=== PATIENT | male | born 1940 | race Caucasian/White ===

== ENCOUNTER 2020-10-17 16:50 | Inpatient (IN) | payer MEDICARE, SELFPAY ==
[2020-10-17] VITALS (9 sets, daily range): BP systolic 131–159; BP diastolic 57–78; PULSE 82–97; RESP 19–30; TEMP 37.2–38.3; O2SAT 91–100; BMI 19.8
--- NOTE | ~2020-10-17 | XR_ITS ---
EXAMINATION: XR CHEST CLINICAL INFORMATION: Shortness of breath. COMPARISON: 04/14/2020 chest radiograph. TECHNIQUE: Frontal view of the chest was obtained. FINDINGS: Support devices: Left-sided single-lead pacemaker device with lead terminating in the right ventricle without significant change. There is been interval increase in pulmonary vascular markings with bilateral patchy infiltrates. The heart and mediastinal structures are unremarkable. XR/XR chest 1V IMPRESSION: Pulmonary findings suggest CHF. An infectious/inflammatory process would be less likely.
--- NOTE | ~2020-10-17 | CT_ITS ---
EXAMINATION: CT ANGIOGRAM CHEST WITH AND WITHOUT CONTRAST (CT PULMONARY ANGIOGRAM FOR PE) CLINICAL INFORMATION: Severe hypoxia. Question saddle emboli. COMPARISON: CT chest done earlier the same day. TECHNIQUE: Prior to contrast administration, noncontrast localization images were obtained. Subsequently, multidetector volumetric imaging was performed from the thoracic inlet to below the diaphragms following the administration of 55 mL Omnipaque 350 intravenous contrast. No contrast reaction reported. Sagittal, coronal, and MIP oblique sagittal reformatted images were obtained on the CT workstation, uploaded to PACS, and reviewed. This CT examination was performed using dose optimization techniques as appropriate, variously including the following: *Automated exposure control. *Adjustment of mA and/or kV according to patient size (this includes techniques or standardized protocols for targeted exams where dose is matched to indication/reason for exam; i.e. extremities or head). *Use of iterative reconstruction technique. Total exam dose-length product 342 mGy-cm. FINDINGS: QUALITY OF STUDY/CONTRAST BOLUS: Satisfactory. PULMONARY ARTERIES: No central or segmental pulmonary emboli. Dilatation of the central pulmonary arteries, which could indicate a degree of pulmonary hypertension. THORACIC AORTA: No thoracic aortic dilatation or dissection. Scattered atherosclerotic calcifications. LUNG: Bilateral airspace opacities, most significant within the upper lobes, similar when compared to the chest radiograph done earlier the same day. No significant interval change. The central airways are patent. PLEURA: Moderate bilateral pleural effusions, unchanged. No pneumothorax. MEDIASTINUM: No cardiomegaly. No pericardial effusion. Stable, enlarged superior mediastinal lymph nodes, the largest of which is anterior to the right mainstem bronchus measuring 1.5 x 2.8 cm. No evidence of septal bowing or right heart strain. CHEST WALL/AXILLA: Left chest wall pacer with its leads in the right heart. No significant axillary lymphadenopathy. OSSEOUS STRUCTURES: Redemonstration of a chronic sternal fracture. No new lytic or blastic osseous lesion. No acute fracture. UPPER ABDOMEN: Unremarkable. No reflux of contrast into the hepatic veins to suggest elevated right heart pressures. CT/CT angio chest PE protocol IMPRESSION: 1. No CT angiographic evidence of acute pulmonary embolism. 2. Moderate bilateral pleural effusions with bilateral ground-glass airspace opacities, not significantly changed when compared to the prior examination. Findings can be seen in the setting of an infectious or inflammatory process. Alternatively, findings can be seen in the setting of fluid overload. 3. Dilatation of the central pulmonary arteries which could indicate a degree of pulmonary hypertension. 4. Redemonstration of prominent superior mediastinal lymph nodes. VTE: Negative.
--- NOTE | ~2020-10-17 | CT_ITS ---
EXAMINATION: CT HEAD WITHOUT CONTRAST CT CERVICAL SPINE WITHOUT CONTRAST CT CHEST WITHOUT CONTRAST CLINICAL INFORMATION: Fall. Multifocal pneumonia. COMPARISON: CT head and cervical spine dated 04/14/2020 TECHNIQUE: Multidetector CT imaging of the head, cervical spine and chest was performed without the use of intravenous contrast. Multiplanar reformats are reviewed. This CT examination was performed using dose optimization techniques as appropriate, variously including the following: *Automated exposure control *Adjustment of mA and/or kV according to patient size (this includes techniques or standardized protocols for targeted exams where dose is matched to indication/reason for exam; i.e. extremities or head) *Use of iterative reconstruction technique DLP: 1334 mGy-cm. FINDINGS: HEAD: There is no evidence of acute intracranial hemorrhage or territorial infarction. No abnormal mass effect or midline shift is seen. [place] to white matter differentiation is well preserved. No extra-axial fluid collections are identified. The ventricles are normal in size. Mild patchy subcortical and periventricular white matter low-attenuation changes statistically related to small vessel ischemic disease. The osseous structures and soft tissues are normal. The mastoid air cells and visualized portions of the paranasal sinuses are well-aerated. CERVICAL SPINE: Atlantooccipital alignment is maintained. The vertebral bodies and posterior elements align normally. No acute fracture or subluxation. Vertebral body heights maintained. Small endplate osteophytes present throughout the cervical spine. Facet arthropathy throughout the cervical spine, most probably on the left from C3 to C6. No central canal or foraminal narrowing. The paraspinal soft tissues are unremarkable. CHEST: There are patchy airspace opacities predominating within the upper lobes bilaterally, right greater than left. Diffuse intralobular septal thickening is present. Moderate bilateral pleural effusions with accompanying atelectasis. Pneumatoceles present within the lower lobes bilaterally. Cardiomegaly. Triple vessel coronary calcifications. Main pulmonary artery is dilated to 4 cm suggestive of pulmonary hypertension. Anemia is evident. There is a 1.1 cm precarinal lymph node, and shotty subcarinal and bilateral hilar lymph nodes. Chest wall and axilla are unremarkable. Imaged upper abdomen unremarkable. No acute fractures. There is a chronic transversely oriented fracture through the superior mediastinum with mild posterior displacement of the upper sternal fracture fragment, and associated callus formation and sclerosis. No retrosternal hematoma. Endplate ossified present throughout the cervical spine. Vertebral body heights maintained. CT/CT cervical spine wo con IMPRESSION: HEAD: * No acute intracranial pathology. * Mild chronic white matter small vessel ischemic changes. CERVICAL SPINE: * No cervical spine fracture or malalignment. * Cervical spondylosis as described. CHEST: * Upper lobe predominant patchy airspace opacities, coalescent and groundglass appearance along with interlobular septal thickening could be compatible with cardiogenic pulmonary edema or multifocal (atypical) pneumonia. * Moderate bilateral pleural effusions and accompanying atelectasis. * Cardiomegaly and evidence of pulmonary hypertension. * Triple vessel coronary calcifications. * Mild mediastinal and bilateral hilar adenopathy, reactive to either fluid overload and/or infection. * Chronic mildly displaced upper sternal fracture as described.
--- NOTE | 2020-10-17 17:06 | ECG_ITS ---
Test Reason : SHORTNESS OF BREATH Blood Pressure : / mmHG Vent. Rate : 089 BPM Atrial Rate : 089 BPM P-R Int : 184 ms QRS Dur : 100 ms QT Int : 334 ms P-R-T Axes : 053 007 098 degrees QTc Int : 406 ms Normal sinus rhythm Anterior infarct (cited on or before 22-AUG-2011) ST & T wave abnormality, consider lateral ischemia Abnormal ECG When compared with ECG of 18-MAR-2013 08:32, No significant change was found Referred By: Sam Farnsworth Electronically Signed By:MAGDALENE KHAN
--- NOTE | 2020-10-17 17:12 | ED.SOB ---
HPI - SOB/Dyspnea General Chief Complaint: Dyspnea Stated Complaint: shortness of breath Time Seen by Provider: 10/17/20 17:06 Source: patient and EMS Mode of arrival: EMS Limitations: no limitations History of Present Illness HPI Narrative: Patient is with history of coronary artery disease congestive heart failure became increasingly short of breath since earlier today denies any chest pain no fever having dry cough. 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 Patient been complaining of cough for last few days with mucoid phlegm no fever no shivering MD elicited complaint: shortness of breath Pertinent past history: congestive heart failure and diabetes Onset (ago): hour(s) Timing: constant Severity: severe Related Data Home Medications Medication Instructions Recorded Confirmed aspirin 81 mg PO DAILY 10/17/20 10/17/20 atorvastatin 1 tab PO DAILY 10/17/20 10/17/20 cyanocobalamin (vitamin B-12) 1 tab PO DAILY 10/17/20 10/17/20 [Vitamin B-12] lisinopril 1 tab PO DAILY 10/17/20 10/17/20 metformin 1 tab PO BID 10/17/20 10/17/20 metoprolol succinate 1 tab PO DAILY 10/17/20 10/17/20 Allergies Allergy/AdvReac Type Severity Reaction Status Date / Time No Known Allergies Allergy Unverified 04/15/20 15:18 Review of Systems Review of Systems: Constitutional : No Weight loss, No Fever, No Chills ENT/Mouth : No sore throat, No Rhinorrhea Eyes: No Eye Pain, No Swelling Cardiovascular : No Chest Pain, no palpitations Respiratory : ++Cough, ++ mucoid Sputum, ++ shortness of breath Gastrointestinal : no Nausea, No Vomiting, No Diarrhea, No abdominal Pain, no black stools Genitourinary : No Dysuria, No Urinary Frequency Musculoskeletal : No joint pain, No Myalgias, No Joint Swelling Skin : No Skin Lesions, No rash Neuro : No Weakness, No Numbness, No Dizziness, No Headache Psych : No Anxiety/Panic, No Depression Heme/Lymph: No Bruising, No Lymphadenopathy Endocrine : No Polyuria, No Polydipsia All other systems reviewed and are negative [facility] Past Medical History Medical History (Updated 10/18/20 @ 01:07 by Sam Farnsworth MD) Basal cell carcinoma of skin Congestive heart failure Diabetes 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 Hyperlipidemia 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, old Paroxysmal A-fib Surgical History (Updated 10/17/20 @ 17:43 by Sam Farnsworth MD) H/O heart artery stent Social History Social History Advance Directives: No Advance Directives Information Provided: No Physical Exam Vital Signs: Vital Signs: Last Vital Signs Temp 98.7 F 10/18/20 01:02 Pulse 90 10/18/20 01:02 Resp 35 H 10/18/20 01:02 BP 151/79 H 10/18/20 01:02 Pulse Ox 93 10/17/20 23:32 Body Mass Index 19.8 Const: General: alert, in distress and ill appearing Nutritional Appearance: thin Orientation/consciousness: patient oriented x3 HENMT: Head: Yes normocephalic and Yes atraumatic Mouth: Normal oral and palatal mucosa present Eyes: General: appearance normal, both eyes and all related structures Neck: Neck: Yes normal visual inspection, Yes full ROM, Yes no lymphadenopathy and No midline deformity Chest: Chest palpation & inspection: normal palpation of entire chest wall Resp: Effort & Inspection: Actively coughing and labored Auscultation: crackles bilateral and diffuse and rales bilateral and diffuse Cardio: Jugular venous distension: no JVD Rate: regular rate Rhythm: regular rhythm Heart sounds: S1 normal heart sound present and S2 normal heart sound present Peripheral pulses: Peripheral pulses 2+ throughout GI: Inspection: Yes normal to inspection Palpation (GI): Soft to palpation and nontender Auscultation: normal bowel sounds Rectal Exam - Male: Yes visual inspection normal, Yes normal sphincter tone and Yes heme negative stool : General: Yes no CVA tenderness Back/Spine/Pelvis: Back: no CVA tenderness Thoracic/Lumbar Spine: thoracic and lumbar spine normal to inspection Skin: General skin exam: no rashes or lesions noted Neuro: General: patient oriented x3, moves all extremities and no focal motor deficits Extrem: General: Yes normal to inspection, Yes no calf tenderness and No pedal edema Course Reevaluation(s) Reevaluation #1: Patient placed on CPAP feeling much better now saturating 95% on 80% CPAP planning for him to go to ICU Time: 00:46 MDM - SOB/Dyspnea MDM Narrative Medical decision making narrative: Patient has significant shortness of breath with significant anemia leukocytosis and lactic acidosis but normal procalcitonin occult blood was negative no significant abdominal pain etiology of acute anemia is not very clear chest CT scan showed bilateral infiltrate versus pulmonary edema without PE patient received IV antibiotic IV fluid were restricted as likely elevated lactic acidosis from the hypoxia. Patient also received IV Lasix. . Patient is still requiring high amount of oxygen. ABG showed significant hypoxia without any hypercapnia. Patient also received 1 unit of blood. Case discussed Dr. banuelos for envelope fold operator will place the patient in ICU placed him on CPAP add antibiotic Levaquin given DuoNeb treatment give another unit of blood , code status was discussed with patient in detail he wants to be intubated if it helps and agreed for CPR Differential Diagnosis Differential diagnosis: Likely congestive heart failure and pneumonia Medical Records Attestation: I reviewed the patient's medical records. Lab Data Attestation: I reviewed the patient's lab results. Result diagrams: 10/17/20 17:46 10/17/20 17:46 Labs: Lab Results 10/17/20 10/17/20 10/17/20 Range/Units 17:46 17:46 17:46 WBC 18.9 H (4.8-10.8) X10*3/uL RBC 3.11 L (4.60-5.80) X10*6/uL Hgb 6.7 L* (14.0-18.0) g/dl Hct 24.0 L (42-52) % MCV 77.2 L (80-98) fL MCH 21.5 L (27.0-33.0) pg MCHC 27.9 L (31.0-36.0) g/dl RDW 18.7 H (11.0-16.0) % Plt Count 231 (160-400) X10*3/uL MPV 10.4 (9.4-12.4) fL Immature Gran % (Auto) 0.9 H (0.0-0.4) % Neut % (Auto) 82.4 H (45-73) % Lymph % (Auto) 7.6 L (20-40) % Jackson % (Auto) 8.5 (2-11) % Eos % (Auto) 0.4 (0-4) % Baso % (Auto) 0.2 (0-2) % Lymph # (Auto) 1.4 (1.2-4.9) X10*3/uL Jackson # (Auto) 1.6 H (0.1-1.2) X10*3/uL Eos # (Auto) 0.1 (0.0-0.4) X10*3/uL Baso # (Auto) 0.0 (0.0-0.2) X10*3/uL Abs Immat Gran (auto) 0.17 H (0.00-0.03) X10*3/uL Absolute Neuts (auto) 15.6 H (2.0-8.3) X10*3/uL Absolute Nucleated RBC 0.030 H (0.0-0.012) X10*3/uL Nucleated RBC % (auto) 0.2 (0.0-0.2) /100WBC Smear Tech's Comments VERIFIED PT 13.3 H (10.8-13.0) SEC INR 1.1 (0.9-1.1) APTT 25.4 (24.1-38.0) SEC D-Dimer NG/ML O2 Saturation % ABG pH at Pt Temp (7.35-7.45) ABG pH (Temp Correct) (7.35-7.45) ABG pCO2 at Pt Temp (32-45) mmHg ABG pCO2 (Temp Corrct (32-45) mmHg ABG pO2 at Pt Temp (83-108) mmHg ABG pO2 (Temp Correct (83-108) ABG HCO3 (22-26) mmol/L ABG Base Excess (Actual) mmol/L Sodium 136 (135-145) mmol/L Potassium 5.8 H (3.3-5.1) mmol/L Chloride 103 (96-108) mmol/L Carbon Dioxide 19 L (22-29) mmol/L Anion Gap 20 (12-20) BUN 28 H (9-16) mg/dL Creatinine 1.15 (0.5-1.4) mg/dL Estim Creat Clear Calc 41.3 Estimated GFR > 60 Random Glucose 240 H (60-115) mg/dL Lactic Acid (0.5-2.0) mmol/L Lactic Acid Fup @ 2Hr (0.5-2.0) mmol/L Calcium 8.8 (8.4-10.2) mg/dL Ferritin 11 L (20-250) ng/mL Total Bilirubin 0.5 (0.0-1.0) mg/dL Direct Bilirubin 0.3 (0.0-0.5) mg/dL AST 26 (5-37) U/L ALT 19 (0-40) U/L Alkaline Phosphatase 49 (39-117) U/L Lactate Dehydrogenase 234 (118-273) U/L Troponin I High Sens (<3.5-35.0) ng/L C-Reactive Protein 0.28 (< or = 0.50) mg/dL B-Natriuretic Peptide (<100) pg/mL Total Protein 7.1 (6.5-8.0) g/dL Albumin 4.0 (3.5-5.0) g/dL Procalcitonin ng/mL Urine Color Urine Appearance Urine pH (5.0-8.0) Ur Specific [place] (1.005-1.025) Urine Protein (NEG-TRACE) MG/DL Urine Glucose (UA) (NEG) MG/DL Urine Ketones (NEG) MG/DL Urine Blood (NEG) Urine Nitrite (NEG) Ur Leukocyte Esterase (NEG) Stool Occult Blood (NEGATIVE) Coronavirus (PCR) (Negative) COVID-19 (MARISOL) (Negative) COVID-19 Clin Com Influenza Type A (PCR) (Negative) Influenza Type B (PCR) (Negative) RSV RNA Qual (PCR) (Negative) Blood Type Antibody Screen Crossmatch 10/17/20 10/17/20 10/17/20 Range/Units 17:46 17:46 17:46 WBC (4.8-10.8) X10*3/uL RBC (4.60-5.80) X10*6/uL Hgb (14.0-18.0) g/dl Hct (42-52) % MCV (80-98) fL MCH (27.0-33.0) pg MCHC (31.0-36.0) g/dl RDW (11.0-16.0) % Plt Count (160-400) X10*3/uL MPV (9.4-12.4) fL Immature Gran % (Auto) (0.0-0.4) % Neut % (Auto) (45-73) % Lymph % (Auto) (20-40) % [place] % (Auto) (2-11) % Eos % (Auto) (0-4) % Baso % (Auto) (0-2) % Lymph # (Auto) (1.2-4.9) X10*3/uL [place] # (Auto) (0.1-1.2) X10*3/uL Eos # (Auto) (0.0-0.4) X10*3/uL Baso # (Auto) (0.0-0.2) X10*3/uL Abs Immat Gran (auto) (0.00-0.03) X10*3/uL Absolute Neuts (auto) (2.0-8.3) X10*3/uL Absolute Nucleated RBC (0.0-0.012) X10*3/uL Nucleated RBC % (auto) (0.0-0.2) /100WBC Smear Tech's Comments PT (10.8-13.0) SEC INR (0.9-1.1) APTT (24.1-38.0) SEC D-Dimer 3264 NG/ML O2 Saturation % ABG pH at Pt Temp (7.35-7.45) ABG pH (Temp Correct) (7.35-7.45) ABG pCO2 at Pt Temp (32-45) mmHg ABG pCO2 (Temp Corrct (32-45) mmHg ABG pO2 at Pt Temp (83-108) mmHg ABG pO2 (Temp Correct (83-108) ABG HCO3 (22-26) mmol/L ABG Base Excess (Actual) mmol/L Sodium (135-145) mmol/L Potassium (3.3-5.1) mmol/L Chloride (96-108) mmol/L Carbon Dioxide (22-29) mmol/L Anion Gap (12-20) BUN (9-16) mg/dL Creatinine (0.5-1.4) mg/dL Estim Creat Clear Calc Estimated GFR Random Glucose (60-115) mg/dL Lactic Acid 3.5 H* (0.5-2.0) mmol/L Lactic Acid Fup @ 2Hr (0.5-2.0) mmol/L Calcium (8.4-10.2) mg/dL Ferritin (20-250) ng/mL Total Bilirubin (0.0-1.0) mg/dL Direct Bilirubin (0.0-0.5) mg/dL AST (5-37) U/L ALT (0-40) U/L Alkaline Phosphatase (39-117) U/L Lactate Dehydrogenase (118-273) U/L Troponin I High Sens 17.6 (<3.5-35.0) ng/L C-Reactive Protein (< or = 0.50) mg/dL B-Natriuretic Peptide 1377 H (<100) pg/mL Total Protein (6.5-8.0) g/dL Albumin (3.5-5.0) g/dL Procalcitonin ng/mL Urine Color Urine Appearance Urine pH (5.0-8.0) Ur Specific [place] (1.005-1.025) Urine Protein (NEG-TRACE) MG/DL Urine Glucose (UA) (NEG) MG/DL Urine Ketones (NEG) MG/DL Urine Blood (NEG) Urine Nitrite (NEG) Ur Leukocyte Esterase (NEG) Stool Occult Blood (NEGATIVE) Coronavirus (PCR) (Negative) COVID-19 (MARISOL) (Negative) COVID-19 Clin Com Influenza Type A (PCR) (Negative) Influenza Type B (PCR) (Negative) RSV RNA Qual (PCR) (Negative) Blood Type Antibody Screen Crossmatch 10/17/20 10/17/20 10/17/20 Range/Units 17:46 17:50 18:40 WBC (4.8-10.8) X10*3/uL RBC (4.60-5.80) X10*6/uL Hgb (14.0-18.0) g/dl Hct (42-52) % MCV (80-98) fL MCH (27.0-33.0) pg MCHC (31.0-36.0) g/dl RDW (11.0-16.0) % Plt Count (160-400) X10*3/uL MPV (9.4-12.4) fL Immature Gran % (Auto) (0.0-0.4) % Neut % (Auto) (45-73) % Lymph % (Auto) (20-40) % [place] % (Auto) (2-11) % Eos % (Auto) (0-4) % Baso % (Auto) (0-2) % Lymph # (Auto) (1.2-4.9) X10*3/uL [place] # (Auto) (0.1-1.2) X10*3/uL Eos # (Auto) (0.0-0.4) X10*3/uL Baso # (Auto) (0.0-0.2) X10*3/uL Abs Immat Gran (auto) (0.00-0.03) X10*3/uL Absolute Neuts (auto) (2.0-8.3) X10*3/uL Absolute Nucleated RBC (0.0-0.012) X10*3/uL Nucleated RBC % (auto) (0.0-0.2) /100WBC Smear Tech's Comments PT (10.8-13.0) SEC INR (0.9-1.1) APTT (24.1-38.0) SEC D-Dimer NG/ML O2 Saturation % ABG pH at Pt Temp (7.35-7.45) ABG pH (Temp Correct) (7.35-7.45) ABG pCO2 at Pt Temp (32-45) mmHg ABG pCO2 (Temp Corrct (32-45) mmHg ABG pO2 at Pt Temp (83-108) mmHg ABG pO2 (Temp Correct (83-108) ABG HCO3 (22-26) mmol/L ABG Base Excess (Actual) mmol/L Sodium (135-145) mmol/L Potassium (3.3-5.1) mmol/L Chloride (96-108) mmol/L Carbon Dioxide (22-29) mmol/L Anion Gap (12-20) BUN (9-16) mg/dL Creatinine (0.5-1.4) mg/dL Estim Creat Clear Calc Estimated GFR Random Glucose (60-115) mg/dL Lactic Acid (0.5-2.0) mmol/L Lactic Acid Fup @ 2Hr (0.5-2.0) mmol/L Calcium (8.4-10.2) mg/dL Ferritin (20-250) ng/mL Total Bilirubin (0.0-1.0) mg/dL Direct Bilirubin (0.0-0.5) mg/dL AST (5-37) U/L ALT (0-40) U/L Alkaline Phosphatase (39-117) U/L Lactate Dehydrogenase (118-273) U/L Troponin I High Sens (<3.5-35.0) ng/L C-Reactive Protein (< or = 0.50) mg/dL B-Natriuretic Peptide (<100) pg/mL Total Protein (6.5-8.0) g/dL Albumin (3.5-5.0) g/dL Procalcitonin 0.04 ng/mL Urine Color Urine Appearance Urine pH (5.0-8.0) Ur Specific [place] (1.005-1.025) Urine Protein (NEG-TRACE) MG/DL Urine Glucose (UA) (NEG) MG/DL Urine Ketones (NEG) MG/DL Urine Blood (NEG) Urine Nitrite (NEG) Ur Leukocyte Esterase (NEG) Stool Occult Blood (NEGATIVE) Coronavirus (PCR) (Negative) COVID-19 (MARISOL) Negative (Negative) COVID-19 Clin Com See Note Influenza Type A (PCR) (Negative) Influenza Type B (PCR) (Negative) RSV RNA Qual (PCR) (Negative) Blood Type A Positive Antibody Screen NEGATIVE Crossmatch See Detail 10/17/20 10/17/20 10/17/20 Range/Units 18:44 18:44 19:23 WBC (4.8-10.8) X10*3/uL RBC (4.60-5.80) X10*6/uL Hgb (14.0-18.0) g/dl Hct (42-52) % MCV (80-98) fL MCH (27.0-33.0) pg MCHC (31.0-36.0) g/dl RDW (11.0-16.0) % Plt Count (160-400) X10*3/uL MPV (9.4-12.4) fL Immature Gran % (Auto) (0.0-0.4) % Neut % (Auto) (45-73) % Lymph % (Auto) (20-40) % [place] % (Auto) (2-11) % Eos % (Auto) (0-4) % Baso % (Auto) (0-2) % Lymph # (Auto) (1.2-4.9) X10*3/uL [place] # (Auto) (0.1-1.2) X10*3/uL Eos # (Auto) (0.0-0.4) X10*3/uL Baso # (Auto) (0.0-0.2) X10*3/uL Abs Immat Gran (auto) (0.00-0.03) X10*3/uL Absolute Neuts (auto) (2.0-8.3) X10*3/uL Absolute Nucleated RBC (0.0-0.012) X10*3/uL Nucleated RBC % (auto) (0.0-0.2) /100WBC Smear Tech's Comments PT (10.8-13.0) SEC INR (0.9-1.1) APTT (24.1-38.0) SEC D-Dimer NG/ML O2 Saturation % ABG pH at Pt Temp (7.35-7.45) ABG pH (Temp Correct) (7.35-7.45) ABG pCO2 at Pt Temp (32-45) mmHg ABG pCO2 (Temp Corrct (32-45) mmHg ABG pO2 at Pt Temp (83-108) mmHg ABG pO2 (Temp Correct (83-108) ABG HCO3 (22-26) mmol/L ABG Base Excess (Actual) mmol/L Sodium (135-145) mmol/L Potassium (3.3-5.1) mmol/L Chloride (96-108) mmol/L Carbon Dioxide (22-29) mmol/L Anion Gap (12-20) BUN (9-16) mg/dL Creatinine (0.5-1.4) mg/dL Estim Creat Clear Calc Estimated GFR Random Glucose (60-115) mg/dL Lactic Acid (0.5-2.0) mmol/L Lactic Acid Fup @ 2Hr (0.5-2.0) mmol/L Calcium (8.4-10.2) mg/dL Ferritin (20-250) ng/mL Total Bilirubin (0.0-1.0) mg/dL Direct Bilirubin (0.0-0.5) mg/dL AST (5-37) U/L ALT (0-40) U/L Alkaline Phosphatase (39-117) U/L Lactate Dehydrogenase (118-273) U/L Troponin I High Sens (<3.5-35.0) ng/L C-Reactive Protein (< or = 0.50) mg/dL B-Natriuretic Peptide (<100) pg/mL Total Protein (6.5-8.0) g/dL Albumin (3.5-5.0) g/dL Procalcitonin ng/mL Urine Color STRAW Urine Appearance CLEAR Urine pH 5.5 (5.0-8.0) Ur Specific [place] 1.020 (1.005-1.025) Urine Protein NEG (NEG-TRACE) MG/DL Urine Glucose (UA) NEG (NEG) MG/DL Urine Ketones NEG (NEG) MG/DL Urine Blood NEG (NEG) Urine Nitrite NEG (NEG) Ur Leukocyte Esterase NEG (NEG) Stool Occult Blood NEGATIVE (NEGATIVE) Coronavirus (PCR) NEGATIVE (Negative) COVID-19 ([facility]) (Negative) COVID-19 Clin Com Influenza Type A (PCR) NEGATIVE (Negative) Influenza Type B (PCR) NEGATIVE (Negative) RSV RNA Qual (PCR) NEGATIVE (Negative) Blood Type Antibody Screen Crossmatch 10/17/20 10/17/20 10/17/20 Range/Units 20:36 23:11 23:46 WBC (4.8-10.8) X10*3/uL RBC (4.60-5.80) X10*6/uL Hgb (14.0-18.0) g/dl Hct (42-52) % MCV (80-98) fL MCH (27.0-33.0) pg MCHC (31.0-36.0) g/dl RDW (11.0-16.0) % Plt Count (160-400) X10*3/uL MPV (9.4-12.4) fL Immature Gran % (Auto) (0.0-0.4) % Neut % (Auto) (45-73) % Lymph % (Auto) (20-40) % [place] % (Auto) (2-11) % Eos % (Auto) (0-4) % Baso % (Auto) (0-2) % Lymph # (Auto) (1.2-4.9) X10*3/uL [place] # (Auto) (0.1-1.2) X10*3/uL Eos # (Auto) (0.0-0.4) X10*3/uL Baso # (Auto) (0.0-0.2) X10*3/uL Abs Immat Gran (auto) (0.00-0.03) X10*3/uL Absolute Neuts (auto) (2.0-8.3) X10*3/uL Absolute Nucleated RBC (0.0-0.012) X10*3/uL Nucleated RBC % (auto) (0.0-0.2) /100WBC Smear Tech's Comments PT (10.8-13.0) SEC INR (0.9-1.1) APTT (24.1-38.0) SEC D-Dimer NG/ML O2 Saturation 88.0 % ABG pH at Pt Temp 7.27 L (7.35-7.45) ABG pH (Temp Correct) 7.26 L (7.35-7.45) ABG pCO2 at Pt Temp 44 (32-45) mmHg ABG pCO2 (Temp Corrct 44 (32-45) mmHg ABG pO2 at Pt Temp 66 L (83-108) mmHg ABG pO2 (Temp Correct 67 L (83-108) ABG HCO3 20 L (22-26) mmol/L ABG Base Excess (Actual) -6.0 mmol/L Sodium (135-145) mmol/L Potassium (3.3-5.1) mmol/L Chloride (96-108) mmol/L Carbon Dioxide (22-29) mmol/L Anion Gap (12-20) BUN (9-16) mg/dL Creatinine (0.5-1.4) mg/dL Estim Creat Clear Calc Estimated GFR Random Glucose (60-115) mg/dL Lactic Acid (0.5-2.0) mmol/L Lactic Acid Fup @ 2Hr 2.0 (0.5-2.0) mmol/L Calcium (8.4-10.2) mg/dL Ferritin (20-250) ng/mL Total Bilirubin (0.0-1.0) mg/dL Direct Bilirubin (0.0-0.5) mg/dL AST (5-37) U/L ALT (0-40) U/L Alkaline Phosphatase (39-117) U/L Lactate Dehydrogenase (118-273) U/L Troponin I High Sens 108.4 H D (<3.5-35.0) ng/L C-Reactive Protein (< or = 0.50) mg/dL B-Natriuretic Peptide (<100) pg/mL Total Protein (6.5-8.0) g/dL Albumin (3.5-5.0) g/dL Procalcitonin ng/mL Urine Color Urine Appearance Urine pH (5.0-8.0) Ur Specific [place] (1.005-1.025) Urine Protein (NEG-TRACE) MG/DL Urine Glucose (UA) (NEG) MG/DL Urine Ketones (NEG) MG/DL Urine Blood (NEG) Urine Nitrite (NEG) Ur Leukocyte Esterase (NEG) Stool Occult Blood (NEGATIVE) Coronavirus (PCR) (Negative) COVID-19 ([facility]IS[facility]) (Negative) COVID-19 Clin Com Influenza Type A (PCR) (Negative) Influenza Type B (PCR) (Negative) RSV RNA Qual (PCR) (Negative) Blood Type Antibody Screen Crossmatch ECG Data Attestation: I personally reviewed and interpreted this ECG as follows: Interpretation: Normal sinus rhythm heart rate 89 beats per minute poor progression of R-waves T inversion in lateral leads no acute ST elevation Critical Care Time Critical Care Time Critical Care Time: Yes Total Critical Care Time: 65 Attestation: I spent 65 minutes of critical care, with interventions, assessments, speaking to patient, consultants, and family. Discharge Plan Discharge Clinical Impression: Hypoxia, Acute hyperkalemia, Severe anemia Congestive heart failure Qualifiers: Heart failure type: combined systolic and diastolic Heart failure chronicity: acute Qualified Code(s): I50.41 - Acute combined systolic (congestive) and diastolic (congestive) heart failure Community acquired pneumonia Qualifiers: Laterality: unspecified laterality Qualified Code(s): J18.9 - Pneumonia, unspecified organism Patient Disposition: Admitted As Inpatient
[2020-10-17] MEDS: Furosemide 20 MG/2 ML VIAL IVPUSH (17:36)
[2020-10-17 17:53] LABS: Mean Corpuscular HGB Conc 27.9 g/dl (31.0-36.0); White Blood Count 18.9 X10*3/uL (4.8-10.8)
[2020-10-17 18:00] LABS: Basophils Percent Auto 0.2 % (0-2); Eosinophils Absolute Auto 0.1 X10*3/uL (0.0-0.4); Eosinophils Percent Auto 0.4 % (0-4); Imm Gran Abs Auto 0.17 X10*3/uL (0.00-0.03); Imm Gran Pct Auto 0.9 % (0.0-0.4); Lymphocytes Absolute Auto 1.4 X10*3/uL (1.2-4.9); Lymphocytes Percent Auto 7.6 % (20-40); MANUAL DIFF FLAG SCAN; Mean Corpuscular Hemoglobin 21.5 pg (27.0-33.0); Mean Corpuscular Volume 77.2 fL (80-98); Mean Platelet Volume 10.4 fL (9.4-12.4); Monocytes Absolute Auto 1.6 X10*3/uL (0.1-1.2); Monocytes Percent Auto 8.5 % (2-11); NRBC Pct Auto 0.2 /100WBC (0.0-0.2); Neutrophils Absolute Auto 15.6 X10*3/uL (2.0-8.3); Neutrophils Percent Auto 82.4 % (45-73); Platelet Count 231 X10*3/uL (160-400); Red Blood Count 3.11 X10*6/uL (4.60-5.80); Red Cell Distribution Width 18.7 % (11.0-16.0); SCAN SMEAR FLAG 1
[2020-10-17 18:08] LABS: COVID-19 Test Negative (Negative); IDNOW Serial# 9DD0AD1C
[2020-10-17 18:11] LABS: INTERNATIONAL NORM RATIO 1.1 (0.9-1.1); Prothrombin Time 13.3 SEC (10.8-13.0)
[2020-10-17 18:13] LABS: Hemoglobin 6.7 g/dl (14.0-18.0)
[2020-10-17 18:14] LABS: Partial Thromboplastin Time 25.4 SEC (24.1-38.0)
[2020-10-17 18:15] LABS: Alanine Aminotransferase 19 U/L (0-40); Alkaline Phosphatase 49 U/L (39-117); Anion Gap 20 (12-20); Aspartate Amino Transferase 26 U/L (5-37); Bilirubin Direct 0.3 mg/dL (0.0-0.5); Bilirubin Total 0.5 mg/dL (0.0-1.0); Blood Urea Nitrogen 28 mg/dL (9-16); Calcium 8.8 mg/dL (8.4-10.2); Carbon Dioxide 19 mmol/L (22-29); Chloride 103 mmol/L (96-108); Creatinine Clr Calc Pharmacy 41.3; Estimated Glomerular Filt Rate > 60; Glucose Random 240 mg/dL (60-115); Potassium 5.8 mmol/L (3.3-5.1); Sodium 136 mmol/L (135-145); Total Protein 7.1 g/dL (6.5-8.0)
[2020-10-17 18:18] LABS: B Type Natriuretic Peptide 1377 pg/mL (<100); Troponin-I High Sensitivity 17.6 ng/L (<3.5-35.0)
[2020-10-17 18:19] LABS: Lactic Acid 3.5 mmol/L (0.5-2.0); SLIDE REVIEW VERIFIED
[2020-10-17 18:55] LABS: OBS Int Ctl Valid YES; OBS1 NEGATIVE (NEGATIVE)
[2020-10-17 18:57] LABS: Appearance Urine CLEAR; Color Urine STRAW; Glucose Urine UA NEG (NEG); Leukocyte Esterase Urine NEG (NEG); Nitrite Urine NEG (NEG); PH 5.5 (5.0-8.0); Urine Blood NEG (NEG); Urine Ketones NEG (NEG); Urine Protein NEG (NEG-TRACE)
[2020-10-17] MEDS: Piperacillin Sodium/Tazobactam 3.375 GM in 0.9 % Sodium Chloride 50 ML IV (19:02)
[2020-10-17 19:51] LABS: Reflex Lactate? Lactic Acid Added
[2020-10-17] MEDS: Sodium Polystyrene Sulfon/Sorb 15 GM/60 ML ORAL.SUSP 30 GM PO (20:04)
[2020-10-17 20:05] LABS: Influenza A PCR NEGATIVE (Negative); Influenza B PCR NEGATIVE (Negative); Resp Syncy Virus RNA Qual PCR NEGATIVE (Negative); SARS COV2 PCR INHOUSE NEGATIVE (Negative)
[2020-10-17] MEDS: 0.9 % Sodium Chloride 1,000 ML 999 ML IVCONT (20:08)
[2020-10-17 20:48] LABS: C Reactive Protein 0.28 mg/dL (< or = 0.50); Lactate Dehydrogenase 234 U/L (118-273)
[2020-10-17 20:56] LABS: D Dimer 3264 NG/ML
[2020-10-17 21:10] LABS: Ferritin 11 ng/mL (20-250)
[2020-10-17 21:16] LABS: Procalcitonin 0.04 ng/mL
[2020-10-17 23:18] LABS: ABG Refer to POC result; ABG HCO3 20 mmol/L (22-26); ABG pCO2 44 mmHg (32-45); ABG pCO2 TC 44 mmHg (32-45); ABG pH 7.27 (7.35-7.45); ABG pH TC 7.26 (7.35-7.45); ABG pO2 66 mmHg (83-108); ABG pO2 TC 67 (83-108)
[2020-10-17] MEDS: Furosemide 40 MG/4 ML VIAL IVPUSH (23:31)
[2020-10-18] VITALS (35 sets, daily range): BP systolic 98–151; BP diastolic 44–79; PULSE 66–96; RESP 15–40; TEMP 36.6–38.6; O2SAT 90–100; BMI 19.7
[2020-10-18 00:22] LABS: Troponin-I High Sensitivity 108.4 ng/L (<3.5-35.0)
--- NOTE | 2020-10-18 00:23 | ECG_ITS ---
Test Reason : SOB Blood Pressure : / mmHG Vent. Rate : 087 BPM Atrial Rate : 087 BPM P-R Int : 178 ms QRS Dur : 096 ms QT Int : 362 ms P-R-T Axes : 054 011 094 degrees QTc Int : 435 ms Normal sinus rhythm Septal infarct (cited on or before 22-AUG-2011) ST & T wave abnormality, consider lateral ischemia Abnormal ECG When compared with ECG of 17-OCT-2020 17:17, No significant changes seen Referred By: Sam Farnsworth Electronically Signed By:MAGDALENE KHAN
[2020-10-18] MEDS: Albuterol/Iprat 2.5/0.5MG 3 ML AMPUL.NEB INHALE (00:34)
--- NOTE | 2020-10-18 00:45 | PC.NURSE ---
Patient was placed on CPAP per Dr Farnsworth. Per the patient he wants to be a full code, verified with Dr Farnsworth at bedside
[2020-10-18] MEDS: levoFLOXacin/D5W 500 MG/100 ML PIGGYBACK 100 MG IV (00:53)
--- NOTE | 2020-10-18 01:07 | PC.NURSE ---
second unit of PRBC's are infusing at this time. Patien is tolerating the CPAP well, Sp02 96%, patient reports his breathing feels better
--- NOTE | 2020-10-18 01:26 | PM.CCHP ---
History of Present Illness Date of Service: 10/18/20 Chief Complaint: Sepsis/ CAP/ hypoxic respiratory failure/ CHF HPI: Patient with underlying history of hyperlipidemia, paroxysmal AFib not on blood thinners, hypertension, diabetes, history of coronary artery disease post 3 stents, CHF status post AICD, basal cell carcinoma of the skin presented to the emergency room via EMS after complaining of shortness of breath according to the patient has been sick for the past 2 days and not feeling himself. Patient had been noted to be satting around 60% on room air on arrival by EMS personnel and placed on non-rebreather mask with a temperature of 100.9?. In addition the patient reported having passed out this morning upon coming upstairs from getting some water. Patient was able to get up after about 2 hours and ambulated without any noted injuries, call his sisters and came to emergency room for further care. He admitted to have a cough with white/yellow sputum production, feeling chills but no actual fever. In the ER, the workup revealed a patient who was febrile with a fever 100.9, tachypneic at 28 although maintaining a good blood pressure however was hypoxic as reported by EMS a 60% on room air. His workup revealed a white count 78467, H&H of 6.724 respectively with platelets of 231. Lactic acid 3.5. His potassium was borderline elevated at 5.8 treated with kayexalate; his BUN to creatinine ratio is elevated. His initial exam revealed diffuse crackles, images for trauma survey was negative however his chest CT did show bilateral upper lobe patchy airspace disease question of possibility of cardiogenic pulmonary edema versus multifocal atypical pneumonia, cardiomegaly and evidence of pulmonary hypertension. The patient was given antibiotics but was not given 30 mL/kilogram of fluids due to the concern of fluid overload. Given that the patient continue to have low sats while on non-rebreather 80%, tachypnea he was placed on CPAP. COVID 19 NEGATIVE. They remain to be, the patient corroborates all the above and states that he feels much better after the mass was placed. Denies any current chest pain or palpitations, denies abdominal pain, no history of blood clots, denies any leg edema in the past. Other review systems not possible due to patient's inability to breathe properly or talk well with the mass. ROS: Unable to perform due to respiratory distress Past Medical History: As above Past Surgical History: AICD placement cardiac stent x 3 Family history: Noncontributory Social History: Lives at home CODE STATUS: Full code; this to be reviewed as the patient initially told me he would like no intubation or resuscitation Allergies: No known drug allergies Home Medications: Please see [facility] Sepsis exam done at 0100 am VS: Blood pressure 151/79 heart rate 90 respirations 35 O2 sat 93% on CPAP 15 with FiO2 of 70% temperature 98.7? F ?General: Alert oriented x3 no acute distress. Speaking full sentences. Speech is well articulated, thought process is coherent. Following all commands. ?Skin: AICD device under skin SHAI chest; Intact, no lesions, edema, erythema, clubbing or cyanosis. No ulcers. ?HEENT: Head is normocephalic, atraumatic, pupils equal round reactive to light accommodation bilaterally. Extraocular movements appear intact. Buccal mucosa is moist, Neck is supple without lymphadenopathy. ?Cardiac: Clear S1-S2, no murmurs, rubs, gallops. 1+ JVD ?Pulmonary: Diffuse coarseness and rhonchi of the bilateral lungs mostly anteriorly but also appreciated in the posterior wick with crackles at the bases. No wheezing. ?Abdomen: Protuberant, positive bowel sounds in all 4 quadrants. Soft, nontender, no rebound or guarding. ?Musculoskeletal: Moving all 4 extremities upon request a major joints, there is no crepitus or tenderness. No leg edema and no asymmetry. ?Neurologic: As above, cranial nerves 2-12 are grossly intact. No focal deficits noted. Motor strength as above. ?Vascular: 2+ pulses upper and lower extremities distally. Less than 2nd capillary refill of the fingers and toes SIGNIFICANT LABORATORY DATA: White blood cells 18.9, hemoglobin 6.7, hematocrit 24, platelet 231, MCV 77.2. PT 13.3, INR 1.1. D-dimer 3264. Sodium 136, potassium 5.8, chloride 103, carbon dioxide 19, BUN 28, creatinine 1.15, random glucose 240, lactic acid initially 3.5, repeated 2.0. Urinalysis negative. ABG pH 7.27, pCO2 44, PO2 66, HC03 20, base excess -6. REVIEW OF IMAGES: Chest x-ray IMPRESSION: Pulmonary findings suggest CHF. An infectious/inflammatory process would be less likely. Trauma surgery for head, C-spine and chest CT HEAD: * No acute intracranial pathology. * Mild chronic white matter small vessel ischemic changes. CERVICAL SPINE: * No cervical spine fracture or malalignment. * Cervical spondylosis as described. CHEST: * Upper lobe predominant patchy airspace opacities, coalescent and groundglass appearance along with interlobular septal thickening could be compatible with cardiogenic pulmonary edema or multifocal (atypical) pneumonia. * Moderate bilateral pleural effusions and accompanying atelectasis. * Cardiomegaly and evidence of pulmonary hypertension. * Triple vessel coronary calcifications. * Mild mediastinal and bilateral hilar adenopathy, reactive to either fluid overload and/or infection. * Chronic mildly displaced upper sternal fracture as described. CT angiogram chest IMPRESSION: 1. No CT angiographic evidence of acute pulmonary embolism. 2. Moderate bilateral pleural effusions with bilateral ground-glass airspace opacities, not significantly changed when compared to the prior examination. Findings can be seen in the setting of an infectious or inflammatory process. Alternatively, findings can be seen in the setting of fluid overload. 3. Dilatation of the central pulmonary arteries which could indicate a degree of pulmonary hypertension. 4. Redemonstration of prominent superior mediastinal lymph nodes. VTE: Negative. EKG REVIEW: Sinus rhythm ventricular rate 87 beats per minute. No ST elevations noted, irregular T-wave inversions and possible ST depression loaded on lateral leads. No comparison available. ASSESSMENT AND PLAN: 1. Acute sepsis due to community-acquired pneumonia of the bilateral lungs (COVID 19 Negative) 2. Acute pulmonary edema (L heart Failure) 3. Hypoxic respiratory failure due to the above 4. Acute kidney injury with BUN to creatinine ratio of 27 in the setting of fluid overload and hypoperfussion. 5. Abnormal troponin likely stress reactive (takotsubo), unlikely ACS 6. Microcytic MCV rule out micro bleeding, anemia of chronic disease, iron deficiency, less likely sideroblastic or thalasemic 7. Borderline hyperkalemia due to number 4 8. Multifactorial lactic acidosis including intake of metformin and sepsis 9. Stable essential hypertension Admit to ICU,I and O, vital signs, start Rocephin and Zithromax, blood cultures and sputum culture, gentle force diuresis, CPAP although I think the patient may benefit more from high-flow O2 given his tachypnea and hypoxia. Monitor renal function and discontinue lisinopril for now, recheck laboratories not including a troponin, obtain stool occult blood test, treat elevated potassium if necessary, hold metformin. Nitroglycerin to help with CHF in control of his blood pressure, continue aspirin, statin. Will order 2 units of packed red blood cells and will given Lasix in between. Star opiates for work of breathing. Repeat labs in the morning. 0210 clinical update, the patient is feeling much better, he is no longer on CPAP, he is on a non-rebreather mask satting 95% and comfortable. Receiving his 2nd unit of blood. Lasix was given in between. Once again I clarified the code status, the patient states ?of course I want to stay alive, I was not thinking right when I was with the mask on ===== FULL CODE GI PROPHYLAXIS: Protonix DVT PROPHYLAXIS: Heparin subQ Critical care time used for critical evaluation of this patient, diagnosis, treatment and coordination of care, review her records and documentation TOTAL CRITICAL CARE TIME 90 MIN . Patient's care was discussed in detail with Dr. Willis. He is aware of all the above as well as the plan of care for this patient. [facility] Past Medical History Medical History (Updated 10/18/20 @ 01:07 by Sam Farnsworth MD) Basal cell carcinoma of skin Congestive heart failure Diabetes 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 Hyperlipidemia 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, old Paroxysmal A-fib Surgical History Surgical History (Updated 10/17/20 @ 17:43 by Sam Farnsworth MD) H/O heart artery stent Social History Social History Household Members: Family Housing: House Do you presently have visiting nurse or other home services: No Smoking Status: Former smoker Smoked in Last 30 Days: No Patient Interested in Nicotine Replacement: No Patient Given Instructions on How to Stop Smoking: No (has not smoked since adolsescnece) Second Hand Smoke Exposure: No Use of substances other than those prescribed or required for medical reasons: No Have you been hit, kicked, punched, or otherwise hurt by someone within the past year? If so, by whom?: No Do you feel safe in your current relationship?: Yes Is there a partner from a previous relationship who is making you feel unsafe now?: No Are you made to feel afraid or neglected: No Advance Directives: No Advance Directives Information Provided: No Do you have thoughts of harming others: None Do you have a plan to hurt others: No Plan Meds Allergies Allergy/AdvReac Type Severity Reaction Status Date / Time No Known Allergies Allergy Unverified 04/15/20 15:18 Active Medications: Current Medications Generic Name Dose Route Start Last Admin Trade Name Freq PRN Reason Stop Dose Admin Aspirin 81 mg 10/18/20 09:00 Aspirin 81 Mg Tab.Chew PO DAILY [facility] Atorvastatin Calcium 40 mg 10/18/20 09:00 Atorvastatin Calcium 40 Mg Tablet PO DAILY [facility] Cyanocobalamin 1,000 mcg 10/18/20 09:00 Cyanocobalamin (Vitamin B-12) 1,000 Mcg Tablet PO DAILY [facility] Ceftriaxone Sodium 1 gm/ 50 mls @ 100 mls/hr 10/18/20 09:00 Sodium Chloride IV Q24H [facility] Azithromycin 500 mg/ Sodium 250 mls @ 125 mls/hr 10/18/20 09:00 Chloride IV Q24H [facility] Metoprolol Succinate 50 mg 10/18/20 09:00 Metoprolol Succinate Er 50 Mg Tab.Er.24h PO DAILY [facility] Protocol Nitroglycerin 0.5 inch 10/18/20 01:30 Nitroglycerin 2 % Oint 1 Gm Packet TRANSDERMA Q6H [facility] Home Medications Medication Instructions Recorded Confirmed Last Taken Type aspirin 81 mg PO DAILY 10/17/20 10/17/20 10/17/20 07:00 History atorvastatin 1 tab PO DAILY 10/17/20 10/17/20 10/16/20 20:00 History cyanocobalamin (vitamin B-12) 1 tab PO DAILY 10/17/20 10/17/20 10/17/20 07:00 History [Vitamin B-12] lisinopril 1 tab PO DAILY 10/17/20 10/17/20 10/16/20 20:00 History metformin 1 tab PO BID 10/17/20 10/17/20 10/17/20 07:00 History 1000 metoprolol succinate 1 tab PO DAILY 10/17/20 10/17/20 10/17/20 07:00 History Physical Exam Vital Signs: Vital Signs: Last Vital Signs Temp 97.8 F 10/18/20 01:21 Pulse 81 10/18/20 01:21 Resp 29 H 10/18/20 01:21 BP 106/58 L 10/18/20 01:21 Pulse Ox 91 L 10/18/20 00:00 Body Mass Index 19.8 Results Labs CBC and Chem 7: 10/18/20 02:27 10/18/20 02:27 Labs: Laboratory Results - last 24 hr 10/17/20 10/17/20 10/17/20 17:46 17:46 17:46 MCV 77.2 L MCH 21.5 L MCHC 27.9 L RDW 18.7 H Plt Count 231 MPV 10.4 Immature Gran % (Auto) 0.9 H Neut % (Auto) 82.4 H Lymph % (Auto) 7.6 L Camp % (Auto) 8.5 Eos % (Auto) 0.4 Baso % (Auto) 0.2 Lymph # (Auto) 1.4 Camp # (Auto) 1.6 H Eos # (Auto) 0.1 Baso # (Auto) 0.0 Abs Immat Gran (auto) 0.17 H Absolute Neuts (auto) 15.6 H Absolute Nucleated RBC 0.030 H Nucleated RBC % (auto) 0.2 Smear Tech's Comments VERIFIED PT 13.3 H INR 1.1 APTT 25.4 D-Dimer O2 Saturation ABG pH at Pt Temp ABG pH (Temp Correct) ABG pCO2 at Pt Temp ABG pCO2 (Temp Corrct ABG pO2 at Pt Temp ABG pO2 (Temp Correct ABG HCO3 ABG Base Excess (Actual) Anion Gap 20 Estim Creat Clear Calc 41.3 Estimated GFR > 60 Random Glucose 240 H Lactic Acid Lactic Acid Fup @ 2Hr Calcium 8.8 Ferritin 11 L Total Bilirubin 0.5 Direct Bilirubin 0.3 AST 26 ALT 19 Alkaline Phosphatase 49 Lactate Dehydrogenase 234 Troponin I High Sens C-Reactive Protein 0.28 B-Natriuretic Peptide Total Protein 7.1 Albumin 4.0 Procalcitonin Urine Color Urine Appearance Urine pH Ur Specific [place] Urine Protein Urine Glucose (UA) Urine Ketones Urine Blood Urine Nitrite Ur Leukocyte Esterase Stool Occult Blood Coronavirus (PCR) COVID-19 ([facility]) COVID-19 Clin Com Influenza Type A (PCR) Influenza Type B (PCR) RSV RNA Qual (PCR) Blood Type Antibody Screen Crossmatch 03/21/21 03/21/21 03/21/21 17:46 17:46 17:46 MCV MCH MCHC RDW Plt Count MPV Immature Gran % (Auto) Neut % (Auto) Lymph % (Auto) Camp % (Auto) Eos % (Auto) Baso % (Auto) Lymph # (Auto) Camp # (Auto) Eos # (Auto) Baso # (Auto) Abs Immat Gran (auto) Absolute Neuts (auto) Absolute Nucleated RBC Nucleated RBC % (auto) Smear Tech's Comments PT INR APTT D-Dimer 3264 O2 Saturation ABG pH at Pt Temp ABG pH (Temp Correct) ABG pCO2 at Pt Temp ABG pCO2 (Temp Corrct ABG pO2 at Pt Temp ABG pO2 (Temp Correct ABG HCO3 ABG Base Excess (Actual) Anion Gap Estim Creat Clear Calc Estimated GFR Random Glucose Lactic Acid 3.5 H* Lactic Acid Fup @ 2Hr Calcium Ferritin Total Bilirubin Direct Bilirubin AST ALT Alkaline Phosphatase Lactate Dehydrogenase Troponin I High Sens 17.6 C-Reactive Protein B-Natriuretic Peptide 1377 H Total Protein Albumin Procalcitonin Urine Color Urine Appearance Urine pH Ur Specific [place] Urine Protein Urine Glucose (UA) Urine Ketones Urine Blood Urine Nitrite Ur Leukocyte Esterase Stool Occult Blood Coronavirus (PCR) COVID-19 ([place]) COVID-19 Clin Com Influenza Type A (PCR) Influenza Type B (PCR) RSV RNA Qual (PCR) Blood Type Antibody Screen Crossmatch 10/17/20 10/17/20 10/17/20 17:46 17:50 18:40 MCV MCH MCHC RDW Plt Count MPV Immature Gran % (Auto) Neut % (Auto) Lymph % (Auto) Camp % (Auto) Eos % (Auto) Baso % (Auto) Lymph # (Auto) Camp # (Auto) Eos # (Auto) Baso # (Auto) Abs Immat Gran (auto) Absolute Neuts (auto) Absolute Nucleated RBC Nucleated RBC % (auto) Smear Tech's Comments PT INR APTT D-Dimer O2 Saturation ABG pH at Pt Temp ABG pH (Temp Correct) ABG pCO2 at Pt Temp ABG pCO2 (Temp Corrct ABG pO2 at Pt Temp ABG pO2 (Temp Correct ABG HCO3 ABG Base Excess (Actual) Anion Gap Estim Creat Clear Calc Estimated GFR Random Glucose Lactic Acid Lactic Acid Fup @ 2Hr Calcium Ferritin Total Bilirubin Direct Bilirubin AST ALT Alkaline Phosphatase Lactate Dehydrogenase Troponin I High Sens C-Reactive Protein B-Natriuretic Peptide Total Protein Albumin Procalcitonin 0.04 Urine Color Urine Appearance Urine pH Ur Specific [place] Urine Protein Urine Glucose (UA) Urine Ketones Urine Blood Urine Nitrite Ur Leukocyte Esterase Stool Occult Blood Coronavirus (PCR) COVID-19 ([place]) Negative COVID-19 Clin Com See Note Influenza Type A (PCR) Influenza Type B (PCR) RSV RNA Qual (PCR) Blood Type A Positive Antibody Screen NEGATIVE Crossmatch See Detail 10/17/20 10/17/20 10/17/20 18:44 18:44 19:23 MCV MCH MCHC RDW Plt Count MPV Immature Gran % (Auto) Neut % (Auto) Lymph % (Auto) Camp % (Auto) Eos % (Auto) Baso % (Auto) Lymph # (Auto) Camp # (Auto) Eos # (Auto) Baso # (Auto) Abs Immat Gran (auto) Absolute Neuts (auto) Absolute Nucleated RBC Nucleated RBC % (auto) Smear Tech's Comments PT INR APTT D-Dimer O2 Saturation ABG pH at Pt Temp ABG pH (Temp Correct) ABG pCO2 at Pt Temp ABG pCO2 (Temp Corrct ABG pO2 at Pt Temp ABG pO2 (Temp Correct ABG HCO3 ABG Base Excess (Actual) Anion Gap Estim Creat Clear Calc Estimated GFR Random Glucose Lactic Acid Lactic Acid Fup @ 2Hr Calcium Ferritin Total Bilirubin Direct Bilirubin AST ALT Alkaline Phosphatase Lactate Dehydrogenase Troponin I High Sens C-Reactive Protein B-Natriuretic Peptide Total Protein Albumin Procalcitonin Urine Color STRAW Urine Appearance CLEAR Urine pH 5.5 Ur Specific [place] 1.020 Urine Protein NEG Urine Glucose (UA) NEG Urine Ketones NEG Urine Blood NEG Urine Nitrite NEG Ur Leukocyte Esterase NEG Stool Occult Blood NEGATIVE Coronavirus (PCR) NEGATIVE COVID-19 ([place]) COVID-19 Clin Com Influenza Type A (PCR) NEGATIVE Influenza Type B (PCR) NEGATIVE RSV RNA Qual (PCR) NEGATIVE Blood Type Antibody Screen Crossmatch 10/17/20 10/17/20 10/17/20 20:36 23:11 23:46 MCV MCH MCHC RDW Plt Count MPV Immature Gran % (Auto) Neut % (Auto) Lymph % (Auto) Camp % (Auto) Eos % (Auto) Baso % (Auto) Lymph # (Auto) Camp # (Auto) Eos # (Auto) Baso # (Auto) Abs Immat Gran (auto) Absolute Neuts (auto) Absolute Nucleated RBC Nucleated RBC % (auto) Smear Tech's Comments PT INR APTT D-Dimer O2 Saturation 88.0 ABG pH at Pt Temp 7.27 L ABG pH (Temp Correct) 7.26 L ABG pCO2 at Pt Temp 44 ABG pCO2 (Temp Corrct 44 ABG pO2 at Pt Temp 66 L ABG pO2 (Temp Correct 67 L ABG HCO3 20 L ABG Base Excess (Actual) -6.0 Anion Gap Estim Creat Clear Calc Estimated GFR Random Glucose Lactic Acid Lactic Acid Fup @ 2Hr 2.0 Calcium Ferritin Total Bilirubin Direct Bilirubin AST ALT Alkaline Phosphatase Lactate Dehydrogenase Troponin I High Sens 108.4 H D C-Reactive Protein B-Natriuretic Peptide Total Protein Albumin Procalcitonin Urine Color Urine Appearance Urine pH Ur Specific [place] Urine Protein Urine Glucose (UA) Urine Ketones Urine Blood Urine Nitrite Ur Leukocyte Esterase Stool Occult Blood Coronavirus (PCR) COVID-19 ([place]) COVID-19 Clin Com Influenza Type A (PCR) Influenza Type B (PCR) RSV RNA Qual (PCR) Blood Type Antibody Screen Crossmatch Imaging Radiologist's Impressions: Impressions Chest X-Ray 10/17/20 17:07 IMPRESSION: Pulmonary findings suggest CHF. An infectious/inflammatory process would be less likely. Cervical Spine CT 10/17/20 18:48 IMPRESSION: HEAD: * No acute intracranial pathology. * Mild chronic white matter small vessel ischemic changes. CERVICAL SPINE: * No cervical spine fracture or malalignment. * Cervical spondylosis as described. CHEST: * Upper lobe predominant patchy airspace opacities, coalescent and groundglass appearance along with interlobular septal thickening could be compatible with cardiogenic pulmonary edema or multifocal (atypical) pneumonia. * Moderate bilateral pleural effusions and accompanying atelectasis. * Cardiomegaly and evidence of pulmonary hypertension. * Triple vessel coronary calcifications. * Mild mediastinal and bilateral hilar adenopathy, reactive to either fluid overload and/or infection. * Chronic mildly displaced upper sternal fracture as described. Chest CT 10/17/20 18:48 IMPRESSION: HEAD: * No acute intracranial pathology. * Mild chronic white matter small vessel ischemic changes. CERVICAL SPINE: * No cervical spine fracture or malalignment. * Cervical spondylosis as described. CHEST: * Upper lobe predominant patchy airspace opacities, coalescent and groundglass appearance along with interlobular septal thickening could be compatible with cardiogenic pulmonary edema or multifocal (atypical) pneumonia. * Moderate bilateral pleural effusions and accompanying atelectasis. * Cardiomegaly and evidence of pulmonary hypertension. * Triple vessel coronary calcifications. * Mild mediastinal and bilateral hilar adenopathy, reactive to either fluid overload and/or infection. * Chronic mildly displaced upper sternal fracture as described. Head CT 10/17/20 18:48 IMPRESSION: HEAD: * No acute intracranial pathology. * Mild chronic white matter small vessel ischemic changes. CERVICAL SPINE: * No cervical spine fracture or malalignment. * Cervical spondylosis as described. CHEST: * Upper lobe predominant patchy airspace opacities, coalescent and groundglass appearance along with interlobular septal thickening could be compatible with cardiogenic pulmonary edema or multifocal (atypical) pneumonia. * Moderate bilateral pleural effusions and accompanying atelectasis. * Cardiomegaly and evidence of pulmonary hypertension. * Triple vessel coronary calcifications. * Mild mediastinal and bilateral hilar adenopathy, reactive to either fluid overload and/or infection. * Chronic mildly displaced upper sternal fracture as described. Chest CTA 10/17/20 21:21
--- NOTE | 2020-10-18 01:37 | PC.NURSE ---
This RN just spoke with the ICU MD, who wants the patient to go over to the ICU now that a bed is available and not to redraw the labs ordered at this time.
--- NOTE | 2020-10-18 01:45 | PC.NURSE ---
Report was given to JOAQUIM Basilio on ICU
[2020-10-18 02:33] LABS: Basophils Percent Auto 0.2 % (0-2); Hematocrit 29.8 % (42-52); Hemoglobin 8.7 g/dl (14.0-18.0); Imm Gran Abs Auto 0.08 X10*3/uL (0.00-0.03); Imm Gran Pct Auto 0.5 % (0.0-0.4); Lymphocytes Absolute Auto 0.6 X10*3/uL (1.2-4.9); Lymphocytes Percent Auto 3.7 % (20-40); MANUAL DIFF FLAG SCAN; Mean Corpuscular HGB Conc 29.2 g/dl (31.0-36.0); Mean Corpuscular Hemoglobin 23.2 pg (27.0-33.0); Mean Corpuscular Volume 79.5 fL (80-98); Mean Platelet Volume 10.4 fL (9.4-12.4); Neutrophils Absolute Auto 14.4 X10*3/uL (2.0-8.3); Neutrophils Percent Auto 89.6 % (45-73); Platelet Count 145 X10*3/uL (160-400); Red Blood Count 3.75 X10*6/uL (4.60-5.80); SCAN SMEAR FLAG 1; White Blood Count 16.1 X10*3/uL (4.8-10.8)
[2020-10-18 02:35] LABS: SLIDE REVIEW VERIFIED
[2020-10-18] MEDS: Heparin Sodium,Porcine 5,000 UNIT/ML VIAL 5000 UNIT SUBCUT (02:40)
[2020-10-18] MEDS: Furosemide 20 MG/2 ML VIAL IVPUSH (02:40)
[2020-10-18] MEDS: Nitroglycerin 2 % Oint 1 GM Packet 0.5 INCH TRANSDERMA ×4 (02:40→20:08)
[2020-10-18 02:54] LABS: Anion Gap 21 (12-20); Blood Urea Nitrogen 27 mg/dL (9-16); Calcium 8.2 mg/dL (8.4-10.2); Carbon Dioxide 18 mmol/L (22-29); Chloride 102 mmol/L (96-108); Estimated Glomerular Filt Rate > 60; Glucose Fasting 338 mg/dL (60-99); Potassium 4.6 mmol/L (3.3-5.1); Sodium 136 mmol/L (135-145)
[2020-10-18] MEDS: Pantoprazole Sodium 40 MG/10 ML VIAL IVPUSH (02:56)
[2020-10-18 03:01] LABS: Troponin-I High Sensitivity 147.1 ng/L (<3.5-35.0)
[2020-10-18 06:10] LABS: MANUAL DIFF FLAG NO
[2020-10-18 06:13] LABS: Basophils Percent Auto 0.1 % (0-2); Hematocrit 28.8 % (42-52); Hemoglobin 8.9 g/dl (14.0-18.0); Imm Gran Abs Auto 0.11 X10*3/uL (0.00-0.03); Imm Gran Pct Auto 0.7 % (0.0-0.4); Lymphocytes Absolute Auto 0.9 X10*3/uL (1.2-4.9); Lymphocytes Percent Auto 5.8 % (20-40); Mean Corpuscular HGB Conc 30.9 g/dl (31.0-36.0); Mean Corpuscular Hemoglobin 23.5 pg (27.0-33.0); Monocytes Absolute Auto 1.1 X10*3/uL (0.1-1.2); Monocytes Percent Auto 6.9 % (2-11); Neutrophils Absolute Auto 13.2 X10*3/uL (2.0-8.3); Neutrophils Percent Auto 86.5 % (45-73); Platelet Count 141 X10*3/uL (160-400); Red Blood Count 3.79 X10*6/uL (4.60-5.80); Red Cell Distribution Width 18.4 % (11.0-16.0); White Blood Count 15.3 X10*3/uL (4.8-10.8)
--- NOTE | 2020-10-18 06:28 | PC.NURSE ---
ADMIT TO 261-1 FROM ED DEPT APPROX 02:15...AWAKE..ALERT..ORIENTED XE...VAGUE AT TIMES..RESPIRATIONS EASY ON CPAP 10CM/FIO2 70% O2...RR 26-30..Ve 10-11 L/M..2ND UNIT PRBC COMPLETED POST-ARRIVAL W/O INCIDENT...MCKEON PLACED PER ICU PA...MCKEON DRAINING LARGE AMOUNTS PALE YELLOW URINE...NSR..NO ECTOPY...DENIES DISCOMFORT..NAPPING INTERMITTANTLY OVERNIGHT
[2020-10-18 06:45] LABS: Alanine Aminotransferase 15 U/L (0-40); Albumin Level 3.7 g/dL (3.5-5.0); Alkaline Phosphatase 40 U/L (39-117); Anion Gap 20 (12-20); Aspartate Amino Transferase 23 U/L (5-37); Bilirubin Total 1.3 mg/dL (0.0-1.0); Blood Urea Nitrogen 26 mg/dL (9-16); Calcium 8.3 mg/dL (8.4-10.2); Carbon Dioxide 22 mmol/L (22-29); Chloride 100 mmol/L (96-108); Creatinine Clr Calc Pharmacy 40.1; Estimated Glomerular Filt Rate 59; Glucose Random 342 mg/dL (60-115); Potassium 3.6 mmol/L (3.3-5.1); Sodium 138 mmol/L (135-145); Total Protein 6.5 g/dL (6.5-8.0)
[2020-10-18 07:42] LABS: Glucose, Whole Blood 288 mg/dL (60-115)
[2020-10-18] MEDS: cefTRIAXone sodium 1 GM in 0.9 % Sodium Chloride 50 ML IV (08:19)
[2020-10-18] MEDS: Aspirin 81 MG TAB.CHEW PO (08:22)
[2020-10-18] MEDS: Metoprolol Succinate ER 50 MG TAB.ER.24H PO (08:22)
[2020-10-18] MEDS: Atorvastatin Calcium 40 MG TABLET PO (08:22)
[2020-10-18] MEDS: Cyanocobalamin (Vitamin B-12) 1,000 MCG TABLET 1000 MCG PO (08:22)
[2020-10-18] MEDS: Insulin Lispro 100 UNIT/ML 3 ML VIAL SUBCUT ×4 (08:23→22:17)
--- NOTE | 2020-10-18 08:30 | CA_ITS ---
Transthoracic Echocardiogram Patient (Last, First, Middle): Kehinde Fowler P Gender: Male Date of : 1940 Age: 80 Procedure Date: 10/18/2020 Procedure Type: Transthoracic Echocardiogram Location: ICU Height: 172.72 cm Weight: 58.51 kg BSA: 1.70 m2 Heart Rate: bpm BP: 107 / 52 mmHg Rf Microwave Engineer: MISBAH Referring MD: Quincy Brooks MD Symptoms: chf Study Quality: Fair/contrast ECG Rhythm: Sinus Conclusions: - The left ventricular systolic function is severely decreased. The visually estimated ejection fraction is between 20-25%. - There is severe global hypokinesis with regional variation. - The basal inferior, mid inferior, and basal inferolateral segments are akinetic. - No obvious valvular pathology seen on this study. Findings Procedure Information Contrast agent, definity, is being given per protocol without apparent complications. Left Ventricle Normal left ventricular cavity size. There is mildly increased left ventricular wall thickness. The left ventricular systolic function is severely decreased. The visually estimated ejection fraction is between 20 25%. There is severe global hypokinesis. E/E prime ratio is between 8 and 15 consistent with indeterminate filling pressures. Evidence suggests grade I (mild) diastolic dysfunction. Wall Motion Rest Echo Findings The basal inferior, mid inferior, and basal inferolateral segments are akinetic. Right Ventricle Normal right ventricular cavity size and systolic function. There is a pacemaker wire seen in the right ventricle. Atria The left atrium is mildly dilated. The right atrium is normal in size. Aortic Valve There is a normal trileaflet aortic valve. There is no aortic valve stenosis. There is no aortic valve regurgitation. Mitral Valve The mitral valve appears normal. There is trace mitral valve regurgitation. There is no mitral valve stenosis. Pulmonic Valve The pulmonic valve was not well visualized. Tricuspid Valve Normal tricuspid valve structure. There is trace tricuspid valve regurgitation. The pulmonary artery systolic pressure is normal. Great Vessels The aortic annulus, sinuses of valsalva, and asc aorta are normal in size. Venous The inferior vena cava is normal in size and collapses greater than 50% with inspiration. Pericardium/Pleural There is no evidence of pericardial effusion. Prior Study Comparison No prior study available for comparison. Recommendations, Care & Conclusions No obvious valvular pathology seen on this study. Measurements 2D Linear Measurements IVSd: 1.06 0.6-0.9/0.6-1.0 cm LVIDd: 4.71 3.9-5.3/4.2-5.9 cm LVIDd Index: 2.77 2.4-3.2/2.2-3.1 cm/m2 LVIDs: 4.15 2.0-3.6 cm LVPWd: 1.01 0.7-1.1 cm Ao Root: 3.80 2.1-3.5 cm LA Diam: 2.90 2.7-3.8/3.0-4.0 cm LAIDs Index: 1.71 1.5-2.3 cm/m2 LV Mass: 215.47 67-162/88-224 g LV Mass Index: 126.74 43-95/49-115 g/m2 LVOT Diam: 2.00 3.0+(-)1.3 cm 2D Systolic Function EF 4C: 29.40 >55% EF 2C: 24.10 >55% EF BiP: 28.40 >55% Mitral Valve MV Pk E: 0.81 MV PK A: 0.61 MV Decel Time: 254.00 E/A: 1.30 E'Lateral: 7.07 E'Medial: 5.00 E/E' Med: 16.30 E/E' Lat: 11.50 PHT: 74.00 MVA PHT: 2.97 Decel [place]: 3.21 Aortic Valve AoV Pk Eduar: 1.05 AoV Mn Eduar: 0.78 AoV VTI: 0.22 AoV Pk Grad: 4.00 Aov Mn Grad: 3.00 AINSLEY Cont.VTI: 2.62 LVOT LVOT Pk Eduar: 0.88 LVOT Mn Eduar: 0.59 LVOT VTI: 0.18 LVOT Pk Grad: 3.00 LVOT Mn Grad: 2.00 LVOT Diam: 2.00 LVOT Area: 3.14 Diastolic Function MV Pk E: 0.81 MV Pk A: 0.61 E/A: 1.30 E'Medial: 5.00 E/E' Med: 16.30 E' Laterial: 7.07 E/E' Lat: 11.50 Tricuspid Valve TR Pk Eduar: 1.87 TR Pk Grad: 14.00 RA Press: 3.00 RVSP: 17.00 Great Vessels Aorta Ao Root-2D: 3.80 2.0-3.7 cm Ao Asc: 3.60 2.1-3.4 cm Updated in Other Vendor System with Status of Final Sanjay Payan MD electronically signed on 10/18/2020 12:15:15 PM with status of Final
[2020-10-18 09:13] LABS: VBG Base Excess 1.4 mmol/L; VBG HCO3 25 mmol/L (22-26); VBG pCO2 39 mmHg; VBG pH 7.42 (7.32-7.43); VBG pO2 28 mmHg
[2020-10-18 09:14] LABS: Venous Blood Gas Refer to POC result
[2020-10-18 09:30] LABS: Lactate Dehydrogenase 237 U/L (118-273)
[2020-10-18] MEDS: Doxycycline Hyclate 100 MG in 0.9 % Sodium Chloride 250 ML 166.67 MG IV ×2 (09:34→20:09)
[2020-10-18 09:45] LABS: Adenovirus PCR Not Detected (Not Detect.); Bordetella parapertussis PCR Not Detected (Not Detect.); Bordetella pertussis PCR Not Detected (Not Detect.); Chlamydia pneumoniae PCR Not Detected (Not Detect.); Coronavirus 229E PCR Not Detected (Not Detect.); Coronavirus HKU1 PCR Not Detected (Not Detect.); Coronavirus NL63 PCR Not Detected (Not Detect.); Coronavirus OC43 PCR Not Detected (Not Detect.); Human metapneumovirus PCR Not Detected (Not Detect.); Influenza A PCR Not Detected (Not Detect.); Influenza B PCR Not Detected (Not Detect.); Mycoplasma pneumoniae PCR Not Detected (Not Detect.); Parainfluenza 1 PCR Not Detected (Not Detect.); Parainfluenza 2 PCR Not Detected (Not Detect.); Parainfluenza 3 PCR Not Detected (Not Detect.); Parainfluenza 4 PCR Not Detected (Not Detect.); RSV PCR Not Detected (Not Detect.); Rhino/Enterovirus PCR Not Detected (Not Detect.); SARS-CoV-2 PCR Not Detected (Not Detect.)
--- NOTE | 2020-10-18 09:58 | MHC.CLN ---
PT IS MODERATELY MALNOURISHED RECOMMEND ADDING GLUCERNA BID TO INCREASE KCALS SEE CLINICAL NUTRITION ASSESSMENT
[2020-10-18 11:06] LABS: Urine Hemoglobin TRACE
[2020-10-18 11:37] LABS: Glucose, Whole Blood 209 mg/dL (60-115)
--- NOTE | 2020-10-18 12:57 | MHC.CM.PN ---
Pt currently in ICU on NIPPV: able to communicated by bertin easily. Pt agrees with CM contacting his sister to assist with completion of CM assessment. Pt resides in a [place]plex with his sister in the upstairs unit. He is independent with all care needs: drives, active has an AICD machine at home but no other equipment. His goal is for a return to home: has used [facility] in the past and is receptive to a new referral. Pt unsure if he has a copy of his HCP - will complete new one listing his sister Mary Jane per his request. Will follow for changes in d/c plan: at this time, pt will return to home with [facility] - transportation unknown - likely BLS.
--- NOTE | 2020-10-18 15:03 | P.PNCC_ITS ---
Subjective Subjective Date of Service: 10/18/20 Interval History: 80-year-old male 8 years status post acute inferior wall CT treated with emergent PCI of his right coronary artery with reduced ejection fraction of 30-35% and a prophylactic single-chamber AICD was inserted 8 years ago and he remains in normal sinus rhythm but this morning he came up the from the basement to correct something with his boiler because the house was cold got to the living room got weak short of breath and passed out for unknown amount of time no injury no evidence objectively of seizure disorder and brought to the hospital was awake and oriented nonfocal neurologically and a negative head CT scan as well Bedside echo shows dilated diffusely hypokinetic left ventricle with AICD in place no effusion no primary valve disease 20-25% ejection fraction no particular segmental wall motion abnormality this appears to be diffuse No fever chills or productive cough and his chest CT scan showed diffuse bila teral infiltrates with not just ground-glass bilaterally but some and consolidative looking areas easily could be all pulmonary edema but cannot rule out infectious process as the [place] was [id number] with 89% polys no prematures but the interesting thing is without a history he has 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 and anemia with a hemoglobin of 6.9 which could easily have been the tipping event and there were no schistocytes but there were definitely spherocytes and echinocytes and therefore I can not rule out the possibility of a hemolytic anemia especially with a stool guaiac that is negative and no evidence of melena that he has noted and therefore I question possibility of cold agglutinin disease possibly related to a mycoplasma process but thus far the mycoplasma screen is negative the direct Melissa test is negative the LDH is within normal limits haptoglobin is pending so it is just the morphology on the CBC smear that indicates possible hemolysis Physical Exam Vital Signs: Vital Signs: Last Vital Signs Temp 100.8 F H 10/18/20 14:00 Pulse 82 10/18/20 14:04 Resp 24 H 10/18/20 14:00 BP 114/53 L 10/18/20 14:04 Pulse Ox 92 10/18/20 14:00 Body Mass Index 19.7 Const: Other: Awake alert oriented and nonfocal neurologically Status post diuresis with preserved renal function and of course marked subjective improvement to the point where we are able to wean his CPAP and he remains in sinus rhythm with oxygen saturation now of 90% blood pressure 118/56 No neck vein distension but he has diminished bilateral carotid upstrokes and no resting gallop Scattered fine bilateral rales Abdomen benign no organomegaly No peripheral edema and no acrocyanosis Objective Data Labs CBC & Chem 7: 10/18/20 06:02 10/18/20 06:02 Labs: Laboratory Results - last 24 hr 10/17/20 10/17/20 10/17/20 17:46 17:46 17:46 WBC 18.9 H RBC 3.11 L Hgb 6.7 L* Hct 24.0 L MCV 77.2 L MCH 21.5 L MCHC 27.9 L RDW 18.7 H Plt Count 231 MPV 10.4 Immature Gran % (Auto) 0.9 H Neut % (Auto) 82.4 H Lymph % (Auto) 7.6 L [place] % (Auto) 8.5 Eos % (Auto) 0.4 Baso % (Auto) 0.2 Lymph # (Auto) 1.4 [place] # (Auto) 1.6 H Eos # (Auto) 0.1 Baso # (Auto) 0.0 Abs Immat Gran (auto) 0.17 H Absolute Neuts (auto) 15.6 H Absolute Nucleated RBC 0.030 H Nucleated RBC % (auto) 0.2 Smear Tech's Comments VERIFIED Smear Path Review SEE NOTE PT 13.3 H INR 1.1 APTT 25.4 D-Dimer O2 Saturation ABG pH at Pt Temp ABG pH (Temp Correct) ABG pCO2 at Pt Temp ABG pCO2 (Temp Corrct ABG pO2 at Pt Temp ABG pO2 (Temp Correct ABG HCO3 ABG Base Excess (Actual) VBG pH VBG pCO2 VBG pO2 VBG HCO3 VBG O2 Saturation VBG Base Excess Sodium 136 Potassium 5.8 H Chloride 103 Carbon Dioxide 19 L Anion Gap 20 BUN 28 H Creatinine 1.15 Estim Creat Clear Calc 41.3 Estimated GFR > 60 POC Glucose Random Glucose 240 H Fasting Glucose Lactic Acid Lactic Acid Fup @ 2Hr Calcium 8.8 Ferritin 11 L Total Bilirubin 0.5 Direct Bilirubin 0.3 AST 26 ALT 19 Alkaline Phosphatase 49 Lactate Dehydrogenase 234 Troponin I High Sens C-Reactive Protein 0.28 B-Natriuretic Peptide Total Protein 7.1 Albumin 4.0 Procalcitonin Urine Color Urine Appearance Urine pH Ur Specific [place] Urine Protein Urine Glucose (UA) Urine Ketones Urine Blood Urine Nitrite Ur Leukocyte Esterase Urine Hemoglobin Stool Occult Blood Respiratory Panel [place] Adenovirus (Rapid PCR) B.pert (TEM-PCR) B.parapertussis DNA PCR C. pneumoniae DNA (PCR) Coronavirus (PCR) Coronavirus OC43 (PCR) Coronavirus HKU1 (PCR) Coronavirus 229E (PCR) COVID-19 ([facility]IS[facility]) COVID-19 Clin Com Coronavirus NL63 (PCR) Human Metapneumovir PCR Influenza A (RT-PCR) Influenza Type A (PCR) Influenza B (RT-PCR) Influenza Type B (PCR) M. pneumoniae (PCR) Parainfluenza 1 (PCR) Parainfluenza 2 (PCR) Parainfluenza 3 (PCR) Parainfluenza 4 (PCR) RSV (PCR) RSV RNA Qual (PCR) Entero/Rhino (PCR) SARS-CoV-2 RNA (RT-PCR) Blood Type Antibody Screen Direct Antiglob Test ADAN, Polyspecific Crossmatch 10/17/20 10/17/20 10/17/20 17:46 17:46 17:46 WBC RBC Hgb Hct MCV MCH MCHC RDW Plt Count MPV Immature Gran % (Auto) Neut % (Auto) Lymph % (Auto) [place] % (Auto) Eos % (Auto) Baso % (Auto) Lymph # (Auto) [place] # (Auto) Eos # (Auto) Baso # (Auto) Abs Immat Gran (auto) Absolute Neuts (auto) Absolute Nucleated RBC Nucleated RBC % (auto) Smear Tech's Comments Smear Path Review PT INR APTT D-Dimer 3264 O2 Saturation ABG pH at Pt Temp ABG pH (Temp Correct) ABG pCO2 at Pt Temp ABG pCO2 (Temp Corrct ABG pO2 at Pt Temp ABG pO2 (Temp Correct ABG HCO3 ABG Base Excess (Actual) VBG pH VBG pCO2 VBG pO2 VBG HCO3 VBG O2 Saturation VBG Base Excess Sodium Potassium Chloride Carbon Dioxide Anion Gap BUN Creatinine Estim Creat Clear Calc Estimated GFR POC Glucose Random Glucose Fasting Glucose Lactic Acid 3.5 H* Lactic Acid Fup @ 2Hr Calcium Ferritin Total Bilirubin Direct Bilirubin AST ALT Alkaline Phosphatase Lactate Dehydrogenase Troponin I High Sens 17.6 C-Reactive Protein B-Natriuretic Peptide 1377 H Total Protein Albumin Procalcitonin Urine Color Urine Appearance Urine pH Ur Specific [place] Urine Protein Urine Glucose (UA) Urine Ketones Urine Blood Urine Nitrite Ur Leukocyte Esterase Urine Hemoglobin Stool Occult Blood Respiratory Panel [place] Adenovirus (Rapid PCR) B.pert (TEM-PCR) B.parapertussis DNA PCR C. pneumoniae DNA (PCR) Coronavirus (PCR) Coronavirus OC43 (PCR) Coronavirus HKU1 (PCR) Coronavirus 229E (PCR) COVID-19 ([facility]) COVID-19 Clin Com Coronavirus NL63 (PCR) Human Metapneumovir PCR Influenza A (RT-PCR) Influenza Type A (PCR) Influenza B (RT-PCR) Influenza Type B (PCR) M. pneumoniae (PCR) Parainfluenza 1 (PCR) Parainfluenza 2 (PCR) Parainfluenza 3 (PCR) Parainfluenza 4 (PCR) RSV (PCR) RSV RNA Qual (PCR) Entero/Rhino (PCR) SARS-CoV-2 RNA (RT-PCR) Blood Type Antibody Screen Direct Antiglob Test ADAN, Polyspecific Crossmatch 10/17/20 10/17/20 10/17/20 17:46 17:50 18:40 WBC RBC Hgb Hct MCV MCH MCHC RDW Plt Count MPV Immature Gran % (Auto) Neut % (Auto) Lymph % (Auto) [place] % (Auto) Eos % (Auto) Baso % (Auto) Lymph # (Auto) [place] # (Auto) Eos # (Auto) Baso # (Auto) Abs Immat Gran (auto) Absolute Neuts (auto) Absolute Nucleated RBC Nucleated RBC % (auto) Smear Tech's Comments Smear Path Review PT INR APTT D-Dimer O2 Saturation ABG pH at Pt Temp ABG pH (Temp Correct) ABG pCO2 at Pt Temp ABG pCO2 (Temp Corrct ABG pO2 at Pt Temp ABG pO2 (Temp Correct ABG HCO3 ABG Base Excess (Actual) VBG pH VBG pCO2 VBG pO2 VBG HCO3 VBG O2 Saturation VBG Base Excess Sodium Potassium Chloride Carbon Dioxide Anion Gap BUN Creatinine Estim Creat Clear Calc Estimated GFR POC Glucose Random Glucose Fasting Glucose Lactic Acid Lactic Acid Fup @ 2Hr Calcium Ferritin Total Bilirubin Direct Bilirubin AST ALT Alkaline Phosphatase Lactate Dehydrogenase Troponin I High Sens C-Reactive Protein B-Natriuretic Peptide Total Protein Albumin Procalcitonin 0.04 Urine Color Urine Appearance Urine pH Ur Specific [place] Urine Protein Urine Glucose (UA) Urine Ketones Urine Blood Urine Nitrite Ur Leukocyte Esterase Urine Hemoglobin Stool Occult Blood Respiratory Panel [place] Adenovirus (Rapid PCR) B.pert (TEM-PCR) B.parapertussis DNA PCR C. pneumoniae DNA (PCR) Coronavirus (PCR) Coronavirus OC43 (PCR) Coronavirus HKU1 (PCR) Coronavirus 229E (PCR) COVID-19 ([facility]) Negative COVID-19 Clin Com See Note Coronavirus NL63 (PCR) Human Metapneumovir PCR Influenza A (RT-PCR) Influenza Type A (PCR) Influenza B (RT-PCR) Influenza Type B (PCR) M. pneumoniae (PCR) Parainfluenza 1 (PCR) Parainfluenza 2 (PCR) Parainfluenza 3 (PCR) Parainfluenza 4 (PCR) RSV (PCR) RSV RNA Qual (PCR) Entero/Rhino (PCR) SARS-CoV-2 RNA (RT-PCR) Blood Type A Positive Antibody Screen NEGATIVE Direct Antiglob Test ADAN, Polyspecific Crossmatch See Detail 10/17/20 10/17/20 10/17/20 18:44 18:44 19:23 WBC RBC Hgb Hct MCV MCH MCHC RDW Plt Count MPV Immature Gran % (Auto) Neut % (Auto) Lymph % (Auto) [place] % (Auto) Eos % (Auto) Baso % (Auto) Lymph # (Auto) [place] # (Auto) Eos # (Auto) Baso # (Auto) Abs Immat Gran (auto) Absolute Neuts (auto) Absolute Nucleated RBC Nucleated RBC % (auto) Smear Tech's Comments Smear Path Review PT INR APTT D-Dimer O2 Saturation ABG pH at Pt Temp ABG pH (Temp Correct) ABG pCO2 at Pt Temp ABG pCO2 (Temp Corrct ABG pO2 at Pt Temp ABG pO2 (Temp Correct ABG HCO3 ABG Base Excess (Actual) VBG pH VBG pCO2 VBG pO2 VBG HCO3 VBG O2 Saturation VBG Base Excess Sodium Potassium Chloride Carbon Dioxide Anion Gap BUN Creatinine Estim Creat Clear Calc Estimated GFR POC Glucose Random Glucose Fasting Glucose Lactic Acid Lactic Acid Fup @ 2Hr Calcium Ferritin Total Bilirubin Direct Bilirubin AST ALT Alkaline Phosphatase Lactate Dehydrogenase Troponin I High Sens C-Reactive Protein B-Natriuretic Peptide Total Protein Albumin Procalcitonin Urine Color STRAW Urine Appearance CLEAR Urine pH 5.5 Ur Specific [place] 1.020 Urine Protein NEG Urine Glucose (UA) NEG Urine Ketones NEG Urine Blood NEG Urine Nitrite NEG Ur Leukocyte Esterase NEG Urine Hemoglobin Stool Occult Blood NEGATIVE Respiratory Panel [place] Adenovirus (Rapid PCR) B.pert (TEM-PCR) B.parapertussis DNA PCR C. pneumoniae DNA (PCR) Coronavirus (PCR) NEGATIVE Coronavirus OC43 (PCR) Coronavirus HKU1 (PCR) Coronavirus 229E (PCR) COVID-19 ([facility]) COVID-19 Clin Com Coronavirus NL63 (PCR) Human Metapneumovir PCR Influenza A (RT-PCR) Influenza Type A (PCR) NEGATIVE Influenza B (RT-PCR) Influenza Type B (PCR) NEGATIVE M. pneumoniae (PCR) Parainfluenza 1 (PCR) Parainfluenza 2 (PCR) Parainfluenza 3 (PCR) Parainfluenza 4 (PCR) RSV (PCR) RSV RNA Qual (PCR) NEGATIVE Entero/Rhino (PCR) SARS-CoV-2 RNA (RT-PCR) Blood Type Antibody Screen Direct Antiglob Test ADAN, Polyspecific Crossmatch 10/17/20 10/17/20 10/17/20 20:36 23:11 23:46 WBC RBC Hgb Hct MCV MCH MCHC RDW Plt Count MPV Immature Gran % (Auto) Neut % (Auto) Lymph % (Auto) [place] % (Auto) Eos % (Auto) Baso % (Auto) Lymph # (Auto) [place] # (Auto) Eos # (Auto) Baso # (Auto) Abs Immat Gran (auto) Absolute Neuts (auto) Absolute Nucleated RBC Nucleated RBC % (auto) Smear Tech's Comments Smear Path Review PT INR APTT D-Dimer O2 Saturation 88.0 ABG pH at Pt Temp 7.27 L ABG pH (Temp Correct) 7.26 L ABG pCO2 at Pt Temp 44 ABG pCO2 (Temp Corrct 44 ABG pO2 at Pt Temp 66 L ABG pO2 (Temp Correct 67 L ABG HCO3 20 L ABG Base Excess (Actual) -6.0 VBG pH VBG pCO2 VBG pO2 VBG HCO3 VBG O2 Saturation VBG Base Excess Sodium Potassium Chloride Carbon Dioxide Anion Gap BUN Creatinine Estim Creat Clear Calc Estimated GFR POC Glucose Random Glucose Fasting Glucose Lactic Acid Lactic Acid Fup @ 2Hr 2.0 Calcium Ferritin Total Bilirubin Direct Bilirubin AST ALT Alkaline Phosphatase Lactate Dehydrogenase Troponin I High Sens 108.4 H D C-Reactive Protein B-Natriuretic Peptide Total Protein Albumin Procalcitonin Urine Color Urine Appearance Urine pH Ur Specific [place] Urine Protein Urine Glucose (UA) Urine Ketones Urine Blood Urine Nitrite Ur Leukocyte Esterase Urine Hemoglobin Stool Occult Blood Respiratory Panel [place] Adenovirus (Rapid PCR) B.pert (TEM-PCR) B.parapertussis DNA PCR C. pneumoniae DNA (PCR) Coronavirus (PCR) Coronavirus OC43 (PCR) Coronavirus HKU1 (PCR) Coronavirus 229E (PCR) COVID-19 ([facility]) COVID-19 Clin Com Coronavirus NL63 (PCR) Human Metapneumovir PCR Influenza A (RT-PCR) Influenza Type A (PCR) Influenza B (RT-PCR) Influenza Type B (PCR) M. pneumoniae (PCR) Parainfluenza 1 (PCR) Parainfluenza 2 (PCR) Parainfluenza 3 (PCR) Parainfluenza 4 (PCR) RSV (PCR) RSV RNA Qual (PCR) Entero/Rhino (PCR) SARS-CoV-2 RNA (RT-PCR) Blood Type Antibody Screen Direct Antiglob Test ADAN, Polyspecific Crossmatch 10/18/20 10/18/20 10/18/20 02:27 02:27 02:27 WBC 16.1 H RBC 3.75 L D Hgb 8.7 L D Hct 29.8 L D MCV 79.5 L MCH 23.2 L MCHC 29.2 L RDW 19.0 H Plt Count 145 L D MPV 10.4 Immature Gran % (Auto) 0.5 H Neut % (Auto) 89.6 H Lymph % (Auto) 3.7 L [place] % (Auto) 6.0 Eos % (Auto) 0.0 Baso % (Auto) 0.2 Lymph # (Auto) 0.6 L [place] # (Auto) 1.0 Eos # (Auto) 0.0 Baso # (Auto) 0.0 Abs Immat Gran (auto) 0.08 H Absolute Neuts (auto) 14.4 H Absolute Nucleated RBC 0.000 Nucleated RBC % (auto) 0.0 Smear Tech's Comments VERIFIED Smear Path Review PT INR APTT D-Dimer O2 Saturation ABG pH at Pt Temp ABG pH (Temp Correct) ABG pCO2 at Pt Temp ABG pCO2 (Temp Corrct ABG pO2 at Pt Temp ABG pO2 (Temp Correct ABG HCO3 ABG Base Excess (Actual) VBG pH VBG pCO2 VBG pO2 VBG HCO3 VBG O2 Saturation VBG Base Excess Sodium 136 Potassium 4.6 D Chloride 102 Carbon Dioxide 18 L Anion Gap 21 H BUN 27 H Creatinine 1.13 Estim Creat Clear Calc 42.0 Estimated GFR > 60 POC Glucose Random Glucose Fasting Glucose 338 H Lactic Acid Lactic Acid Fup @ 2Hr Calcium 8.2 L D Ferritin Total Bilirubin Direct Bilirubin AST ALT Alkaline Phosphatase Lactate Dehydrogenase Troponin I High Sens 147.1 H C-Reactive Protein B-Natriuretic Peptide Total Protein Albumin Procalcitonin Urine Color Urine Appearance Urine pH Ur Specific [place] Urine Protein Urine Glucose (UA) Urine Ketones Urine Blood Urine Nitrite Ur Leukocyte Esterase Urine Hemoglobin Stool Occult Blood Respiratory Panel [place] Adenovirus (Rapid PCR) B.pert (TEM-PCR) B.parapertussis DNA PCR C. pneumoniae DNA (PCR) Coronavirus (PCR) Coronavirus OC43 (PCR) Coronavirus HKU1 (PCR) Coronavirus 229E (PCR) COVID-19 ([facility]) COVID-19 Clin Com Coronavirus NL63 (PCR) Human Metapneumovir PCR Influenza A (RT-PCR) Influenza Type A (PCR) Influenza B (RT-PCR) Influenza Type B (PCR) M. pneumoniae (PCR) Parainfluenza 1 (PCR) Parainfluenza 2 (PCR) Parainfluenza 3 (PCR) Parainfluenza 4 (PCR) RSV (PCR) RSV RNA Qual (PCR) Entero/Rhino (PCR) SARS-CoV-2 RNA (RT-PCR) Blood Type Antibody Screen Direct Antiglob Test ADAN, Polyspecific Crossmatch 10/18/20 10/18/20 10/18/20 06:02 06:02 07:38 WBC 15.3 H RBC 3.79 L Hgb 8.9 L Hct 28.8 L MCV 76.0 L MCH 23.5 L MCHC 30.9 L RDW 18.4 H Plt Count 141 L MPV 11.0 Immature Gran % (Auto) 0.7 H Neut % (Auto) 86.5 H Lymph % (Auto) 5.8 L [place] % (Auto) 6.9 Eos % (Auto) 0.0 Baso % (Auto) 0.1 Lymph # (Auto) 0.9 L [place] # (Auto) 1.1 Eos # (Auto) 0.0 Baso # (Auto) 0.0 Abs Immat Gran (auto) 0.11 H Absolute Neuts (auto) 13.2 H Absolute Nucleated RBC 0.000 Nucleated RBC % (auto) 0.0 Smear Tech's Comments Smear Path Review PT INR APTT D-Dimer O2 Saturation ABG pH at Pt Temp ABG pH (Temp Correct) ABG pCO2 at Pt Temp ABG pCO2 (Temp Corrct ABG pO2 at Pt Temp ABG pO2 (Temp Correct ABG HCO3 ABG Base Excess (Actual) VBG pH VBG pCO2 VBG pO2 VBG HCO3 VBG O2 Saturation VBG Base Excess Sodium 138 Potassium 3.6 D Chloride 100 Carbon Dioxide 22 Anion Gap 20 BUN 26 H Creatinine 1.18 Estim Creat Clear Calc 40.1 Estimated GFR 59 POC Glucose 288 H Random Glucose 342 H D Fasting Glucose Lactic Acid Lactic Acid Fup @ 2Hr Calcium 8.3 L Ferritin Total Bilirubin 1.3 H Direct Bilirubin AST 23 ALT 15 Alkaline Phosphatase 40 Lactate Dehydrogenase Troponin I High Sens C-Reactive Protein B-Natriuretic Peptide Total Protein 6.5 Albumin 3.7 Procalcitonin Urine Color Urine Appearance Urine pH Ur Specific [place] Urine Protein Urine Glucose (UA) Urine Ketones Urine Blood Urine Nitrite Ur Leukocyte Esterase Urine Hemoglobin Stool Occult Blood Respiratory Panel [place] Adenovirus (Rapid PCR) B.pert (TEM-PCR) B.parapertussis DNA PCR C. pneumoniae DNA (PCR) Coronavirus (PCR) Coronavirus OC43 (PCR) Coronavirus HKU1 (PCR) Coronavirus 229E (PCR) COVID-19 ([facility]) COVID-19 Clin Com Coronavirus NL63 (PCR) Human Metapneumovir PCR Influenza A (RT-PCR) Influenza Type A (PCR) Influenza B (RT-PCR) Influenza Type B (PCR) M. pneumoniae (PCR) Parainfluenza 1 (PCR) Parainfluenza 2 (PCR) Parainfluenza 3 (PCR) Parainfluenza 4 (PCR) RSV (PCR) RSV RNA Qual (PCR) Entero/Rhino (PCR) SARS-CoV-2 RNA (RT-PCR) Blood Type Antibody Screen Direct Antiglob Test ADAN, Polyspecific Crossmatch 10/18/20 10/18/20 10/18/20 08:56 08:57 09:06 WBC RBC Hgb Hct MCV MCH MCHC RDW Plt Count MPV Immature Gran % (Auto) Neut % (Auto) Lymph % (Auto) [place] % (Auto) Eos % (Auto) Baso % (Auto) Lymph # (Auto) [place] # (Auto) Eos # (Auto) Baso # (Auto) Abs Immat Gran (auto) Absolute Neuts (auto) Absolute Nucleated RBC Nucleated RBC % (auto) Smear Tech's Comments Smear Path Review PT INR APTT D-Dimer O2 Saturation ABG pH at Pt Temp ABG pH (Temp Correct) ABG pCO2 at Pt Temp ABG pCO2 (Temp Corrct ABG pO2 at Pt Temp ABG pO2 (Temp Correct ABG HCO3 ABG Base Excess (Actual) VBG pH 7.42 VBG pCO2 39 VBG pO2 28 VBG HCO3 25 VBG O2 Saturation 38.0 VBG Base Excess 1.4 Sodium Potassium Chloride Carbon Dioxide Anion Gap BUN Creatinine Estim Creat Clear Calc Estimated GFR POC Glucose Random Glucose Fasting Glucose Lactic Acid Lactic Acid Fup @ 2Hr Calcium Ferritin Total Bilirubin Direct Bilirubin AST ALT Alkaline Phosphatase Lactate Dehydrogenase 237 Troponin I High Sens C-Reactive Protein B-Natriuretic Peptide Total Protein Albumin Procalcitonin Urine Color Urine Appearance Urine pH Ur Specific [place] Urine Protein Urine Glucose (UA) Urine Ketones Urine Blood Urine Nitrite Ur Leukocyte Esterase Urine Hemoglobin Stool Occult Blood Respiratory Panel [place] Adenovirus (Rapid PCR) B.pert (TEM-PCR) B.parapertussis DNA PCR C. pneumoniae DNA (PCR) Coronavirus (PCR) Coronavirus OC43 (PCR) Coronavirus HKU1 (PCR) Coronavirus 229E (PCR) COVID-19 ([facility]) COVID-19 Clin Com Coronavirus NL63 (PCR) Human Metapneumovir PCR Influenza A (RT-PCR) Influenza Type A (PCR) Influenza B (RT-PCR) Influenza Type B (PCR) M. pneumoniae (PCR) Parainfluenza 1 (PCR) Parainfluenza 2 (PCR) Parainfluenza 3 (PCR) Parainfluenza 4 (PCR) RSV (PCR) RSV RNA Qual (PCR) Entero/Rhino (PCR) SARS-CoV-2 RNA (RT-PCR) Blood Type Antibody Screen Direct Antiglob Test NEGATIVE ADAN, Polyspecific NEGATIVE Crossmatch 10/18/20 10/18/20 10/18/20 09:23 09:28 11:35 WBC RBC Hgb Hct MCV MCH MCHC RDW Plt Count MPV Immature Gran % (Auto) Neut % (Auto) Lymph % (Auto) [place] % (Auto) Eos % (Auto) Baso % (Auto) Lymph # (Auto) [place] # (Auto) Eos # (Auto) Baso # (Auto) Abs Immat Gran (auto) Absolute Neuts (auto) Absolute Nucleated RBC Nucleated RBC % (auto) Smear Tech's Comments Smear Path Review PT INR APTT D-Dimer O2 Saturation ABG pH at Pt Temp ABG pH (Temp Correct) ABG pCO2 at Pt Temp ABG pCO2 (Temp Corrct ABG pO2 at Pt Temp ABG pO2 (Temp Correct ABG HCO3 ABG Base Excess (Actual) VBG pH VBG pCO2 VBG pO2 VBG HCO3 VBG O2 Saturation VBG Base Excess Sodium Potassium Chloride Carbon Dioxide Anion Gap BUN Creatinine Estim Creat Clear Calc Estimated GFR POC Glucose 209 H Random Glucose Fasting Glucose Lactic Acid Lactic Acid Fup @ 2Hr Calcium Ferritin Total Bilirubin Direct Bilirubin AST ALT Alkaline Phosphatase Lactate Dehydrogenase Troponin I High Sens C-Reactive Protein B-Natriuretic Peptide Total Protein Albumin Procalcitonin Urine Color Urine Appearance Urine pH Ur Specific [place] Urine Protein Urine Glucose (UA) Urine Ketones Urine Blood Urine Nitrite Ur Leukocyte Esterase Urine Hemoglobin TRACE Stool Occult Blood Respiratory Panel [place] See Note Adenovirus (Rapid PCR) Not Detected B.pert (TEM-PCR) Not Detected B.parapertussis DNA PCR Not Detected C. pneumoniae DNA (PCR) Not Detected Coronavirus (PCR) Coronavirus OC43 (PCR) Not Detected Coronavirus HKU1 (PCR) Not Detected Coronavirus 229E (PCR) Not Detected COVID-19 ([facility]) COVID-19 Clin Com Coronavirus NL63 (PCR) Not Detected Human Metapneumovir PCR Not Detected Influenza A (RT-PCR) Not Detected Influenza Type A (PCR) Influenza B (RT-PCR) Not Detected Influenza Type B (PCR) M. pneumoniae (PCR) Not Detected Parainfluenza 1 (PCR) Not Detected Parainfluenza 2 (PCR) Not Detected Parainfluenza 3 (PCR) Not Detected Parainfluenza 4 (PCR) Not Detected RSV (PCR) Not Detected RSV RNA Qual (PCR) Entero/Rhino (PCR) Not Detected SARS-CoV-2 RNA (RT-PCR) Not Detected Blood Type Antibody Screen Direct Antiglob Test ADAN, Polyspecific Crossmatch Progress Note: A&P Assessment and plan (1) Congestive heart failure: Status: Acute (2) Community acquired pneumonia: Status: Acute (3) Hypoxia: Status: Acute (4) Acute hyperkalemia: Status: Acute (5) Severe anemia: Status: Acute (6) Hemolytic anemia: Status: Acute (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: Status: Acute (9) Chronic renal failure, stage 2 (mild): Status: Acute Assessment and Plan: Started diabetic diet no fluid no further diuretics and he was transfused 2 units of packed cells and will follow his hemoglobin level once deemed to be stable I will introduce his vaso dilator which is lisinopril But hopefully the transfusion along with the Lasix diuresis will suffice for his treatment and will await the final laboratory on infectious etiology Time Spent With Patient Time: Total time spent is greater than 50% in coordination of care (as documented) at patient's floor/unit and/or counseling patient: Total time spent with greater than 50% in coordination of care (as documented) at patient's floor/unit and/or counseling patient:: 45
[2020-10-18 16:45] LABS: Glucose, Whole Blood 265 mg/dL (60-115)
--- NOTE | 2020-10-18 17:49 | PC.NURSE ---
Addendum entered by Melonie Burroughs RN 10/18/20 18:35: t max 101.1 Original Note: Pt a&o x 3. VSS. Pt off cpap since 0800, on 2L lilliana CALHOUN. Pt sister updated by RN and pt. Pt assisted with repo q2hr. Ate most of meals, swallows pills well. Urine output wnl.
[2020-10-18 21:31] LABS: D Dimer 994 NG/ML
[2020-10-18 21:37] LABS: Glucose, Whole Blood 173 mg/dL (60-115)
[2020-10-19] VITALS (18 sets, daily range): BP systolic 97–164; BP diastolic 40–74; PULSE 74–98; RESP 15–30; TEMP 36.1–38.4; O2SAT 88–99; BMI 19.1
[2020-10-19 05:49] LABS: VBG Base Excess 6.9 mmol/L; VBG HCO3 28 mmol/L (22-26); VBG pCO2 30 mmHg; VBG pH 7.57 (7.32-7.43); VBG pO2 107 mmHg
[2020-10-19 05:52] LABS: MANUAL DIFF FLAG NO
[2020-10-19 05:56] LABS: Basophils Percent Auto 0.3 % (0-2); Eosinophils Absolute Auto 0.1 X10*3/uL (0.0-0.4); Eosinophils Percent Auto 0.8 % (0-4); Hematocrit 26.1 % (42-52); Hemoglobin 8.2 g/dl (14.0-18.0); Imm Gran Abs Auto 0.07 X10*3/uL (0.00-0.03); Imm Gran Pct Auto 0.6 % (0.0-0.4); Lymphocytes Percent Auto 8.8 % (20-40); Mean Corpuscular HGB Conc 31.4 g/dl (31.0-36.0); Mean Corpuscular Hemoglobin 23.5 pg (27.0-33.0); Mean Corpuscular Volume 74.8 fL (80-98); Mean Platelet Volume 10.9 fL (9.4-12.4); Neutrophils Percent Auto 80.5 % (45-73); Platelet Count 134 X10*3/uL (160-400); Red Blood Count 3.49 X10*6/uL (4.60-5.80); Red Cell Distribution Width 19.4 % (11.0-16.0); White Blood Count 11.2 X10*3/uL (4.8-10.8)
[2020-10-19 06:10] LABS: Venous Blood Gas Refer to POC result
[2020-10-19 06:22] LABS: INTERNATIONAL NORM RATIO 1.1 (0.9-1.1); Prothrombin Time 13.4 SEC (10.8-13.0)
[2020-10-19 06:25] LABS: Partial Thromboplastin Time 26.1 SEC (24.1-38.0)
[2020-10-19 06:34] LABS: Troponin-I High Sensitivity 196.6 ng/L (<3.5-35.0)
[2020-10-19 06:36] LABS: Anion Gap 16 (12-20); Blood Urea Nitrogen 26 mg/dL (9-16); Calcium 7.8 mg/dL (8.4-10.2); Carbon Dioxide 24 mmol/L (22-29); Chloride 100 mmol/L (96-108); Creatinine Clr Calc Pharmacy 48.8; Estimated Glomerular Filt Rate > 60; Glucose Random 142 mg/dL (60-115); Magnesium 1.4 mg/dL (1.6-2.6); Phosphorus 3.2 mg/dL (2.7-4.5); Sodium 137 mmol/L (135-145)
[2020-10-19 07:08] LABS: Glucose, Whole Blood 163 mg/dL (60-115)
[2020-10-19] MEDS: Magnesium Sulfate/H2O 2 GM/50 ML PIGGYBACK IV (07:14)
[2020-10-19] MEDS: Potassium Chloride Packet 20 MEQ PACKET 40 MEQ PO (07:17)
[2020-10-19] MEDS: Aspirin 81 MG TAB.CHEW PO (07:18)
[2020-10-19] MEDS: Nitroglycerin 2 % Oint 1 GM Packet 0.5 INCH TRANSDERMA (07:18)
[2020-10-19] MEDS: Metoprolol Succinate ER 50 MG TAB.ER.24H PO (07:18)
[2020-10-19] MEDS: Atorvastatin Calcium 40 MG TABLET PO (07:18)
[2020-10-19] MEDS: Insulin Lispro 100 UNIT/ML 3 ML VIAL SUBCUT ×4 (07:30→21:03)
--- NOTE | 2020-10-19 07:33 | PC.NURSE ---
Gregg REMOVED, DTV AT 1400
[2020-10-19 08:33] LABS: B Type Natriuretic Peptide 743 pg/mL (<100)
[2020-10-19] MEDS: Doxycycline Hyclate 100 MG in 0.9 % Sodium Chloride 250 ML 166.67 MG IV (09:01)
--- NOTE | 2020-10-19 10:48 | P.PNCC_ITS ---
Subjective Subjective Date of Service: 10/19/20 Interval History: A 80-year-old male with the ischemic cardiomyopathy and 8 years status post inferior wall [place] treated with RCA stent and AICD for what was then of 35% ejection fraction currently it is a 20% ejection fraction and a diffuse process he lost consciousness simultaneously short of breath and weak after coming up from basement where he checked a boiler because of a cold house and woke up after an unknown amount of time there has been no interrogation of his AICD to see if E was dysrhythmic possible V-tach or paroxysmal atrial fib but he had a negative CT scan of his head no apparent embolic issue but 20% EF bilateral ground-glass infiltrates and consolidation with low-grade temperature and an acute hemoglobin of 6.9 with no previous history so he was transfused 2 units to 8.7 on his hemoglobin and he was diuresed with 60 mg of IV Lasix and he was able to come off of BiPAP very easily once he diuresed and had his anemia repaired and there was evidence on peripheral smear of possible extravascular hemolysis raising the possibility of either infection induced issue such as cold agglutinins that workup pending and he is on doxycycline for possible mycoplasma related process but lymphoproliferative disorder might need to be ruled out by bone marrow and for that he is going to require consultation from Hematology-On cology but he is doing beautifully he is up on his feet walking sinus rhythm with narrow QRS on metoprolol only for his myopathy and he is being held on his lisinopril because of borderline systolic pressure of 100 right now hemolytic workup remains but there is a question with 20% ejection fraction about the future need for anticoagulation aspirin at least for his ischemic heart disease possible Eliquis or Xarelto once his hemoglobin is appears secure and possibly follow be 1 more negative stool guaiac Physical Exam Vital Signs: Vital Signs: Last Vital Signs Temp 98.7 F 10/19/20 07:57 Pulse 78 10/19/20 10:00 Resp 27 H 10/19/20 10:00 BP 110/55 L 10/19/20 10:00 Pulse Ox 99 10/19/20 10:00 Body Mass Index 19.1 Const: Other: Awake alert oriented and nonfocal neurologically Diminished bilateral carotid upstrokes because of reduced stroke volume but no neck vein distension no gallops Abdomen benign with no organomegaly and good bowel sounds No peripheral edema and peripheral skin is intact and no acrocyanosis Lungs without adventitious sounds Objective Data Labs CBC & Chem 7: 10/19/20 05:33 10/19/20 05:31 Labs: Laboratory Results - last 24 hr 10/17/20 10/18/20 10/18/20 17:46 09:23 09:28 WBC RBC Hgb Hct MCV MCH MCHC RDW Plt Count MPV Immature Gran % (Auto) Neut % (Auto) Lymph % (Auto) Blaine % (Auto) Eos % (Auto) Baso % (Auto) Lymph # (Auto) Blaine # (Auto) Eos # (Auto) Baso # (Auto) Abs Immat Gran (auto) Absolute Neuts (auto) Absolute Nucleated RBC Nucleated RBC % (auto) Smear Path Review SEE NOTE PT INR APTT D-Dimer VBG pH VBG pCO2 VBG pO2 VBG HCO3 VBG O2 Saturation VBG Base Excess Sodium Potassium Chloride Carbon Dioxide Anion Gap BUN Creatinine Estim Creat Clear Calc Estimated GFR POC Glucose Random Glucose Calcium Phosphorus Magnesium Troponin I High Sens B-Natriuretic Peptide Urine Hemoglobin TRACE Respiratory Panel Crowe See Note Adenovirus (Rapid PCR) Not Detected B.pert (TEM-PCR) Not Detected B.parapertussis DNA PCR Not Detected C. pneumoniae DNA (PCR) Not Detected Coronavirus OC43 (PCR) Not Detected Coronavirus HKU1 (PCR) Not Detected Coronavirus 229E (PCR) Not Detected Coronavirus NL63 (PCR) Not Detected Human Metapneumovir PCR Not Detected Influenza A (RT-PCR) Not Detected Influenza B (RT-PCR) Not Detected M. pneumoniae (PCR) Not Detected Parainfluenza 1 (PCR) Not Detected Parainfluenza 2 (PCR) Not Detected Parainfluenza 3 (PCR) Not Detected Parainfluenza 4 (PCR) Not Detected RSV (PCR) Not Detected Entero/Rhino (PCR) Not Detected SARS-CoV-2 RNA (RT-PCR) Not Detected 10/18/20 10/18/20 10/18/20 11:35 16:41 21:10 WBC RBC Hgb Hct MCV MCH MCHC RDW Plt Count MPV Immature Gran % (Auto) Neut % (Auto) Lymph % (Auto) Blaine % (Auto) Eos % (Auto) Baso % (Auto) Lymph # (Auto) Blaine # (Auto) Eos # (Auto) Baso # (Auto) Abs Immat Gran (auto) Absolute Neuts (auto) Absolute Nucleated RBC Nucleated RBC % (auto) Smear Path Review PT INR APTT D-Dimer 994 VBG pH VBG pCO2 VBG pO2 VBG HCO3 VBG O2 Saturation VBG Base Excess Sodium Potassium Chloride Carbon Dioxide Anion Gap BUN Creatinine Estim Creat Clear Calc Estimated GFR POC Glucose 209 H 265 H Random Glucose Calcium Phosphorus Magnesium Troponin I High Sens B-Natriuretic Peptide Urine Hemoglobin Respiratory Panel Crowe Adenovirus (Rapid PCR) B.pert (TEM-PCR) B.parapertussis DNA PCR C. pneumoniae DNA (PCR) Coronavirus OC43 (PCR) Coronavirus HKU1 (PCR) Coronavirus 229E (PCR) Coronavirus NL63 (PCR) Human Metapneumovir PCR Influenza A (RT-PCR) Influenza B (RT-PCR) M. pneumoniae (PCR) Parainfluenza 1 (PCR) Parainfluenza 2 (PCR) Parainfluenza 3 (PCR) Parainfluenza 4 (PCR) RSV (PCR) Entero/Rhino (PCR) SARS-CoV-2 RNA (RT-PCR) 10/18/20 10/19/20 10/19/20 21:33 05:31 05:31 WBC RBC Hgb Hct MCV MCH MCHC RDW Plt Count MPV Immature Gran % (Auto) Neut % (Auto) Lymph % (Auto) Blaine % (Auto) Eos % (Auto) Baso % (Auto) Lymph # (Auto) Blaine # (Auto) Eos # (Auto) Baso # (Auto) Abs Immat Gran (auto) Absolute Neuts (auto) Absolute Nucleated RBC Nucleated RBC % (auto) Smear Path Review PT 13.4 H INR 1.1 APTT 26.1 D-Dimer VBG pH VBG pCO2 VBG pO2 VBG HCO3 VBG O2 Saturation VBG Base Excess Sodium 137 Potassium 3.0 L Chloride 100 Carbon Dioxide 24 Anion Gap 16 BUN 26 H Creatinine 0.97 Estim Creat Clear Calc 48.8 Estimated GFR > 60 POC Glucose 173 H Random Glucose 142 H D Calcium 7.8 L D Phosphorus 3.2 Magnesium 1.4 L* Troponin I High Sens B-Natriuretic Peptide Urine Hemoglobin Respiratory Panel Crowe Adenovirus (Rapid PCR) B.pert (TEM-PCR) B.parapertussis DNA PCR C. pneumoniae DNA (PCR) Coronavirus OC43 (PCR) Coronavirus HKU1 (PCR) Coronavirus 229E (PCR) Coronavirus NL63 (PCR) Human Metapneumovir PCR Influenza A (RT-PCR) Influenza B (RT-PCR) M. pneumoniae (PCR) Parainfluenza 1 (PCR) Parainfluenza 2 (PCR) Parainfluenza 3 (PCR) Parainfluenza 4 (PCR) RSV (PCR) Entero/Rhino (PCR) SARS-CoV-2 RNA (RT-PCR) 10/19/20 10/19/20 10/19/20 05:31 05:31 05:33 WBC 11.2 H RBC 3.49 L Hgb 8.2 L Hct 26.1 L MCV 74.8 L MCH 23.5 L MCHC 31.4 RDW 19.4 H Plt Count 134 L MPV 10.9 Immature Gran % (Auto) 0.6 H Neut % (Auto) 80.5 H Lymph % (Auto) 8.8 L Blaine % (Auto) 9.0 Eos % (Auto) 0.8 Baso % (Auto) 0.3 Lymph # (Auto) 1.0 L Blaine # (Auto) 1.0 Eos # (Auto) 0.1 Baso # (Auto) 0.0 Abs Immat Gran (auto) 0.07 H Absolute Neuts (auto) 9.0 H Absolute Nucleated RBC 0.000 Nucleated RBC % (auto) 0.0 Smear Path Review PT INR APTT D-Dimer VBG pH VBG pCO2 VBG pO2 VBG HCO3 VBG O2 Saturation VBG Base Excess Sodium Potassium Chloride Carbon Dioxide Anion Gap BUN Creatinine Estim Creat Clear Calc Estimated GFR POC Glucose Random Glucose Calcium Phosphorus Magnesium Troponin I High Sens 196.6 H B-Natriuretic Peptide 743 H Urine Hemoglobin Respiratory Panel Crowe Adenovirus (Rapid PCR) B.pert (TEM-PCR) B.parapertussis DNA PCR C. pneumoniae DNA (PCR) Coronavirus OC43 (PCR) Coronavirus HKU1 (PCR) Coronavirus 229E (PCR) Coronavirus NL63 (PCR) Human Metapneumovir PCR Influenza A (RT-PCR) Influenza B (RT-PCR) M. pneumoniae (PCR) Parainfluenza 1 (PCR) Parainfluenza 2 (PCR) Parainfluenza 3 (PCR) Parainfluenza 4 (PCR) RSV (PCR) Entero/Rhino (PCR) SARS-CoV-2 RNA (RT-PCR) 10/19/20 10/19/20 05:43 07:03 WBC RBC Hgb Hct MCV MCH MCHC RDW Plt Count MPV Immature Gran % (Auto) Neut % (Auto) Lymph % (Auto) Blaine % (Auto) Eos % (Auto) Baso % (Auto) Lymph # (Auto) Blaine # (Auto) Eos # (Auto) Baso # (Auto) Abs Immat Gran (auto) Absolute Neuts (auto) Absolute Nucleated RBC Nucleated RBC % (auto) Smear Path Review PT INR APTT D-Dimer VBG pH 7.57 H VBG pCO2 30 VBG pO2 107 VBG HCO3 28 H VBG O2 Saturation 98.0 VBG Base Excess 6.9 Sodium Potassium Chloride Carbon Dioxide Anion Gap BUN Creatinine Estim Creat Clear Calc Estimated GFR POC Glucose 163 H Random Glucose Calcium Phosphorus Magnesium Troponin I High Sens B-Natriuretic Peptide Urine Hemoglobin Respiratory Panel Crowe Adenovirus (Rapid PCR) B.pert (TEM-PCR) B.parapertussis DNA PCR C. pneumoniae DNA (PCR) Coronavirus OC43 (PCR) Coronavirus HKU1 (PCR) Coronavirus 229E (PCR) Coronavirus NL63 (PCR) Human Metapneumovir PCR Influenza A (RT-PCR) Influenza B (RT-PCR) M. pneumoniae (PCR) Parainfluenza 1 (PCR) Parainfluenza 2 (PCR) Parainfluenza 3 (PCR) Parainfluenza 4 (PCR) RSV (PCR) Entero/Rhino (PCR) SARS-CoV-2 RNA (RT-PCR) Microbiology Microbiology Results: Microbiology 10/18/20 17:59 Sputum - Expectorated Gram Stain - Final 10/18/20 17:59 Sputum - Expectorated Sputum Culture - Preliminary No growth to date. 10/17/20 18:30 Blood - Venous Blood Culture - Preliminary No growth after 24 hours. 10/17/20 17:45 Blood - Venous Blood Culture - Preliminary No growth after 24 hours. Progress Note: A&P Assessment and plan (1) Ischemic heart disease due to coronary artery obstruction: Status: Acute (2) Congestive cardiomyopathy: Status: Acute (3) Hemolytic anemia: Status: Acute (4) Congestive heart failure: Status: Acute (5) Community acquired pneumonia: Status: Acute (6) Hypoxia: Status: Acute (7) Acute hyperkalemia: Status: Acute (8) Severe anemia: Status: Acute (9) Acute renal failure superimposed on stage 1 chronic kidney disease: Status: Acute Assessment and Plan: He will be transfer to the floor to follow his hemoglobin and to see when he can be reconsidered for either lisinopril or an ARB and possibly to have a Hematology consult because of the hemolysis and ultimately once he remains guaiac-negative should he be anticoagulated given his cardiomyopathy level and his ongoing risk for stroke Time Spent With Patient Time: Total time spent is greater than 50% in coordination of care (as documented) at patient's floor/unit and/or counseling patient: Total time spent with greater than 50% in coordination of care (as documented) at patient's floor/unit and/or counseling patient:: 35
--- NOTE | 2020-10-19 11:21 | PM.HEMONCCN ---
Subjective - Subjective Patient: new to practice Consult date: 10/19/20 Requesting Physician: Cecilia. Primary Care Provider: Unknown Physician Medical Summary: DIAGNOSIS: ANEMIA. Chief Complaint: Sepsis/ CAP/ hypoxic respiratory failure/ CHF. HPI - Consult Narrative Reason for consult: Consult for: Anemia. Narrative: Kehinde Fowler is a pleasant 80 year old gentleman, who presented to the emergency room, after complaining of shortness of breath. Patient has been sick for the past 2 days and not feeling himself. He admitted to have a cough with white/yellow sputum production, feeling chills but no actual fever. His initial exam revealed diffuse crackles. He was noted to be satting around 60% on room air and placed on non-rebreather mask. Temperature of 100.9?. The patient also reported having passed out in the morning upon coming upstairs. He was able to get up after about 2 hours and ambulated without any noted injuries. He called his sisters and came to emergency room for further care. The workup revealed:A fever 100.9, tachypneic, at 28 although maintaining a good blood pressure however was hypoxic as reported by EMS with a sat of 60% on room air. CBC revealed a white count 36369, H&H of 6.7/24 respectively with platelets of 231. Lactic acid 3.5. K was borderline elevated at 5.8 treated with kayexalate; his BUN to creatinine ratio is elevated. COVID 19 NEGATIVE. Images for trauma survey was negative. Chest CT did show bilateral upper lobe patchy airspace disease question of possibility of cardiogenic pulmonary edema versus multifocal atypical pneumonia, cardiomegaly and evidence of pulmonary hypertension. He was started on antibiotics but was not given 30 mL/kilogram of fluids due to the concern of fluid overload. Given that the patient continue to have low sats while on non-rebreather 80%, tachypnea he was placed on CPAP. Denies any current chest pain or palpitations, denies abdominal pain, no history of blood clots, denies any leg edema in the past. Other review systems not possible due to patient's inability to breathe properly or talk well with the mask. Past History: Patient with underlying history of hyperlipidemia, paroxysmal AFib not on blood thinners, hypertension, diabetes, history of coronary artery disease post 3 stents, CHF status post AICD, basal cell carcinoma of the skin Review of Systems - Constitutional Reports system reviewed and no additional complaints, except as documented - Eyes Reports system reviewed and no additional complaints, except as documented - ENT Reports system reviewed and no additional complaints, except as documented - Cardiovascular Reports system reviewed and no additional complaints, except as documented - Respiratory Reports no additional respiratory complaints - Gastrointestinal Reports system reviewed and no additional complaints, except as documented - Genitourinary Genitourinary: Reports no additional male genitourinary complaints - Musculoskeletal Reports system reviewed and no additional complaints, except as documented - Integumentary/Breasts Skin/Breast: Reports no additional skin complaints - Neurologic Reports system reviewed and no additional complaints, except as documented - Psychiatric Reports system reviewed and no additional complaints, except as documented - Endocrine Reports no additional endocrine complaints - Hematologic/Lymphatic Reports system reviewed and no additional complaints, except as documented - Allergic/Immunologic Reports system reviewed and no additional complaints, except as documented Oncology Screenings - ECOG Performance Status ECOG Performance Status: 2 [facility] Medical History: Medical History (Last Updated 10/20/20 @ 11:01 by Sanjay Payan MD) Anemia Atherosclerotic cardiovascular disease Basal cell carcinoma of skin Chronic renal failure, stage 2 (mild) Congestive cardiomyopathy Congestive heart failure Congestive heart failure Diabetes 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 Hyperlipidemia ICD (implantable cardioverter-defibrillator) in place Ischemic cardiomyopathy 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, old Paroxysmal A-fib Surgical History: Surgical History (Last Reviewed 10/20/20 @ 10:44 by Zayra Gonzalez PT) H/O heart artery stent Social History: Social History (Last Reviewed 10/17/20 @ 17:43 by Sam Farnsworth MD) Living Situation History: Household Members: Family Housing: House Tobacco History: Second Hand Smoke Exposure: No Occupation Assessmet: service: No Current occupational status: retired Smoking status: Former smoker Home Medications and Allergies Current Medications: Current Medications Generic Name Dose Route Start Last Admin Trade Name Lázaroq PRN Reason Stop Dose Admin Aspirin 81 mg 10/18/20 09:00 10/19/20 07:18 Aspirin 81 Mg Tab.Chew PO 81 mg DAILY ELBA Administration Atorvastatin Calcium 40 mg 10/18/20 09:00 10/19/20 07:18 Atorvastatin Calcium 40 Mg Tablet PO 40 mg DAILY ELBA Administration Doxycycline Hyclate 100 mg 10/19/20 21:00 Doxycycline Hyclate 100 Mg Tablet PO Q12H [facility] Insulin Human Lispro 0 unit 10/18/20 07:30 10/19/20 07:30 Insulin Lispro 100 Unit/Ml 3 Ml Vial SUBCUT 2 unit QIDACHS [facility] Administration Protocol Metoprolol Succinate 37.5 mg 10/20/20 09:00 Metoprolol Succinate Er 25 Mg Tab.Er.24h PO DAILY [facility] Protocol Home Medications Medication Instructions Recorded Confirmed Type aspirin 81 mg PO DAILY 10/17/20 10/17/20 History atorvastatin 1 tab PO DAILY 10/17/20 10/17/20 History cyanocobalamin (vitamin B-12) 1 tab PO DAILY 10/17/20 10/17/20 History [Vitamin B-12] metformin 1 tab PO BID 10/17/20 10/17/20 History metoprolol succinate 1 tab PO DAILY 10/17/20 10/17/20 History Allergies Allergy/AdvReac Type Severity Reaction Status Date / Time No Known Allergies Allergy Verified 10/18/20 08:48 Physical Exam Vital signs: Vital Signs Temp 98.7 F 10/19/20 07:57 Pulse 78 10/19/20 10:00 Resp 27 H 10/19/20 10:00 BP 110/55 L 10/19/20 10:00 Pulse Ox 97 10/19/20 11:00 Intake & Output 10/18/20 10/19/20 10/19/20 18:59 06:59 18:59 Intake Total 1300 / 1650 350 / 1650 540 / 540 Output Total 580 / 1070 390 / 1070 100 / 100 Balance 720 / 580 -40 / 580 440 / 440 Urine Output (Average ml/kg/hr) 0.82 0.57 0.15 Intake: Intake, Oral Amount 760 / 860 100 / 860 240 / 240 Intake, Tube Feeding Amount 240 / 240 Intake, IV Amount 300 / 550 250 / 550 300 / 300 Doxycycline Hyclate 100 mg In 0 250 / 500 250 / 500 250 / 250 .9 % Sodium Chloride 250 ml @ 166.67 mls/hr IV Q12H [facility] Rx#: [id number] Magnesium Sulfate/H2O 2 gm In 50 / 50 50 ml @ 25 mls/hr IV ONCE ONE Rx#:[id number] cefTRIAXone sodium 1 gm In 0.9 50 / 50 % Sodium Chloride 50 ml @ 100 mls/hr IV Q24H [facility] Rx#: [id number] Output: Output, Urine Amount (Catheter) 580 / 1070 390 / 1070 100 / 100 Urethral 390 / 490 100 / 100 indwelling 580 / 580 Other: Breakfast % Eaten 75% Lunch % Eaten 100% Number of Bowel Movements 1 Urine Color Dilute Yellow Last Bowel Movement 10/19/20 10/18/20 Stool Bedside Commode Stool Amount Moderate Stool Color Brown Stool Consistency Loose Weight 58.8 kg 57 kg Weight in Grams [id number] Weight 57 kg - Constitutional Present: moderate distress - Routine HEENT Exam Head: Present: normal inspection ENT: Present: mucous membranes moist - Routine Neck Exam Present: supple - Routine Respiratory Exam Present: decreased breath sounds - Routine Cardiovascular Exam Cardiovascular: Present: RRR, S1, S2 - Routine Abdominal Exam Present: normal bowel sounds, nontender - Routine Extremities Exam Present: nontender - Routine Skin Exam Present: intact - Routine Neurological Exam Present: alert, oriented X3 - Detailed Neurological Exam: Coma Scale Verbal Response: Oriented (5) Motor Response: Obeys commands (6) - Routine Psychiatric Exam Present: normal affect Hem/Onc Consult Result - Labs CBC & Chem 7: 10/20/20 05:44 10/21/20 05:50 Labs: Short CBC 10/19/20 Range/Units 05:33 WBC 11.2 H (4.8-10.8) X10*3/uL Hgb 8.2 L (14.0-18.0) g/dl Hct 26.1 L (42-52) % Plt Count 134 L (160-400) X10*3/uL BMP 10/19/20 05:31 Sodium 137 Potassium 3.0 L Chloride 100 Carbon Dioxide 24 BUN 26 H Creatinine 0.97 Calcium 7.8 L D Assessment and Plan (1) Anemia Status: Inactive Qualifiers: Anemia type: unspecified type Qualified Code(s): D64.9 - Anemia, unspecified This is a pleasant 80-year-old gentleman who presented with a syncopal episode at home. Noted to be in CHF. History of AFib and heart disease. He was noted to be anemic with hemoglobin down to 6.7 g. DIFFERENTIAL DIAGNOSIS: 1. ANEMIA OF CHRONIC DISEASE: This is most likely with his underlying comorbidities. 2. IRON DEFICIENCY ANEMIA: 3. HEMOLYTIC ANEMIA: 4. UNDERLYING MYELO INFILTRATIVE DISORDER: MDS versus lymphoma versus multiple myeloma. PLAN: Will proceed with anemia workup. Check hemolytic screen: Retic 1.7, hapto 316, LDH 275. Check B12 and folate levels: B12 532, folate 7.9. Check LDH: 275 and an SIEP; no monoclonal spike. If the above workup is non revealing, will proceed with a bone marrow exam for further evaluation. For now transfused to bring hemoglobin up to 9, to help improve his oxygen carrying capacity. I will follow along with you, Thanks, CC:
[2020-10-19 11:26] LABS: Glucose, Whole Blood 232 mg/dL (60-115)
[2020-10-19 11:51] LABS: Glucose, Whole Blood 232 mg/dL (60-115)
[2020-10-19 12:02] LABS: Fibrinogen 602 MG/DL (259-690)
[2020-10-19 12:14] LABS: Alanine Aminotransferase 13 U/L (0-40); Albumin Level 3.3 g/dL (3.5-5.0); Alkaline Phosphatase 40 U/L (39-117); Aspartate Amino Transferase 20 U/L (5-37); Bilirubin Direct 0.4 mg/dL (0.0-0.5); Bilirubin Total 0.8 mg/dL (0.0-1.0); Lactate Dehydrogenase 291 U/L (118-273); Total Protein 5.8 g/dL (6.5-8.0)
[2020-10-19 12:16] LABS: Immature Retic Fraction 36.4 % (2.3-13.4); Retic HGB Equivalent 24.7 pg (30.0-35.0); Reticulocyte Percent 1.7 % (0.5-1.8)
[2020-10-19 16:41] LABS: Glucose, Whole Blood 276 mg/dL (60-115)
[2020-10-19] MEDS: cefTRIAXone sodium 1 GM in 0.9 % Sodium Chloride 50 ML IV (17:01)
--- NOTE | 2020-10-19 18:24 | PC.NURSE ---
Patient arrived to unit from med/surg around 1645. O2 SAT in the high 90s on RA, placed on 2L O2 via NC, patient now saturating in the low 90s. F/C removed at 0730, patient reports urinating since F/C was removed. Patient A+O x 4. Urinal on bedside table, call irwin within reach. Patient oriented to room, instructed to utilize call irwin for assistance with ambulation; patient verbalizes understanding. No complaints or complications.
--- NOTE | 2020-10-19 18:39 | PC.NURSE ---
Patient arrived to unit from med/surg around 1645. O2 SAT in the high 80s on RA, placed on 2L O2 via NC, patient now saturating in the low 90s. F/C removed at 0730, patient reports urinating since F/C was removed. Patient A+O x 4. Urinal on bedside table, call irwin within reach. Patient oriented to room, instructed to utilize call irwin for assistance with ambulation; patient verbalizes understanding. Cardiology consult pending. No complaints or complications.
[2020-10-19 20:31] LABS: Glucose, Whole Blood 245 mg/dL (60-115)
[2020-10-19 22:21] LABS: Haptoglobin 222 mg/dL (43-212)
[2020-10-20] VITALS (9 sets, daily range): BP systolic 100–154; BP diastolic 52–73; PULSE 75–90; RESP 17–20; TEMP 37.1–37.6; O2SAT 90–96; BMI 19.6
--- NOTE | 2020-10-20 01:23 | PC.NURSE ---
This RN talked to Dr. Allen and the ICU to confirm the blood orders in the [facility]. ICU confirmed this patient recieved 1 unit of blood in the ED and 1 unit in the ICU, totalling 2 units. ICU also confirmed that the intensivists does NOT want the 2 units left to be given. Dr. Allen stated she agrees with this due to the patient's underlying CHF, and she believes his H&H is stable enough. Therefore, the order is still flagging but NO MORE UNITS OF BLOOD IS TO BE GIVEN per Dr. Allen.
[2020-10-20 06:52] LABS: Hematocrit 28.4 % (42-52); Hemoglobin 8.8 g/dl (14.0-18.0); Mean Corpuscular Hemoglobin 23.7 pg (27.0-33.0); Mean Corpuscular Volume 76.3 fL (80-98); Mean Platelet Volume 10.7 fL (9.4-12.4); Platelet Count 151 X10*3/uL (160-400); Red Blood Count 3.72 X10*6/uL (4.60-5.80); Red Cell Distribution Width 20.4 % (11.0-16.0); White Blood Count 11.9 X10*3/uL (4.8-10.8)
[2020-10-20 07:05] LABS: Anion Gap 16 (12-20); Blood Urea Nitrogen 17 mg/dL (9-16); Calcium 7.8 mg/dL (8.4-10.2); Carbon Dioxide 23 mmol/L (22-29); Chloride 99 mmol/L (96-108); Creatinine Clr Calc Pharmacy 57.6; Estimated Glomerular Filt Rate > 60; Glucose Random 191 mg/dL (60-115); Potassium 3.5 mmol/L (3.3-5.1); Sodium 134 mmol/L (135-145)
[2020-10-20 07:27] LABS: Glucose, Whole Blood 211 mg/dL (60-115)
[2020-10-20] MEDS: Insulin Lispro 100 UNIT/ML 3 ML VIAL SUBCUT ×4 (07:33→20:44)
[2020-10-20] MEDS: Atorvastatin Calcium 40 MG TABLET PO (09:39)
[2020-10-20] MEDS: Aspirin 81 MG TAB.CHEW PO (09:39)
[2020-10-20] MEDS: Metoprolol Succinate ER 25 MG TAB.ER.24H 37.5 MG PO (09:39)
--- NOTE | 2020-10-20 10:55 | PM.CNCAR ---
History of Present Illness History of Present Illness Date of Service: 10/20/20 Consult reason: congestive heart failure Chief complaint: Sepsis/CAP/L CHF; Hypoxic Resp Failure Narrative: This is a patient of at [facility]. He has a history of diabetes, hyperlipidemia, coronary disease status post inferior wall ID in 2012 requiring PCI of RCA, residual 50% disease and marginal, heart failure with reduced ejection fraction, status post prophylactic ICD. He states that he was fixing something in the bother and at that time, as he was coming up he felt short of breath and passed out for unknown amount of time. He was then admitted. He had some fever on arrival to. Was also having leukocytosis, anemia, acute on chronic CKD. After being treated in the ICU, he is now on the floor. He states that he is feeling back to his normal self. Well as antibiotics for empiric treatment of heart failure as well as pneumonia. Review of Systems Review of Systems: Yes all other systems are reviewed and are negative Cardiovascular: Cardiovascular: Reports as per HPI, Reports no additional cardiovascular complaints, Denies acrocyanosis, Denies cool extremities, Denies painful fingertips, Denies chest pain, Denies chest pain at rest, Denies diaphoresis, Denies syncope, Denies irregular heart rhythm, Denies claudication, Denies leg edema, Reports lightheadedness, Denies palpitations and Reports dyspnea Respiratory: Respiratory: Reports dyspnea Neurologic: Denies syncope Endocrine: Endocrine: Denies palpitations [facility] Past Medical History Medical History (Updated 10/20/20 @ 11:02 by Sanjay Payan MD) Atherosclerotic cardiovascular disease Basal cell carcinoma of skin Congestive heart failure Diabetes 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 Hyperlipidemia 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, old Paroxysmal A-fib Family History Family history: reviewed and not pertinent Surgical History Surgical History H/O heart artery stent Social History Social History Household Members: Family Housing: House Do you presently have visiting nurse or other home services: No Smoking Status: Former smoker Smoked in Last 30 Days: No Patient Interested in Nicotine Replacement: No Patient Given Instructions on How to Stop Smoking: No (has not smoked since adolsescnece) Second Hand Smoke Exposure: No Use of substances other than those prescribed or required for medical reasons: No Currently Displaying Signs/Symptoms of Drug Intoxication Withdrawal: No Have you been hit, kicked, punched, or otherwise hurt by someone within the past year? If so, by whom?: No Do you feel safe in your current relationship?: Yes Is there a partner from a previous relationship who is making you feel unsafe now?: No Are you made to feel afraid or neglected: No Advance Directives: No Advance Directives Information Provided: No Do you have thoughts of harming others: None Do you have a plan to hurt others: No Plan service: No Current occupational status: retired [employer] Allergies Allergy/AdvReac Type Severity Reaction Status Date / Time No Known Allergies Allergy Verified 10/18/20 08:48 Active Medications: Current Medications Generic Name Dose Route Start Last Admin Trade Name Freq PRN Reason Stop Dose Admin Aspirin 81 mg 10/18/20 09:00 10/20/20 09:39 Aspirin 81 Mg Tab.Chew PO 81 mg DAILY ELBA Administration Atorvastatin Calcium 40 mg 10/18/20 09:00 10/20/20 09:39 Atorvastatin Calcium 40 Mg Tablet PO 40 mg DAILY ELBA Administration Doxycycline Hyclate 100 mg 10/19/20 21:00 10/20/20 09:39 Doxycycline Hyclate 100 Mg Tablet PO 100 mg Q12H ELBA Administration Ceftriaxone Sodium 1 gm/ 50 mls @ 100 mls/hr 10/19/20 17:00 10/19/20 17:45 Sodium Chloride IV Infused Q24H ELBA Infusion Insulin Human Lispro 0 unit 10/18/20 07:30 10/20/20 07:33 Insulin Lispro 100 Unit/Ml 3 Ml Vial SUBCUT 4 unit QIDACHS ELBA Administration Protocol Metoprolol Succinate 37.5 mg 10/20/20 09:00 10/20/20 09:39 Metoprolol Succinate Er 25 Mg Tab.Er.24h PO 37.5 mg DAILY ELBA Administration Protocol Home Medications Medication Instructions Recorded Confirmed Last Taken Type aspirin 81 mg PO DAILY 10/17/20 10/17/20 10/17/20 07:00 History atorvastatin 1 tab PO DAILY 10/17/20 10/17/20 10/16/20 20:00 History cyanocobalamin (vitamin B-12) 1 tab PO DAILY 10/17/20 10/17/2010/17/21 07:00 History [Vitamin B-12] lisinopril 1 tab PO DAILY 10/17/20 10/17/20 10/16/20 20:00 History metformin 1 tab PO BID 10/17/20 10/17/20 10/17/20 07:00 History 1000 metoprolol succinate 1 tab PO DAILY 10/17/20 10/17/20 10/17/20 07:00 History Physical Exam Vital Signs: Vital Signs: Last Vital Signs Temp 99.0 F 10/20/20 07:57 Pulse 88 10/20/20 09:39 Resp 18 10/20/20 07:57 BP 100/56 L 10/20/20 09:39 Pulse Ox 94 10/20/20 10:43 Body Mass Index 19.6 Const: General: cooperative, comfortable and no acute distress Orientation/consciousness: patient oriented x3 HENMT: Other: Unremarkable Neck: Neck: Yes normal visual inspection Chest: Chest palpation & inspection: normal inspection of the chest Resp: Auscultation: clear to auscultation bilaterally, no crackles and no wheezes Cardio: Jugular venous distension: no JVD Palpation: normal PMI Heart sounds: S1 normal heart sound present, S2 normal heart sound present, no gallops, no murmurs and no rubs GI: Palpation (GI): Soft to palpation Back/Spine/Pelvis: Other: unremarkable Skin: General skin exam: no rashes or lesions noted Neuro: General: patient oriented x3 Extrem: General: Yes no clubbing, cyanosis or edema Psych: Mental Status: mental status grossly normal Results Labs and Meds Result diagrams: 10/20/20 05:44 10/20/20 05:44 Lab results: Laboratory Results - last 24 hr 10/18/20 10/19/20 10/19/20 08:57 05:31 05:31 WBC RBC Hgb Hct MCV MCH MCHC RDW Plt Count MPV Absolute Nucleated RBC Nucleated RBC % (auto) Absolute Retic Cancelled Percent Retic Cancelled Immature Retic Fraction Cancelled Retic Hgb Equivalent Cancelled Haptoglobin 222 H Fibrinogen Sodium Potassium Chloride Carbon Dioxide Anion Gap BUN Creatinine Estim Creat Clear Calc Estimated GFR POC Glucose Random Glucose Calcium Total Bilirubin 0.8 Direct Bilirubin 0.4 AST 20 ALT 13 Alkaline Phosphatase 40 Lactate Dehydrogenase 291 H Total Protein 5.8 L Albumin 3.3 L 10/19/20 10/19/20 10/19/20 05:31 05:33 11:23 WBC RBC Hgb Hct MCV MCH MCHC RDW Plt Count MPV Absolute Nucleated RBC Nucleated RBC % (auto) Absolute Retic 0.060 Percent Retic 1.7 Immature Retic Fraction 36.4 H Retic Hgb Equivalent 24.7 L Haptoglobin Fibrinogen 602 Sodium Potassium Chloride Carbon Dioxide Anion Gap BUN Creatinine Estim Creat Clear Calc Estimated GFR POC Glucose 232 H Random Glucose Calcium Total Bilirubin Direct Bilirubin AST ALT Alkaline Phosphatase Lactate Dehydrogenase Total Protein Albumin 10/19/20 10/19/20 10/19/20 11:46 16:35 20:17 WBC RBC Hgb Hct MCV MCH MCHC RDW Plt Count MPV Absolute Nucleated RBC Nucleated RBC % (auto) Absolute Retic Percent Retic Immature Retic Fraction Retic Hgb Equivalent Haptoglobin Fibrinogen Sodium Potassium Chloride Carbon Dioxide Anion Gap BUN Creatinine Estim Creat Clear Calc Estimated GFR POC Glucose 232 H 276 H 245 H Random Glucose Calcium Total Bilirubin Direct Bilirubin AST ALT Alkaline Phosphatase Lactate Dehydrogenase Total Protein Albumin 10/20/20 10/20/20 10/20/20 05:44 05:44 07:08 WBC 11.9 H RBC 3.72 L Hgb 8.8 L Hct 28.4 L MCV 76.3 L MCH 23.7 L MCHC 31.0 RDW 20.4 H Plt Count 151 L MPV 10.7 Absolute Nucleated RBC 0.000 Nucleated RBC % (auto) 0.0 Absolute Retic Percent Retic Immature Retic Fraction Retic Hgb Equivalent Haptoglobin Fibrinogen Sodium 134 L Potassium 3.5 Chloride 99 Carbon Dioxide 23 Anion Gap 16 BUN 17 H Creatinine 0.82 Estim Creat Clear Calc 57.6 Estimated GFR > 60 POC Glucose 211 H Random Glucose 191 H Calcium 7.8 L Total Bilirubin Direct Bilirubin AST ALT Alkaline Phosphatase Lactate Dehydrogenase Total Protein Albumin ECG Attestation: I personally reviewed and interpreted this ECG as follows: Interpretation: EKG on arrival with sinus rhythm at 87/Min; cannot exclude old inferior ID or septal ID with some slight lateral ST depression. Overall, similar to prior. Assessment and Plan (1) Ischemic cardiomyopathy: Status: Acute (2) Acute on chronic systolic (congestive) heart failure: Status: Acute (3) Atherosclerotic cardiovascular disease: Status: Acute (4) Anemia: Qualifiers: Anemia type: unspecified type Qualified Code(s): D64.9 - Anemia, unspecified Status: Acute Admission hemoglobin was 6.7 grams/deciliter. It is quite possible that severe anemia precipitated acute heart failure as he already has markedly diminished LVEF. Clinically, he appears much improved and essentially euvolemic. Admission cardiac BNP was 1377 but repeat is 743. Echocardiogram with LVEF 20-25% with inferior wall motion abnormalities. Overall, cardiac status seems stable. He will eventually require some baseline diuretics for maintenance. Otherwise anemia to be appropriately addressed. Continue Beta-blockers. Home meds also list lisinopril 20 mg from prior cardiology note but currently not in his meds. At some point, need to resume. Will follow with you.
[2020-10-20 11:26] LABS: Glucose, Whole Blood 320 mg/dL (60-115)
--- NOTE | 2020-10-20 12:40 | MHC.CM.PN ---
Patient's goal is to return home with a new referral to [facility] for home PT and PT states that Patient may benefit from a STR stay.CM will follow to determine final dc plan.
--- NOTE | 2020-10-20 14:12 | HO.PM.IMPN ---
Subjective Subjective Date of Service: 10/20/20 Interval History: the patient was seen and evaluated this morning Laying in bed, feels comfortable overall, dyspnea improved significantly, weaning down oxygen requirement Denies any fever, chills or shortness of breath No reported other overnight events. Systemic review: No fever, chills or weakness No chest pain, palpitation No shortness of breath or coughing No abdominal pain, nausea or vomiting No urinary symptoms No any rash or wounds Physical Exam Vital Signs: Vital Signs: Last Vital Signs Temp 98.7 F 10/20/20 12:00 Pulse 78 10/20/20 12:00 Resp 20 10/20/20 12:00 BP 100/52 L 10/20/20 12:00 Pulse Ox 95 10/20/20 12:00 Body Mass Index 19.6 Const: Other: Constitutional : Alert, oriented, not in distress Neck : Normal inspection, Supple Cardiovascular : RRR, S1 S2, no lower extremity edema Respiratory : fair bilateral air entry, fine basal crackles, no wheezes or rhonchi Gastrointestinal: soft, lax, Normal bowel sounds, Non tender Skin : Warm/Dry, No rash Neurological : Alert & oriented x3, No focal deficit Objective Data Current Medications Generic Name Dose Route Start Last Admin Trade Name Freq PRN Reason Stop Dose Admin Aspirin 81 mg 10/18/20 09:00 10/20/20 09:39 Aspirin 81 Mg Tab.Chew PO 81 mg DAILY ELBA Administration Atorvastatin Calcium 40 mg 10/18/20 09:00 10/20/20 09:39 Atorvastatin Calcium 40 Mg Tablet PO 40 mg DAILY ELBA Administration Doxycycline Hyclate 100 mg 10/19/20 21:00 10/20/20 09:39 Doxycycline Hyclate 100 Mg Tablet PO 100 mg Q12H ELBA Administration Ceftriaxone Sodium 1 gm/ 50 mls @ 100 mls/hr 10/19/20 17:00 10/19/20 17:45 Sodium Chloride IV Infused Q24H ELBA Infusion Insulin Human Lispro 0 unit 10/18/20 07:30 10/20/20 11:28 Insulin Lispro 100 Unit/Ml 3 Ml Vial SUBCUT 8 unit QIDACHS ELBA Administration Protocol Metoprolol Succinate 37.5 mg 10/20/20 09:00 10/20/20 09:39 Metoprolol Succinate Er 25 Mg Tab.Er.24h PO 37.5 mg DAILY ELBA Administration Protocol Labs CBC & Chem 7: 10/20/20 05:44 10/20/20 05:44 Microbiology Microbiology Results: Microbiology 10/18/20 17:59 Sputum - Expectorated Gram Stain - Final 10/18/20 17:59 Sputum - Expectorated Sputum Culture - Final Group C/G Streptococcus 10/17/20 18:30 Blood - Venous Blood Culture - Preliminary No growth after 48 hours. 10/17/20 17:45 Blood - Venous Blood Culture - Preliminary No growth after 48 hours. Assessment and Plan (1) Acute on chronic systolic (congestive) heart failure: Status: Acute (2) Severe anemia: Status: Acute (3) Congestive cardiomyopathy: Status: Acute (4) Hemolytic anemia: Status: Acute (5) Hypoxia: Status: Acute (6) Community acquired pneumonia: Status: Acute (7) Acute renal failure superimposed on stage 1 chronic kidney disease: Status: Acute Assessment and Plan: An 80 years old male with PMH CMP on AICD for EF of 20-25%, CAD status post RCA stent who presents to the hospital with syncopal episode and shortness of breath. Found to be in heart failure and significant anemia. Hypoxia, resolved Acute on chronic systolic CHF exacerbation Elevated BNP around 1300 at time of presentation, trending down Treated with IV Lasix Repeated echo showed EF of 20-25% Evaluated by Cardiology who recommends continue home medications with no need of anticoagulation Community-acquired pneumonia Negative blood cultures continue doxycycline and ceftriaxone Symptomatic anemia Hemoglobin of 6.8 at time of presentation Required total of 2 units of blood transfusion with good response Negative occult blood Suspected hemolytic disease Pending Hematology evaluation Hyperkalemia Resolved Octavio I on CKD Kidney function improved back to baseline next L[place] continue to monitor BMP CAD Continue aspirin, statin and metoprolol DVT PPX SCDs
--- NOTE | 2020-10-20 15:08 | PC.NURSE ---
pt removed from o2. sats 93-95%. denies sob or resp distress
[2020-10-20] MEDS: cefTRIAXone sodium 1 GM in 0.9 % Sodium Chloride 50 ML IV (16:06)
[2020-10-20 16:20] LABS: Glucose, Whole Blood 338 mg/dL (60-115)
[2020-10-20 20:33] LABS: Glucose, Whole Blood 314 mg/dL (60-115)
[2020-10-21 02:58] VITALS: BP 129/63; PULSE 92; RESP 18; TEMP 37.1; O2SAT 93
[2020-10-21 05:01] VITALS: BMI 20.2
[2020-10-21 07:23] VITALS: BP 139/66; PULSE 85; RESP 18; TEMP 36.8; O2SAT 95
[2020-10-21 07:25] LABS: Glucose, Whole Blood 194 mg/dL (60-115)
[2020-10-21 07:47] LABS: Anion Gap 17 (12-20); Blood Urea Nitrogen 21 mg/dL (9-16); Calcium 7.7 mg/dL (8.4-10.2); Carbon Dioxide 21 mmol/L (22-29); Chloride 103 mmol/L (96-108); Creatinine Clr Calc Pharmacy 60.1; Estimated Glomerular Filt Rate > 60; Glucose Random 175 mg/dL (60-115); Potassium 3.9 mmol/L (3.3-5.1); Sodium 137 mmol/L (135-145)
[2020-10-21] MEDS: Insulin Lispro 100 UNIT/ML 3 ML VIAL SUBCUT ×3 (07:58→11:42)
[2020-10-21 07:59] VITALS: BP 139/66; PULSE 85
[2020-10-21] MEDS: Aspirin 81 MG TAB.CHEW PO (07:59)
[2020-10-21] MEDS: Atorvastatin Calcium 40 MG TABLET PO (07:59)
[2020-10-21] MEDS: Metoprolol Succinate ER 25 MG TAB.ER.24H 37.5 MG PO (07:59)
[2020-10-21 09:32] LABS: Alanine Aminotransferase 13 U/L (0-40); Albumin Level 3.1 g/dL (3.5-5.0); Alkaline Phosphatase 46 U/L (39-117); Aspartate Amino Transferase 20 U/L (5-37); Bilirubin Direct 0.4 mg/dL (0.0-0.5); Bilirubin Total 0.7 mg/dL (0.0-1.0); Lactate Dehydrogenase 275 U/L (118-273); Total Protein 5.8 g/dL (6.5-8.0)
[2020-10-21 09:37] VITALS: BP 139/66; PULSE 85; O2SAT 95
[2020-10-21] MEDS: Furosemide 20 MG TABLET PO (09:48)
--- NOTE | 2020-10-21 09:51 | MHC.CM.PN ---
CM has left a detailed message for Cousin/Guardian/Silvana @ [phone].CM has asked Silvana to confirm that she is indeed the Guardian and to request a copy of the Guardianship document and to inform CM of Patient's PCP. CM awaits a return call.
[2020-10-21 09:52] LABS: Ferritin 96 ng/mL (20-250)
[2020-10-21 10:17] LABS: Folate 7.9 ng/mL (> or = 4.0); Vitamin B12 532 pg/mL (200-900)
--- NOTE | 2020-10-21 11:00 | P.PNCA_ITS ---
Subjective Subjective Date of Service: 10/21/20 Interval history: He states that he feels okay. No specific cardiac complaints at this time. Not short of breath. Review of Systems Review of Systems Yes all other systems are reviewed and are negative Cardiovascular: Reports as per HPI, Reports no additional cardiovascular compla ints, Denies acrocyanosis, Denies cool extremities, Denies painful fingertips, Denies chest pain, Denies chest pain at rest, Denies diaphoresis, Denies syncope, Denies irregular heart rhythm, Denies claudication, Denies leg edema, Denies lightheadedness, Denies palpitations and Denies dyspnea Respiratory: Denies dyspnea Denies syncope Endocrine: Denies palpitations Physical Exam Vital Signs: Last Vital Signs Temp 98.3 F 10/21/20 07:23 Pulse 85 10/21/20 09:37 Resp 18 10/21/20 07:23 BP 139/66 10/21/20 09:37 Pulse Ox 95 10/21/20 09:37 Body Mass Index 20.2 Const General: cooperative, comfortable and no acute distress Orientation/consciousness: patient oriented x3 HENMT Other: Unremarkable Neck Neck: Yes normal visual inspection Chest Chest palpation & inspection: normal inspection of the chest Resp Auscultation: clear to auscultation bilaterally, no crackles and no wheezes Cardio Jugular venous distension: no JVD Palpation: normal PMI Heart sounds: S1 normal heart sound present, S2 normal heart sound present, no gallops, no murmurs and no rubs GI Palpation (GI): Soft to palpation Back/Spine/Pelvis Other: unremarkable Skin General skin exam: no rashes or lesions noted Neuro General: patient oriented x3 Extrem General: Yes no clubbing, cyanosis or edema Psych Mental Status: mental status grossly normal Results Labs and Meds Result diagrams: 10/20/20 05:44 10/21/20 05:50 Lab results: Laboratory Results - last 24 hr 10/17/20 10/20/20 10/20/20 18:40 11:12 15:53 Sodium Potassium Chloride Carbon Dioxide Anion Gap BUN Creatinine Estim Creat Clear Calc Estimated GFR POC Glucose 320 H 338 H Random Glucose Calcium Ferritin Total Bilirubin Direct Bilirubin AST ALT Alkaline Phosphatase Lactate Dehydrogenase Total Protein Albumin Vitamin B12 Folate Crossmatch See Detail 10/20/20 10/21/20 10/21/20 20:13 05:50 05:50 Sodium 137 Potassium 3.9 Chloride 103 Carbon Dioxide 21 L Anion Gap 17 BUN 21 H Creatinine 0.81 Estim Creat Clear Calc 60.1 Estimated GFR > 60 POC Glucose 314 H Random Glucose 175 H Calcium 7.7 L Ferritin 96 Total Bilirubin 0.7 Direct Bilirubin 0.4 AST 20 ALT 13 Alkaline Phosphatase 46 Lactate Dehydrogenase 275 H Total Protein 5.8 L Albumin 3.1 L Vitamin B12 532 Folate 7.9 Crossmatch 10/21/20 07:07 Sodium Potassium Chloride Carbon Dioxide Anion Gap BUN Creatinine Estim Creat Clear Calc Estimated GFR POC Glucose 194 H Random Glucose Calcium Ferritin Total Bilirubin Direct Bilirubin AST ALT Alkaline Phosphatase Lactate Dehydrogenase Total Protein Albumin Vitamin B12 Folate Crossmatch Progress Note: A&P Assessment and plan (1) Acute on chronic systolic (congestive) heart failure: Status: Acute (2) Ischemic cardiomyopathy: Status: Acute (3) Atherosclerotic cardiovascular disease: Status: Acute (4) Anemia: Status: Acute Assessment and Plan: Admission hemoglobin was 6.7 grams/deciliter. It is quite possible that severe anemia precipitated acute heart failure as he already has markedly diminished LVEF. Clinically, he appears much improved and essentially euvolemic. Admission cardiac BNP was 1377 but repeat is 743. Echocardiogram with LVEF 20- 25% with inferior wall motion abnormalities. Overall, cardiac status seems stable. He will eventually require some baseline diuretics for maintenance. Otherwise anemia to be appropriately addressed. Continue Beta-blockers. Home meds also list lisinopril 20 mg from prior cardiology note but currently not in his meds. May resume. 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 Fall Risk Details Current Medications: Current Medications Generic Name Dose Route Start Last Admin Trade Name Bettye PRN Reason Stop Dose Admin Aspirin 81 mg 10/18/20 09:00 10/21/20 07:59 Aspirin 81 Mg Tab.Chew PO 81 mg DAILY ELBA Administration Atorvastatin Calcium 40 mg 10/18/20 09:00 10/21/20 07:59 Atorvastatin Calcium 40 Mg Tablet PO 40 mg DAILY ELBA Administration Doxycycline Hyclate 100 mg 10/19/20 21:00 10/21/20 07:59 Doxycycline Hyclate 100 Mg Tablet PO 100 mg Q12H ELBA Administration Furosemide 20 mg 10/21/20 09:00 10/21/20 09:48 Furosemide 20 Mg Tablet PO 20 mg DAILY ELBA Administration Protocol Ceftriaxone Sodium 1 gm/ 50 mls @ 100 mls/hr 10/19/20 17:00 10/20/20 16:36 Sodium Chloride IV Infused Q24H ELBA Infusion Insulin Human Lispro 0 unit 10/18/20 07:30 10/21/20 07:58 Insulin Lispro 100 Unit/Ml 3 Ml Vial SUBCUT 2 unit QIDACHS ELBA Administration Protocol Metoprolol Succinate 37.5 mg 10/20/20 09:00 10/21/20 07:59 Metoprolol Succinate Er 25 Mg Tab.Er.24h PO 37.5 mg DAILY ELBA Administration Protocol Time Spent With Patient Time: Total time spent is greater than 50% in coordination of care (as documented) at patient's floor/unit and/or counseling patient: Time with patient: less than 15 minutes
[2020-10-21 11:07] VITALS: BP 103/54; PULSE 73; RESP 18; TEMP 36.4; O2SAT 97
[2020-10-21 11:07] LABS: Glucose, Whole Blood 401 mg/dL (60-115)
--- NOTE | 2020-10-21 12:11 | MHC.CM.PN ---
Patient has been medically cleared for dc to home today with [facility]. A referral had been made to [facility], who has been made aware of today's dc. CM met with Patient and addressed second IMM, providing Patient with the original and placing a copy on the chart. Patient is aware of and in agreement with the dc plan.Patient has indicated that he will be calling his Sister, who will arrange for transport for 2 PM today. RN is aware.
[2020-10-21 13:48] LABS: Haptoglobin 239 mg/dL (43-212)
--- NOTE | 2020-10-21 14:13 | P.DS_ITS ---
DS: Providers Provider Date of Service: 10/21/20 Date of admission: 10/18/20 00:53 Primary care physician: Unknown Physician Consults: 10/19/20 10:23 Consult to Cardiology Routine Consulting Provider: Sanjay Payan Reason for consultation: Evaluation the need of Anticoagulation for low EF. Consult to Hematology / Oncology Routine Consulting Provider: Kelsy Farah Reason for consultation: Anemia, Hemolytic anemia ? For your kind eval and follow up. DS: Diagnosis Discharge Diagnosis (1) Acute on chronic systolic (congestive) heart failure: Status: Acute (2) Ischemic cardiomyopathy: Status: Acute (3) Atherosclerotic cardiovascular disease: Status: Acute (4) Anemia: Status: Acute (5) Acute renal failure superimposed on stage 1 chronic kidney disease: Status: Acute (6) Hemolytic anemia: Status: Acute DS: Medications Discharge Medications Home Medications: Home Medications Medication Instructions Recorded Confirmed aspirin 81 mg PO DAILY 10/17/20 10/17/20 atorvastatin 1 tab PO DAILY 10/17/20 10/17/20 cyanocobalamin (vitamin B-12) 1 tab PO DAILY 10/17/20 10/17/20 [Vitamin B-12] metformin 1 tab PO BID 10/17/20 10/17/20 metoprolol succinate 1 tab PO DAILY 10/17/20 10/17/20 Previous Rx's Medication Instructions Recorded cefuroxime axetil 500 mg PO BID #8 tab 10/21/20 doxycycline hyclate 100 mg PO Q12H 4 Days #8 tab 10/21/20 furosemide 20 mg PO DAILY 30 Days #30 tab 10/21/20 DS: Summary Hospital Course Hospital Course: Admission note HPI Patient with underlying history of hyperlipidemia, paroxysmal AFib not on blood thinners, hypertension, diabetes, history of coronary artery disease post 3 stents, CHF status post AICD, basal cell carcinoma of the skin presented to the emergency room via EMS after complaining of shortness of breath according to the patient has been sick for the past 2 days and not feeling himself. Patient had been noted to be satting around 60% on room air on arrival by EMS personnel and placed on non-rebreather mask with a temperature of 100.9?. In addition the patient reported having passed out this morning upon coming upstairs from getting some water. Patient was able to get up after about 2 hours and ambulated without any noted injuries, call his sisters and came to emergency room for further care. He admitted to have a cough with white/yellow sputum production, feeling chills but no actual fever. In the ER, the workup revealed a patient who was febrile with a fever 100.9, tachypneic at 28 although maintaining a good blood pressure however was hypoxic as reported by EMS a 60% on room air. His workup revealed a white count [address]8675, H&H of 6.724 respectively with platelets of 231. Lactic acid 3.5. His potassium was borderline elevated at 5.8 treated with kayexalate; his BUN to creatinine ratio is elevated. His initial exam revealed diffuse crackles, images for trauma survey was negative however his chest CT did show bilateral upper lobe patchy airspace disease question of possibility of cardiogenic pulmonary edema versus multifocal atypical pneumonia, cardiomegaly and evidence of pulmonary hypertension. The patient was given antibiotics but was not given 30 mL/kilogram of fluids due to the concern of fluid overload. Given that the patient continue to have low sats while on non-rebreather 80%, tachypnea he was placed on CPAP. COVID 19 NEGATIVE. They remain to be, the patient corroborates all the above and states that he feels much better after the mass was placed. Denies any current chest pain or palpitations, denies abdominal pain, no history of blood clots, denies any leg edema in the past. Other review systems not possible due to patient's inability to breathe properly or talk well with the mass. Hospital course The patient was admitted to ICU for difficulty breathing and hypoxia. Found to be on acute on chronic systolic CHF exacerbation with elevated BNP around 1300 and chest imaging consistent with that along with picture of possible pneumonia. He was started on BiPAP with good response along with IV Lasix. He was evaluated by Cardiology as an echo showed ejection fraction of 20-25%. Recommendations to continue with home medications and addition of oral Lasix and to follow-up as outpatient with his human resource analyst. He was weaned off the oxygen and was able to ambulate on room air with maintaining his O2 sat above 90%. He was treated for pneumonia with IV antibiotics of doxycycline and ceftriaxone. Blood cultures remain negative. He will be discharged home to finish total of 7 days of doxycycline and Ceftin. Was noted as well at time of presentation to have a drop in his hemoglobin to 6.8. Negative occult blood. Thought to be hemolytic anemia and got evaluated by Hematology as he received 2 units of packed RBCs. Retic count within normal. The rest of blood work pending. Dr. Astudillo as the patient to follow-up as outpatient for further evaluation. To follow-up with his human resource analyst as outpatient. To start small does of Lasix. Monitor your weight on daily basis and report changes to PCP. Your blood level was noted to be low requiring blood transfusion and evaluation by Hematology. To follow-up with Dr. Astudillo as outpatient Will repeat blood test next week Time Spent with Patient Time attestation: Total time spent providing and/or coordinating discharge services: Discharge coordination time: Greater than 30 minutes Physical Exam Vital Signs: Vital Signs: Last Vital Signs Temp 97.6 F 10/21/20 11:07 Pulse 73 10/21/20 11:07 Resp 18 10/21/20 11:07 BP 103/54 L 10/21/20 11:07 Pulse Ox 97 10/21/20 11:07 Body Mass Index 20.2 Const: Other: Constitutional : Alert, oriented, not in distress Neck : Normal inspection, Supple Cardiovascular : RRR, S1 S2, no lower extremity edema Respiratory : fair bilateral air entry, fine basal crackles, no wheezes or rhonchi Gastrointestinal: soft, lax, Normal bowel sounds, Non tender Skin : Warm/Dry, No rash Neurological : Alert & oriented x3, No focal deficit DS: Data Data Completed and Pending Labs on day of discharge: Laboratory Results - last 24 hr 10/17/20 10/19/20 10/20/20 18:40 05:31 15:53 Haptoglobin 239 H Sodium Potassium Chloride Carbon Dioxide Anion Gap BUN Creatinine Estim Creat Clear Calc Estimated GFR POC Glucose 338 H Random Glucose Calcium Ferritin Total Bilirubin Direct Bilirubin AST ALT Alkaline Phosphatase Lactate Dehydrogenase Total Protein Albumin Vitamin B12 Folate Crossmatch See Detail 10/20/20 10/21/20 10/21/20 20:13 05:50 05:50 Haptoglobin Sodium 137 Potassium 3.9 Chloride 103 Carbon Dioxide 21 L Anion Gap 17 BUN 21 H Creatinine 0.81 Estim Creat Clear Calc 60.1 Estimated GFR > 60 POC Glucose 314 H Random Glucose 175 H Calcium 7.7 L Ferritin 96 Total Bilirubin 0.7 Direct Bilirubin 0.4 AST 20 ALT 13 Alkaline Phosphatase 46 Lactate Dehydrogenase 275 H Total Protein 5.8 L Albumin 3.1 L Vitamin B12 532 Folate 7.9 Crossmatch 10/21/20 10/21/20 07:07 10:52 Haptoglobin Sodium Potassium Chloride Carbon Dioxide Anion Gap BUN Creatinine Estim Creat Clear Calc Estimated GFR POC Glucose 194 H 401 H* Random Glucose Calcium Ferritin Total Bilirubin Direct Bilirubin AST ALT Alkaline Phosphatase Lactate Dehydrogenase Total Protein Albumin Vitamin B12 Folate Crossmatch Preliminary micro results at discharge 10/17/20 18:30 Blood Culture - Preliminary Blood - Venous No growth after 48 hours. 10/17/20 17:45 Blood Culture - Preliminary Blood - Venous No growth after 48 hours. Discharge Plan Discharge Patient Disposition: Home Health Service Referrals: [facility] [Outside] Physician,Unknown [Primary Care Provider] - Discharge Medications: New furosemide 20 mg Tablet 20 mg PO DAILY 30 Days Qty: 30 RF: 0 doxycycline hyclate 100 mg Tablet 100 mg PO Q12H 4 Days Qty: 8 RF: 0 cefuroxime axetil 500 mg tablet 500 mg PO BID Qty: 8 RF: 0 Continued atorvastatin 40 mg tablet 1 tab PO DAILY RF: 0 metoprolol succinate 50 mg tablet extended release 24 hr 1 tab PO DAILY RF: 0 cyanocobalamin (vitamin B-12) [Vitamin B-12] 1,000 mcg tablet 1 tab PO DAILY RF: 0 metformin 1,000 mg tablet 1 tab PO BID RF: 0 aspirin 81 mg Tablet,Chewable 81 mg PO DAILY RF: 0 Discontinued lisinopril 20 mg tablet 1 tab PO DAILY RF: 0 Discharge Orders: Discharge Order (Routine); Ordered 10/21/20 Ordered By: Amanda Wright Diet: advance to usual diet Activity on Discharge: As tolerated Stand Alone Forms: Patient Portal Discharge page Care Plan Goals: Read below Health Concerns: Read below Plan of Treatment: You were admitted to the hospital for evaluation of syncopal episode and shortness of breath. Found to be in heart failure requiring ICU admission and placement on BiPAP with using of IV Lasix. Your responded well to the treatment and evaluated by Cardiology who repeated the echo showing low heart function. Acute into You were treated with IV antibiotics for pneumonia the you. To be discharged on doxycycline and Ceftin for 4 more days. To follow-up with your human resource analyst as outpatient. To start small does of Lasix. Monitor your weight on daily basis and report changes to PCP. Your blood level was noted to be low requiring blood transfusion and evaluation by Hematology. To follow-up with Dr. Astudillo as outpatient Will repeat blood test next week
[2020-10-21 16:12] LABS: Mycoplasma Pneumoniae - IgG 2.16 (<=0.90); Mycoplasma Pneumoniae - IgM 58 U/mL (<770)
[2020-10-23 05:41] LABS: Haptoglobin 316 mg/dL (43-212)
[2020-10-23 13:41] LABS: IgA 452 mg/dL (70-320); IgG 809 mg/dL (600-1540); IgM 40 mg/dL (50-300)
--- NOTE | 2020-10-27 06:13 | MHC.CDI.RETR ---
Documented by User: Emely Steele CCS, CDIS 10/27/20 06:17 Retrospective Query Please clarify if you have treated a probable/suspected/likely or confirmed: Consistency in documentation: Sepsis due to community acquired pneumonia with acute hypoxic respiratory failure, POA Please specify if known PLEASE DO NOT DELETE/MODIFY EXISTING CONTENT Additional information is needed in order to code to the highest accuracy and appropriate Severity of Illness (SOI). Please clarify the information noted below in your progress notes and discharge summary. Risk Factors/Clinical Indicators/Treatments H&P: Sepsis due to community acquired pneumonia with hypoxic respiratory failure, Acute kidney failure/CHF WBC 18.9 HR 28 LA 3.5 RR 35 Temp 100.9 IV Antibiotics, oxygen ICU admit CDS: Emely Steele CCS, CDIS Contact Number: [phone] Please Review the information above and exercise your independent professional judgment in responding to the query. If you concur, pleas document in the PROGRESS NOTES and DISCHARGE SUMMARY. If you do not agree with the query, please document in the query above. THIS QUERY IS PART OF THE PERMANENT MEDICAL RECORD Documented by User: Amanda Wright MD 11/04/20 14:26 Retrospective Query Provider Response: Other (Sepsis due to community acquired pneumonia with acute hypoxic respiratory failure) Sepsis due to community acquired pneumonia with acute hypoxic respiratory failure
== END 2020-10-21 14:40 | disposition home health service (06) | DRG 871 ==
LOC: HO.ED 10-18 00:47 → HO.ICU 10-18 01:33 → HO.S3 10-19 10:59 → HO.IMC 10-19 13:06
PROVIDERS: Hospitalist; Internal Medicine Cardiovascular Disease; Internal Medicine Medical Oncology; Physician Assistant; Admitting Provider Physician Assistant Medical; Emergency Provider Internal Medicine; PCP Orthopaedic Surgery; Visit Provider Student in an Organized Health Care Education/Training Program
DX: A41.9 Sepsis, unspecified organism (principal); J18.9 Pneumonia, unspecified organism; J96.01 Acute respiratory failure with hypoxia; I50.23 Acute on chronic systolic (congestive) heart failure; N17.9 Acute kidney failure, unspecified; E87.2 Acidosis; D58.9 Hereditary hemolytic anemia, unspecified; I13.0 Hypertensive heart and chronic kidney disease with heart failure and stage 1 through stage 4 chronic kidney disease, or unspecified chronic kidney disease; I25.5 Ischemic cardiomyopathy; E87.5 Hyperkalemia; N18.2 Chronic kidney disease, stage 2 (mild); Z20.822 Contact with and (suspected) exposure to COVID-19; Z95.810 Presence of automatic (implantable) cardiac defibrillator; I25.2 Old myocardial infarction; Z79.82 Long term (current) use of aspirin; Z79.84 Long term (current) use of oral hypoglycemic drugs; Z87.891 Personal history of nicotine dependence; Z79.899 Other long term (current) drug therapy
CPT/HCPCS: 0241U; 36415; 70450; 71045; 71250; 71275; 72125; 80048; 80053; 80076; 81003; 82272; 82607; 82728; 82746; 82784; 82947; 83010; 83605; 83615; 83735; 83880; 84100; 84145; 84484; 85025; 85027; 85045; 85060; 85379; 85384; 85610; 85730; 86140; 86334; 86738; 86850; 86880; 86900; 86923; 87040; 87070; 87147; 87205; 87633; 87635; 93005; 93306; 94640; 94660; 96361; 96365; 96367; 96375; 97110; 97116; 97162; 99284; 99291; C1758; J0696; J1940; J1956; J2543; J3475; P9016; Q9967

== ENCOUNTER 2021-06-06 09:00 | Emergency (ER) | payer MEDICARE, SELFPAY ==
[2021-06-06 09:30] VITALS: BP 126/40; PULSE 76; RESP 20; TEMP 35.7; O2SAT 100; BMI 20.5
--- NOTE | 2021-06-06 09:58 | ED_ITS ---
HPI - Skin/Abscess/Foreign Bdy General Chief complaint: Skin/Abscess/Foreign Body Stated complaint: cyst Time Seen by Provider: 06/06/21 09:56 Source: patient Mode of arrival: ambulatory Limitations: no limitations History of Present Illness HPI narrative: 80 years old male came in for evaluation of ulcerative lesion over left scapular area. Patient been having this lesion for 15 years without change in size or been tender painful, recently about a week ago spontaneously ruptured in causing this also give lesion over the left scapular area. No fever, no chills, no drainage. Related Data Home Medications Medication Instructions Recorded Confirmed aspirin 81 mg chewable tablet 81 mg PO DAILY 10/17/20 10/17/20 atorvastatin 40 mg tablet 1 tab PO DAILY 10/17/20 10/17/20 cyanocobalamin (vitamin B-12) 1 tab PO DAILY 10/17/20 10/17/20 1,000 mcg tablet (Vitamin B-12) metformin 1,000 mg tablet 1 tab PO BID 10/17/20 10/17/20 metoprolol succinate 50 mg 1 tab PO DAILY 10/17/20 10/17/20 tablet,extended release 24 hr Previous Rx's Medication Instructions Recorded cefuroxime axetil 500 mg tablet 500 mg PO BID #8 tab 10/21/20 doxycycline hyclate 100 mg tablet 100 mg PO Q12H 4 Days #8 tab 10/21/20 furosemide 20 mg tablet 20 mg PO DAILY 30 Days #30 tab 10/21/20 doxycycline hyclate 100 mg tablet 100 mg PO BID #14 tab 06/06/21 Allergies Allergy/AdvReac Type Severity Reaction Status Date / Time No Known Allergies Allergy Verified 10/18/20 08:48 Review of Systems Review of Systems: All other systems are reviewed and are negative Constitutional: Reports as per HPI and Reports no additional constitutional complaints Eyes: Reports as per HPI and Reports no additional eye complaints Reports system reviewed and no additional complaints, except as documented Cardiovascular: Reports as per HPI and Reports no additional cardiovascular complaints Respiratory: Reports as per HPI and Reports no additional respiratory complaints Gastrointestinal: Reports as per HPI and Reports no additional gastrointestinal complaints Genitourinary: Reports no additional female genitourinary complaints Musculoskeletal: Reports no additional musculoskeletal complaints Skin/Breast: Reports system reviewed and no additional complaints, except as docu Psychiatric: Reports no additional psychiatric complaints Endocrine: Reports no additional endocrine complaints Hematologic/Lymphatic: Reports no additional hematologic/lymphatic complaints Allergic/Immunologic: Reports no additional allergic/immunologic complaints Reports system reviewed and no additional complaints, except as documented and Reports Abnormal speech present [facility] Past Medical History Medical History Anemia Atherosclerotic cardiovascular disease Basal cell carcinoma of skin Chronic renal failure, stage 2 (mild) Congestive cardiomyopathy Congestive heart failure Congestive heart failure Diabetes 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 Hyperlipidemia ICD (implantable cardioverter-defibrillator) in place Ischemic cardiomyopathy 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, old Paroxysmal A-fib Surgical History H/O heart artery stent Social History Social History Household Members: Family Housing: House Do you presently have visiting nurse or other home services: No Second Hand Smoke Exposure: No Advance Directives: Yes Advance Directives Information Provided: Yes Advance Directives on File: No service: No Current occupational status: retired Physical Exam Vital Signs: Vital Signs: Last Vital Signs Temp 96.2 F L 06/06/21 09:30 Pulse 76 06/06/21 09:30 Resp 20 06/06/21 09:30 BP 126/40 L 06/06/21 09:30 Pulse Ox 100 06/06/21 09:30 Body Mass Index 20.5 Vital signs have been reviewed as appeared to be correct. Blood pressure normal. Heart rate normal. Respiration rate normal. Temperature normal. Oxygen saturation normal. Appearance: Alert. Oriented X3. No acute distress. Head: Normal external exam. Normocephalic. Atraumatic. No Yang signs noted. No raccoon eyes noted Eyes: PERRLA. EOMI. Conjunctiva and sclera normal. Eyelids normal. ENT: TM's Normal. Pharynx normal. Uvula midline. Moist mucous membranes. No trismus noted. No drooling noted. No muffled voice noted. Neck: Normal inspection. Neck supple. FROM. No adenopathy. Thyroid Normal. No meningeal signs. No neck mass noted. CVS: Normal heart rate and rhythm. Heart sound normal. No murmurs noted. Pulses normal throughout. Respiratory: No respiratory distress. Painless inspiration. Breath sounds normal. No wheezes/rales/rhonchi noted. Chest nontender. No accessory muscle usage noted or decreased air movement noted. Abdomen: Soft and nontender. Bowel sounds normal in all 4 quadrants. No distention noted. No organomegaly noted. No visible injury noted. Back: No CVA tenderness. Full range of motion noted. 3 x 2 cm ulcerative area over the left scapula, surrounded by area of redness hotness. No fluctuation, no of those is appreciated. Skin: Skin warm and dry. Normal skin color. Normal skin turgor. No rashes/lesions/lacerations noted. Extremities: No lower extremity edema. Extremities exhibit normal range of motion. Extremities nontender. Neuro: Oriented X 3. Cranial nerve exam: II-XII are grossly intact No motor deficit. No sensory deficit. Reflexes normal. Course Course Course Narrative: Assessment and plan. 80-year-old male came in for evaluation of 15 years lesion of the left scapular likely to be infected sebaceous gland. Will start the patient on doxycycline and follow up with Dr. Beebe for possible biopsy if granted clinically. Discharge Plan Discharge Clinical Impression: Cellulitis Patient Disposition: Home, Self-Care Instructions: Cellulitis (ED) Prescriptions: New doxycycline hyclate 100 mg tablet 100 mg PO BID Qty: 14 RF: 0 No Action atorvastatin 40 mg tablet 1 tab PO DAILY RF: 0 metoprolol succinate 50 mg tablet extended release 24 hr 1 tab PO DAILY RF: 0 cyanocobalamin (vitamin B-12) [Vitamin B-12] 1,000 mcg tablet 1 tab PO DAILY RF: 0 metformin 1,000 mg tablet 1 tab PO BID RF: 0 aspirin 81 mg Tablet,Chewable 81 mg PO DAILY RF: 0 furosemide 20 mg Tablet 20 mg PO DAILY 30 Days Qty: 30 RF: 0 doxycycline hyclate 100 mg Tablet 100 mg PO Q12H 4 Days Qty: 8 RF: 0 cefuroxime axetil 500 mg tablet 500 mg PO BID Qty: 8 RF: 0 Referrals: Juanjo Beebe MD [Physician] - 2 days
== END 2021-06-06 10:06 | disposition home or self-care (01) ==
PROVIDERS: Emergency Provider Emergency Medicine
DX: L03.312 Cellulitis of back [any part except buttock and flank] (principal); Z79.899 Other long term (current) drug therapy
CPT/HCPCS: 99283

== ENCOUNTER → 2021-06-20 09:01 | Outpatient (BNVA) | payer MEDICARE, SELFPAY | PROVIDERS: Visit Provider Surgery | DX: L72.0 Epidermal cyst (principal) | CPT/HCPCS: 99202 ==

== ENCOUNTER 2021-06-26 06:59 | Inpatient (IN) | payer MEDICARE, SELFPAY ==
[2021-06-26] VITALS (8 sets, daily range): BP systolic 105–124; BP diastolic 38–79; PULSE 72–100; RESP 14–22; TEMP 36.6–37.1; O2SAT 92–99; BMI 19.0
--- NOTE | ~2021-06-26 | XR_ITS ---
EXAMINATION: CHEST PORTABLE ONE VIEW AND PELVIS 4 VIEWS LEFT HIP CLINICAL INFORMATION: Pain status post fall COMPARISON: 12/17/2020 TECHNIQUE: As above portably 8:40 AM FINDINGS: Heart size remains normal. No mediastinal widening or deformity. Single lead pacer device appears intact and stable. No overt pulmonary edema current study. There are ill-defined hazy densities at both bases which can be seen with atypical infection. Minimal cephalization of pulmonary vasculature. No gross rib deformity. Pelvis and left hip imaging demonstrates an acute subcapital fracture of the left hip with mild impaction and varus deformity. No dislocation. No other focal lesion. XR/XR hip LT w PEL1V IMPRESSION: Acute subcapital fracture as above left hip. Nonspecific radiographic finding the chest which may be seen with atypical infection.
--- NOTE | ~2021-06-26 | XR_ITS ---
EXAMINATION: XR CHEST CLINICAL INFORMATION: Shortness of breath COMPARISON: Chest x-ray 06/26/2021 TECHNIQUE: Frontal view of the chest was obtained. 9:33 PM FINDINGS: New geographic area of parenchymal lung opacity in the right upper lobe. A few smaller airspace opacities in the right perihilar lung with the right lung base. Infectious or inflammatory etiology, pneumonia, more likely than cardiogenic etiology. No significant central pulmonary vascular congestion. No pleural effusion or pneumothorax. Cardiac and mediastinal contours unchanged. Heart size normal. No change position of pacemaker lead in the right ventricle region. XR/XR chest 1V IMPRESSION: Multifocal airspace opacities in the right lung. Infectious or inflammatory etiology, pneumonia, more likely than cardiogenic etiology.
--- NOTE | ~2021-06-26 | XR_ITS ---
EXAMINATION: CHEST PORTABLE ONE VIEW AND PELVIS 4 VIEWS LEFT HIP CLINICAL INFORMATION: Pain status post fall COMPARISON: 12/17/2020 TECHNIQUE: As above portably 8:40 AM FINDINGS: Heart size remains normal. No mediastinal widening or deformity. Single lead pacer device appears intact and stable. No overt pulmonary edema current study. There are ill-defined hazy densities at both bases which can be seen with atypical infection. Minimal cephalization of pulmonary vasculature. No gross rib deformity. Pelvis and left hip imaging demonstrates an acute subcapital fracture of the left hip with mild impaction and varus deformity. No dislocation. No other focal lesion. XR/XR chest 1V IMPRESSION: Acute subcapital fracture as above left hip. Nonspecific radiographic finding the chest which may be seen with atypical infection.
--- NOTE | ~2021-06-26 | XR_ITS ---
EXAMINATION: XR PELVIS CLINICAL INFORMATION: Postop left hip replacement. COMPARISON: Left hip 06/18/2021 TECHNIQUE: AP view of the pelvis. FINDINGS: Status post left hip replacement. Orthopedic components in position. No fracture or dislocation. Air in the soft tissues from recent surgery. XR/XR pelvis 1-2V IMPRESSION: Status post left hip replacement.
--- NOTE | ~2021-06-26 | XR_ITS ---
EXAMINATION: XR CHEST CLINICAL INFORMATION: Hypoxia. COMPARISON: Chest x-ray 06/28/2021, 06/26/2021 TECHNIQUE: Frontal, portable view of the chest was obtained. 1:55 PM FINDINGS: Persistent airspace opacity in the right upper lobe anterior right infrahilar lung remaining unchanged since chest x-ray 06/28/2021. Left lung is normally aerated. No pleural effusion or pneumothorax. Cardiac and mediastinal contours are unchanged. Pacemaker lead in right ventricle. XR/XR chest 1V IMPRESSION: Persistent airspace opacity right upper lobe and right infrahilar lung. No significant change since prior study 06/28/2021.
--- NOTE | ~2021-06-26 | CT_ITS ---
EXAMINATION: CT HEAD WITHOUT CONTRAST. CT CERVICAL SPINE WITHOUT CONTRAST. CLINICAL INFORMATION: Fall, head injury and neck pain. COMPARISON: CT cervical spine 10/17/2020. TECHNIQUE: 5 mm thin axial and reformatted 2 minutes thin sagittal and coronal images of brain were obtained. Subsequently axial 3 mm thin and reformatted 2 mm thin sagittal and coronal images of cervical spine were obtained. DLP 992 mGy FINDINGS: Brain: There is no acute intra-axial, extra-axial bleed, masses, collection or midline shift. There is no acute infarction in evolution. The lateral ventricles are symmetrical in size and configuration but enlarged. There is diffuse periventricular hypodensity in both cerebral hemispheres without mass effect. There is anterior falx calcification present. Bone windows reveal no calvarial abnormality. Bilateral paranasal sinuses and mastoid air cells are well-aerated. There is no scalp soft tissue abnormality. Cervical spine: There is normal cervical lordosis. The vertebral heights, alignment and disc heights are normal. There is mild ventral spondylosis C3-C4-C5, C6-C7 and T1-T2 disc levels. The craniovertebral junction and the C1-C2 alignment is normal. There is a small bone fragment anterior to the C1-C2 alignment, unchanged to last study from 10/17/2020. There is mild facet joint arthropathy and hypertrophy bilateral C3-C4 left C4-C5, C5-C6 disc levels. No visible acute fracture, dislocation or subluxation seen. The central trachea and the bronchi widely patent. Thyroid lobes are symmetrical and normal. No soft tissue mass or abnormal size lymph nodes seen in the neck. Visualized bilateral parotid and submandibular glands and normal. The lung apices are clear. CT/CT cervical spine wo con IMPRESSION: No acute intracranial process seen. There is no acute fracture, dislocation or subluxation cervical spine. There are degenerative facet joint arthropathy and mild ventral spondylosis as described above. No change from previous exam 10/17/2020
--- NOTE | 2021-06-26 07:35 | ECG_ITS ---
Test Reason : FALL Blood Pressure : / mmHG Vent. Rate : 074 BPM Atrial Rate : 074 BPM P-R Int : 176 ms QRS Dur : 102 ms QT Int : 384 ms P-R-T Axes : 072 000 134 degrees QTc Int : 426 ms Normal sinus rhythm Left axis deviation ST & T wave abnormality, consider lateral ischemia Abnormal ECG When compared with ECG of 18-OCT-2020 00:34, Nonspecific T wave abnormality no longer evident in Inferior leads T wave inversion more evident in Lateral leads Referred By: Rainer Alvarado Electronically Signed By:VINAYAK HUNTLEY MD
--- NOTE | 2021-06-26 07:38 | ED_ITS ---
HPI - Fall General Chief Complaint: Fall Stated Complaint: fall Time Seen by Provider: 06/26/21 07:34 Source: patient and EMS Mode of arrival: EMS Limitations: no limitations History of Present Illness HPI Narrative: 80-year-old male came in by ambulance for evaluation after mechanical fall. This is an 80-year-old male who lives home by himself independently, patient sustained a fall this morning, patient do not remember details of falling, declined any tripping. Patient remember after fall, called his sister who called EMS, patient is sustaining a small laceration to the left forehead, left hip pain. Patient declined any chest pain or shortness of breath. Related Data Home Medications Medication Instructions Recorded Confirmed aspirin 81 mg chewable tablet 81 mg PO DAILY 10/17/20 06/26/21 atorvastatin 40 mg tablet 1 tab PO BEDTIME 10/17/20 06/26/21 cyanocobalamin (vitamin B-12) 1 tab PO DAILY 10/17/20 06/26/21 1,000 mcg tablet (Vitamin B-12) metformin 1,000 mg tablet 1 tab PO BID 10/17/20 06/26/21 metoprolol succinate 50 mg 1 tab PO DAILY 10/17/20 06/26/21 tablet,extended release 24 hr Previous Rx's Medication Instructions Recorded furosemide 20 mg tablet 20 mg PO DAILY 30 Days #30 tab 10/21/20 Allergies Allergy/AdvReac Type Severity Reaction Status Date / Time No Known Allergies Allergy Verified 06/20/21 09:10 Review of Systems Review of Systems: All other systems are reviewed and are negative Constitutional: Reports as per HPI and Reports no additional constitutional complaints Eyes: Reports as per HPI and Reports no additional eye complaints Reports system reviewed and no additional complaints, except as documented Cardiovascular: Reports as per HPI and Reports no additional cardiovascular complaints Respiratory: Reports as per HPI and Reports no additional respiratory complaints Gastrointestinal: Reports as per HPI and Reports no additional gastrointestinal complaints Genitourinary: Reports no additional female genitourinary complaints Musculoskeletal: Reports no additional musculoskeletal complaints Skin/Breast: Reports system reviewed and no additional complaints, except as docu Psychiatric: Reports no additional psychiatric complaints Endocrine: Reports no additional endocrine complaints Hematologic/Lymphatic: Reports no additional hematologic/lymphatic complaints Allergic/Immunologic: Reports no additional allergic/immunologic complaints Reports system reviewed and no additional complaints, except as documented and R eports Abnormal speech present [facility] Past Medical History Medical History Anemia Atherosclerotic cardiovascular disease Basal cell carcinoma of skin Chronic renal failure, stage 2 (mild) Congestive cardiomyopathy Congestive heart failure Congestive heart failure Diabetes 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 Hyperlipidemia ICD (implantable cardioverter-defibrillator) in place Ischemic cardiomyopathy 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, old Paroxysmal A-fib Ruptured epidermal cyst Surgical History H/O heart artery stent Social History Social History Household Members: Family Housing: House Do you presently have visiting nurse or other home services: No Alcohol intake: never Patient Tobacco Use Status: Never used Tobacco Second Hand Smoke Exposure: No Use of substances other than those prescribed or required for medical reasons: No Advance Directives: No Advance Directives Information Provided: No service: No Current occupational status: retired Physical Exam Vital Signs: Vital Signs: Last Vital Signs Temp 97.9 F 06/26/21 07:11 Pulse 75 06/26/21 07:11 Resp 18 06/26/21 07:11 BP 122/51 L 06/26/21 07:11 Pulse Ox 99 06/26/21 07:11 Body Mass Index 19.0 Vital signs have been reviewed as appeared to be correct. Blood pressure normal. Heart rate normal. Respiration rate normal. Temperature normal. Oxygen saturation normal. Appearance: Alert. Oriented X3. No acute distress. Appears pale Head: Normal external exam. Normocephalic. Atraumatic. No Yang signs noted. No raccoon eyes noted, small laceration to the left temporal area, no acute active bleed. Eyes: PERRLA. EOMI. Conjunctiva and sclera normal. Eyelids normal. ENT: TM's Normal. Pharynx normal. Uvula midline. Moist mucous membranes. No trismus noted. No drooling noted. No muffled voice noted. Neck: Normal inspection. Neck supple. FROM. No adenopathy. Thyroid Normal. No meningeal signs. No neck mass noted. CVS: Normal heart rate and rhythm. Heart sound normal. No murmurs noted. Pulses normal throughout. Respiratory: No respiratory distress. Painless inspiration. Breath sounds normal. No wheezes/rales/rhonchi noted. Chest nontender. No accessory muscle usage noted or decreased air movement noted. Abdomen: Soft and nontender. Bowel sounds normal in all 4 quadrants. No distention noted. No organomegaly noted. No visible injury noted. Rectal exam: Yellow stool was guaiac negative. Back: No CVA tenderness. Full range of motion noted. Skin: Skin warm and dry. Normal skin color. Normal skin turgor. No rashes/lesions/lacerations noted. Extremities: Left hip tenderness, left lower extremity is shortened and externally rotated, otherwise neurovascularly intact. Neuro: Oriented X 3. Cranial nerve exam: II-XII are grossly intact No motor deficit. No sensory deficit. Reflexes normal. Course Course Course Narrative: Assessment and plan. 1. Syncopal episode likely due to severe anemia and low H&H, will consider 2 unit blood transfusion patient has unclear source fluid and blood. Patient was consented for blood transfusion. 2. Left hip fracture ortho were consulted will admit to medicine will consider Petersen catheter, and pain management. MDM - Fall Lab Data Attestation: I reviewed the patient's lab results. Result diagrams: 06/26/21 10:24 06/26/21 10:24 Labs: Lab Results 06/26/21 06/26/21 06/26/21 Range/Units 10:24 10:24 10:24 WBC 12.9 H (4.8-10.8) X10*3/uL RBC 1.98 L (4.60-5.80) X10*6/uL Hgb 4.9 L* (14.0-18.0) g/dl Hct 16.7 L* (42.0-52.0) % MCV 84.3 (80.0-98.0) fL MCH 24.7 L (27.0-33.0) pg MCHC 29.3 L (31.0-36.0) g/dl RDW 18.6 H (11.0-16.0) % Plt Count 101 L (160-400) X10*3/uL MPV 10.9 (9.4-12.4) fL Immature Gran % (Auto) 0.5 H (0.0-0.4) % Neut % (Auto) 86.2 H (45-73) % Lymph % (Auto) 6.7 L (20-40) % Sierra % (Auto) 6.5 (2-11) % Eos % (Auto) 0.0 (0-4) % Baso % (Auto) 0.1 (0-2) % Lymph # (Auto) 0.9 L (1.2-4.9) X10*3/uL Sierra # (Auto) 0.8 (0.1-1.2) X10*3/uL Eos # (Auto) 0.0 (0.0-0.4) X10*3/uL Baso # (Auto) 0.0 (0.0-0.2) X10*3/uL Abs Immat Gran (auto) 0.07 H (0.00-0.03) X10*3/uL Absolute Neuts (auto) 11.1 H (2.0-8.3) x10*3/uL Absolute Nucleated RBC 0.040 H (0.0-0.012) X10*3/uL Nucleated RBC % (auto) 0.3 H (0.0-0.2) /100WBC Sodium 135 (135-145) mmol/L Potassium 4.3 (3.3-5.1) mmol/L Chloride 102 (96-108) mmol/L Carbon Dioxide 20 L (22-29) mmol/L Anion Gap 17 (12-20) BUN 29 H (9-16) mg/dL Creatinine 1.37 (0.5-1.4) mg/dL Estim Creat Clear Calc 33.3 Estimated GFR 50 Random Glucose 235 H (60-115) mg/dL Calcium 8.8 D (8.4-10.2) mg/dL Total Bilirubin 0.6 (0.0-1.0) mg/dL Direct Bilirubin 0.3 (0.0-0.5) mg/dL AST 23 (5-37) U/L ALT 19 (0-40) U/L Alkaline Phosphatase 35 L D (39-117) U/L Total Creatine Kinase 166 (38-174) U/L Troponin I High Sens 15.1 (<3.5-35.0) ng/L B-Natriuretic Peptide 845 H (<100) pg/mL Total Protein 6.3 L (6.5-8.0) g/dL Albumin 3.7 (3.5-5.0) g/dL Lipase 15 (8-78) U/L COVID-19 (MARISOL) (Negative) COVID-19 Clin Com 06/26/21 Range/Units 10:24 WBC (4.8-10.8) X10*3/uL RBC (4.60-5.80) X10*6/uL Hgb (14.0-18.0) g/dl Hct (42.0-52.0) % MCV (80.0-98.0) fL MCH (27.0-33.0) pg MCHC (31.0-36.0) g/dl RDW (11.0-16.0) % Plt Count (160-400) X10*3/uL MPV (9.4-12.4) fL Immature Gran % (Auto) (0.0-0.4) % Neut % (Auto) (45-73) % Lymph % (Auto) (20-40) % Sierra % (Auto) (2-11) % Eos % (Auto) (0-4) % Baso % (Auto) (0-2) % Lymph # (Auto) (1.2-4.9) X10*3/uL Sierra # (Auto) (0.1-1.2) X10*3/uL Eos # (Auto) (0.0-0.4) X10*3/uL Baso # (Auto) (0.0-0.2) X10*3/uL Abs Immat Gran (auto) (0.00-0.03) X10*3/uL Absolute Neuts (auto) (2.0-8.3) x10*3/uL Absolute Nucleated RBC (0.0-0.012) X10*3/uL Nucleated RBC % (auto) (0.0-0.2) /100WBC Sodium (135-145) mmol/L Potassium (3.3-5.1) mmol/L Chloride (96-108) mmol/L Carbon Dioxide (22-29) mmol/L Anion Gap (12-20) BUN (9-16) mg/dL Creatinine (0.5-1.4) mg/dL Estim Creat Clear Calc Estimated GFR Random Glucose (60-115) mg/dL Calcium (8.4-10.2) mg/dL Total Bilirubin (0.0-1.0) mg/dL Direct Bilirubin (0.0-0.5) mg/dL AST (5-37) U/L ALT (0-40) U/L Alkaline Phosphatase (39-117) U/L Total Creatine Kinase (38-174) U/L Troponin I High Sens (<3.5-35.0) ng/L B-Natriuretic Peptide (<100) pg/mL Total Protein (6.5-8.0) g/dL Albumin (3.5-5.0) g/dL Lipase (8-78) U/L COVID-19 (MARISOL) Negative (Negative) COVID-19 Clin Com See Note Imaging Data CT cervical spine.: Attestation: I personally reviewed and interpreted this imaging study as follows: Radiologist's impression: There is no acute fracture, dislocation or subluxation cervical spine. There are degenerative facet joint arthropathy and mild ventral spondylosis as described above. No change from previous exam 10/17/2020 ? Head CT: Attestation: I personally reviewed and interpreted this imaging study as follows: Radiologist's impression: No acute intracranial process seen. Chest x-ray: Attestation: I personally reviewed and interpreted this imaging study as follows: Radiologist's impression: No acute intrathoracic pathology. Pelvis and left hip x-ray: Attestation: I personally reviewed and interpreted this imaging study as follows: Radiologist's impression: Acute subcapital fracture as above left hip. Nonspecific radiographic finding the chest which may be seen with atypical infection.? ECG Data Attestation: I personally reviewed and interpreted this ECG as follows: Interpretation: Normal sinus rhythm at 74 beats per minute, normal intervals, nonspecific [id number]. Critical Care Time Critical Care Time Critical Care Time: Yes Total Critical Care Time: 60 Attestation: I spent 60 minutes providing critical care service to the patient, this including time spent at the bedside to evaluate the patient, reassess the patient, monitoring vital signs, review labs, and radiographic studies, counseling the patient/family, discussing the case with consultants, disposition the patient. Discharge Plan Discharge Clinical Impression: Anemia, Syncope, Closed hip fracture Patient Disposition: Admitted As Inpatient Prescriptions: No Action atorvastatin 40 mg tablet 1 tab PO BEDTIME RF: 0 metoprolol succinate 50 mg tablet extended release 24 hr 1 tab PO DAILY RF: 0 cyanocobalamin (vitamin B-12) [Vitamin B-12] 1,000 mcg tablet 1 tab PO DAILY RF: 0 metformin 1,000 mg tablet 1 tab PO BID RF: 0 aspirin 81 mg Tablet,Chewable 81 mg PO DAILY RF: 0 furosemide 20 mg Tablet 20 mg PO DAILY 30 Days Qty: 30 RF: 0
--- NOTE | 2021-06-26 09:13 | PHA.MEDREC ---
Pharmacy Consult ? Medication Reconciliation Pharmacy has completed the medication reconciliation. María BustosD BCPS
--- NOTE | 2021-06-26 10:18 | P.EN_ITS ---
Event Note Date of Service: 06/26/21 Event Note: X-rays of left hip reveal subcapital hip fracture. Patient has sig nificant cardiac history and needs cardiac clearance. Cardiology consult placed. NPO after midnight pending surgery Sunday PM/ Sunday.
[2021-06-26 10:31] LABS: MANUAL DIFF FLAG NO
[2021-06-26 10:37] LABS: Basophils Percent Auto 0.1 % (0-2); Imm Gran Abs Auto 0.07 X10*3/uL (0.00-0.03); Imm Gran Pct Auto 0.5 % (0.0-0.4); Lymphocytes Absolute Auto 0.9 X10*3/uL (1.2-4.9); Lymphocytes Percent Auto 6.7 % (20-40); Mean Corpuscular HGB Conc 29.3 g/dl (31.0-36.0); Mean Corpuscular Hemoglobin 24.7 pg (27.0-33.0); Mean Corpuscular Volume 84.3 fL (80.0-98.0); Mean Platelet Volume 10.9 fL (9.4-12.4); Monocytes Absolute Auto 0.8 X10*3/uL (0.1-1.2); Monocytes Percent Auto 6.5 % (2-11); NRBC Pct Auto 0.3 /100WBC (0.0-0.2); Neutrophils Absolute Auto 11.1 x10*3/uL (2.0-8.3); Neutrophils Percent Auto 86.2 % (45-73); Platelet Count 101 X10*3/uL (160-400); Red Blood Count 1.98 X10*6/uL (4.60-5.80); Red Cell Distribution Width 18.6 % (11.0-16.0); White Blood Count 12.9 X10*3/uL (4.8-10.8)
[2021-06-26 10:46] LABS: COVID-19 Test Negative (Negative)
[2021-06-26 10:47] LABS: Alanine Aminotransferase 19 U/L (0-40); Albumin Level 3.7 g/dL (3.5-5.0); Alkaline Phosphatase 35 U/L (39-117); Anion Gap 17 (12-20); Aspartate Amino Transferase 23 U/L (5-37); Bilirubin Direct 0.3 mg/dL (0.0-0.5); Bilirubin Total 0.6 mg/dL (0.0-1.0); Blood Urea Nitrogen 29 mg/dL (9-16); Calcium 8.8 mg/dL (8.4-10.2); Carbon Dioxide 20 mmol/L (22-29); Chloride 102 mmol/L (96-108); Creatinine Clr Calc Pharmacy 33.3; Estimated Glomerular Filt Rate 50; Glucose Random 235 mg/dL (60-115); Lipase 15 U/L (8-78); Potassium 4.3 mmol/L (3.3-5.1); Sodium 135 mmol/L (135-145); Total Protein 6.3 g/dL (6.5-8.0)
[2021-06-26 10:53] LABS: B Type Natriuretic Peptide 845 pg/mL (<100); Troponin-I High Sensitivity 15.1 ng/L (<3.5-35.0)
[2021-06-26 10:54] LABS: Hemoglobin 4.9 g/dl (14.0-18.0)
[2021-06-26 10:55] LABS: Hematocrit 16.7 % (42.0-52.0)
[2021-06-26 11:10] LABS: OBS Int Ctl Valid YES; OBS1 NEGATIVE (NEGATIVE)
--- NOTE | 2021-06-26 13:15 | PC.NURSE ---
dr smallwood at bedside for eval. first unit blood transfusing, no reactions. wctm.
[2021-06-26 13:39] LABS: Iron 14 mcg/dL (45-160); Percent Iron Saturation 4 % (15-50); Total Iron Binding Capacity 393 mcg/dL (228-428); Unsaturated Iron Binding 379 ug/dL
--- NOTE | 2021-06-26 13:41 | PM.CNCAR ---
History of Present Illness History of Present Illness Date of Service: 06/26/21 Consult reason: pre-op evaluation Chief complaint: Profound anemia/left hip fracture Narrative: I was requested to see Kehinde in cardiology consultation today for preoperative cardiovascular risk stratification. He is 80-year-old male with prior history of coronary artery disease status post AR x2, last myocardial infarction 2011 very underwent RCA stenting. Since then he has severe ischemic cardiomyopathy and has an ICD placement for primary prevention. As per the patient he is in generally good shape. Last admitted to [facility] with hyperkalemia. However since then has been doing well. He was noted to have elevated BNP at that time and was since then started on low-dose Lasix therapy. He also had significant anemia at that time. Comes to the hospital again this time with a fall/syncope. He is noted to have hip fracture of the left hip and is planned for surgery. However he is noted to be significantly anemic with hemoglobin of 4.9. Currently receiving blood transfusion. He said he has been getting lightheaded over the last few weeks but did not seek any medical attention. He says he has not had any overt bleeding. He is not on any oral anticoagulation but on low-dose aspirin therapy. He denies having prior GI issues. He also has not had any recent anginal symptoms similar to his myocardial infarction. Has not had any heart failure symptoms. He denies any heart failure hospitalizations. He is currently on metoprolol only for neurohormonal modulation. Not on any RAAS agents. He is on low-dose aspirin, atorvastatin as well as metformin and low-dose Lasix therapy. Review of Systems Constitutional: Constitutional: Denies chills, Reports fatigue and Denies fever(s) Eyes: Eyes: Reports no additional eye complaints Cardiovascular: Cardiovascular: Denies chest pain, Denies leg edema, Reports lightheadedness, Denies palpitations, Denies dyspnea, Denies dyspnea on exertion and Denies orthopnea Respiratory: Respiratory: Reports no additional respiratory complaints, Denies dyspnea and Denies dyspnea on exertion Gastrointestinal: Gastrointestinal: Reports no additional gastrointestinal complaints Genitourinary: Genitourinary: Reports no additional male genitourinary complaints Musculoskeletal: Musculoskeletal: Reports no additional musculoskeletal complaints Neurologic: Reports system reviewed and no additional complaints, except as documented Psychiatric: Psychiatric: Reports no additional psychiatric complaints Endocrine: Endocrine: Reports no additional endocrine complaints, Reports fatigue and Denies palpitations Hematologic/Lymphatic: Hematologic/Lymphatic: Reports no additional hematologic/lymphatic complaints Allergic/Immunologic: Allergic/Immunologic: Reports no additional allergic/immunologic complaints [facility] Past Medical History Medical History (Updated 06/26/21 @ 13:49 by Kendell Jackson MD) Anemia Atherosclerotic cardiovascular disease Basal cell carcinoma of skin Chronic renal failure, stage 2 (mild) Congestive cardiomyopathy Congestive heart failure Congestive heart failure Diabetes 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 Hyperlipidemia ICD (implantable cardioverter-defibrillator) in place Ischemic cardiomyopathy 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, old Paroxysmal A-fib Ruptured epidermal cyst Surgical History Surgical History H/O heart artery stent Social History Social History Household Members: Family Housing: House Do you presently have visiting nurse or other home services: No Alcohol intake: never Patient Tobacco Use Status: Never used Tobacco Second Hand Smoke Exposure: No Use of substances other than those prescribed or required for medical reasons: No Advance Directives: No Advance Directives Information Provided: No service: No Current occupational status: [employer] Allergies Allergy/AdvReac Type Severity Reaction Status Date / Time No Known Allergies Allergy Verified 06/20/21 09:10 Active Medications: Current Medications Acetaminophen (Acetaminophen 325 Mg Tablet) 650 mg PO Q6H PRN PRN Reason: Pain, Mild (Pain Scale 1-3) Atorvastatin Calcium (Atorvastatin Calcium 40 Mg Tablet) 40 mg PO BEDTIME [facility]BA Cyanocobalamin (Cyanocobalamin (Vitamin B-12) 1,000 Mcg Tablet) 1,000 mcg PO DAILY [facility] Furosemide (Furosemide 20 Mg Tablet) 20 mg PO DAILY [facility]; Protocol Ondansetron HCl (Ondansetron Hcl 4 Mg/2 Ml Vial) 4 mg IVPUSH Q8H PRN PRN Reason: Nausea and Vomiting Pharmacy Consult (Consult Rx Perform Med Rec) 1 each MISCELLANE ONCE PRN PRN Reason: Consult order Sodium Chloride (0.9 % Sodium Chloride Flush 3 Ml Syringe) 3 ml IVFLUSH QSHIFT [facility] Home Medications Medication Instructions Recorded Confirmed Last Taken Type aspirin 81 mg chewable tablet 81 mg PO DAILY 10/17/20 06/26/21 06/25/21 History atorvastatin 40 mg tablet 1 tab PO BEDTIME 10/17/20 06/26/21 10/16/20 20:00 History cyanocobalamin (vitamin B-12) 1 tab PO DAILY 10/17/20 06/26/21 06/25/21 History 1,000 mcg tablet (Vitamin B-12) metformin 1,000 mg tablet 1 tab PO BID 10/17/20 06/26/21 06/25/21 History metoprolol succinate 50 mg 1 tab PO DAILY 10/17/20 06/26/21 06/25/21 History tablet,extended release 24 hr Physical Exam Vital Signs: Vital Signs: Last Vital Signs Temp 98.6 F 06/26/21 13:13 Pulse 82 06/26/21 13:13 Resp 18 06/26/21 13:13 BP 119/50 L 06/26/21 13:13 Pulse Ox 99 06/26/21 07:11 Body Mass Index 19.0 Const: General: cooperative, comfortable, no acute distress, alert and awake Nutritional Appearance: thin Orientation/consciousness: patient oriented x3 HENMT: Head: Yes normocephalic and Yes atraumatic Neck: Neck: Yes trachea midline, Yes supple and Yes no JVD Chest: Chest palpation & inspection: normal inspection of the chest Resp: Effort & Inspection: normal respiratory effort Auscultation: clear to auscultation bilaterally Cardio: Jugular venous distension: no JVD Palpation: abnormal PMI displaced PMI Rate: regular rate Rhythm: regular rhythm Heart sounds: S1 normal heart sound present, S2 normal heart sound present, no click, no gallops, no murmurs and no rubs GI: Auscultation: normal bowel sounds Skin: General skin exam: no rashes or lesions noted and ecchymosis Neuro: General: patient oriented x3 and no focal motor deficits Extrem: General: Yes no clubbing, cyanosis or edema Psych: Appearance: grossly normal Objective Labs and Meds Result diagrams: 06/26/21 10:24 06/26/21 10:24 Lab results: Laboratory Results - last 24 hr 06/26/21 06/26/21 06/26/21 10:24 10:24 10:24 WBC 12.9 H RBC 1.98 L Hgb 4.9 L* Hct 16.7 L* MCV 84.3 MCH 24.7 L MCHC 29.3 L RDW 18.6 H Plt Count 101 L MPV 10.9 Immature Gran % (Auto) 0.5 H Neut % (Auto) 86.2 H Lymph % (Auto) 6.7 L Chester % (Auto) 6.5 Eos % (Auto) 0.0 Baso % (Auto) 0.1 Lymph # (Auto) 0.9 L [place] # (Auto) 0.8 Eos # (Auto) 0.0 Baso # (Auto) 0.0 Abs Immat Gran (auto) 0.07 H Absolute Neuts (auto) 11.1 H Absolute Nucleated RBC 0.040 H Nucleated RBC % (auto) 0.3 H Sodium 135 Potassium 4.3 Chloride 102 Carbon Dioxide 20 L Anion Gap 17 BUN 29 H Creatinine 1.37 Estim Creat Clear Calc 33.3 Estimated GFR 50 Random Glucose 235 H Calcium 8.8 D Iron 14 L TIBC 393 % Saturation 4 L Unsat Iron Binding 379 Total Bilirubin 0.6 Direct Bilirubin 0.3 AST 23 ALT 19 Alkaline Phosphatase 35 L D Total Creatine Kinase 166 Troponin I High Sens 15.1 B-Natriuretic Peptide 845 H Total Protein 6.3 L Albumin 3.7 Lipase 15 Stool Occult Blood COVID-19 ([facility]IS[facility]) COVID-19 Clin Com Blood Type Antibody Screen Crossmatch 06/26/21 06/26/21 06/26/21 10:24 11:06 11:33 WBC RBC Hgb Hct MCV MCH MCHC RDW Plt Count MPV Immature Gran % (Auto) Neut % (Auto) Lymph % (Auto) [place] % (Auto) Eos % (Auto) Baso % (Auto) Lymph # (Auto) [place] # (Auto) Eos # (Auto) Baso # (Auto) Abs Immat Gran (auto) Absolute Neuts (auto) Absolute Nucleated RBC Nucleated RBC % (auto) Sodium Potassium Chloride Carbon Dioxide Anion Gap BUN Creatinine Estim Creat Clear Calc Estimated GFR Random Glucose Calcium Iron TIBC % Saturation Unsat Iron Binding Total Bilirubin Direct Bilirubin AST ALT Alkaline Phosphatase Total Creatine Kinase Troponin I High Sens B-Natriuretic Peptide Total Protein Albumin Lipase Stool Occult Blood NEGATIVE COVID-19 (MARISOL) Negative COVID-19 Clin Com See Note Blood Type A Positive Antibody Screen NEGATIVE Crossmatch See Detail Imaging Radiologist's impression: Impressions Hip/Pelvis X-Ray 06/26/21 07:34 IMPRESSION: Acute subcapital fracture as above left hip. Nonspecific radiographic finding the chest which may be seen with atypical infection. Chest X-Ray 06/26/21 07:35 IMPRESSION: Acute subcapital fracture as above left hip. Nonspecific radiographic finding the chest which may be seen with atypical infection. Head CT 06/26/21 07:35 IMPRESSION: No acute intracranial process seen. There is no acute fracture, dislocation or subluxation cervical spine. There are degenerative facet joint arthropathy and mild ventral spondylosis as described above. No change from previous exam 10/17/[address] 06/26/21 07:36 IMPRESSION: No acute intracranial process seen. There is no acute fracture, dislocation or subluxation cervical spine. There are degenerative facet joint arthropathy and mild ventral spondylosis as described above. No change from previous exam 10/17/2020 Assessment and Plan (1) Preoperative cardiovascular examination: Status: Acute Preoperative cardiovascular risk stratification elderly man who came with a fall/syncope related to severe anemia with known prior severe ischemic cardiomyopathy with no overt heart failure syndrome, CAD status post PCI, last in 2011. He has been pretty active and has no recent symptoms of angina or heart failure at this point time. However he has severe LV systolic dysfunction as underlying severe anemia. I would correct his anemia prior to surgery to reduce his myocardial stress. Maintain hematocrit above 30. Pay close attention to blood loss during surgery and transfuse as needed. Given his severe anemia leading to hospitalization will need GI workup to assess for the cause for his recurrent severe anemia which is life-threatening and leading to hospitalizations as well as syncope and will have additional burden for future cardiovascular outcomes. For now will pay close attention to fluid balance and diurese if he develops heart failure syndrome which is at high risk for. He is currently not in heart failure not having angina. Once his hematocrit is corrected, he can undergo hip surgery which is essential with at least intermediate risk for perioperative cardiovascular morbidity mortality. Close attention to hemodynamics during surgery. Avoid rapid fluid shifts. Continue medications. Aspirin to be withheld. Postoperative anticoagulation may be an issue given his significant anemia and unknown source for bleeding possibly. This needs to be discussed with GI team as well. (2) Ischemic cardiomyopathy: Status: Acute Severe ischemic cardiomyopathy without any overt heart failure at this time and has no prior heart failure hospitalization. He is currently only on metoprolol for neurohormonal modulation. Unclear whether this was due to hyperkalemia and recurrent hyperkalemia. He did have hyperkalemia last admission. However at this point time would challenging with very low-dose Diovan 20 mg b.i.d. for neurohormonal modulation. Closely follow basic metabolic profile. If develops any hyperkalemia or low blood pressure this may be discontinued. For now hold off on Lasix therapy as he is not overtly in heart failure. However close attention to fluid balance and heart failure should be paid in this elderly gentleman. Continue atorvastatin for his underlying coronary artery disease. Hold off on aspirin therapy. (3) ICD (implantable cardioverter-defibrillator) in place: Status: Acute ICD in place, of unknown company. Will need to obtain this information from his primary director of integrated marketing. Once obtained, will pursue ICD interrogation prior to surgery. Will follow with you. Greater than 45 minutes was spent in managing his complex care as well as reviewing his data. Procedures Date of Service Date of Service: 06/26/21
--- NOTE | 2021-06-26 13:42 | P.HPHOSP_ITS ---
History of Present Illness Date of Service: 06/26/21 Attending physician on admission: Emilia Lala Chief Complaint: Fall 80-year-old gentleman with past medical history significant for coronary artery disease status post stent placement, EF 20-25%, status post AICD, diabetes, hyperlipidemia, patient follows by Dr Farnsworth from [facility] presented to [facility] today after he felt lightheaded/dizzy and fell to the floor on left side, sustained left forehead laceration he denies loss of consciousness, denies symptoms of chest pain, no palpitation, no shortness of breath, in ER noted to have significant anemia hemoglobin 4.9 and hematocrit 16.7, he denies hematemesis no melena, no hematuria no history of prior GI bleed, patient was admitted to [facility] of September of 2020 and was noted to have anemia with hematocrit 26, at that time underwent extensive workup that was non revealing, patient was supposed to follow-up with Hematology, but as per patient he did not know, currently patient is receiving 2 units of packed RBCs, stool guaiac was negative as per ED physician, patient also noted to have left hip fracture, he denies significant pain. Review of Systems Review of Systems: General no headache,no fever, chills. CVS no chest pain, no palpitation. Respiratory no cough, no sob. Gastrointestinal no nausea no vomiting, no abdominal pain no urinary symptoms of urgency frequency Skin no rash Yes all other systems are reviewed and are negative [facility] Medical History Anemia Atherosclerotic cardiovascular disease Basal cell carcinoma of skin Chronic renal failure, stage 2 (mild) Congestive cardiomyopathy Congestive heart failure Congestive heart failure Diabetes 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 Hyperlipidemia ICD (implantable cardioverter-defibrillator) in place Ischemic cardiomyopathy 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, old Paroxysmal A-fib Ruptured epidermal cyst Pertinent family history: No family history of anemia the patient is aware Surgical History H/O heart artery stent Social History Household Members: Family Housing: House Do you presently have visiting nurse or other home services: No Alcohol intake: never Patient Tobacco Use Status: Never used Tobacco Second Hand Smoke Exposure: No Use of substances other than those prescribed or required for medical reasons: No Advance Directives: No Advance Directives Information Provided: No service: No Current occupational status: retired Meds Allergies Allergy/AdvReac Type Severity Reaction Status Date / Time No Known Allergies Allergy Verified 06/20/21 09:10 Active Medications: Current Medications Acetaminophen (Acetaminophen 325 Mg Tablet) 650 mg PO Q6H PRN PRN Reason: Pain, Mild (Pain Scale 1-3) Atorvastatin Calcium (Atorvastatin Calcium 40 Mg Tablet) 40 mg PO BEDTIME ELBA Cyanocobalamin (Cyanocobalamin (Vitamin B-12) 1,000 Mcg Tablet) 1,000 mcg PO DAILY ELBA Furosemide (Furosemide 20 Mg Tablet) 20 mg PO DAILY ELBA; Protocol Ondansetron HCl (Ondansetron Hcl 4 Mg/2 Ml Vial) 4 mg IVPUSH Q8H PRN PRN Reason: Nausea and Vomiting Pharmacy Consult (Consult Rx Perform Med Rec) 1 each MISCELLANE ONCE PRN PRN Reason: Consult order Sodium Chloride (0.9 % Sodium Chloride Flush 3 Ml Syringe) 3 ml IVFLUSH QSHIFT [facility] Home Medications Medication Instructions Recorded Confirmed Last Taken Type aspirin 81 mg chewable tablet 81 mg PO DAILY 10/17/20 06/26/21 06/25/21 History atorvastatin 40 mg tablet 1 tab PO BEDTIME 10/17/20 06/26/21 10/16/20 20:00 History cyanocobalamin (vitamin B-12) 1 tab PO DAILY 10/17/20 06/26/21 06/25/21 History 1,000 mcg tablet (Vitamin B-12) metformin 1,000 mg tablet 1 tab PO BID 10/17/20 06/26/21 06/25/21 History metoprolol succinate 50 mg 1 tab PO DAILY 10/17/20 06/26/21 06/25/21 History tablet,extended release 24 hr Physical Exam Vital Signs and Narrative: Vital Signs: Last Vital Signs Temp 98.6 F 06/26/21 13:13 Pulse 82 06/26/21 13:13 Resp 18 06/26/21 13:13 BP 119/50 L 06/26/21 13:13 Pulse Ox 99 06/26/21 07:11 Body Mass Index 19.0 General awake alert x3, no acute distress. Right eye decreased vision, lower lid everted Neck no JVD. CVS regular rate rhythm, Respiratory lungs clear to auscultation, no respiratory distress, no wheeze, no rhonchi. Gastrointestinal abdomen soft, nontender, bowel sounds audible, no guarding , no rigidity. Extremities left leg shorter than right, no edema. Neuro nonfocal Skin pale/a small laceration left side of forehead and left elbow Psych appropriate affect Results Labs CBC and Chem 7: 06/27/21 09:24 06/27/21 09:24 Labs: Laboratory Results - last 24 hr 06/26/21 06/26/21 06/26/21 10:24 10:24 10:24 MCV 84.3 MCH 24.7 L MCHC 29.3 L RDW 18.6 H Plt Count 101 L MPV 10.9 Immature Gran % (Auto) 0.5 H Neut % (Auto) 86.2 H Lymph % (Auto) 6.7 L [place] % (Auto) 6.5 Eos % (Auto) 0.0 Baso % (Auto) 0.1 Lymph # (Auto) 0.9 L [place] # (Auto) 0.8 Eos # (Auto) 0.0 Baso # (Auto) 0.0 Abs Immat Gran (auto) 0.07 H Absolute Neuts (auto) 11.1 H Absolute Nucleated RBC 0.040 H Nucleated RBC % (auto) 0.3 H Anion Gap 17 Estim Creat Clear Calc 33.3 Estimated GFR 50 Random Glucose 235 H Calcium 8.8 D Iron 14 L TIBC 393 % Saturation 4 L Unsat Iron Binding 379 Total Bilirubin 0.6 Direct Bilirubin 0.3 AST 23 ALT 19 Alkaline Phosphatase 35 L D Total Creatine Kinase 166 Troponin I High Sens 15.1 B-Natriuretic Peptide 845 H Total Protein 6.3 L Albumin 3.7 Lipase 15 Stool Occult Blood COVID-19 (MARISOL) COVID-19 Clin Com Blood Type Antibody Screen Crossmatch 06/26/21 06/26/21 06/26/21 10:24 11:06 11:33 MCV MCH MCHC RDW Plt Count MPV Immature Gran % (Auto) Neut % (Auto) Lymph % (Auto) [place] % (Auto) Eos % (Auto) Baso % (Auto) Lymph # (Auto) [place] # (Auto) Eos # (Auto) Baso # (Auto) Abs Immat Gran (auto) Absolute Neuts (auto) Absolute Nucleated RBC Nucleated RBC % (auto) Anion Gap Estim Creat Clear Calc Estimated GFR Random Glucose Calcium Iron TIBC % Saturation Unsat Iron Binding Total Bilirubin Direct Bilirubin AST ALT Alkaline Phosphatase Total Creatine Kinase Troponin I High Sens B-Natriuretic Peptide Total Protein Albumin Lipase Stool Occult Blood NEGATIVE COVID-19 (MARISOL) Negative COVID-19 Clin Com See Note Blood Type A Positive Antibody Screen NEGATIVE Crossmatch See Detail Imaging Radiologist's Impressions: Impressions Hip/Pelvis X-Ray 06/26/21 07:34 IMPRESSION: Acute subcapital fracture as above left hip. Nonspecific radiographic finding the chest which may be seen with atypical infection. Chest X-Ray 06/26/21 07:35 IMPRESSION: Acute subcapital fracture as above left hip. Nonspecific radiographic finding the chest which may be seen with atypical infection. Head CT 06/26/21 07:35 IMPRESSION: No acute intracranial process seen. There is no acute fracture, dislocation or subluxation cervical spine. There are degenerative facet joint arthropathy and mild ventral spondylosis as described above. No change from previous exam 10/17/[address] 06/26/21 07:36 IMPRESSION: No acute intracranial process seen. There is no acute fracture, dislocation or subluxation cervical spine. There are degenerative facet joint arthropathy and mild ventral spondylosis as described above. No change from previous exam 10/17/2020 Assessment and Plan (1) ICD (implantable cardioverter-defibrillator) in place: Status: Acute (2) Severe anemia: Status: Acute (3) Ischemic cardiomyopathy: Status: Acute (4) Closed hip fracture: Qualifiers: Encounter type: initial encounter Laterality: left Qualified Code(s): S72.002A - Fracture of unspecified part of neck of left femur, initial encounter for closed fracture Status: Acute 80-year-old male with history of diabetes, hyperlipidemia, coronary disease status post inferior wall MS in 2012 requiring PCI of RCA, residual 50% disease and marginal, heart failure with reduced ejection fraction, status post prophylactic ICD presented to [facility] due to lightheadedness dizziness and fall according to patient climbed up the stairs after checking water heater and felt light headed and fell down on his left side, was able to climb up to the chair and called his sister, who called EMS , patient noted to have significant anemia and left hip fracture. Profound symptomatic anemia No overt bleeding noted no have history of hematemesis or melena, patient last hematocrit 28 on October 17 drop down to 16.7 Receiving 2 units of packed RBC will follow hematocrit and transfuse to keep hematocrit greater than 30 Stool guaiac negative recent workup including B12 folate were normal, hemolytic screen negative, on B12 supplement, Will order iron studies, ferritin, if low consider GI consult Left hip fracture Seen by Orthopedic surgery plan is for surgery, Cardio consult obtained for preop clearance Coronary artery disease Noted to have low blood pressure will hold beta-blockers, hold aspirin due to anemia, continue statin EKG shows nonspecific ST and T-wave abnormality, patient asymptomatic with no chest pain, no shortness of breath, cardio input for further workup, will obtain echo Elevated BNP No evidence of acute CHF Will follow closely while being transfused Diabetes mellitus type 2 Monitor blood sugar hold metformin add insulin sliding scale DVT prophylaxis with compression boots due to significant anemia Quality Stroke Does the patient have a stroke diagnosis?: No VTE Prior VTE?: No VTE Risk Level:: Medical - moderate - high VTE Device Contraindication: N/A - Device Ordered VTE Drug Contraindication: Treatment Not Indicated
[2021-06-26 13:59] LABS: Ferritin 10 ng/mL (20-250)
[2021-06-26 19:31] LABS: Hematocrit 25.6 % (42.0-52.0); Hemoglobin 8.2 g/dl (14.0-18.0)
[2021-06-26 19:55] LABS: Appearance Urine CLEAR; Color Urine YELLOW; Glucose Urine UA 250 MG/DL (NEG); Leukocyte Esterase Urine NEG (NEG); Nitrite Urine NEG (NEG); PH 5.5 (5.0-8.0); Specific Gravity - Urine 1.025 (1.005-1.025); Urine Blood NEG (NEG); Urine Ketones 5 MG/DL (NEG); Urine Protein NEG (NEG-TRACE)
--- NOTE | 2021-06-26 20:51 | PC.NURSE ---
This RN spoke with pt's sister, Mary Jane, at [phone] who called requesting update on pt. Mary Jane updated on plan of care, expresses understanding and is agreeable.
[2021-06-27] VITALS (7 sets, daily range): BP systolic 127–149; BP diastolic 49–75; PULSE 80–96; RESP 16–24; TEMP 36.7–37.5; O2SAT 90–95
[2021-06-27] MEDS: oxyCODONE HCl Immed Release 5 MG TABLET PO ×2 (00:25→18:03)
[2021-06-27] MEDS: Atorvastatin Calcium 40 MG TABLET PO ×2 (00:26→19:39)
--- NOTE | 2021-06-27 00:48 | PC.NURSE ---
Pt assisted onto bedpan, had moderate sized soft BM. Pt positioned in position of comfort with pillows beneath L leg. Pt remains on NC, VSS. Pt stretcher low locked, rails raised, call irwin within reach.
--- NOTE | 2021-06-27 07:49 | PM.HPOR ---
History of Present Illness History of Present Illness Date of Service: 06/27/21 Chief complaint: Profound anemia/left hip fracture Narrative: Kehinde Fowler is a 80 year old male who presents to the ED after sustaining a fall after a syncopal episode. He is confused stating that he is currently at [employer] and would like to go back to grocery shopping. Therefor majority of the history has been obtained by the ER notes. X-rays obtained in the ED reveal a subcapital left hip fracture. Orthopedics was consulted for further evaluation and the patient was admitted to Medicine service. He has a significant cardiac history and therefore a cardiology consult has been placed. Review of Systems Review of Systems: Yes all other systems are reviewed and are negative PMFSH Past Medical History Medical History Anemia Atherosclerotic cardiovascular disease Basal cell carcinoma of skin Chronic renal failure, stage 2 (mild) Congestive cardiomyopathy Congestive heart failure Congestive heart failure Diabetes 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 Hyperlipidemia ICD (implantable cardioverter-defibrillator) in place Ischemic cardiomyopathy 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, old Paroxysmal A-fib Ruptured epidermal cyst Surgical History Surgical History H/O heart artery stent Social History Social History Household Members: Family Housing: House Do you presently have visiting nurse or other home services: No Alcohol intake: never Patient Tobacco Use Status: Never used Tobacco Second Hand Smoke Exposure: No Use of substances other than those prescribed or required for medical reasons: No Advance Directives: No Advance Directives Information Provided: No service: No Current occupational status: retired [employer] Allergies Allergy/AdvReac Type Severity Reaction Status Date / Time No Known Allergies Allergy Verified 06/20/21 09:10 Active Medications: Current Medications Acetaminophen (Acetaminophen 325 Mg Tablet) 650 mg PO Q6H PRN PRN Reason: Pain, Mild (Pain Scale 1-3) Atorvastatin Calcium (Atorvastatin Calcium 40 Mg Tablet) 40 mg PO BEDTIME ELBA Last Admin: 06/27/21 00:26 Dose: 40 mg Documented by: Cyanocobalamin (Cyanocobalamin (Vitamin B-12) 1,000 Mcg Tablet) 1,000 mcg PO DAILY ELBA Furosemide (Furosemide 20 Mg Tablet) 20 mg PO DAILY ELBA; Protocol Cefazolin Sodium/Dextrose (Ancef) 2 gm in 50 mls @ 100 mls/hr IV PREOP ELBA Stop: 06/27/21 23:00 Ondansetron HCl (Ondansetron Hcl 4 Mg/2 Ml Vial) 4 mg IVPUSH Q8H PRN PRN Reason: Nausea and Vomiting Oxycodone HCl (Oxycodone Hcl Immed Release 5 Mg Tablet) 5 mg PO Q6H PRN PRN Reason: Breakthrough Pain Last Admin: 06/27/21 00:25 Dose: 5 mg Documented by: Pharmacy Consult (Consult Rx Perform Med Rec) 1 each MISCELLANE ONCE PRN PRN Reason: Consult order Sodium Chloride (0.9 % Sodium Chloride Flush 3 Ml Syringe) 3 ml IVFLUSH QSHIFT ELBA Last Admin: 06/27/21 00:24 Dose: Not Given Documented by: Home Medications Medication Instructions Recorded Confirmed Last Taken Type aspirin 81 mg chewable tablet 81 mg PO DAILY 10/17/20 06/26/21 06/25/21 History atorvastatin 40 mg tablet 1 tab PO BEDTIME 10/17/20 06/26/21 10/16/20 20:00 History cyanocobalamin (vitamin B-12) 1 tab PO DAILY 10/17/20 06/26/21 06/25/21 History 1,000 mcg tablet (Vitamin B-12) metformin 1,000 mg tablet 1 tab PO BID 10/17/20 06/26/21 06/25/21 History metoprolol succinate 50 mg 1 tab PO DAILY 10/17/20 06/26/21 06/25/21 History tablet,extended release 24 hr Physical Exam Vital Signs: Vital Signs: Last Vital Signs Temp 98.2 F 06/26/21 23:03 Pulse 81 06/27/21 04:00 Resp 16 06/27/21 04:00 BP 127/57 L 06/27/21 04:00 Pulse Ox 92 06/27/21 04:00 Body Mass Index 19.0 Const: General: cooperative, healthy appearing and no acute distress Resp: Effort & Inspection: normal respiratory effort and able to speak in complete sentences Cardio: Rate: regular rate Peripheral pulses: Peripheral pulses 2+ throughout GI: Palpation (GI): Soft to palpation Skin: Lesions: no lesions Rashes: no rashes Extrem: Other: Left lower extremity is shortened and externally rotated. Pain with log roll. NVI. Results Labs Result Diagrams: 06/26/21 19:26 06/26/21 10:24 Labs: Abnormal lab results 06/26/21 06/26/21 06/26/21 Range/Units 10:24 10:24 10:24 WBC 12.9 H (4.8-10.8) X10*3/uL RBC 1.98 L (4.60-5.80) X10*6/uL Hgb 4.9 L* (14.0-18.0) g/dl Hct 16.7 L* (42.0-52.0) % MCH 24.7 L (27.0-33.0) pg MCHC 29.3 L (31.0-36.0) g/dl RDW 18.6 H (11.0-16.0) % Plt Count 101 L (160-400) X10*3/uL Immature Gran % (Auto) 0.5 H (0.0-0.4) % Neut % (Auto) 86.2 H (45-73) % Lymph % (Auto) 6.7 L (20-40) % Lymph # (Auto) 0.9 L (1.2-4.9) X10*3/uL Abs Immat Gran (auto) 0.07 H (0.00-0.03) X10*3/uL Absolute Neuts (auto) 11.1 H (2.0-8.3) x10*3/uL Absolute Nucleated RBC 0.040 H (0.0-0.012) X10*3/uL Nucleated RBC % (auto) 0.3 H (0.0-0.2) /100WBC Carbon Dioxide 20 L (22-29) mmol/L BUN 29 H (9-16) mg/dL Random Glucose 235 H (60-115) mg/dL Iron 14 L (45-160) mcg/dL % Saturation 4 L (15-50) % Ferritin 10 L (20-250) ng/mL Alkaline Phosphatase 35 L D (39-117) U/L B-Natriuretic Peptide 845 H (<100) pg/mL Total Protein 6.3 L (6.5-8.0) g/dL Urine Glucose (UA) (NEG) MG/DL Crossmatch 06/26/21 06/26/21 06/26/21 Range/Units 11:33 19:26 19:37 WBC (4.8-10.8) X10*3/uL RBC (4.60-5.80) X10*6/uL Hgb 8.2 L D (14.0-18.0) g/dl Hct 25.6 L D (42.0-52.0) % MCH (27.0-33.0) pg MCHC (31.0-36.0) g/dl RDW (11.0-16.0) % Plt Count (160-400) X10*3/uL Immature Gran % (Auto) (0.0-0.4) % Neut % (Auto) (45-73) % Lymph % (Auto) (20-40) % Lymph # (Auto) (1.2-4.9) X10*3/uL Abs Immat Gran (auto) (0.00-0.03) X10*3/uL Absolute Neuts (auto) (2.0-8.3) x10*3/uL Absolute Nucleated RBC (0.0-0.012) X10*3/uL Nucleated RBC % (auto) (0.0-0.2) /100WBC Carbon Dioxide (22-29) mmol/L BUN (9-16) mg/dL Random Glucose (60-115) mg/dL Iron (45-160) mcg/dL % Saturation (15-50) % Ferritin (20-250) ng/mL Alkaline Phosphatase (39-117) U/L B-Natriuretic Peptide (<100) pg/mL Total Protein (6.5-8.0) g/dL Urine Glucose (UA) 250 H (NEG) MG/DL Crossmatch See Detail H & H 06/26/21 06/26/21 Range/Units 10:24 19:26 Hgb 4.9 L* 8.2 L D (14.0-18.0) g/dl Hct 16.7 L* 25.6 L D (42.0-52.0) % All other labs normal. Assessment and Plan (1) Closed left hip fracture: Status: Acute Mr. Fowler is an 80 yo male who presented to the ED after sustaining a syncopal episode causing him to fall and land on his left hip. X-rays obtained in the ED reveal a left subcapital hip fracture. Patient has a significant cardiac history therefore a cardiology consult has been placed. He has an ICD and will need to be interrogated prior to surgery. Patient also had labs drawn in the ED which revealed an H/H of 4.9/16.7. He was transfused and H/H has improved to 8.2/25.[address] Jackson he would recommend the patient's hematocrit to be above 30 prior to surgery and monitor blood loss carefully for possible transfusion post operatively. Per his recommendation I have also placed a consult to general surgery to evaluate for possible GI bleed in relation to his severe anemia. Surgery pending cardiology clearance, General surgery clearance/work up for GI bleed, and Medicine clearance. Quality Stroke Does the patient have a stroke diagnosis?: No VTE Prior VTE?: No VTE Risk Level:: Medical - moderate - high VTE Device Contraindication: N/A - Device Ordered VTE Drug Contraindication: Treatment Not Indicated Procedures Date of Service Date of Service: 06/27/21
[2021-06-27 09:29] LABS: Hematocrit 27.2 % (42.0-52.0); Hemoglobin 8.6 g/dl (14.0-18.0); Mean Corpuscular HGB Conc 31.6 g/dl (31.0-36.0); Mean Corpuscular Volume 82.2 fL (80.0-98.0); Mean Platelet Volume 10.6 fL (9.4-12.4); NRBC Pct Auto 0.4 /100WBC (0.0-0.2); Red Blood Count 3.31 X10*6/uL (4.60-5.80); Red Cell Distribution Width 17.9 % (11.0-16.0); White Blood Count 18.6 X10*3/uL (4.8-10.8)
[2021-06-27 09:30] LABS: Platelet Count 90 X10*3/uL (160-400)
[2021-06-27] MEDS: 0.9 % Sodium Chloride Flush 3 ML SYRINGE IVFLUSH ×3 (09:38→19:39)
[2021-06-27 09:42] LABS: Anion Gap 16 (12-20); Blood Urea Nitrogen 26 mg/dL (9-16); Calcium 8.6 mg/dL (8.4-10.2); Carbon Dioxide 22 mmol/L (22-29); Chloride 102 mmol/L (96-108); Creatinine Clr Calc Pharmacy 34.6; Estimated Glomerular Filt Rate 52; Glucose Random 276 mg/dL (60-115); Potassium 3.8 mmol/L (3.3-5.1); Sodium 136 mmol/L (135-145)
--- NOTE | 2021-06-27 10:04 | MHC.CM.PN ---
Addendum entered by Melyssa Rueda 06/27/21 10:06: RE ATTEMPTING TO REQUEST A COPY OF PTS HCP FROM HIS [facility] OFFICE ([phone]) HOWEVER THEY WERE EXPERIENCING HIGH CALL VOLUMES. CM WILL ATTEMPT CALL AGAIN LATER IN THE DAY Original Note: CM MET WITH PT WHO REPORTS HE LIVES IN THE LOWER LEVEL OF A TWO FAMILY, HIS SISTER LIVES UPSTAIRS. PT REPORTS HE WAS COMPLETELY INDEPENDENT AND USED NO [employer]ME [employer]. PT ALSO REPORTS HAVING NO SERVICES IN THE HOME. PT CONFIRMS HIS PCP IS PAULINO AGUILAR, HE BELIEVES THERE IS A COPY OF HIS HCP AT THAT OFFICE. IMM DELIVERED, COPY SENT TO [facility] CURRENTLY DCP IS TBD PENDING PT EVAL PT LIKELY TO NEED STR AND WILL PROVIDE PREFERENCES AFTER TALKING WITH HIS SISTER
--- NOTE | 2021-06-27 11:12 | PM.PNCARD ---
Subjective Subjective Date of Service: 06/27/21 Interval history: States that he feels okay. No cardiac symptoms. Review of Systems Review of Systems Yes all other systems are reviewed and are negative Cardiovascular: Reports as per HPI, Reports no additional cardiovascular complaints, Denies acrocyanosis, Denies cool extremities, Denies painful fingertips, Denies chest pain, Denies chest pain at rest, Denies diaphoresis, Denies syncope, Denies irregular heart rhythm, Denies claudication, Denies leg edema, Denies lightheadedness, Denies palpitations and Denies dyspnea Respiratory: Denies dyspnea Denies syncope Endocrine: Denies palpitations Physical Exam Vital Signs: Last Vital Signs Temp 98.2 F 06/26/21 23:03 Pulse 81 06/27/21 04:00 Resp 16 06/27/21 04:00 BP 127/57 L 06/27/21 04:00 Pulse Ox 92 06/27/21 04:00 Body Mass Index 19.0 Const General: cooperative and no acute distress HENDC Other: Unremarkable Neck Neck: Yes normal visual inspection Chest Chest palpation & inspection: normal inspection of the chest Resp Auscultation: clear to auscultation bilaterally, no crackles and no wheezes Cardio Jugular venous distension: no JVD Palpation: normal PMI Heart sounds: S1 normal heart sound present, S2 normal heart sound present, no gallops, no murmurs and no rubs GI Palpation (GI): Soft to palpation Back/Spine/Pelvis Other: unremarkable Skin General skin exam: no rashes or lesions noted Neuro Cranial nerves: Yes Other cranial nerve findings present Extrem General: Yes no clubbing, cyanosis or edema Psych Mental Status: other Objective Labs and Meds Result diagrams: 06/27/21 09:24 06/27/21 09:24 Lab results: Laboratory Results - last 24 hr 06/26/21 06/26/21 06/26/21 10:24 11:33 19:26 WBC RBC Hgb 8.2 L D Hct 25.6 L D MCV MCH MCHC RDW Plt Count MPV Absolute Nucleated RBC Nucleated RBC % (auto) Sodium Potassium Chloride Carbon Dioxide Anion Gap BUN Creatinine Estim Creat Clear Calc Estimated GFR Random Glucose Calcium Iron 14 L TIBC 393 % Saturation 4 L Unsat Iron Binding 379 Ferritin 10 L Urine Color Urine Appearance Urine pH Ur Specific [place] Urine Protein Urine Glucose (UA) Urine Ketones Urine Blood Urine Nitrite Ur Leukocyte Esterase Blood Type A Positive Antibody Screen NEGATIVE Crossmatch See Detail 06/26/21 06/27/21 06/27/21 19:37 09:24 09:24 WBC 18.6 H RBC 3.31 L D Hgb 8.6 L Hct 27.2 L MCV 82.2 MCH 26.0 L MCHC 31.6 RDW 17.9 H Plt Count 90 L MPV 10.6 Absolute Nucleated RBC 0.080 H Nucleated RBC % (auto) 0.4 H Sodium 136 Potassium 3.8 Chloride 102 Carbon Dioxide 22 Anion Gap 16 BUN 26 H Creatinine 1.32 Estim Creat Clear Calc 34.6 Estimated GFR 52 Random Glucose 276 H Calcium 8.6 Iron TIBC % Saturation Unsat Iron Binding Ferritin Urine Color YELLOW Urine Appearance CLEAR Urine pH 5.5 Ur Specific [place] 1.025 Urine Protein NEG Urine Glucose (UA) 250 H Urine Ketones 5 Urine Blood NEG Urine Nitrite NEG Ur Leukocyte Esterase NEG Blood Type Antibody Screen Crossmatch Progress Note: A&P Assessment and plan (1) Preoperative cardiovascular examination: Status: Acute (2) Ischemic cardiomyopathy: Status: Acute (3) ICD (implantable cardioverter-defibrillator) in place: Status: Acute (4) Severe anemia: Status: Acute (5) Closed left hip fracture: Status: Acute Assessment and Plan: Last echocardiogram from September of this year with LVEF of 20-25% with global hypokinesis and regional findings. Otherwise, history of inferior wall [place] in 2011 requiring PCI of the RCA but residual 50% obtuse marginal disease. Unremarkable high sensitivity troponin. Cardiac BNP elevated but similar to last value. Overall, at least intermediate cardiac risk for the proposed hip surgery. He was quite anemic when he arrived at hemoglobin of 4.9 but much improved now. Will need to transfuse to at least a hemoglobin of 9 or so before surgery, considering his cardiac comorbidities. Fall Risk Details Current Medications: Current Medications Acetaminophen (Acetaminophen 325 Mg Tablet) 650 mg PO Q6H PRN PRN Reason: Pain, Mild (Pain Scale 1-3) Atorvastatin Calcium (Atorvastatin Calcium 40 Mg Tablet) 40 mg PO BEDTIME [facility] Last Admin: 06/27/21 00:26 Dose: 40 mg Documented by: Cyanocobalamin (Cyanocobalamin (Vitamin B-12) 1,000 Mcg Tablet) 1,000 mcg PO DAILY [facility] Last Admin: 06/27/21 09:40 Dose: Not Given Documented by: Furosemide (Furosemide 20 Mg Tablet) 20 mg PO DAILY [facility]; Protocol Last Admin: 06/27/21 09:40 Dose: Not Given Documented by: Cefazolin Sodium/Dextrose (Ancef) 2 gm in 50 mls @ 100 mls/hr IV PREOP [facility] Stop: 06/28/21 23:00 Ondansetron HCl (Ondansetron Hcl 4 Mg/2 Ml Vial) 4 mg IVPUSH Q8H PRN PRN Reason: Nausea and Vomiting Oxycodone HCl (Oxycodone Hcl Immed Release 5 Mg Tablet) 5 mg PO Q6H PRN PRN Reason: Breakthrough Pain Last Admin: 06/27/21 00:25 Dose: 5 mg Documented by: Pharmacy Consult (Consult Rx Perform Med Rec) 1 each MISCELLANE ONCE PRN PRN Reason: Consult order Sodium Chloride (0.9 % Sodium Chloride Flush 3 Ml Syringe) 3 ml IVFLUSH QSHIFT [facility] Last Admin: 06/27/21 09:38 Dose: 3 ml Documented by: Time Spent With Patient Time: Total time spent is greater than 50% in coordination of care (as documented) at patient's floor/unit and/or counseling patient: Time with patient: less than 15 minutes Progress Note: Quality Stroke Does the patient have a stroke diagnosis?: No Procedures Date of Service Date of Service: 06/27/21
--- NOTE | 2021-06-27 11:37 | P.EN_ITS ---
Event Note Date of Service: 06/27/21 Event Note: [employer] dual chamber ICD interrogation completed today showing b attery 42%, VDI mode, base rate 40, 0% pacing, No atrial burden, no alerts for SVT, VT, VF, therapy settings reviewed. No changes made.
--- NOTE | 2021-06-27 14:14 | HO.PM.IMPN ---
Subjective Subjective Date of Service: 06/27/21 Interval History: Being followed for profound anemia and left hip fracture patient feeling better this morning slept well denies shortness of breath, good pain control. Review of Systems General no headache no dizziness no fever chills. CVS no chest pain, no palpitation. Respiratory no cough, no sob. Gastrointestinal no nausea no vomiting, no abdominal pain, no melena, no hematoma Skin no rash Musculoskeletal hip pain Review of Systems: Yes all other systems are reviewed and are negative Physical Exam Vital Signs: Vital Signs: Last Vital Signs Temp 98.2 F 06/26/21 23:03 Pulse 81 06/27/21 04:00 Resp 16 06/27/21 04:00 BP 127/57 L 06/27/21 04:00 Pulse Ox 92 06/27/21 04:00 Body Mass Index 19.0 General awake aler t x3, no acute dis tress. Right eye d ecreased vision, l ower lid everted [place]? no JVD. CVS? regular rate rhyth m, Respiratory yohan gs clear to auscul tation, no respira tory distress, no wheeze, no rhonchi . Gastrointestinal abdomen soft, non tender, bowel soun ds audible, no gua rding , no rigidit y. Extremities lef t leg shorter than right, no edema. Neuro nonfocal Ski n pale/ small lace ration left side o f forehead no blee ding Psych approp riate affect Objective Data Active Medications Acetaminophen (Acetaminophen 325 Mg Tablet) 650 mg PO Q6H PRN PRN Reason: Pain, Mild (Pain Scale 1-3) Atorvastatin Calcium (Atorvastatin Calcium 40 Mg Tablet) 40 mg PO BEDTIME [facility] Last Admin: 06/27/21 00:26 Dose: 40 mg Documented by: SKYE Cyanocobalamin (Cyanocobalamin (Vitamin B-12) 1,000 Mcg Tablet) 1,000 mcg PO DAILY [facility] Last Admin: 06/27/21 09:40 Dose: Not Given Documented by: NIKKI Non-Admin Reason: NPO Furosemide (Furosemide 20 Mg Tablet) 20 mg PO DAILY [facility]; Protocol Last Admin: 06/27/21 09:40 Dose: Not Given Documented by: NIKKI Non-Admin Reason: NPO Cefazolin Sodium/Dextrose (Ancef) 2 gm in 50 mls @ 100 mls/hr IV PREOP [facility] Stop: 06/28/21 23:00 Ondansetron HCl (Ondansetron Hcl 4 Mg/2 Ml Vial) 4 mg IVPUSH Q8H PRN PRN Reason: Nausea and Vomiting Oxycodone HCl (Oxycodone Hcl Immed Release 5 Mg Tablet) 5 mg PO Q6H PRN PRN Reason: Breakthrough Pain Last Admin: 06/27/21 00:25 Dose: 5 mg Documented by: SKYE Pharmacy Consult (Consult Rx Perform Med Rec) 1 each MISCELLANE ONCE PRN PRN Reason: Consult order Sodium Chloride (0.9 % Sodium Chloride Flush 3 Ml Syringe) 3 ml IVFLUSH QSHIFT [facility] Last Admin: 06/27/21 09:38 Dose: 3 ml Documented by: NIKKI Labs CBC & Chem 7: 06/27/21 09:24 06/27/21 09:24 Labs: Laboratory Results - last 24 hr 06/26/21 06/26/21 06/27/21 11:33 19:37 09:24 MCV 82.2 MCH 26.0 L MCHC 31.6 RDW 17.9 H Plt Count 90 L MPV 10.6 Absolute Nucleated RBC 0.080 H Nucleated RBC % (auto) 0.4 H Anion Gap Estim Creat Clear Calc Estimated GFR Random Glucose Calcium Urine Color YELLOW Urine Appearance CLEAR Urine pH 5.5 Ur Specific [place] 1.025 Urine Protein NEG Urine Glucose (UA) 250 H Urine Ketones 5 Urine Blood NEG Urine Nitrite NEG Ur Leukocyte Esterase NEG Blood Type A Positive Antibody Screen NEGATIVE Crossmatch See Detail 06/27/21 09:24 MCV MCH MCHC RDW Plt Count MPV Absolute Nucleated RBC Nucleated RBC % (auto) Anion Gap 16 Estim Creat Clear Calc 34.6 Estimated GFR 52 Random Glucose 276 H Calcium 8.6 Urine Color Urine Appearance Urine pH Ur Specific [place] Urine Protein Urine Glucose (UA) Urine Ketones Urine Blood Urine Nitrite Ur Leukocyte Esterase Blood Type Antibody Screen Crossmatch Assessment and Plan (1) Closed left hip fracture: Status: Acute (2) Severe anemia: Status: Acute (3) ICD (implantable cardioverter-defibrillator) in place: Status: Acute (4) Ischemic cardiomyopathy: Status: Acute (5) Syncope: Status: Acute Assessment and Plan: 80-year-old male with history of diabetes, hyperlipidemia, coronary disease status post inferior wall [place] in 2012 requiring PCI of RCA, residual 50% disease and marginal, heart failure with reduced ejection fraction, status post prophylactic ICD presented to [facility] due to lightheadedness dizziness and fall according to patient climbed up the stairs after checking water heater and felt light headed and fell down on his left side, was able to climb up to the chair and called his sister, who called EMS , patient noted to have significant anemia and left hip fracture. Fall/syncope Due to lightheadedness and severe anemia, question loss of consciousness since patient is not aware, continue tele monitoring so far no arrhythmia is noted , no cardiac ischemia. Profound symptomatic anemia No overt bleeding noted, no history of hematemesis or melena, patient last hematocrit 28 on October 17 on admission hematocrit 16.7 Received 2 units of packed RBC hematocrit improved to 27.2 Iron studies consistent with iron deficiency, stool guaiac negative, B12 and folate within normal range recent hemolytic screen negative Will transfuse 1 more unit to keep hematocrit above 30 with underlying history of coronary artery disease Left hip fracture Seen by Orthopedic surgery plan is for surgery tomorrow, patient is at intermediate cardiac risk for intermediate risk surgery, will keep hematocrit 30, proceed with surgery ,no further workup planned prior to surgery. Coronary artery disease Will hold aspirin due to anemia, resume metoprolol and continue statin EKG shows nonspecific ST and T-wave abnormality, patient asymptomatic with no chest pain, no shortness of breath, seen by Cardiology no further workup recommended. Elevated BNP No evidence of acute CHF , Lasix held due to low blood pressure will resume Lasix if noted to have fluid overload Diabetes mellitus type 2 Monitor blood sugar hold metformin, continue diabetic diet and add insulin sliding scale DVT prophylaxis with compression boots due to significant anemia, further DVT prophylaxis as per Ortho. Quality Stroke Does the patient have a stroke diagnosis?: No VTE Prior VTE?: No VTE Risk Level:: Medical - moderate - high VTE Device Contraindication: N/A - Device Ordered VTE Drug Contraindication: Treatment Not Indicated
--- NOTE | 2021-06-27 15:11 | PC.NURSE ---
Blood transfusion started as documented. pt alert, vss. pt denies pain. pt denies sob/headache/dizziness. no complaints. this proposal writer at pt's bedside. will continue to monitor.
--- NOTE | 2021-06-27 16:00 | PC.NURSE ---
pt alert, vital signs remain stable. pt denies sob/dizziness. no pain. blood transfusing without difficulty, pt tolerating well.
--- NOTE | 2021-06-27 16:37 | PC.NURSE ---
this engineering writer called unit to give report on pt. nurse not able to take report at this time. nurse will call back.
[2021-06-28] VITALS (21 sets, daily range): BP systolic 80–151; BP diastolic 45–72; PULSE 77–100; RESP 16–26; TEMP 35.9–37.6; O2SAT 90–98; BMI 19.0
[2021-06-28 05:05] LABS: Hematocrit 28.3 % (42.0-52.0); Hemoglobin 9.1 g/dl (14.0-18.0); Mean Corpuscular HGB Conc 32.2 g/dl (31.0-36.0); Mean Corpuscular Hemoglobin 26.7 pg (27.0-33.0); Mean Platelet Volume 11.1 fL (9.4-12.4); NRBC Pct Auto 0.4 /100WBC (0.0-0.2); Red Blood Count 3.41 X10*6/uL (4.60-5.80); Red Cell Distribution Width 17.3 % (11.0-16.0); White Blood Count 11.4 X10*3/uL (4.8-10.8)
[2021-06-28 05:08] LABS: Platelet Count 69 X10*3/uL (160-400)
[2021-06-28 05:28] LABS: Anion Gap 15 (12-20); Blood Urea Nitrogen 23 mg/dL (9-16); Carbon Dioxide 21 mmol/L (22-29); Chloride 105 mmol/L (96-108); Creatinine Clr Calc Pharmacy 43.9; Estimated Glomerular Filt Rate > 60; Glucose Random 229 mg/dL (60-115); Potassium 3.4 mmol/L (3.3-5.1); Sodium 138 mmol/L (135-145)
[2021-06-28 07:40] LABS: Glucose, Whole Blood 208 mg/dL (60-115)
[2021-06-28] MEDS: Metoprolol Succinate ER 25 MG TAB.ER.24H PO (08:16)
[2021-06-28] MEDS: Cyanocobalamin (Vitamin B-12) 1,000 MCG TABLET 1000 MCG PO (08:17)
[2021-06-28] MEDS: 0.9 % Sodium Chloride Flush 3 ML SYRINGE IVFLUSH ×2 (08:17→20:51)
--- NOTE | 2021-06-28 09:39 | PC.NURSE ---
Skin assessment completed today. patient has bilateral knee abrasions- Curad petroleum applied. Patient aklso has very dry skin- lotion applied. No other skin issues noted at this time.
--- NOTE | 2021-06-28 10:24 | PC.NURSE ---
Discussion between Dr Mann & Dr Andrade & this RN - regarding note by KRANTHI Somers 06/27/21 stating patient in need of cardiology clearance, general surgery/GI Bleed clearance, and medicine clearance- patient will not have GI consult prior to procedure. Patient will receive 1 unit RBC, as ordered by Dr Mann, started on floor, prior to coming to [facility]. This is to optimize patient with hematocrit to greater than 30 prior to surgery, as stated necessary in the hospitalist note on 06/27/21. Dr Mann & Dr Andrade in agreeance with this course of action. Mila Mabry RN contacted and informed of need to hang 1 unit ANITA per orders.
[2021-06-28 11:44] LABS: Glucose, Whole Blood 211 mg/dL (60-115)
--- NOTE | 2021-06-28 12:03 | MHC.CLN ---
PT IS MODERATELY MALNOURISHED PT EXPERIENCED SIGNIFICANT 7.3% WT LOSS X 1 MONTH, HAS MILD MUSCLE WASTING, MILD FAT DEPLETION, BMI OF 19 AND IS 81% OF IBW PT STATED HIS APPETITE IS GOOD PT IS CURRENTLY NPO RECOMMEND GLUCERNA SUPPLEMENT BID WHEN DIET ADVANCES SUPPLEMENT PROVIDES 474 KCALS AND 20 GRAMS PROTEIN MONITOR PO INTAKE AND SUPPLEMENT ACCEPTANCE WHEN DIET ADVANCES SEE ALSO CLINICAL NUTRITION ASSESSMENT
[2021-06-28] MEDS: oxyCODONE HCl Immed Release 5 MG TABLET PO (12:27)
--- NOTE | 2021-06-28 12:33 | HO.PM.IMPN ---
Subjective Subjective Date of Service: 06/28/21 Interval History: Being followed for anemia and left hip fracture, patient complaining of left hip pain otherwise denies chest pain, no shortness of breath no palpitation no lightheadedness or dizziness is NPO feeling thirsty. Review of Systems General no headache, no dizziness no fever chills.? CVS no chest pain, no palpitation.? Respiratory no cough, no sob.? Gastrointestinal no nausea, no vomiting, no abdominal pain, no melena, no hematoma Skin no rash Musculoskeletal hip pain Review of Systems: Yes all other systems are reviewed and are negative Physical Exam Vital Signs: Vital Signs: Last Vital Signs Temp 97.3 F 06/28/21 10:58 Pulse 88 06/28/21 10:58 Resp 18 06/28/21 10:58 BP 140/69 H 06/28/21 10:58 Pulse Ox 91 L 06/28/21 10:57 Body Mass Index 19.0 General awake alert x3, no acute distress. Right eye decreased vision, lower lid everted Neck? no JVD. CVS?regular rate rhythm, Respiratory lungs clear to auscultation, no respiratory distress, no wheeze, no rhonchi. Gastrointestinal?abdomen soft, non tender, bowel sounds audible, no guarding , no rigidity. Extremities left leg shorter than?right, no edema. Neuro nonfocal Skin small laceration left side of forehead healing well Psych appropriate affect Objective Data Active Medications Acetaminophen (Acetaminophen 325 Mg Tablet) 650 mg PO Q6H PRN PRN Reason: Pain, Mild (Pain Scale 1-3) Atorvastatin Calcium (Atorvastatin Calcium 40 Mg Tablet) 40 mg PO BEDTIME [facility] Last Admin: 06/27/21 19:39 Dose: 40 mg Documented by: JAH Cyanocobalamin (Cyanocobalamin (Vitamin B-12) 1,000 Mcg Tablet) 1,000 mcg PO DAILY [facility] Last Admin: 06/28/21 08:17 Dose: 1,000 mcg Documented by: YAZKIESHA Cefazolin Sodium/Dextrose (Ancef) 2 gm in 50 mls @ 100 mls/hr IV PREOP [facility] Stop: 06/28/21 23:00 Metoprolol Succinate (Metoprolol Succinate Er 25 Mg Tab.Er.24h) 25 mg PO DAILY [facility]; Protocol Last Admin: 06/28/21 08:16 Dose: 25 mg Documented by: SHRAVAN Ondansetron HCl (Ondansetron Hcl 4 Mg/2 Ml Vial) 4 mg IVPUSH Q8H PRN PRN Reason: Nausea and Vomiting Oxycodone HCl (Oxycodone Hcl Immed Release 5 Mg Tablet) 5 mg PO Q6H PRN PRN Reason: Breakthrough Pain Last Admin: 06/28/21 12:27 Dose: 5 mg Documented by: YOGI Pharmacy Consult (Consult Rx Perform Med Rec) 1 each MISCELLANE ONCE PRN PRN Reason: Consult order Sodium Chloride (0.9 % Sodium Chloride Flush 3 Ml Syringe) 3 ml IVFLUSH QSHIFT [facility] Last Admin: 06/28/21 08:17 Dose: 3 ml Documented by: SHRAVAN Labs CBC & Chem 7: 06/28/21 04:53 06/28/21 04:53 Labs: Laboratory Results - last 24 hr 06/26/21 06/28/21 06/28/21 11:33 04:53 04:53 MCV 83.0 MCH 26.7 L MCHC 32.2 RDW 17.3 H Plt Count 69 L MPV 11.1 Absolute Nucleated RBC 0.040 H Nucleated RBC % (auto) 0.4 H Anion Gap 15 Estim Creat Clear Calc 43.9 Estimated GFR > 60 POC Glucose Random Glucose 229 H Calcium 8.0 L D Blood Type A Positive Antibody Screen NEGATIVE Crossmatch See Detail 06/28/21 06/28/21 07:16 11:07 MCV MCH MCHC RDW Plt Count MPV Absolute Nucleated RBC Nucleated RBC % (auto) Anion Gap Estim Creat Clear Calc Estimated GFR POC Glucose 208 H 211 H Random Glucose Calcium Blood Type Antibody Screen Crossmatch Assessment and Plan (1) Closed left hip fracture: Status: Acute (2) Severe anemia: Status: Acute (3) ICD (implantable cardioverter-defibrillator) in place: Status: Acute (4) Ischemic cardiomyopathy: Status: Acute Assessment and Plan: 80-year-old male with history of diabetes, hyperlipidemia, coronary disease status post inferior wall [place] in 2011 requiring PCI of RCA, residual 50% disease and marginal, heart failure with reduced ejection fraction, status post prophylactic ICD presented to [facility] due to lightheadedness dizziness and fall according to patient climbed up the stairs after checking water heater and felt light headed and fell down on his left side, was able to climb up to the chair and called his sister, who called EMS , patient noted to have significant anemia and left hip fracture. Fall/syncope Due to lightheadedness and severe anemia, question loss of consciousness since patient is not aware, no arrhythmia noted on tele monitor, EKG showed no cardiac ischemia. Profound symptomatic anemia Patient remains hemodialysis medically stable denies epigastric pain, no nausea no vomiting currently NPO. No overt bleeding noted, no history of hematemesis or melena, patient last hematocrit 28 on October 17 on admission hematocrit 16.7 Received 3 units of packed RBC hematocrit improved to 28.3 and hemoglobin greater than 9 Iron studies consistent with iron deficiency, stool guaiac negative, B12 and folate within normal range recent hemolytic screen negative Will obtain GI consultation for possible upper and lower endoscopy, likely slow GI bleed. Two more units of blood and 1 unit of platelets order by Orthopedic surgery will continue to follow CBC closely Left hip fracture Seen by Orthopedic surgery plan is for surgery today, patient is at intermediate cardiac risk for intermediate risk surgery, ok to proceed with surgery ,no further workup planned prior to surgery. Continue pain medication, add stool softeners and incentive spirometry Coronary artery disease Continue to hold aspirin due to anemia,continue metoprolol and statin EKG shows nonspecific ST and T-wave abnormality, patient asymptomatic with no chest pain, no shortness of breath, seen by Cardiology no further workup recommended. Elevated BNP No evidence of acute CHF , Lasix held due to low blood pressure will resume Lasix Diabetes mellitus type 2 blood sugar 211, hold metformin, continue diabetic diet and add insulin sliding scale Moderate malnutrition will add supplements DVT prophylaxis with compression boots due to significant anemia, further DVT prophylaxis as per Ortho. Quality Stroke Does the patient have a stroke diagnosis?: No VTE Prior VTE?: No VTE Risk Level:: Medical - moderate - high VTE Device Contraindication: N/A - Device Ordered VTE Drug Contraindication: Treatment Not Indicated
--- NOTE | 2021-06-28 13:09 | P.CNGI_ITS ---
History of Present Illness Data of Consult Service Date: 06/28/21 Requesting physician: Emilia Lala Primary Care Provider: Jacoby Fang MD HPI Reason for consult: anemia 80 YM with ischemic cardiomyopathy, chronic renal disease, DM presented to [facility] ED on 06/26/21 after a fall resulting in hip fracture: HPI Narrative: 80 YM came in by ambulance for evaluation after mechanical fall.? This is an 80-year-old male who lives home by himself independently, patient sustained a fall this morning, patient do not remember details of falling,? declined any tripping.? Patient remember after fall, called his sister who called EMS, patient is sustaining a small laceration to the left forehead, left hip pain. Patient declined any chest pain or shortness of breath . Labs showed H&H of 4.9 & 16.7 (decreased from 8.8 & 28 in 09/2020). Pt was admitted and transfused 3 U PRBC - post transfusion H & H is 9.1 & 28.3 and is stable post transfusion. Patient denies heartburn, dysphagia, abdominal pain change in appetite or weight. Denies recent change in bowel habits, constipation, diarrhea, black stools or rectal bleeding. Patient has a hx of CHF, ischemic cardiomyopathy and has an ICD in place and is followed by Dr Berry in [place]. Pt denies a hx of loud snoring or sleep apnea Denies being on chronic anticoagulation. Pt admits to a hx of smoking in the past and now smokes once in awhile. He drinks a few beers on special occasions Pt is single and has no children and took care of his elderly parents. He lives with his sister. 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 Patient denies known family history of colon polyps, colon cancer or other GI malignancies. ENDOSCOPIC STUDIES: Patient reports having a colonoscopy at [facility] in 2012 and a few polyps were removed. He is due for repeat colon in 2022. He denies having an EGD in the past. IMAGING STUDIES: 06/26/21 CHEST AND PELVIC XRAYS SHOWED: Acute subcapital fracture as above left hip. Nonspecific radiographic finding the chest which may be seen with atypical infection.? PAST HISTORY BY REVIEW OF MEDICAL RECORDS: Pt was noted to have anemia during past hospitalization in 09/2020 and was evaluated by Dr Astudillo (Hem/Onc): Assessment and Plan (1) Anemia Status: Inactive Qualifiers: Anemia type: unspecified type Qualified Code(s): D64.9 - Anemia, unspecified This is a pleasant 80-year-old gentleman who presented with a syncopal episode at home. Noted to be in CHF. History of AFib and heart disease. He was noted to be anemic with hemoglobin down to 6.7 g. DIFFERENTIAL DIAGNOSIS: 1. ANEMIA OF CHRONIC DISEASE: This is most likely with his underlying comorbidities. 2. IRON DEFICIENCY ANEMIA: 3. HEMOLYTIC ANEMIA: 4. UNDERLYING MYELO INFILTRATIVE DISORDER: MDS versus lymphoma versus multiple myeloma. PLAN: Will proceed with anemia workup. Check hemolytic screen: Retic 1.7, hapto 316, LDH 275. Check B12 and folate levels: B12 532, folate 7.9. Check LDH: 275 and an SIEP; no monoclonal spike. If the above workup is non revealing, will proceed with a bone marrow exam for further evaluation. For now transfused to bring hemoglobin up to 9, to help improve his oxygen carrying capacity. I will follow along with you, Review of Systems Constitutional: Constitutional: Denies fever(s), Denies headache(s) and Denies weight loss Eyes: Eyes: Denies eye discharge and Denies irritation ENT: Reports Normal hearing present, Denies dysphagia, Denies dizziness and Denies headache(s) Cardiovascular: Cardiovascular: Denies chest pain, Denies leg edema and Denies dyspnea on exertion Respiratory: Respiratory: Denies cough, Denies dyspnea on exertion and Denies wheezing Gastrointestinal: Gastrointestinal: Denies abdominal pain, Denies change in bowel habits, Denies dysphagia and Denies heartburn Genitourinary: Genitourinary: Denies dysuria Musculoskeletal: Musculoskeletal: Denies back pain, Reports arthralgias and Reports other (hip pain) Integumentary/Breasts: Skin/Breast: Denies pruritus, Denies rash and Denies jaundice Neurologic: Reports Normal hearing present, Denies Abnormal speech present, Denies dizziness, Denies headache(s) and Denies seizure-like activity Psychiatric: Psychiatric: Denies anxiety, Denies depression and Denies panic attacks Endocrine: Endocrine: Denies cold intolerance, Denies flushing and Denies heat intolerance Hematologic/Lymphatic: Hematologic/Lymphatic: Denies easy bleeding and Denies easy bruising Allergic/Immunologic: Allergic/Immunologic: Denies wheezing PMFSH Past Medical History Medical History Anemia Atherosclerotic cardiovascular disease Basal cell carcinoma of skin Chronic renal failure, stage 2 (mild) Congestive cardiomyopathy Congestive heart failure Diabetes 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 Hyperlipidemia ICD (implantable cardioverter-defibrillator) in place Ischemic cardiomyopathy 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, old Paroxysmal A-fib Ruptured epidermal cyst Surgical History Surgical History H/O heart artery stent Social History Social History Household Members: None Housing: Apartment Do you presently have visiting nurse or other home services: No Alcohol intake: never Patient Tobacco Use Status: Never used Tobacco Second Hand Smoke Exposure: No service: No Current occupational status: retired [employer] Allergies Allergy/AdvReac Type Severity Reaction Status Date / Time No Known Allergies Allergy Verified 06/20/21 09:10 Active Medications: Current Medications Acetaminophen (Acetaminophen 325 Mg Tablet) 650 mg PO Q6H PRN PRN Reason: Pain, Mild (Pain Scale 1-3) Atorvastatin Calcium (Atorvastatin Calcium 40 Mg Tablet) 40 mg PO BEDTIME ELBA Last Admin: 06/27/21 19:39 Dose: 40 mg Documented by: Cyanocobalamin (Cyanocobalamin (Vitamin B-12) 1,000 Mcg Tablet) 1,000 mcg PO DAILY ELBA Last Admin: 06/28/21 08:17 Dose: 1,000 mcg Documented by: Docusate Sodium (Docusate Sodium 100 Mg Capsule) 100 mg PO BID ELBA Furosemide (Furosemide 20 Mg Tablet) 20 mg PO DAILY ELBA; Protocol Cefazolin Sodium/Dextrose (Ancef) 2 gm in 50 mls @ 100 mls/hr IV PREOP ELBA Stop: 06/28/21 23:00 Metoprolol Succinate (Metoprolol Succinate Er 25 Mg Tab.Er.24h) 25 mg PO DAILY ELBA; Protocol Last Admin: 06/28/21 08:16 Dose: 25 mg Documented by: Ondansetron HCl (Ondansetron Hcl 4 Mg/2 Ml Vial) 4 mg IVPUSH Q8H PRN PRN Reason: Nausea and Vomiting Oxycodone HCl (Oxycodone Hcl Immed Release 5 Mg Tablet) 5 mg PO Q6H PRN PRN Reason: Breakthrough Pain Last Admin: 06/28/21 12:27 Dose: 5 mg Documented by: Pharmacy Consult (Consult Rx Perform Med Rec) 1 each MISCELLANE ONCE PRN PRN Reason: Consult order Sodium Chloride (0.9 % Sodium Chloride Flush 3 Ml Syringe) 3 ml IVFLUSH [facility] Last Admin: 06/28/21 08:17 Dose: 3 ml Documented by: Home Medications Medication Instructions Recorded Confirmed Last Taken Type atorvastatin 40 mg tablet 1 tab PO BEDTIME 10/17/20 06/26/21 10/16/20 20:00 History cyanocobalamin (vitamin B-12) 1 tab PO DAILY 10/17/20 06/26/21 06/25/21 History 1,000 mcg tablet (Vitamin B-12) metformin 1,000 mg tablet 1 tab PO BID 10/17/20 06/26/21 06/25/21 History Physical Exam Vital Signs: Vital Signs: Last Vital Signs Temp 97.3 F 06/28/21 12:54 Pulse 85 06/28/21 12:54 Resp 17 06/28/21 12:54 BP 151/69 H 06/28/21 12:54 Pulse Ox 91 L 06/28/21 10:57 Body Mass Index 19.0 Const: General: no acute distress and ill appearing Nutritional Appearance: underweight Orientation/consciousness: patient oriented x3 Limitations: no limitations HENMT: Head: Yes normal to inspection Ears: hearing grossly normal bilaterally Mouth: Normal oral and palatal mucosa present Eyes: Eyelids: Yes other (Right eye decreased vision, lower lid everted) Sclerae: sclerae normal Pupils: Equal, round and reactive pupils present Neck: Neck: Yes normal visual inspection Chest: Chest palpation & inspection: normal inspection of the chest Resp: Effort & Inspection: normal respiratory effort Auscultation: clear to auscultation bilaterally Cardio: Palpation: normal PMI Rate: regular rate Rhythm: regular rhythm Heart sounds: S1 normal heart sound present, S2 normal heart sound present and no murmurs GI: Palpation (GI): Soft to palpation, nontender and No hepatosplenomegaly present Auscultation: normal bowel sounds Rectal Exam - Male: Yes deferred Skin: General skin exam: no rashes or lesions noted Neuro: General: patient oriented x3, gait normal and moves all extremities Cranial nerves: Yes Equal, round and reactive pupils present and Yes Normal hearing present Speech: No Abnormal speech present Extrem: Other: left leg shorter than the right leg Psych: Appearance: grossly normal Mental Status: mental status grossly normal Results Labs CBC & Chem 7: 06/30/21 12:07 06/29/21 05:40 Labs: Short CBC 06/28/21 Range/Units 04:53 WBC 11.4 H (4.8-10.8) X10*3/uL Hgb 9.1 L (14.0-18.0) g/dl Hct 28.3 L (42.0-52.0) % Plt Count 69 L (160-400) X10*3/uL BMP 06/28/21 04:53 Sodium 138 Potassium 3.4 Chloride 105 Carbon Dioxide 21 L BUN 23 H Creatinine 1.04 Calcium 8.0 L D Assessment and Plan (1) Severe anemia: Status: Acute (2) Closed left hip fracture: Status: Acute (3) ICD (implantable cardioverter-defibrillator) in place: Status: Acute (4) Ischemic cardiomyopathy: Status: Acute 80 YM presented to [facility] ED on 06/26/21 after a fall resulting in hip fracture: Labs showed H&H of 4.9 & 16.7 (decreased from 8.8 & 28 in 09/2020). Pt was admitted and transfused 3 U PRBC - post transfusion H & H is 9.1 & 28.3 and is stable post transfusion. Iron studies confirm iron deficiency anemia likely due to upper versus LGI blood loss. Stool hemoccult was negative indicating pt does not have an active GI Bleed. RECOMMENDATIONS: 1. Follow CBC daily and transfuse prn 2. Pt will be scheduled for an EGD and Colonoscopy in 4 to 6 weeks as an outpatient (after he has recovered from his hip fracture) Both procedures and potential complications including bleeding, perforation, drug reaction, aspiration and missed diagnosis were reviewed with the patient Procedures Date of Service Date of Service: 06/28/21
[2021-06-28] MEDS: Lactated Ringers 1,000 ML 50 ML IVCONT (13:46)
[2021-06-28 14:01] LABS: Glucose, Whole Blood 202 mg/dL (60-115)
--- NOTE | 2021-06-28 14:39 | MHC.SHP ---
Pre-Procedural Eval Section A Date of Service: 06/28/21 The patient is an INPATIENT: Yes Changes since office visit: Yes Patient answered all questions; No Cold of Flu in the past 2 weeks, No New Medical Problems and No Changes in Medication The History & Physical has been completed within 30 days and I have reviewed it.: Yes Section B Chief Complaint: Profound anemia/left hip fracture Allergies: Allergies Allergy/AdvReac Type Severity Reaction Status Date / Time No Known Allergies Allergy Verified 06/20/21 09:10 Plan I have reviewed the history and physical and performed a pertinent physical examination on my patient. No changes have occurred unless specified.
--- NOTE | 2021-06-28 15:31 | HO.ANESPROP2 ---
HPI - Anesthesia Eval Consult details Narrative: 80 yo male patient for Left hip hemiarthroplasty PMFSH Active Problems Active Problems: All Active Problems (Updated 06/27/21 @ 07:56 by Silvana Rasmussen PA-C) Closed left hip fracture (Acute) Severe anemia (Acute)H/H on presentation 4.9/16.7 Received 3u PRBC H/H 9.1/28.3. 1 more unit and bag of platelets transfused pre-op AICD (implantable cardioverter-defibrillator) in place (Acute) Ischemic cardiomyopathy (Acute). EF 20-25% Preoperative cardiovascular examination (Acute) Anemia (Acute) Syncope (Acute) Closed hip fracture (Acute) Ruptured epidermal cyst (Acute) [place] x2, last 2011. 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, old Paroxysmal A-fib Ruptured epidermal cyst Family History Family history of problems with anesthesia: No Surgical History Surgical History H/O heart artery stent History of Problems with Anesthesia: No Social History Social History Household Members: None Housing: Apartment Do you presently have visiting nurse or other home services: No Alcohol intake: never Patient Tobacco Use Status: Never used Tobacco Second Hand Smoke Exposure: No service: No Current occupational status: retired [employer] Allergies Allergy/AdvReac Type Severity Reaction Status Date / Time No Known Allergies Allergy Verified 06/20/21 09:10 Active Medications: Current Medications Acetaminophen (Acetaminophen 325 Mg Tablet) 650 mg PO Q6H PRN PRN Reason: Pain, Mild (Pain Scale 1-3) Atorvastatin Calcium (Atorvastatin Calcium 40 Mg Tablet) 40 mg PO BEDTIME [facility] Last Admin: 06/27/21 19:39 Dose: 40 mg Documented by: Cyanocobalamin (Cyanocobalamin (Vitamin B-12) 1,000 Mcg Tablet) 1,000 mcg PO DAILY [facility] Last Admin: 06/28/21 08:17 Dose: 1,000 mcg Documented by: Docusate Sodium (Docusate Sodium 100 Mg Capsule) 100 mg PO BID [facility] Fentanyl (Fentanyl Citrate/Pf 100 Mcg/2 Ml Vial) 25 mcg IVPUSH Q5M PRN; Protocol PRN Reason: Pain, Moderate (Pain Scale 4-6 Furosemide (Furosemide 20 Mg Tablet) 20 mg PO DAILY [facility]; Protocol Cefazolin Sodium/Dextrose (Ancef) 2 gm in 50 mls @ 100 mls/hr IV PREOP ELBA Stop: 06/28/21 23:00 Lactated Ringer's (Lr) 1,000 mls @ 50 mls/hr IVCONT .Q20H [facility] Last Admin: 06/28/21 13:46 Dose: 50 mls/hr Documented by: Metoprolol Succinate (Metoprolol Succinate Er 25 Mg Tab.Er.24h) 25 mg PO DAILY [facility]; Protocol Last Admin: 06/28/21 08:16 Dose: 25 mg Documented by: Ondansetron HCl (Ondansetron Hcl 4 Mg/2 Ml Vial) 4 mg IVPUSH Q8H PRN PRN Reason: Nausea and Vomiting Ondansetron HCl (Ondansetron Hcl 4 Mg/2 Ml Vial) 4 mg IVPUSH ONCE PRN PRN Reason: Nausea and Vomiting Oxycodone HCl (Oxycodone Hcl Immed Release 5 Mg Tablet) 5 mg PO Q6H PRN PRN Reason: Breakthrough Pain Last Admin: 06/28/21 12:27 Dose: 5 mg Documented by: Oxycodone HCl (Oxycodone Hcl Immed Release 5 Mg Tablet) 5 mg PO ONCE PRN PRN Reason: Pain, Severe (Pain Scale 7-10) Pharmacy Consult (Consult Rx Perform Med Rec) 1 each MISCELLANE ONCE PRN PRN Reason: Consult order Sodium Chloride (0.9 % Sodium Chloride Flush 3 Ml Syringe) 3 ml IVFLUSH QSHIFT [facility] Last Admin: 06/28/21 14:54 Dose: Not Given Documented by: Home Medications Medication Instructions Recorded Confirmed Last Taken Type aspirin 81 mg chewable tablet 81 mg PO DAILY 10/17/20 06/26/21 06/25/21 History atorvastatin 40 mg tablet 1 tab PO BEDTIME 10/17/20 06/26/21 10/16/20 20:00 History cyanocobalamin (vitamin B-12) 1 tab PO DAILY 10/17/20 06/26/21 06/25/21 History 1,000 mcg tablet (Vitamin B-12) metformin 1,000 mg tablet 1 tab PO BID 10/17/20 06/26/21 06/25/21 History metoprolol succinate 50 mg 1 tab PO DAILY 10/17/20 06/26/21 06/25/21 History tablet,extended release 24 hr Exam Exam Date and Time: June 28, 2021 1531 Height,Weight and Vital Signs: Height 5 ft 8 in Weight 56.699 kg Last Vital Signs Temp 99.6 F 06/28/21 13:46 Pulse 87 06/28/21 13:46 Resp 20 06/28/21 13:46 BP 142/72 H 06/28/21 13:46 Pulse Ox 96 06/28/21 13:46 Pertinent Lab Results Pertinent Lab Results: Laboratory Tests 06/26/21 06/26/21 06/26/21 10:24 10:24 10:24 WBC 12.9 H RBC 1.98 L Hgb 4.9 L* Hct 16.7 L* MCV 84.3 MCH 24.7 L MCHC 29.3 L RDW 18.6 H Plt Count 101 L MPV 10.9 Immature Gran % (Auto) 0.5 H Neut % (Auto) 86.2 H Lymph % (Auto) 6.7 L Lamar % (Auto) 6.5 Eos % (Auto) 0.0 Baso % (Auto) 0.1 Lymph # (Auto) 0.9 L Lamar # (Auto) 0.8 Eos # (Auto) 0.0 Baso # (Auto) 0.0 Abs Immat Gran (auto) 0.07 H Absolute Neuts (auto) 11.1 H Absolute Nucleated RBC 0.040 H Nucleated RBC % (auto) 0.3 H Sodium 135 Potassium 4.3 Chloride 102 Carbon Dioxide 20 L Anion Gap 17 BUN 29 H Creatinine 1.37 Estim Creat Clear Calc 33.3 Estimated GFR 50 POC Glucose Random Glucose 235 H Calcium 8.8 D Iron 14 L TIBC 393 % Saturation 4 L Unsat Iron Binding 379 Ferritin 10 L Total Bilirubin 0.6 Direct Bilirubin 0.3 AST 23 ALT 19 Alkaline Phosphatase 35 L D Total Creatine Kinase 166 Troponin I High Sens 15.1 B-Natriuretic Peptide 845 H Total Protein 6.3 L Albumin 3.7 Lipase 15 Urine Color Urine Appearance Urine pH Ur Specific [place] Urine Protein Urine Glucose (UA) Urine Ketones Urine Blood Urine Nitrite Ur Leukocyte Esterase Stool Occult Blood COVID-19 ([facility]) COVID-19 Clin Com Blood Type Antibody Screen Crossmatch 06/26/21 06/26/21 06/26/21 10:24 11:06 11:33 WBC RBC Hgb Hct MCV MCH MCHC RDW Plt Count MPV Immature Gran % (Auto) Neut % (Auto) Lymph % (Auto) Lamar % (Auto) Eos % (Auto) Baso % (Auto) Lymph # (Auto) Lamar # (Auto) Eos # (Auto) Baso # (Auto) Abs Immat Gran (auto) Absolute Neuts (auto) Absolute Nucleated RBC Nucleated RBC % (auto) Sodium Potassium Chloride Carbon Dioxide Anion Gap BUN Creatinine Estim Creat Clear Calc Estimated GFR POC Glucose Random Glucose Calcium Iron TIBC % Saturation Unsat Iron Binding Ferritin Total Bilirubin Direct Bilirubin AST ALT Alkaline Phosphatase Total Creatine Kinase Troponin I High Sens B-Natriuretic Peptide Total Protein Albumin Lipase Urine Color Urine Appearance Urine pH Ur Specific [place] Urine Protein Urine Glucose (UA) Urine Ketones Urine Blood Urine Nitrite Ur Leukocyte Esterase Stool Occult Blood NEGATIVE COVID-19 ([facility]) Negative COVID-19 Clin Com See Note Blood Type A Positive Antibody Screen NEGATIVE Crossmatch See Detail 06/26/21 06/26/21 06/27/21 19:26 19:37 09:24 WBC 18.6 H RBC 3.31 L D Hgb 8.2 L D 8.6 L Hct 25.6 L D 27.2 L MCV 82.2 MCH 26.0 L MCHC 31.6 RDW 17.9 H Plt Count 90 L MPV 10.6 Immature Gran % (Auto) Neut % (Auto) Lymph % (Auto) Lamar % (Auto) Eos % (Auto) Baso % (Auto) Lymph # (Auto) Lamar # (Auto) Eos # (Auto) Baso # (Auto) Abs Immat Gran (auto) Absolute Neuts (auto) Absolute Nucleated RBC 0.080 H Nucleated RBC % (auto) 0.4 H Sodium Potassium Chloride Carbon Dioxide Anion Gap BUN Creatinine Estim Creat Clear Calc Estimated GFR POC Glucose Random Glucose Calcium Iron TIBC % Saturation Unsat Iron Binding Ferritin Total Bilirubin Direct Bilirubin AST ALT Alkaline Phosphatase Total Creatine Kinase Troponin I High Sens B-Natriuretic Peptide Total Protein Albumin Lipase Urine Color YELLOW Urine Appearance CLEAR Urine pH 5.5 Ur Specific [place] 1.025 Urine Protein NEG Urine Glucose (UA) 250 H Urine Ketones 5 Urine Blood NEG Urine Nitrite NEG Ur Leukocyte Esterase NEG Stool Occult Blood COVID-19 ([facility]) COVID-19 [facility] Blood Type Antibody Screen Crossmatch 06/27/21 06/28/21 06/28/21 09:24 04:53 04:53 WBC 11.4 H RBC 3.41 L Hgb 9.1 L Hct 28.3 L MCV 83.0 MCH 26.7 L MCHC 32.2 RDW 17.3 H Plt Count 69 L MPV 11.1 Immature Gran % (Auto) Neut % (Auto) Lymph % (Auto) Lamar % (Auto) Eos % (Auto) Baso % (Auto) Lymph # (Auto) Lamar # (Auto) Eos # (Auto) Baso # (Auto) Abs Immat Gran (auto) Absolute Neuts (auto) Absolute Nucleated RBC 0.040 H Nucleated RBC % (auto) 0.4 H Sodium 136 138 Potassium 3.8 3.4 Chloride 102 105 Carbon Dioxide 22 21 L Anion Gap 16 15 BUN 26 H 23 H Creatinine 1.32 1.04 Estim Creat Clear Calc 34.6 43.9 Estimated GFR 52 > 60 POC Glucose Random Glucose 276 H 229 H Calcium 8.6 8.0 L D Iron TIBC % Saturation Unsat Iron Binding Ferritin Total Bilirubin Direct Bilirubin AST ALT Alkaline Phosphatase Total Creatine Kinase Troponin I High Sens B-Natriuretic Peptide Total Protein Albumin Lipase Urine Color Urine Appearance Urine pH Ur Specific [place] Urine Protein Urine Glucose (UA) Urine Ketones Urine Blood Urine Nitrite Ur Leukocyte Esterase Stool Occult Blood COVID-19 ([facility]) COVID-19 [facility] Blood Type Antibody Screen Crossmatch 06/28/21 06/28/21 06/28/21 07:16 11:07 13:56 WBC RBC Hgb Hct MCV MCH MCHC RDW Plt Count MPV Immature Gran % (Auto) Neut % (Auto) Lymph % (Auto) Lamar % (Auto) Eos % (Auto) Baso % (Auto) Lymph # (Auto) Lamar # (Auto) Eos # (Auto) Baso # (Auto) Abs Immat Gran (auto) Absolute Neuts (auto) Absolute Nucleated RBC Nucleated RBC % (auto) Sodium Potassium Chloride Carbon Dioxide Anion Gap BUN Creatinine Estim Creat Clear Calc Estimated GFR POC Glucose 208 H 211 H 202 H Random Glucose Calcium Iron TIBC % Saturation Unsat Iron Binding Ferritin Total Bilirubin Direct Bilirubin AST ALT Alkaline Phosphatase Total Creatine Kinase Troponin I High Sens B-Natriuretic Peptide Total Protein Albumin Lipase Urine Color Urine Appearance Urine pH Ur Specific [place] Urine Protein Urine Glucose (UA) Urine Ketones Urine Blood Urine Nitrite Ur Leukocyte Esterase Stool Occult Blood COVID-19 ([facility]) COVID-19 Clin Com Blood Type Antibody Screen Crossmatch Date of Service: 06/26/21 Procedure(s): ECG 12 lead EKG Vent. Rate : 074 BPM ? ? Atrial Rate : 074 BPM ?? P-R Int : 176 ms? QRS Dur : 102 ms ? ? QT Int : 384 ms ? ? ? P-R-T Axes : 072 000 134 degrees ?? QTc Int : 426 ms ?Normal sinus rhythm Left axis deviation ST & T wave abnormality, consider lateral ischemia Abnormal ECG When compared with ECG of 18-OCT-2020 00:34, Nonspecific T wave abnormality no longer evident in Inferior leads T wave inversion more evident in Lateral leads Date of Service: 06/27/21 Event Note: [employer]otronik dual chamber ICD interrogation completed today showing battery 42%, VDI mode, base rate 40, 0% pacing, No atrial burden, no alerts for SVT, VT, VF, therapy settings reviewed. No changes made.? Transthoracic Echocardiogram Procedure Date:? 10/18/2020 Procedure Type:? Transthoracic Echocardiogram Location:? ICU Symptoms:? CHF ECG Rhythm:? ? ? Sinus ?? ? Conclusions: - The left ventricular systolic function is severely decreased.? The visually estimated ejection fraction is between 20-25%.? ? ? - There is severe global hypokinesis with regional variation.? ? - The basal inferior, mid inferior, and basal inferolateral? ? ? segments are akinetic. ? - No obvious valvular pathology seen on this study.? Date of Service: 06/26/21 EXAMINATION: CHEST PORTABLE ONE VIEW AND PELVIS 4 VIEWS LEFT HIP FINDINGS: Heart size remains normal. No mediastinal widening or deformity. Single lead pacer device appears intact and stable. No overt pulmonary edema current study. There are ill-defined hazy densities at both bases which can be seen with atypical infection. Minimal cephalization of pulmonary vasculature. No gross rib deformity. Pelvis and left hip imaging demonstrates an acute subcapital fracture of the left hip with mild impaction and varus deformity. No dislocation. No other focal lesion.? Airway Mallampati Class: II TM Dist: >3cm Neck ROM: Full Denture: Upper and Lower Heart: RRR Lungs: CTAB Assessment and Plan Assessment Anesthesia Assessment: Anesthesia Plan Discussed and Chart Reviewed Final Anesthetic Review Family History of Problems with Anesthesia: No History of Problems with Anesthesia: No NPO: Yes ASA Class: IV Final Preanesthetic Review: No Changes in Pt Med Stat, Meds/Allgs Chart Reviewed, Consent Obtained/Reviewed and Anes Risks/Benef Reviewed Patient Risk: High Procedure Risk: Intermediate Assessment/Block/Sedation in SS: Assess/Block/Sedation-SS Anesthetic Plan Anesthetic Plan: GA Disposition: Standard PACU and Inp. Admit - IMC
--- NOTE | 2021-06-28 16:16 | PM.OP ---
Brief Operative Note Date of Service: 06/28/21 Pre-op diagnosis: left femoral neck fracture Post-op diagnosis: same Procedure: Left hip hemiarthroplasty Implants: Evelyn accolade 2 #5 127 deg with - bipolar Surgeon: Missael Mann MD Anesthesia: GETA Was an Machine Ii Cutter used for this Procedure?: Yes Machine Ii Cutter: Margarita Newell Estimated blood loss (mL): 150 IV fluids (mL): 800 Pathology: other Condition: stable Disposition: PACU
[2021-06-28 17:53] LABS: Glucose, Whole Blood 237 mg/dL (60-115)
[2021-06-28 18:00] LABS: Hematocrit 28.4 % (42.0-52.0); Hemoglobin 9.1 g/dl (14.0-18.0); Mean Corpuscular Volume 84.3 fL (80.0-98.0); Mean Platelet Volume 9.7 fL (9.4-12.4); Red Blood Count 3.37 X10*6/uL (4.60-5.80); Red Cell Distribution Width 17.2 % (11.0-16.0); White Blood Count 9.8 X10*3/uL (4.8-10.8)
[2021-06-28 18:06] LABS: NRBC Pct Auto 1.8 /100WBC (0.0-0.2); Platelet Count 69 X10*3/uL (160-400)
--- NOTE | 2021-06-28 18:22 | PC.NURSE ---
Pt trx to [facility] from m/s after surgery, pt arrived to unit at 1730, alert/oriented x3. S/p Left hip hemiarthroplasty, aquacel ag dressing present to Left hip-small old stain x1, + CMS bilaterally, no lower ext edema noted, denies hip pain at this time. Ronchi lungs noted throughout, on 3.5L NC sats 90-92%. Pt denies SOB, dizziness or chest pain. updated, and at the bedside to asses pt. Duoneb ordered/given by RT. Petersen cath patent, draining yellow urine. High risk protocol instituted, side rails up, bed alarm activated, call irwin within reach. Pt aware of plan of care.
[2021-06-28] MEDS: Albuterol/Iprat 2.5/0.5MG 3 ML AMPUL.NEB INHALE (18:33)
[2021-06-28 18:52] LABS: Band Neutrophils Percent 2 % (3-5); Lymphocytes Absolute Manual 0.3 X10*3/uL (1.2-4.9); Lymphocytes Percent Manual 3 % (20-40); Monocytes Absolute Manual 0.2 X10*3/uL (0.1-1.2); Monocytes Percent Manual 2 % (2-11); Neutrophils Absolute Manual 9.3 X10*3/uL (2.0-8.3); Neutrophils Percent Manual 93 % (45-73); Nucleated Red Blood Cells 2 /100WBC (0-0); RBC Morphology NOTED
[2021-06-28 18:53] LABS: Acanthocytes 1+ (0-2) /OIF; Macrocytosis 1+ (5-14) /OIF; Platelet Estimate DECREASED (NORMAL); Platelet Morphology Comment NORMAL
[2021-06-28 19:35] LABS: Glucose, Whole Blood 308 mg/dL (60-115)
[2021-06-28] MEDS: Atorvastatin Calcium 40 MG TABLET PO (20:50)
[2021-06-28] MEDS: Insulin Lispro 100 UNIT/ML 3 ML VIAL SUBCUT (20:50)
[2021-06-28] MEDS: Docusate Sodium 100 MG CAPSULE PO (20:50)
[2021-06-28] MEDS: Lactated Ringers 500 ML IVCONT (22:02)
[2021-06-28 22:07] LABS: B Type Natriuretic Peptide 1778 pg/mL (<100)
[2021-06-29] VITALS (7 sets, daily range): BP systolic 95–119; BP diastolic 48–62; PULSE 78–88; RESP 18–20; TEMP 36.1–36.9; O2SAT 94–100
--- NOTE | 2021-06-29 03:20 | MHC.PIE ---
P: Pt had a systolic BP on the 80s manually on both arms at 2030, pt is alert and oriented, denies any SOB nor lightheadedness, LSC but dim in the bases, O2 sats at high 90s with O2 at 3.5L/min via NC, denies any pain, SR on 90s on tele, was able to tolerate po. I: Dr. Allen was updated and ordered STAT CXR, BNP and LR bolus 500ml after the CXR, all orders carried out, Dr. Allen also came to see the pt. E: Pt remained asypmtomatic, calm and comfortable on bed, BP rechecked and sys BP now on the 90s after bolus.
[2021-06-29] MEDS: oxyCODONE HCl Immed Release 5 MG TABLET PO ×3 (03:54→23:31)
--- NOTE | 2021-06-29 06:57 | HO.POSTANES ---
Post Anesthesia Evaluation Post Anesthesia Evaluation Vital Signs: Vital Signs Temp Pulse Resp BP Pulse Ox 06/29/21 03:51 97.2 F 78 18 104/56 L 94 06/28/21 23:13 97.4 F 88 20 93/45 L 94 06/28/21 20:34 80/49 L 06/28/21 19:10 96.6 F L 100 20 96/49 L 90 L Anesthesia: General Mental Status: Awake Pain Control: Satisfactory Nausea/Vomiting: None Hydration: Adequate Anesthesia-Related Issues: No Anes. Related Issues
[2021-06-29 07:01] LABS: Anion Gap 16 (12-20); Blood Urea Nitrogen 25 mg/dL (9-16); Calcium 7.6 mg/dL (8.4-10.2); Carbon Dioxide 23 mmol/L (22-29); Chloride 101 mmol/L (96-108); Creatinine Clr Calc Pharmacy 41.5; Estimated Glomerular Filt Rate > 60; Glucose Random 287 mg/dL (60-115); Potassium 3.7 mmol/L (3.3-5.1); Sodium 136 mmol/L (135-145)
[2021-06-29 07:09] LABS: Hematocrit 28.4 % (42.0-52.0); Hemoglobin 9.1 g/dl (14.0-18.0); Mean Corpuscular Volume 84.3 fL (80.0-98.0); Mean Platelet Volume 10.7 fL (9.4-12.4); Red Blood Count 3.37 X10*6/uL (4.60-5.80); Red Cell Distribution Width 17.4 % (11.0-16.0); White Blood Count 8.2 X10*3/uL (4.8-10.8)
[2021-06-29 07:14] LABS: NRBC Pct Auto 1.3 /100WBC (0.0-0.2); Platelet Count 66 X10*3/uL (160-400)
[2021-06-29 07:31] LABS: Glucose, Whole Blood 261 mg/dL (60-115)
[2021-06-29] MEDS: 0.9 % Sodium Chloride Flush 3 ML SYRINGE IVFLUSH ×3 (07:42→20:44)
[2021-06-29] MEDS: Metoprolol Succinate ER 25 MG TAB.ER.24H PO (07:42)
[2021-06-29] MEDS: Insulin Lispro 100 UNIT/ML 3 ML VIAL SUBCUT ×4 (07:42→20:44)
--- NOTE | 2021-06-29 07:42 | P.OP_ITS ---
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 All bony prominences were well padded he was prepped and draped in standard sterile fashion. IV antibiotics per weight were administered and a time-out was called to identify proper site proper procedure proper surgeon. Radiographs were available and confirmed. I began by making a curvilinear incision over the posterolateral aspect of the greater trochanter. Dissection was taken down to the tensor fascia which was incised in line with the incision and a Charnley retractor was placed. The hip was internally rotated and the external rotators were identified. All vessels in the area were cauterized and a full-thickness capsular/external rotator layer was developed in a hockey-stick fashion starting just proximal to the piriformis. This layer was tagged and the displaced femoral neck fracture was identified. Clean-up cut was performed and the head was removed and measured (48mm) on the back table. I then copiously irrigated the acetabulum and removed all bony fragments. Once this was done I used a cookie cutter to lateralize and a Charnley awl to identify the canal and then sequentially broached up to a #5. A 4 was stable below the calcar and a 5 was slightly prominent. I therefore trialed with a -3 head and a 47 mm bipolar component.. I was happy with the range of motion and stability and length. Therefore I removed all instrumentation and copiously irrigated. I then placed my final implant re-trialed. I was satisfied with the implant stability and length. Once this was done I irrigated with iodine for 3 minutes and closed the capsular layer with FiberWire and then performed a layered closure with pascual on skin. Patient was placed in sterile dressing extubated brought to recovery room in stable condition there were no known complications.
[2021-06-29] MEDS: Docusate Sodium 100 MG CAPSULE PO ×2 (07:43→20:43)
[2021-06-29] MEDS: Enoxaparin Sodium 40 MG/0.4 ML SYRINGE SUBCUT (07:49)
[2021-06-29] MEDS: Furosemide 20 MG TABLET PO (10:12)
[2021-06-29] MEDS: Cyanocobalamin (Vitamin B-12) 1,000 MCG TABLET 1000 MCG PO (10:12)
[2021-06-29 11:15] LABS: Glucose, Whole Blood 349 mg/dL (60-115)
--- NOTE | 2021-06-29 11:38 | MHC.CM.PN ---
CM met with Patient at bedside to discuss PT's recommendation for STR. Patient is agreeable to this dc plan and referrals have been made to area SNFs, per Patient's approval. Patient explained that he almost after receiving a flu shot and was therefor advised not to risk getting the Covid vaccination. CM will follow.
[2021-06-29] MEDS: Acetaminophen 325 MG TABLET 650 MG PO (12:47)
--- NOTE | 2021-06-29 13:30 | P.PNIM_ITS ---
Subjective Subjective Date of Service: 06/30/21 Interval History: Patient awake alert this morning, denies shortness of breath, no chest pain, has good pain control left hip, participating with physical therapy at present, no acute issues overnight. Review of Systems General no headache, no dizziness no fever chills.? CVS no chest pain, no palpitation.? Respiratory no cough, no sob.? Gastrointestinal no nausea, no vomiting, no abdominal pain, no melena, no hematoma Skin no rash Musculoskeletal hip pain Review of Systems: Yes all other systems are reviewed and are negative Physical Exam Vital Signs: Vital Signs: Last Vital Signs Temp 98.1 F 06/29/21 10:59 Pulse 88 06/29/21 10:59 Resp 18 06/29/21 10:59 BP 119/62 06/29/21 10:59 Pulse Ox 98 06/29/21 10:59 BMI result Body Mass Index 19.0 General awake alert x3, no acute distress. Right eye decreased vision, lower lid everted Neck? no JVD. CVS?regular rate rhythm, Respiratory lungs bilateral rhonchi,no respiratory distress, no use of accessory muscles Gastrointestinal?abdomen soft, non tender, bowel sounds audible, no guarding , no rigidity. Extremities left hip dressing in place Neuro? nonfocal Skin small laceration left side of forehead healing well, skin abrasions both knees Psych appropriate affect ? Objective Data Active Medications Acetaminophen (Acetaminophen 325 Mg Tablet) 650 mg PO Q6H PRN PRN Reason: Pain, Mild (Pain Scale 1-3) Last Admin: 06/29/21 12:47 Dose: 650 mg Documented by: TRESSA Albuterol/Ipratropium (Albuterol/Iprat 2.5/0.5mg 3 Ml Ampul.Neb) 3 ml INHALE Q4H PRN PRN Reason: Shortness of Breath Atorvastatin Calcium (Atorvastatin Calcium 40 Mg Tablet) 40 mg PO BEDTIME [facility] Last Admin: 06/28/21 20:50 Dose: 40 mg Documented by: PURNIMA Cyanocobalamin (Cyanocobalamin (Vitamin B-12) 1,000 Mcg Tablet) 1,000 mcg PO DAILY [facility] Last Admin: 06/29/21 10:12 Dose: 1,000 mcg Documented by: TRESSA Dextrose (Dextrose 50 % 25 Gm/50 Ml Vial) 25 gm IVPUSH Q15M PRN; Protocol PRN Reason: per Hypoglycemia Standing Ord. Docusate Sodium (Docusate Sodium 100 Mg Capsule) 100 mg PO BID [facility] Last Admin: 06/29/21 07:43 Dose: 100 mg Documented by: TRESSA Enoxaparin Sodium (Enoxaparin Sodium 40 Mg/0.4 Ml Syringe) 40 mg SUBCUT Q24H [facility] Last Admin: 06/29/21 07:49 Dose: 40 mg Documented by: TRESSA Furosemide (Furosemide 20 Mg Tablet) 20 mg PO DAILY [facility]; Protocol Last Admin: 06/29/21 10:12 Dose: 20 mg Documented by: TRESSA Glucose (Glucose Gel 15 Gm Gel..Gram.) 15 gm PO Q15M PRN; Protocol PRN Reason: per Hypoglycemia Standing Ord. Cefazolin Sodium/Dextrose (Ancef) 2 gm in 50 mls @ 100 mls/hr IV POSTOP [facility] Insulin Human Lispro (Insulin Lispro 100 Unit/Ml 3 Ml Vial) 0 unit SUBCUT QIDACHS [facility]; Protocol Last Admin: 06/29/21 12:44 Dose: 10 unit Documented by: TRESSA Metoprolol Succinate (Metoprolol Succinate Er 25 Mg Tab.Er.24h) 25 mg PO DAILY [facility]; Protocol Last Admin: 06/29/21 07:42 Dose: 25 mg Documented by: TRESSA Ondansetron HCl (Ondansetron Hcl 4 Mg/2 Ml Vial) 4 mg IVPUSH Q8H PRN PRN Reason: Nausea and Vomiting Oxycodone HCl (Oxycodone Hcl Immed Release 5 Mg Tablet) 5 mg PO Q6H PRN PRN Reason: Breakthrough Pain Last Admin: 06/29/21 12:47 Dose: 5 mg Documented by: TRESSA Pharmacy Consult (Consult Rx Perform Med Rec) 1 each MISCELLANE ONCE PRN PRN Reason: Consult order Sodium Chloride (0.9 % Sodium Chloride Flush 3 Ml Syringe) 3 ml IVFLUSH QSHIFT [facility] Last Admin: 06/29/21 07:42 Dose: 3 ml Documented by: TRESSA Labs CBC & Chem 7: 06/29/21 05:40 06/29/21 05:40 Labs: Laboratory Results - last 24 hr 06/26/21 06/28/2121 11:33 13:56 17:48 MCV 84.3 MCH 27.0 MCHC 32.0 RDW 17.2 H Plt Count 69 L MPV 9.7 Immature Gran % (Auto) Cancelled Neut % (Auto) Cancelled Lymph % (Auto) Cancelled Republic % (Auto) Cancelled Eos % (Auto) Cancelled Baso % (Auto) Cancelled Lymph # (Auto) Cancelled Republic # (Auto) Cancelled Eos # (Auto) Cancelled Baso # (Auto) Cancelled Abs Immat Gran (auto) Cancelled Absolute Neuts (auto) Cancelled Absolute Nucleated RBC 0.180 H Nucleated RBC % (auto) 1.8 H Neutrophils % (Manual) 93 H Band Neutrophils % 2 L Lymphocytes % (Manual) 3 L Monocytes % (Manual) 2 Abs Neuts (Manual) 9.3 H Lymphocytes # (Manual) 0.3 L Monocytes # (Manual) 0.2 Nucleated RBCs 2 H Platelet Estimate DECREASED Plt Morphology Comment NORMAL RBC Morphology NOTED Macrocytosis 1+ (5-14) Acanthocytes (Spur) 1+ (0-2) Smear Path Review SEE NOTE Anion Gap Estim Creat Clear Calc Estimated GFR POC Glucose 202 H Random Glucose Calcium B-Natriuretic Peptide Blood Type A Positive Antibody Screen NEGATIVE Crossmatch See Detail 06/28/21 06/28/21 06/28/21 17:49 19:29 21:39 MCV MCH MCHC RDW Plt Count MPV Immature Gran % (Auto) Neut % (Auto) Lymph % (Auto) Republic % (Auto) Eos % (Auto) Baso % (Auto) Lymph # (Auto) Republic # (Auto) Eos # (Auto) Baso # (Auto) Abs Immat Gran (auto) Absolute Neuts (auto) Absolute Nucleated RBC Nucleated RBC % (auto) Neutrophils % (Manual) Band Neutrophils % Lymphocytes % (Manual) Monocytes % (Manual) Abs Neuts (Manual) Lymphocytes # (Manual) Monocytes # (Manual) Nucleated RBCs Platelet Estimate Plt Morphology Comment RBC Morphology Macrocytosis Acanthocytes (Spur) Smear Path Review Anion Gap Estim Creat Clear Calc Estimated GFR POC Glucose 237 H 308 H Random Glucose Calcium B-Natriuretic Peptide 1778 H Blood Type Antibody Screen Crossmatch 06/29/21 06/29/21 06/29/21 05:40 05:40 07:25 MCV 84.3 MCH 27.0 MCHC 32.0 RDW 17.4 H Plt Count 66 L MPV 10.7 Immature Gran % (Auto) Neut % (Auto) Lymph % (Auto) Republic % (Auto) Eos % (Auto) Baso % (Auto) Lymph # (Auto) Republic # (Auto) Eos # (Auto) Baso # (Auto) Abs Immat Gran (auto) Absolute Neuts (auto) Absolute Nucleated RBC 0.110 H Nucleated RBC % (auto) 1.3 H Neutrophils % (Manual) Band Neutrophils % Lymphocytes % (Manual) Monocytes % (Manual) Abs Neuts (Manual) Lymphocytes # (Manual) Monocytes # (Manual) Nucleated RBCs Platelet Estimate Plt Morphology Comment RBC Morphology Macrocytosis Acanthocytes (Spur) Smear Path Review Anion Gap 16 Estim Creat Clear Calc 41.5 Estimated GFR > 60 POC Glucose 261 H Random Glucose 287 H Calcium 7.6 L B-Natriuretic Peptide Blood Type Antibody Screen Crossmatch 06/29/21 11:03 MCV MCH MCHC RDW Plt Count MPV Immature Gran % (Auto) Neut % (Auto) Lymph % (Auto) Republic % (Auto) Eos % (Auto) Baso % (Auto) Lymph # (Auto) Republic # (Auto) Eos # (Auto) Baso # (Auto) Abs Immat Gran (auto) Absolute Neuts (auto) Absolute Nucleated RBC Nucleated RBC % (auto) Neutrophils % (Manual) Band Neutrophils % Lymphocytes % (Manual) Monocytes % (Manual) Abs Neuts (Manual) Lymphocytes # (Manual) Monocytes # (Manual) Nucleated RBCs Platelet Estimate Plt Morphology Comment RBC Morphology Macrocytosis Acanthocytes (Spur) Smear Path Review Anion Gap Estim Creat Clear Calc Estimated GFR POC Glucose 349 H Random Glucose Calcium B-Natriuretic Peptide Blood Type Antibody Screen Crossmatch Assessment and Plan (1) Closed left hip fracture: Status: Acute (2) Severe anemia: Status: Acute (3) ICD (implantable cardioverter-defibrillator) in place: Status: Acute (4) Ischemic cardiomyopathy: Status: Acute (5) Anemia: Status: Acute Assessment and Plan: 80-year-old male with history of diabetes, hyperlipidemia, coronary disease status post inferior wall DC in 2011 requiring PCI of RCA, residual 50% disease and marginal, heart failure with reduced ejection fraction, status post prophylactic ICD presented to [facility] due to lightheadedness dizziness and fall according to patient climbed up the stairs after checking water heater and felt light headed and fell down on his left side, was able to climb up to th e chair and called his sister, who called EMS , patient noted to have significant anemia and left hip fracture. Fall/syncope Due to lightheadedness and severe anemia, question loss of consciousness since patient is not aware, no arrhythmia noted on tele monitor, EKG showed no cardiac ischemia. Recommend close follow-up of CBC Profound symptomatic anemia No history of hematemesis, melena no overt bleeding noted last hematocrit 28 on October 17 on admission hematocrit 16.7 improved to 28.4 after blood transfusion Iron studies consistent with iron deficiency, stool guaiac negative, B12 and folate within normal range recent hemolytic screen negative Seen by Dr. Washburn from Gastroenterology, case discussed with her, she recommend to follow CBC closely and transfuse as needed, outpatient colonoscopy once patient recover from hip fracture Thrombocytopenia Question etiology will follow CBC closely since placed on Lovenox, no active bleed noted, status post 1 unit of platelets, will follow platelet count closely Left hip fracture status post left hip surgery pod #1 Good pain control, continue current pain medication, stool softener, encourage incentive spirometry Coronary artery disease Continue to hold aspirin due to anemia,continue metoprolol and statin EKG shows nonspecific ST and T-wave abnormality, patient asymptomatic with no chest pain, no shortness of breath, seen by Cardiology no further workup recommended. Elevated BNP No evidence of acute CHF , resumed Lasix Diabetes mellitus type 2 Elevated blood sugars likely due to Ringer lactate,continue diabetic diet , insulin sliding scale and resume metformin Moderate malnutrition continue supplements DVT prophylaxis on lovenox Quality Stroke Does the patient have a stroke diagnosis?: No VTE Prior VTE?: No VTE Risk Level:: Medical - moderate - high VTE Device Contraindication: N/A - Device Ordered VTE Drug Contraindication: Treatment Not Indicated
--- NOTE | 2021-06-29 14:26 | MHC.CM.PN ---
CM assisted Patient with completing a new HCP; a copy has been uploaded into [employer] and one placed on the chart.
[2021-06-29 16:25] LABS: Glucose, Whole Blood 308 mg/dL (60-115)
[2021-06-29] MEDS: Albuterol/Iprat 2.5/0.5MG 3 ML AMPUL.NEB INHALE (19:09)
[2021-06-29 20:17] LABS: Glucose, Whole Blood 206 mg/dL (60-115)
[2021-06-29] MEDS: Atorvastatin Calcium 40 MG TABLET PO (20:43)
[2021-06-30] VITALS (7 sets, daily range): BP systolic 94–112; BP diastolic 51–57; PULSE 83–87; RESP 16–18; TEMP 36.6–37.7; O2SAT 93–99
[2021-06-30 07:37] LABS: Glucose, Whole Blood 212 mg/dL (60-115)
[2021-06-30] MEDS: Albuterol/Iprat 2.5/0.5MG 3 ML AMPUL.NEB INHALE ×2 (07:46→11:17)
[2021-06-30] MEDS: Insulin Lispro 100 UNIT/ML 3 ML VIAL SUBCUT ×2 (08:08→12:05)
[2021-06-30] MEDS: Enoxaparin Sodium 40 MG/0.4 ML SYRINGE SUBCUT (08:08)
[2021-06-30] MEDS: oxyCODONE HCl Immed Release 5 MG TABLET PO (08:09)
[2021-06-30] MEDS: Cyanocobalamin (Vitamin B-12) 1,000 MCG TABLET 1000 MCG PO (08:09)
[2021-06-30] MEDS: Docusate Sodium 100 MG CAPSULE PO (08:09)
[2021-06-30] MEDS: Metoprolol Succinate ER 25 MG TAB.ER.24H PO (08:09)
[2021-06-30] MEDS: Furosemide 20 MG TABLET PO (08:09)
[2021-06-30] MEDS: 0.9 % Sodium Chloride Flush 3 ML SYRINGE IVFLUSH (08:15)
--- NOTE | 2021-06-30 08:44 | PM.PNORT ---
Subjective Subjective Date of Service: 06/30/21 Interval history: POD2 s/p left hip frantz. Patient is resting comfortably in bed. Pain is well managed. No overnight events. Physical Exam Vital Signs: Vital Signs: Last Vital Signs Temp 99.8 F 06/30/21 07:29 Pulse 87 06/30/21 08:09 Resp 18 06/30/21 07:29 BP 111/56 L 06/30/21 08:09 Pulse Ox 98 06/30/21 07:29 Oxygen Flow Rate 2 06/29/21 17:02 BMI result Body Mass Index 19.0 Const: General: cooperative, healthy appearing and no acute distress Resp: Effort & Inspection: normal respiratory effort and able to speak in complete sentences Cardio: Rate: regular rate Peripheral pulses: Peripheral pulses 2+ throughout GI: Palpation (GI): Soft to palpation Skin: Lesions: no lesions Rashes: no rashes Extrem: Other: Left hip dressings intact. Patient able to dorsiflex and plantarflex. NVI. Procedures Date of Service Date of Service: 06/30/21 Progress Note: A&P Assessment and plan (1) Closed left hip fracture: Status: Acute Assessment and Plan: Continue pain mgmnt Begin Lovenox for dvt ppx begin PT for left hip frantz WBAT Dispo planning-Pain mgmnt patient is cleared for d/c to rehab from ortho perspective Fall Risk Details Current Medications: Current Medications Acetaminophen (Acetaminophen 325 Mg Tablet) 650 mg PO Q6H PRN PRN Reason: Pain, Mild (Pain Scale 1-3) Last Admin: 06/29/21 12:47 Dose: 650 mg Documented by: Albuterol/Ipratropium (Albuterol/Iprat 2.5/0.5mg 3 Ml Ampul.Neb) 3 ml INHALE Q4H PRN PRN Reason: Shortness of Breath Albuterol/Ipratropium (Albuterol/Iprat 2.5/0.5mg 3 Ml Ampul.Neb) [facility] Last Admin: 06/30/21 07:46 Dose: 3 ml Documented by: Atorvastatin Calcium (Atorvastatin Calcium 40 Mg Tablet) 40 mg PO BEDTIME [facility] Last Admin: 06/29/21 20:43 Dose: 40 mg Documented by: Cyanocobalamin (Cyanocobalamin (Vitamin B-12) 1,000 Mcg Tablet) 1,000 mcg PO DAILY [facility] Last Admin: 06/30/21 08:09 Dose: 1,000 mcg Documented by: Dextrose (Dextrose 50 % 25 Gm/50 Ml Vial) 25 gm IVPUSH Q15M PRN; Protocol PRN Reason: per Hypoglycemia Standing Ord. Docusate Sodium (Docusate Sodium 100 Mg Capsule) 100 mg PO BID [facility] Last Admin: 06/30/21 08:09 Dose: 100 mg Documented by: Doxycycline Hyclate (Doxycycline Hyclate 100 Mg Tablet) 100 mg PO Q12H [facility] Last Admin: 06/30/21 08:09 Dose: 100 mg Documented by: Enoxaparin Sodium (Enoxaparin Sodium 40 Mg/0.4 Ml Syringe) 40 mg SUBCUT Q24H [facility] Last Admin: 06/30/21 08:08 Dose: 40 mg Documented by: Furosemide (Furosemide 20 Mg Tablet) 20 mg PO DAILY [facility]; Protocol Last Admin: 06/30/21 08:09 Dose: 20 mg Documented by: Glucose (Glucose Gel 15 Gm Gel..Gram.) 15 gm PO Q15M PRN; Protocol PRN Reason: per Hypoglycemia Standing Ord. Cefazolin Sodium/Dextrose (Ancef) 2 gm in 50 mls @ 100 mls/hr IV POSTOP [facility] Insulin Human Lispro (Insulin Lispro 100 Unit/Ml 3 Ml Vial) 0 unit SUBCUT QIDACHS [facility]; Protocol Last Admin: 06/30/21 08:08 Dose: 4 unit Documented by: Metoprolol Succinate (Metoprolol Succinate Er 25 Mg Tab.Er.24h) 25 mg PO DAILY [facility]; Protocol Last Admin: 06/30/21 08:09 Dose: 25 mg Documented by: Ondansetron HCl (Ondansetron Hcl 4 Mg/2 Ml Vial) 4 mg IVPUSH Q8H PRN PRN Reason: Nausea and Vomiting Oxycodone HCl (Oxycodone Hcl Immed Release 5 Mg Tablet) 5 mg PO Q6H PRN PRN Reason: Breakthrough Pain Last Admin: 06/30/21 08:09 Dose: 5 mg Documented by: Pharmacy Consult (Consult Rx Perform Med Rec) 1 each MISCELLANE ONCE PRN PRN Reason: Consult order Sodium Chloride (0.9 % Sodium Chloride Flush 3 Ml Syringe) 3 ml IVFLUSH QSHIFT [facility] Last Admin: 06/30/21 08:15 Dose: 3 ml Documented by: Time Spent With Patient Time: Total time spent is greater than 50% in coordination of care (as documented) at patient's floor/unit and/or counseling patient: Time with patient: less than 15 minutes Quality Stroke Does the patient have a stroke diagnosis?: No VTE Prior VTE?: No VTE Risk Level:: Medical - moderate - high VTE Device Contraindication: N/A - Device Ordered VTE Drug Contraindication: Treatment Not Indicated
[2021-06-30 11:26] LABS: Glucose, Whole Blood 277 mg/dL (60-115)
--- NOTE | 2021-06-30 11:32 | MHC.CM.PN ---
Per ROUNDS discussion, Patient will be medically cleared for dc today to STR/SNF.Patient will dc to [facility] today at 1:30 PM, via [facility].Patient and his Sister/HCP/Mary Jane @ [phone] are aware of and have expressed that they are pleased with this dc plan.Second IMM addressed with Patient and original to be given to him and a copy has been placed on the chart.
[2021-06-30 11:42] LABS: COVID-19 Test Negative (Negative); IDNOW Serial# 9DD0AD1C
--- NOTE | 2021-06-30 11:46 | MHC.CLN ---
Addendum entered by Pema Todd, SARAH 06/30/21 13:32: AGREE WITH PROVIDER'S ASSESSMENT BELOW Original Note: F/U DIET RX: 2200DM-APPROPRIATE PO INTAKE EXCELLENT DOCUMENTED 100% RECOMMEND GLUCERNA SUPPLEMENT BID TO PROVIDE 474 KCALS AND 20 GRAMS PROTEIN CONTINUE TO MONITOR PO INTAKE
[2021-06-30 12:13] LABS: Hematocrit 30.4 % (42.0-52.0); Hemoglobin 9.5 g/dl (14.0-18.0); Mean Corpuscular HGB Conc 31.3 g/dl (31.0-36.0); Mean Corpuscular Hemoglobin 26.9 pg (27.0-33.0); Mean Corpuscular Volume 86.1 fL (80.0-98.0); Mean Platelet Volume 10.4 fL (9.4-12.4); NRBC Pct Auto 0.2 /100WBC (0.0-0.2); Red Blood Count 3.53 X10*6/uL (4.60-5.80); Red Cell Distribution Width 18.5 % (11.0-16.0); White Blood Count 12.3 X10*3/uL (4.8-10.8)
[2021-06-30 12:15] LABS: Platelet Count 70 X10*3/uL (160-400)
--- NOTE | 2021-06-30 12:41 | PM.DS ---
DS: Providers Provider Date of Service: 06/30/21 Date of admission: 06/26/21 13:34 Primary care physician: Jacoby Fang MD Consults: 06/26/21 09:48 Consult to Cardiology Routine Consulting Provider: [facility] Reason for consultation: Cardiac clearance for hip fx sx Has provider been notified: No DS: Diagnosis Discharge Diagnosis (1) Closed left hip fracture: Status: Acute (2) Severe anemia: Status: Acute (3) ICD (implantable cardioverter-defibrillator) in place: Status: Acute (4) Ischemic cardiomyopathy: Status: Acute (5) Anemia: Status: Acute DS: Summary Hospital Course Hospital Course: Chief Complaint: Fall 80-year-old gentleman with past medical history significant for coronary artery disease status post stent placement, EF 20-25%, status post AICD, diabetes,? hyperlipidemia, patient follows by Dr Farnsworth from [facility] presented to [facility] today after he felt lightheaded/dizzy and fell to the floor on left side, sustained left forehead laceration he denies loss of consciousness, denies symptoms of chest pain, no palpitation, no shortness of breath, in ER noted to have significant anemia hemoglobin 4.9 and hematocrit 16.7, he denies hematemesis no melena, no hematuria no history of prior GI bleed, patient was admitted to [facility] of September of 2020 and was noted to have anemia with hematocrit 26, at that time underwent extensive workup that was non revealing, patient was supposed to follow-up with Hematology, but as per patient he did not know, currently patient is receiving 2 units of packed RBCs, stool guaiac was negative as per ED physician, patient also noted to have left hip fracture, he denies significant pain. Hospital course 80-year-old male with history of diabetes, hyperlipidemia, coronary disease status post inferior wall NV in 2011 requiring PCI of RCA, residual 50% disease and marginal, heart failure with reduced ejection fraction, status post prophylactic ICD presented to [facility] due to lightheadedness dizziness and fall according to patient climbed up the stairs after checking water heater and felt light headed and fell down on his left side, was able to climb up to the chair and called his sister, who called EMS , in ER workup showed significant anemia and left hip fracture patient admitted with following medical issues. Fall/syncope due to symptomatic anemia, tele monitor showed no arrhythmia, EKG showed no cardiac ischemia. Head CT and C-spine negative, anemia corrected no recurrent episodes noted. Profound symptomatic anemia, with no history of hematemesis, melena, no overt bleeding , stool guaiac negative, iron studies consistent with iron deficiency anemia prior B12 folate and hemolytic screen was negative last hematocrit 28 on October 17 on admission hematocrit 16.7 improved to 30.4 after 7 units of packed RBC Seen by Dr. Washburn from Gastroenterology, she recommend to follow CBC closely and outpatient colonoscopy once patient recover from hip fracture in next 4-6 weeks. Thrombocytopenia Question etiology , received 1 unit of platelets, follow CBC q.weekly while patient on Lovenox . No active bleeding noted. Platelet 70,000 06/30/21 Left hip fracture is status post left hip surgery postoperative day 2 good pain control continue stool softener, incentive spirometry and physical therapy outpatient follow-up with Orthopedic surgery in 2-4 weeks continue Lovenox for 4 weeks Coronary artery disease no symptoms of chest pain EKG showed nonspecific ST changes continue home medications metoprolol and statin aspirin held due to significant anemia. Elevated BNP No evidence of acute CHF , continue Lasix Diabetes mellitus type 2 continue metformin and diabetic diet Moderate malnutrition continue supplements Time Spent with Patient Time attestation: Total time spent providing and/or coordinating discharge services: Discharge coordination time: Greater than 30 minutes Quality: Stroke Does the patient have a stroke diagnosis?: No Physical Exam Vital Signs: Vital Signs: Last Vital Signs Temp 98.5 F 06/30/21 11:17 Pulse 87 06/30/21 11:18 Resp 18 06/30/21 11:17 BP 97/51 L 06/30/21 11:17 Pulse Ox 96 06/30/21 11:17 Oxygen Flow Rate 2 06/29/21 17:02 BMI result Body Mass Index 19.0 General awake alert x3, no acute distress. Right eye decreased vision, lower lid everted Neck? no JVD. CVS?regular rate rhythm, Respiratory lungs bilateral rhonchi,no respiratory distress, no use of accessory muscles Gastrointestinal?abdomen soft, non tender, bowel sounds audible, no guarding , no rigidity. Extremities left hip dressing in place Neuro? nonfocal Skin small laceration left side of forehead healing well, skin abrasions both knees Psych appropriate affect ? DS: Data Data Completed and Pending Completed studies during hospitalization [Text1]: Procedures Assistance with Respiratory Ventilation, Less than 24 Consecutive Hours, Continuous Positive Airway Pressure (10/18/20) Pending studies at discharge: Pending at discharge 06/28/21 16:07 Surgical [PTH] Routine Labs on day of discharge: Laboratory Results - last 24 hr 06/29/21 06/29/21 06/30/21 16:20 20:12 07:30 WBC RBC Hgb Hct MCV MCH MCHC RDW Plt Count MPV Absolute Nucleated RBC Nucleated RBC % (auto) POC Glucose 308 H 206 H 212 H COVID-19 (MARISOL) COVID-19 Clin Com 06/30/21 06/30/21 06/30/21 11:06 11:16 12:07 WBC 12.3 H RBC 3.53 L Hgb 9.5 L Hct 30.4 L MCV 86.1 MCH 26.9 L MCHC 31.3 RDW 18.5 H Plt Count 70 L MPV 10.4 Absolute Nucleated RBC 0.030 H Nucleated RBC % (auto) 0.2 POC Glucose 277 H COVID-19 (MARISOL) Negative COVID-19 Clin Com See Note Discharge Plan Discharge Patient Disposition: Xfer SNF Discharge Diagnosis: Profound symptomatic anemia Syncope Left hip fracture status post surgery Coronary artery disease Referrals: [facility] [Outside] - 1 Week Jacoby Fang MD [Primary Care Provider] - 1 Week Discharge Medications: New docusate sodium 100 mg Capsule 100 mg PO BID Qty: 60 RF: 0 acetaminophen 325 mg Tablet 650 mg PO Q6H PRN (Reason: Pain, Mild (Pain Scale 1-3)) Qty: 60 RF: 0 oxycodone 5 mg Tablet 5 mg PO Q6H PRN (Reason: Breakthrough Pain) Qty: 14 RF: 0 ipratropium-albuterol 0.5 mg-3 mg(2.5 mg base)/3 mL Solution For Nebulization 3 ml inhalation Q4H PRN (Reason: Shortness Of Breath) Qty: 30 RF: 0 metoprolol succinate 25 mg Tablet Extended Release 24 Hr 25 mg PO DAILY Qty: 30 RF: 0 doxycycline hyclate 100 mg Tablet 100 mg PO Q12H Qty: 10 RF: 0 enoxaparin 40 mg/0.4 mL Syringe 40 mg subcut Q24H 28 Days Qty: 11.2 RF: 0 Continued atorvastatin 40 mg tablet 1 tab PO BEDTIME RF: 0 cyanocobalamin (vitamin B-12) [Vitamin B-12] 1,000 mcg tablet 1 tab PO DAILY RF: 0 metformin 1,000 mg tablet 1 tab PO BID RF: 0 furosemide 20 mg Tablet 20 mg PO DAILY 30 Days Qty: 30 RF: 0 Discontinued metoprolol succinate 50 mg tablet extended release 24 hr 1 tab PO DAILY RF: 0 aspirin 81 mg Tablet,Chewable 81 mg PO DAILY RF: 0 Discharge Orders: Discharge Order (Routine); Ordered 06/30/21 Ordered By: Emilia Llaa Diet: diabetic diet Activity on Discharge: As tolerated Stand Alone Forms: Patient Portal Discharge page Care Plan Goals: Profound anemia check CBC Q weekly, outpatient follow-up with Gastroenterology in 4-6 weeks, return to check if hemoglobin drops below 7 Low platelet count no active bleeding noted, on Lovenox check CBC q.weekly Outpatient follow-up with Orthopedic surgery Dr. Mann in 2-4 weeks, call for appointment, stop Lovenox in 4 weeks Health Concerns: Continue all home medications as above, Plan of Treatment: Outpatient follow-up with primary care physician, Gastroenterology and orthopedic surgery as above Check CBC q.weekly Assessment: As above
== END 2021-06-30 14:01 | disposition skilled nursing facility (03) | DRG 522 ==
LOC: HO.ED 13:43 → HO.EDOVER 13:53 → HO.S3 06-27 15:57 → HO.IMC 06-28 15:15
PROVIDERS: Internal Medicine; Orthopaedic Surgery; Physician Assistant; Admitting Provider Hospitalist; Emergency Provider Emergency Medicine; PCP Internal Medicine; Visit Provider Hospitalist
PROC: (CPT 27125; principal; 2021-06-28 14:10)
DX: S72.012A Unspecified intracapsular fracture of left femur, initial encounter for closed fracture (principal); E44.0 Moderate protein-calorie malnutrition; Z68.1 Body mass index [BMI] 19.9 or less, adult; I50.22 Chronic systolic (congestive) heart failure; W18.30XA Fall on same level, unspecified, initial encounter; I25.5 Ischemic cardiomyopathy; I25.10 Atherosclerotic heart disease of native coronary artery without angina pectoris; E78.5 Hyperlipidemia, unspecified; D69.6 Thrombocytopenia, unspecified; I25.2 Old myocardial infarction; N18.9 Chronic kidney disease, unspecified; E11.22 Type 2 diabetes mellitus with diabetic chronic kidney disease; D63.1 Anemia in chronic kidney disease; Z95.810 Presence of automatic (implantable) cardiac defibrillator; Y92.009 Unspecified place in unspecified non-institutional (private) residence as the place of occurrence of the external cause; Z20.822 Contact with and (suspected) exposure to COVID-19; Z79.84 Long term (current) use of oral hypoglycemic drugs; Z79.899 Other long term (current) drug therapy
CPT/HCPCS: 36415; 36430; 70450; 71045; 72125; 72170; 73502; 80048; 80076; 81003; 82272; 82550; 82728; 82947; 83540; 83690; 83880; 84484; 85007; 85014; 85018; 85025; 85027; 86850; 86900; 86901; 86923; 87635; 88305; 88311; 93005; 94640; 97110; 97162; 97166; 97530; 99285; 99291; C1776; J0131; J0690; J1650; J2405; J3010; P9016; P9073

== ENCOUNTER → 2021-07-18 10:48 | Outpatient (BNVA) | payer MEDICARE, SELFPAY | PROVIDERS: PCP Internal Medicine; Visit Provider Orthopaedic Surgery | DX: Z47.1 Aftercare following joint replacement surgery (principal); Z96.649 Presence of unspecified artificial hip joint | CPT/HCPCS: 99212 ==

== ENCOUNTER 2021-08-13 11:16 | Inpatient (IN) | payer MEDICARE, SELFPAY ==
--- NOTE | ~2021-08-13 | XR_ITS ---
EXAMINATION: CHEST, AP PELVIS AND LEFT HIP. CLINICAL INFORMATION: Covid positive and cough COMPARISON: None TECHNIQUE: Chest one view. Left hip and AP pelvis 3 views. FINDINGS: Chest: The lungs are well-expanded and clear. The heart size and pulmonary vascularity is normal. There are pacer electrodes in right ventricle. No gross bony abnormality seen. AP pelvis: There is a total left hip prosthesis in alignment. The right hip joint appears normal. There is no visible acute fracture, dislocation. SI joints are symmetrical and normal. AP and frog-leg views left hip reveals no dislocation. There is no periprosthetic fractures. There are there is no prosthetic loosening. The soft tissues are normal. XR/XR chest 1V IMPRESSION: Unremarkable chest exam. Total left hip prosthesis with prosthetic components in satisfactory alignment. There is no visible fracture seen. Unremarkable right hip and AP pelvis exam.
--- NOTE | ~2021-08-13 | CT_ITS ---
EXAMINATION: CT BRAIN AND CT CERVICAL SPINE WITHOUT CONTRAST. CLINICAL INFORMATION: Status post unwitnessed fall COMPARISON: None TECHNIQUE: 5 mm thin axial and reformatted 2 mm thin sagittal and coronal images of brain were obtained without contrast. Axial 3 mm thin and reformatted 2 mm thin sagittal and coronal images of cervical spine were obtained. DLP 826 FINDINGS: Brain: There is no acute intra-axial, extra-axial bleed, masses, collection or midline shift. There is no acute infarction in evolution. The lateral ventricles are symmetrical in size and configuration but enlarged. There is diffuse periventricular white matter changes. Bone windows reveal no calvarial abnormality. Bilateral paranasal sinuses and mastoid air cells are well-aerated. No scalp soft tissue abnormality seen. Cervical spine: There is normal cervical lordosis. The vertebral heights, alignment and disc heights are normal. The craniovertebral junction and the C1-C2 alignment is normal. There is mild left C3-C4, C4-C5 and C5-C6 facet joint arthropathy. The craniovertebral junction and the C1-C2 alignment is normal. There is moderate ventral spondylosis C5-C6 and C6-C7 disc levels. CT/CT head/brain wo con IMPRESSION: No acute intracranial process seen. There is no acute fracture, dislocation or subluxation in cervical spine. There is moderate left C3-C4, C4-C5 and C5-C6 facet joint arthropathy. There is mild lower cervical spine ventral spondylosis.
--- NOTE | ~2021-08-13 | XR_ITS ---
EXAMINATION: XR CHEST CLINICAL INFORMATION: SOB COMPARISON: Chest 08/13/2021 TECHNIQUE: Frontal view of the chest was obtained. FINDINGS: The lungs are hypoexpanded with patchy opacity seen in both lungs suggestive of developing infiltrates. No pleural effusion seen. Heart size is normal. There is a solitary pacer electrode in right ventricle. No gross bony abnormality. XR/XR chest 1V IMPRESSION: Hypoexpanded lungs with developing infiltrate in both lungs.
--- NOTE | ~2021-08-13 | XR_ITS ---
EXAMINATION: CHEST, AP PELVIS AND LEFT HIP. CLINICAL INFORMATION: Covid positive and cough COMPARISON: None TECHNIQUE: Chest one view. Left hip and AP pelvis 3 views. FINDINGS: Chest: The lungs are well-expanded and clear. The heart size and pulmonary vascularity is normal. There are pacer electrodes in right ventricle. No gross bony abnormality seen. AP pelvis: There is a total left hip prosthesis in alignment. The right hip joint appears normal. There is no visible acute fracture, dislocation. SI joints are symmetrical and normal. AP and frog-leg views left hip reveals no dislocation. There is no periprosthetic fractures. There are there is no prosthetic loosening. The soft tissues are normal. XR/XR hip LT w PEL1V IMPRESSION: Unremarkable chest exam. Total left hip prosthesis with prosthetic components in satisfactory alignment. There is no visible fracture seen. Unremarkable right hip and AP pelvis exam.
--- NOTE | ~2021-08-13 | XR_ITS ---
EXAMINATION: XR CHEST CLINICAL INFORMATION: Shortness of breath COMPARISON: Previous chest x-ray most recent 08/19/2021 TECHNIQUE: Frontal view of the chest was obtained. FINDINGS: The cardiac and mediastinal contours are stable. There is a left subclavian pacemaker that appears unchanged. The lung volumes are low. There are bilateral infiltrates. This is not appear appreciably changed. There is no pleural effusion or pneumothorax. There is distended bowel below the diaphragm. There are degenerative changes of the spine. XR/XR chest 1V IMPRESSION: Low lung volumes and bilateral infiltrates similar to 08/19/2021 exam.
--- NOTE | ~2021-08-13 | CT_ITS ---
EXAMINATION: CT BRAIN AND CT CERVICAL SPINE WITHOUT CONTRAST. CLINICAL INFORMATION: Status post unwitnessed fall COMPARISON: None TECHNIQUE: 5 mm thin axial and reformatted 2 mm thin sagittal and coronal images of brain were obtained without contrast. Axial 3 mm thin and reformatted 2 mm thin sagittal and coronal images of cervical spine were obtained. DLP 826 FINDINGS: Brain: There is no acute intra-axial, extra-axial bleed, masses, collection or midline shift. There is no acute infarction in evolution. The lateral ventricles are symmetrical in size and configuration but enlarged. There is diffuse periventricular white matter changes. Bone windows reveal no calvarial abnormality. Bilateral paranasal sinuses and mastoid air cells are well-aerated. No scalp soft tissue abnormality seen. Cervical spine: There is normal cervical lordosis. The vertebral heights, alignment and disc heights are normal. The craniovertebral junction and the C1-C2 alignment is normal. There is mild left C3-C4, C4-C5 and C5-C6 facet joint arthropathy. The craniovertebral junction and the C1-C2 alignment is normal. There is moderate ventral spondylosis C5-C6 and C6-C7 disc levels. CT/CT cervical spine wo con IMPRESSION: No acute intracranial process seen. There is no acute fracture, dislocation or subluxation in cervical spine. There is moderate left C3-C4, C4-C5 and C5-C6 facet joint arthropathy. There is mild lower cervical spine ventral spondylosis.
[2021-08-13 11:28] VITALS: BP 152/82; PULSE 83; O2SAT 95
[2021-08-13 11:36] VITALS: BP 123/51; PULSE 100; RESP 18; TEMP 36.6; O2SAT 93; BMI 20.5
--- NOTE | 2021-08-13 11:48 | ED_ITS ---
HPI - Fall General Chief Complaint: Fall Stated Complaint: FALL Time Seen by Provider: 08/13/21 11:39 Source: patient, EMS and old records reviewed Mode of arrival: EMS Limitations: no limitations History of Present Illness HPI Narrative: 81-year-old male with a history of CHF w/ EF 20% s/p AICD, hx SC in 2011 s/p PCI, Paroxysmal AFib not on anticoagulation, HTN, DM & recent left hip fracture due to slip and fall versus syncope due to severe anemia who presents to the ER from home via EMS after he reports slipping and falling in the kitchen this morning. He reports he was in the kitchen and he needed to use the bathroom and he just slipped and fell. He lives at home with his sister who heard the fall and came down to the kitchen and found him on the ground. He was unable to get up and EMS was called. He was incontinent of urine and stool because was unable to get to the bathroom in time. He denies hitting his head or losing consciousness. No seizure history. No post-ictal state per EMS. He thinks he fell onto his buttocks. He denies any pain in any of his joints, abdomen or chest. he denies any shortness of breath or chest pain. He was not dizzy or lightheaded before he fell. MD complaint: fall Onset (ago): minute(s) Fall from: standing Fall witnessed: no Place fall occurred: home Loss of consciousness: none Prolonged down time: no Symptoms prior to fall: none Context: tripped/slipped Location of injury: buttocks Associated symptoms (after fall): denies Related Data Home Medications Medication Instructions Recorded Confirmed atorvastatin 40 mg tablet 1 tab PO BEDTIME 10/17/20 06/26/21 cyanocobalamin (vitamin B-12) 1 tab PO DAILY 10/17/20 06/26/21 1,000 mcg tablet (Vitamin B-12) metformin 1,000 mg tablet 1 tab PO BID 10/17/20 06/26/21 Previous Rx's Medication Instructions Recorded furosemide 20 mg tablet 20 mg PO DAILY 30 Days #30 tab 10/21/20 acetaminophen 325 mg tablet 650 mg PO Q6H PRN #60 tab 06/30/21 docusate sodium 100 mg capsule 100 mg PO BID #60 cap 06/30/21 doxycycline hyclate 100 mg tablet 100 mg PO Q12H #10 tab 06/30/21 enoxaparin 40 mg/0.4 mL 40 mg (0.4 mL) SUBCUT Q24H 28 Days 06/30/21 subcutaneous syringe #11.2 ml ipratropium 0.5 mg-albuterol 3 mg 3 ml INHALATION Q4H PRN #30 ml 06/30/21 (2.5 mg base)/3 mL nebulization soln metoprolol succinate 25 mg 25 mg PO DAILY #30 tab 06/30/21 tablet,extended release 24 hr oxycodone 5 mg tablet 5 mg PO Q6H PRN #14 tab 06/30/21 bisacodyl 5 mg tablet,delayed 10 mg PO BEDTIME 2 Days #4 tab 07/06/21 release (Dulcolax (bisacodyl)) polyethylene glycol 3350 17 17 g PO DAILY 1 Days #238 g 07/06/21 gram/dose oral powder (Miralax) Allergies Allergy/AdvReac Type Severity Reaction Status Date / Time No Known Allergies Allergy Verified 07/18/21 11:27 Review of Systems Review of Systems: Constitutional: No Fever, No Chills ENT/Mouth: No sore throat, No Rhinorrhea, No Swallowing Difficulty Eyes: No Vision changes Cardiovascular: No Chest Pain, No SOB, No Orthopnea, No Edema Respiratory: No Cough, No Sputum, No Wheezing, No dyspnea Gastrointestinal: No Nausea, No Vomiting, No Diarrhea, No abdominal Pain, No Hematochezia, No Melena Genitourinary: No Dysuria, No Urinary Frequency, No Hematuria Musculoskeletal: No joint pain, No Myalgias Skin: No Skin Lesions, No rash Neuro: No Weakness, No Numbness, No Dizziness, No Headache Psych: No Anxiety/Panic, No Depression Heme/Lymph: No Bruising, No Lymphadenopathy Endocrine: No Polyuria, No Polydipsia [facility] Past Medical History Medical History (Updated 08/13/21 @ 13:48 by KRANTHI Rivera) Anemia Anemia Atherosclerotic cardiovascular disease Basal cell carcinoma of skin Chronic renal failure, stage 2 (mild) Closed hip fracture Congestive cardiomyopathy Congestive heart failure Diabetes 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 Hyperlipidemia ICD (implantable cardioverter-defibrillator) in place Ischemic cardiomyopathy 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, old Paroxysmal A-fib Ruptured epidermal cyst Surgical History (Updated 07/18/21 @ 12:18 by Silvana Rasmussen PA-C) H/O heart artery stent Social History Social History Household Members: None Housing: Apartment Do you presently have visiting nurse or other home services: No Alcohol intake: never Patient Tobacco Use Status: Never used Tobacco Second Hand Smoke Exposure: No Advance Directives: No Advance Directives Information Provided: Yes service: No Current occupational status: retired Physical Exam Vital Signs: Vital Signs: Last Vital Signs Temp 98 F 08/13/21 11:36 Pulse 109 H 08/13/21 14:42 Resp 19 08/13/21 14:42 BP 130/73 08/13/21 14:42 Pulse Ox 95 08/13/21 14:42 BMI result Body Mass Index 20.5 Appearance: Alert. Oriented X3. No acute distress. Head: atraumatic, normocephalic Eyes: Pupils equal, round and reactive to light. Left eye more closed than the right. No droop. EOMI. ENT: Pharynx normal. Neck: Normal inspection. Neck supple. In cervical collar CVS: Tachycardic, regular rhythm, left chest wall with defibrillator in place. Pulses normal. Respiratory: No respiratory distress. Breath sounds normal. Abdomen: Soft and nontender. +BS x4 Skin: Skin warm and dry. Normal skin color. Normal skin turgor. No rashes. Extremities: No lower extremity edema. Frail, elderly. Nontender bilateral hips. pelvis is stable. no tenderness of the bilateral shoulder joints, elbows, knees. Neuro: Oriented X 3. No motor deficit. No sensory deficit. Generalized weakness noted, able to lift both legs off the bed briefly. Course Course Course Narrative: 81 y/o male with history hx ishcemic CMP w/ EF 20%, DM, PAF not on AC, HTN, s/p recent admission 06/26/21-06/30/21 for acute anemia, syncope and left hip fracture who presents to the ED from home with a mechanical fall. He denies presyncopal symptoms, LOC, or head trauma. He is weak without any focal abnormalities on exam. Tachycardic on arrival. Denies pain. He appears dry, deconditioned and frail. No fevers. He reports just getting out of acute rehab recently. Will check CBC, Chem, UA, EKG, CT head/neck given fall was unwitnessed. Will also check XR of his hip to assess the hardware. Reevaluation(s) Reevaluation #1: COVID +. No hypoxia, no cough. CXR clear. He is unvaccinated. Possible exposure at rehab, no one at home is ill. His labs came back with significant electrolyte abnormalities including hypokalemia and hypomagnesemia. This could have contributed to muscle weakness and fall today. He is on 20 mg of p.o. Lasix at home. Will plan to hold. Does not appears to be volume overloaded. Will hold off on IV fluids given his history of heart failure. Will give PO KCl 40 mEQ & 10 mEQ IV, 2 gm Mg++ and recheck levels. Reevaluation #2: Replaced potassium with 50 mEqs and his potassium only improved by 0.1 to 2.5. Ordered for another 40 mEQ oral and 40 mEQ IV. His total body deficit will most likely require multiple rounds of aggressive repletion. Troponin increased to 143.5 which is >50% delta from prior at 95 concerning for possible myocardial ischemia. Will give aspirin now. He has no chest pain at this time. Spoke w/ Dr. Payan via TT who is recommending holding off on heparin for now. Will plan for admission for further management. Consultations Consultation #1: Cardiology - Dr. Payan [facility] - [facility] [place] Medical Records Attestation: I reviewed the patient's medical records. Lab Data Attestation: I reviewed the patient's lab results. Result diagrams: 08/13/21 12:39 08/13/21 16:38 Labs: Lab Results 08/13/21 08/13/21 08/13/21 Range/Units 12:39 12:39 12:39 WBC 6.9 (4.8-10.8) X10*3/uL RBC 3.59 L (4.60-5.80) X10*6/uL Hgb 9.9 L (14.0-18.0) g/dl Hct 31.2 L (42.0-52.0) % MCV 86.9 (80.0-98.0) fL MCH 27.6 (27.0-33.0) pg MCHC 31.7 (31.0-36.0) g/dl RDW 18.4 H (11.0-16.0) % Plt Count 109 L D (160-400) X10*3/uL MPV 9.5 (9.4-12.4) fL Immature Gran % (Auto) 0.7 H (0.0-0.4) % Neut % (Auto) 84.4 H (45-73) % Lymph % (Auto) 10.0 L (20-40) % [place] % (Auto) 4.9 (2-11) % Eos % (Auto) 0.0 (0-4) % Baso % (Auto) 0.0 (0-2) % Lymph # (Auto) 0.7 L (1.2-4.9) X10*3/uL [place] # (Auto) 0.3 (0.1-1.2) X10*3/uL Eos # (Auto) 0.0 (0.0-0.4) X10*3/uL Baso # (Auto) 0.0 (0.0-0.2) X10*3/uL Abs Immat Gran (auto) 0.05 H (0.00-0.03) X10*3/uL Absolute Neuts (auto) 5.8 (2.0-8.3) x10*3/uL Absolute Nucleated RBC 0.000 (0.0-0.012) X10*3/uL Nucleated RBC % (auto) 0.0 (0.0-0.2) /100WBC Sodium 135 (135-145) mmol/L Potassium 2.4 L* D (3.3-5.1) mmol/L Chloride 90 L (96-108) mmol/L Carbon Dioxide 26 (22-29) mmol/L Anion Gap 21 H (12-20) BUN 28 H (9-16) mg/dL Creatinine 1.17 (0.5-1.4) mg/dL Estim Creat Clear Calc 41.4 Estimated GFR 60 Random Glucose 130 H D (60-115) mg/dL Calcium 8.7 D (8.4-10.2) mg/dL Magnesium 1.3 L* (1.6-2.6) mg/dL Total Bilirubin 0.8 (0.0-1.0) mg/dL Direct Bilirubin 0.4 (0.0-0.5) mg/dL AST 37 D (5-37) U/L ALT 16 (0-40) U/L Alkaline Phosphatase 59 D (39-117) U/L Total Creatine Kinase 165 (38-174) U/L Troponin I High Sens (<3.5-35.0) ng/L Total Protein 7.4 (6.5-8.0) g/dL Albumin 3.8 (3.5-5.0) g/dL COVID-19 (MARISOL) Positive A (Negative) COVID-19 Clin Com See Note 08/13/21 08/13/21 08/13/21 Range/Units 12:39 16:38 16:38 WBC (4.8-10.8) X10*3/uL RBC (4.60-5.80) X10*6/uL Hgb (14.0-18.0) g/dl Hct (42.0-52.0) % MCV (80.0-98.0) fL MCH (27.0-33.0) pg MCHC (31.0-36.0) g/dl RDW (11.0-16.0) % Plt Count (160-400) X10*3/uL MPV (9.4-12.4) fL Immature Gran % (Auto) (0.0-0.4) % Neut % (Auto) (45-73) % Lymph % (Auto) (20-40) % [place] % (Auto) (2-11) % Eos % (Auto) (0-4) % Baso % (Auto) (0-2) % Lymph # (Auto) (1.2-4.9) X10*3/uL [place] # (Auto) (0.1-1.2) X10*3/uL Eos # (Auto) (0.0-0.4) X10*3/uL Baso # (Auto) (0.0-0.2) X10*3/uL Abs Immat Gran (auto) (0.00-0.03) X10*3/uL Absolute Neuts (auto) (2.0-8.3) x10*3/uL Absolute Nucleated RBC (0.0-0.012) X10*3/uL Nucleated RBC % (auto) (0.0-0.2) /100WBC Sodium (135-145) mmol/L Potassium 2.5 L* (3.3-5.1) mmol/L Chloride (96-108) mmol/L Carbon Dioxide (22-29) mmol/L Anion Gap (12-20) BUN (9-16) mg/dL Creatinine (0.5-1.4) mg/dL Estim Creat Clear Calc Estimated GFR Random Glucose (60-115) mg/dL Calcium (8.4-10.2) mg/dL Magnesium 1.6 (1.6-2.6) mg/dL Total Bilirubin (0.0-1.0) mg/dL Direct Bilirubin (0.0-0.5) mg/dL AST (5-37) U/L ALT (0-40) U/L Alkaline Phosphatase (39-117) U/L Total Creatine Kinase (38-174) U/L Troponin I High Sens 95.0 H 143.6 H* D (<3.5-35.0) ng/L Total Protein (6.5-8.0) g/dL Albumin (3.5-5.0) g/dL COVID-19 (MARISOL) (Negative) COVID-19 Clin Com ECG Data Attestation: I personally reviewed and interpreted this ECG as follows: ECG interpretation date: 08/13/21 ECG interpretation time: 16:20 Prior ECG tracings: available for review Interpretation: Sinus tachycardia with PVCs, heart rate 110 beats per minute, artifact present, LVH with reported abnormality. No ST segment elevations or depressions. Critical Care Time Critical Care Time Critical Care Time: Yes Total Critical Care Time: 41 Attestation: I have personally provided critical care time exclusive of time spent on separately billable procedures. Time includes review of lab data, radiology results, discussion with consultants, and monitoring for potential decompensation. Intervention performed as documented. Discharge Plan Discharge Clinical Impression: COVID-19, Acute hypokalemia, Hypomagnesemia, Accident due to mechanical fall without injury Patient Disposition: Admitted As Inpatient Prescriptions: No Action bisacodyl [Dulcolax (bisacodyl)] 5 mg tablet,delayed release (DR/EC) 10 mg PO BEDTIME 2 Days Qty: 4 RF: 0 polyethylene glycol 3350 [Miralax] 17 gram/dose powder 17 g PO DAILY 1 Days Qty: 238 RF: 0 atorvastatin 40 mg tablet 1 tab PO BEDTIME RF: 0 cyanocobalamin (vitamin B-12) [Vitamin B-12] 1,000 mcg tablet 1 tab PO DAILY RF: 0 metformin 1,000 mg tablet 1 tab PO BID RF: 0 furosemide 20 mg Tablet 20 mg PO DAILY 30 Days Qty: 30 RF: 0 docusate sodium 100 mg Capsule 100 mg PO BID Qty: 60 RF: 0 acetaminophen 325 mg Tablet 650 mg PO Q6H PRN (Reason: Pain, Mild (Pain Scale 1-3)) Qty: 60 RF: 0 oxycodone 5 mg Tablet 5 mg PO Q6H PRN (Reason: Breakthrough Pain) Qty: 14 RF: 0 ipratropium-albuterol 0.5 mg-3 mg(2.5 mg base)/3 mL Solution For Nebulization 3 ml inhalation Q4H PRN (Reason: Shortness Of Breath) Qty: 30 RF: 0 metoprolol succinate 25 mg Tablet Extended Release 24 Hr 25 mg PO DAILY Qty: 30 RF: 0 doxycycline hyclate 100 mg Tablet 100 mg PO Q12H Qty: 10 RF: 0 enoxaparin 40 mg/0.4 mL Syringe 40 mg subcut Q24H 28 Days Qty: 11.2 RF: 0
--- NOTE | 2021-08-13 11:49 | ECG_ITS ---
Test Reason : fall Blood Pressure : / mmHG Vent. Rate : 110 BPM Atrial Rate : 110 BPM P-R Int : 154 ms QRS Dur : 096 ms QT Int : 334 ms P-R-T Axes : 007 061 084 degrees QTc Int : 452 ms Artifact in tracing Sinus tachycardia with occasional Premature ventricular complexes Left ventricular hypertrophy with repolarization abnormality ( [place] product ) Anterolateral infarct (cited on or before 13-AUG-2021) Abnormal ECG When compared with ECG of 26-JUN-2021 07:51, Premature ventricular complexes are now Present Vent. rate has increased BY 36 BPM Referred By: Tiffany Ramirez Electronically Signed By:MAGDALENE KHAN
[2021-08-13 12:45] LABS: MANUAL DIFF FLAG NO
[2021-08-13 12:58] LABS: Hematocrit 31.2 % (42.0-52.0); Hemoglobin 9.9 g/dl (14.0-18.0); Imm Gran Abs Auto 0.05 X10*3/uL (0.00-0.03); Imm Gran Pct Auto 0.7 % (0.0-0.4); Lymphocytes Absolute Auto 0.7 X10*3/uL (1.2-4.9); Mean Corpuscular HGB Conc 31.7 g/dl (31.0-36.0); Mean Corpuscular Hemoglobin 27.6 pg (27.0-33.0); Mean Corpuscular Volume 86.9 fL (80.0-98.0); Mean Platelet Volume 9.5 fL (9.4-12.4); Monocytes Absolute Auto 0.3 X10*3/uL (0.1-1.2); Monocytes Percent Auto 4.9 % (2-11); Neutrophils Absolute Auto 5.8 x10*3/uL (2.0-8.3); Neutrophils Percent Auto 84.4 % (45-73); Platelet Count 109 X10*3/uL (160-400); Red Blood Count 3.59 X10*6/uL (4.60-5.80); Red Cell Distribution Width 18.4 % (11.0-16.0); White Blood Count 6.9 X10*3/uL (4.8-10.8)
[2021-08-13 13:03] LABS: COVID-19 Test Positive (Negative)
--- NOTE | 2021-08-13 13:18 | PC.NURSE ---
cleaned as the pt was ncontinent of stool at his house as he didn't make it to the bathroom prior to falling, labs drawn and awaiting results, collar in place, nad, no pain, alert
[2021-08-13 13:40] LABS: Alanine Aminotransferase 16 U/L (0-40); Albumin Level 3.8 g/dL (3.5-5.0); Alkaline Phosphatase 59 U/L (39-117); Anion Gap 21 (12-20); Aspartate Amino Transferase 37 U/L (5-37); Bilirubin Direct 0.4 mg/dL (0.0-0.5); Bilirubin Total 0.8 mg/dL (0.0-1.0); Blood Urea Nitrogen 28 mg/dL (9-16); Calcium 8.7 mg/dL (8.4-10.2); Carbon Dioxide 26 mmol/L (22-29); Chloride 90 mmol/L (96-108); Creatinine Clr Calc Pharmacy 41.4; Estimated Glomerular Filt Rate 60; Glucose Random 130 mg/dL (60-115); Sodium 135 mmol/L (135-145); Total Protein 7.4 g/dL (6.5-8.0)
[2021-08-13] MEDS: Potassium Chloride/H20 10 MEQ/100 ML PIGGYBACK 100 MEQ IV ×5 (14:36→21:15)
[2021-08-13] MEDS: Potassium Chloride ER 20 MEQ TAB.ER.PRT 40 MEQ PO ×2 (14:37→18:51)
[2021-08-13] MEDS: Magnesium Sulfate/H2O 2 GM/50 ML PIGGYBACK IV (14:41)
[2021-08-13 14:42] VITALS: BP 130/73; PULSE 109; RESP 19; O2SAT 95
--- NOTE | 2021-08-13 14:43 | PC.NURSE ---
jesica, [id number] in place, st on monitor, denies pain or sob, surprised he has covid because he feels well
[2021-08-13 15:41] LABS: Magnesium 1.3 mg/dL (1.6-2.6); Potassium 2.4 mmol/L (3.3-5.1)
[2021-08-13 17:04] LABS: Magnesium 1.6 mg/dL (1.6-2.6); Potassium 2.5 mmol/L (3.3-5.1)
[2021-08-13 17:10] LABS: Troponin-I High Sensitivity 143.6 ng/L (<3.5-35.0)
[2021-08-13] MEDS: Aspirin 81 MG TAB.CHEW 162 MG PO (17:35)
--- NOTE | 2021-08-13 17:58 | PM.IMHP ---
History of Present Illness Date of Service: 08/13/21 Chief Complaint: weakness 81-year-old male with a history of CHF w/ EF 20% s/p AICD, hx TX in 2012 s/p PCI, Paroxysmal AFib not on anticoagulation, HTN, DM & recent left hip fracture due to slip and fall versus syncope due to severe anemia who presents to the ER from home via EMS? after he reports slipping and falling in the kitchen this morning.? He reports he was in the kitchen and he needed to use the bathroom and he just slipped and fell. ? He lives at home with his sister who heard the fall and came down to the kitchen and found him on the ground. ? He was unable to get up and EMS was called.? He was incontinent of urine and stool because was unable to get to the bathroom in time.? He denies hitting his head or losing consciousness. No seizure history. No post-ictal state per EMS.? He thinks he fell onto his buttocks.? He denies any? pain in any of his joints, abdomen or chest. ? he denies any shortness of breath or chest pain.? He was not dizzy or lightheaded before he fell. ER Course: XR of left hip pelvis and chest all unremarkable. CT scan of the head and cervical spine failed to demonstrate any acute pathology. Laboratory evaluation revealed a potassium of 2.4 along with a magnesium of 1.3. Repletion of both of these divalents was begun in the emergency room without issue. COVID-19 swab was positive; patient is asymptomatic; room air saturation 95%. Total creatinine kinase was normal; high sensitive troponin was initially 95 and bladimir to 143 approximately 4 hours after arrival. Emergency room attending discussed case with cardiology who stated there was no need for heparinization. 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, old Paroxysmal A-fib Ruptured epidermal cyst Surgical History H/O heart artery stent Social History Household Members: None Housing: Apartment Do you presently have visiting nurse or other home services: No Alcohol intake: never Patient Tobacco Use Status: Never used Tobacco Second Hand Smoke Exposure: No Advance Directives: No Advance Directives Information Provided: Yes service: No Current occupational status: retired [employer] Allergies Allergy/AdvReac Type Severity Reaction Status Date / Time No Known Allergies Allergy Verified 07/18/21 11:27 Active Medications: Current Medications Acetaminophen (Acetaminophen 325 Mg Tablet) 650 mg PO Q6H PRN PRN Reason: Pain, Mild (Pain Scale 1-3) Enoxaparin Sodium (Enoxaparin Sodium 40 Mg/0.4 Ml Syringe) 40 mg SUBCUT Q24H ELBA Potassium Chloride () 10 meq in 100 mls @ 100 mls/hr IV Q1H ELAB Stop: 08/13/21 21:14 Last Admin: 08/13/21 17:37 Dose: 100 mls/hr Documented by: Ondansetron HCl (Ondansetron Hcl 4 Mg/2 Ml Vial) 4 mg IVPUSH Q8H PRN PRN Reason: Nausea and Vomiting Pharmacy Consult (Consult Rx Perform Med Rec) 1 each MISCELLANE ONCE PRN PRN Reason: Consult order Sodium Chloride (0.9 % Sodium Chloride Flush 3 Ml Syringe) 3 ml IVFLUSH QSHIFT [facility] Home Medications Medication Instructions Recorded Confirmed Last Taken Type atorvastatin 40 mg tablet 1 tab PO BEDTIME 10/17/20 06/26/21 10/16/20 20:00 History cyanocobalamin (vitamin B-12) 1 tab PO DAILY 10/17/20 06/26/21 06/25/21 History 1,000 mcg tablet (Vitamin B-12) metformin 1,000 mg tablet 1 tab PO BID 10/17/20 06/26/21 06/25/21 History furosemide 20 mg tablet 1 tab PO DAILY 08/13/21 Unknown History metoprolol succinate 50 mg 1 tab PO DAILY 08/13/21 Unknown History tablet,extended release 24 hr omeprazole 20 mg capsule,delayed 1 cap PO DAILY 08/13/21 Unknown History release Physical Exam Vital Signs and Narrative: Vital Signs: Last Vital Signs Temp 98 F 08/13/21 11:36 Pulse 109 H 08/13/21 14:42 Resp 19 08/13/21 14:42 BP 130/73 08/13/21 14:42 Pulse Ox 95 08/13/21 14:42 BMI result Body Mass Index 20.5 Const: Other: awake alert oriented x3 in no acute distress HENMT: Other: right eye prosthesis Neck: Other: no JVD appreciated Resp: Other: clear to auscultation all wick. No rales rhonchi or wheezes Cardio: Other: no S4; positive S1-S2; no S3 murmurs rubs gallops. Regular rate and rhythm GI: Other: soft nontender nondistended with normoactive bowel sounds. There is no rebound or guarding appreciated Neuro: Other: cranial nerves 2-12 grossly intact as tested. Motor is 5/5 in all extremities. Sensation is intact cognition is appropriate Extrem: Other: no edema bilaterally Results Labs CBC and Chem 7: 08/13/21 12:39 08/13/21 16:38 Labs: Laboratory Results - last 24 hr 08/13/21 08/13/21 08/13/21 12:39 12:39 12:39 MCV 86.9 MCH 27.6 MCHC 31.7 RDW 18.4 H Plt Count 109 L D MPV 9.5 Immature Gran % (Auto) 0.7 H Neut % (Auto) 84.4 H Lymph % (Auto) 10.0 L [place] % (Auto) 4.9 Eos % (Auto) 0.0 Baso % (Auto) 0.0 Lymph # (Auto) 0.7 L [place] # (Auto) 0.3 Eos # (Auto) 0.0 Baso # (Auto) 0.0 Abs Immat Gran (auto) 0.05 H Absolute Neuts (auto) 5.8 Absolute Nucleated RBC 0.000 Nucleated RBC % (auto) 0.0 Anion Gap 21 H Estim Creat Clear Calc 41.4 Estimated GFR 60 Random Glucose 130 H D Calcium 8.7 D Magnesium 1.3 L* Total Bilirubin 0.8 Direct Bilirubin 0.4 AST 37 D ALT 16 Alkaline Phosphatase 59 D Total Creatine Kinase 165 Troponin I High Sens Total Protein 7.4 Albumin 3.8 COVID-19 (MARISOL) Positive A COVID-19 Clin Com See Note 08/13/21 08/13/21 08/13/21 12:39 16:38 16:38 MCV MCH MCHC RDW Plt Count MPV Immature Gran % (Auto) Neut % (Auto) Lymph % (Auto) [place] % (Auto) Eos % (Auto) Baso % (Auto) Lymph # (Auto) [place] # (Auto) Eos # (Auto) Baso # (Auto) Abs Immat Gran (auto) Absolute Neuts (auto) Absolute Nucleated RBC Nucleated RBC % (auto) Anion Gap Estim Creat Clear Calc Estimated GFR Random Glucose Calcium Magnesium 1.6 Total Bilirubin Direct Bilirubin AST ALT Alkaline Phosphatase Total Creatine Kinase Troponin I High Sens 95.0 H 143.6 H* D Total Protein Albumin COVID-19 (MARISOL) COVID-19 Clin Com Imaging Radiologist's Impressions: Impressions Cervical Spine CT 08/13/21 13:56 IMPRESSION: No acute intracranial process seen. There is no acute fracture, dislocation or subluxation in cervical spine. There is moderate left C3-C4, C4-C5 and C5-C6 facet joint arthropathy. There is mild lower cervical spine ventral spondylosis. Head CT 08/13/21 13:56 IMPRESSION: No acute intracranial process seen. There is no acute fracture, dislocation or subluxation in cervical spine. There is moderate left C3-C4, C4-C5 and C5-C6 facet joint arthropathy. There is mild lower cervical spine ventral spondylosis. Chest X-Ray 08/13/21 15:06 IMPRESSION: Unremarkable chest exam. Total left hip prosthesis with prosthetic components in satisfactory alignment. There is no visible fracture seen. Unremarkable right hip and AP pelvis exam. Hip/Pelvis X-Ray 08/13/21 15:06 IMPRESSION: Unremarkable chest exam. Total left hip prosthesis with prosthetic components in satisfactory alignment. There is no visible fracture seen. Unremarkable right hip and AP pelvis exam. Assessment and Plan (1) COVID-19: Status: Acute (2) Acute hypokalemia: Status: Acute (3) Hypomagnesemia: Status: Acute (4) Severe anemia: Status: Acute 81-year-old male with significant cardiac history status post ICD placement presents after mechanical fall at home. Initial workup in emergency room failed to demonstrate any acute fracture however laboratory evaluation demonstrated severe hypokalemia and hypo magnesemia. No appreciable increase in total CK from down time 1.Mechanical fall -work up negative for Fx/head bleed - admit; PT evaluation when appropriate 2. Hypokalemia/hypomagnesemia -Mag repleated to low normal -K+ repletion ongoing -recheck labs 6 hrs and treat as indicated 3.CAD with Ischemic Cardiomyopathy -last echo on file 10/18/20;EF 20-25% with severe global hypokenesis -Will trend Troponins; no anticoagulation at this time -Cardiology Consult in am -Metoprolol at outpatient dosing 4.Anemia(chronic) -at baseline. -follow clinically 5.CKD stageI -Given EF volume repletion as given with K+ ( if requires addition IV K+ total infused volume will be 800cc) -check renals/divalents in am 6.Covid-19 -asymptomatic without O2 requirement/exam benign -follow clinically Lovenox Full Code Quality Stroke Does the patient have a stroke diagnosis?: No VTE Prior VTE?: No VTE Risk Level:: Medical - moderate - high VTE Device Contraindication: Treatment Not Indicated VTE Drug Contraindication: N/A - Med Ordered
[2021-08-13 18:00] VITALS: BP 130/70; PULSE 88; RESP 18
--- NOTE | 2021-08-13 18:23 | PHA.MEDREC ---
Pharmacy Consult ? Medication Reconciliation Pharmacy has completed the medication reconciliation.
[2021-08-13] MEDS: Enoxaparin Sodium 40 MG/0.4 ML SYRINGE SUBCUT (18:52)
--- NOTE | 2021-08-13 21:18 | PC.NURSE ---
report given to Overflow. Sadie MARCH had no questions.
[2021-08-13] MEDS: Atorvastatin Calcium 40 MG TABLET PO (22:30)
[2021-08-13 23:21] VITALS: PULSE 91; RESP 10; O2SAT 96
[2021-08-14 00:26] LABS: C Reactive Protein 2.07 mg/dL (< or = 0.50)
[2021-08-14 00:49] LABS: Erythrocyte Sedimentation Rate 31 MM/HR (0-15)
[2021-08-14 01:21] LABS: Anion Gap 18 (12-20); Blood Urea Nitrogen 27 mg/dL (9-16); Calcium 8.1 mg/dL (8.4-10.2); Carbon Dioxide 26 mmol/L (22-29); Chloride 91 mmol/L (96-108); Creatinine Clr Calc Pharmacy 38.4; Estimated Glomerular Filt Rate 55; Glucose Random 328 mg/dL (60-115); Magnesium 1.6 mg/dL (1.6-2.6); Potassium 3.4 mmol/L (3.3-5.1); Sodium 132 mmol/L (135-145)
[2021-08-14 04:22] VITALS: PULSE 89; RESP 12; O2SAT 99
[2021-08-14 07:09] LABS: MANUAL DIFF FLAG NO
[2021-08-14 07:14] LABS: Basophils Percent Auto 0.2 % (0-2); Hematocrit 25.1 % (42.0-52.0); Imm Gran Abs Auto 0.04 X10*3/uL (0.00-0.03); Imm Gran Pct Auto 0.8 % (0.0-0.4); Lymphocytes Percent Auto 19.9 % (20-40); Mean Corpuscular HGB Conc 31.9 g/dl (31.0-36.0); Mean Corpuscular Hemoglobin 27.7 pg (27.0-33.0); Mean Corpuscular Volume 86.9 fL (80.0-98.0); Mean Platelet Volume 9.4 fL (9.4-12.4); Monocytes Absolute Auto 0.3 X10*3/uL (0.1-1.2); Monocytes Percent Auto 6.3 % (2-11); Neutrophils Absolute Auto 3.8 x10*3/uL (2.0-8.3); Neutrophils Percent Auto 72.8 % (45-73); Platelet Count 103 X10*3/uL (160-400); Red Blood Count 2.89 X10*6/uL (4.60-5.80); Red Cell Distribution Width 18.6 % (11.0-16.0); White Blood Count 5.2 X10*3/uL (4.8-10.8)
[2021-08-14 07:30] LABS: Alanine Aminotransferase 11 U/L (0-40); Albumin Level 3.3 g/dL (3.5-5.0); Alkaline Phosphatase 48 U/L (39-117); Anion Gap 15 (12-20); Aspartate Amino Transferase 38 U/L (5-37); Bilirubin Total 0.7 mg/dL (0.0-1.0); Blood Urea Nitrogen 23 mg/dL (9-16); Calcium 8.2 mg/dL (8.4-10.2); Carbon Dioxide 28 mmol/L (22-29); Chloride 94 mmol/L (96-108); Creatinine Clr Calc Pharmacy 49.9; Estimated Glomerular Filt Rate > 60; Glucose Fasting 222 mg/dL (60-99); Magnesium 1.5 mg/dL (1.6-2.6); Potassium 3.6 mmol/L (3.3-5.1); Sodium 133 mmol/L (135-145); Total Protein 6.3 g/dL (6.5-8.0)
--- NOTE | 2021-08-14 07:54 | PC.NURSE ---
Pt A&Ox3, no complaints of pain. EKG artifact on monitor, electrodes replaced along with pulse ox sticker placed on forehead due to cold fingers. Pt eating breakfast at this time, drainage noted to pt's R eye, pt states it is always that way. Heels elevated off mattress with pillow. Petersen in place. Call irwin within reach, will continue to monitor.
[2021-08-14] MEDS: Magnesium Sulfate/H2O 2 GM/50 ML PIGGYBACK IV (08:29)
[2021-08-14] MEDS: Cyanocobalamin (Vitamin B-12) 1,000 MCG TABLET 1000 MCG PO (08:29)
[2021-08-14] MEDS: Metoprolol Succinate ER 25 MG TAB.ER.24H PO (08:29)
[2021-08-14] MEDS: metFORMIN HCl 1,000 MG TABLET 1000 MG PO ×2 (08:29→17:57)
[2021-08-14] MEDS: Omeprazole 20 MG CAPSULE.DR PO (08:30)
[2021-08-14] MEDS: 0.9 % Sodium Chloride Flush 3 ML SYRINGE IVFLUSH (08:32)
[2021-08-14 08:42] VITALS: BP 109/48; PULSE 94; RESP 24; TEMP 37.2; O2SAT 100
[2021-08-14 08:51] LABS: Estimated Average Glucose 148 mg/dL; Hemoglobin A1c % 6.8 %
--- NOTE | 2021-08-14 12:05 | MHC.CM.PN ---
PATIENT GIVES PERMISSION FOR IMM TO BE LEFT ON BEDSIDE TABLE, NOW DONE. HE ASKS THAT THIS AUTOMATIC LATHE TENDER ALSO CALL HIS SISTER/HCP (ON FILE) TO TELL HIM I AM OK . CALL TO JAM AT [phone] WITH NO ANSWER OR VOICEMAIL. OF THIS NOTE, IT IS UNCLEAR IF PATIENT HAS ANY SERVICES IN THE HOME. CASE MANAGEMENT TO UPDATE WHEN ABLE TO REACH JAM IMM 08/14 IN CHART
--- NOTE | 2021-08-14 12:28 | MHC.CM.PN ---
ACCORDING TO PREVIOUS JUNE 2021 ADMISSION NOTE, PATIENT HAD NOT BEEN VACCINATED AGAINST COVID-19 IT IS UNCLEAR IF HE HAS SINCE BEEN VACCINATED
[2021-08-14 12:31] VITALS: BP 115/43; PULSE 82; RESP 16; O2SAT 98
[2021-08-14 16:30] VITALS: BP 125/51; PULSE 87; RESP 16; TEMP 36.6; O2SAT 99
--- NOTE | 2021-08-14 16:32 | PC.NURSE ---
PATIENT HAD LARGE LOOSE BLACK STOOL ,JOAQUIM ALVES IS AWARE ,PATIENT WAS CLEAN UP ,PATIENT REPOSITION OFF HIM BUM , PATIENT HEELS WERE FLOATED OFF BED .
--- NOTE | 2021-08-14 16:54 | P.PNIM_ITS ---
Subjective Subjective Date of Service: 08/14/21 Interval History: No acute issues overnight Physical Exam Vital Signs: Vital Signs: Last Vital Signs Temp 97.8 F 08/14/21 16:30 Pulse 87 08/14/21 16:30 Resp 16 08/14/21 16:30 BP 125/51 L 08/14/21 16:30 Pulse Ox 99 08/14/21 16:30 BMI result Body Mass Index 20.5 Const: Other: awake alert oriented x3 in no acute distress HENMT: Other: right eye prosthesis Neck: Other: no JVD appreciated Resp: Other: clear to auscultation all wick. No rales rhonchi or wheezes Cardio: Other: no S4; positive S1-S2; no S3 murmurs rubs gallops. Regular rate and rhythm GI: Other: soft nontender nondistended with normoactive bowel sounds. There is no rebound or guarding appreciated Neuro: Other: cranial nerves 2-12 grossly intact as tested. Motor is 5/5 in all extremities. Sensation is intact cognition is appropriate Extrem: Other: no edema bilaterally Objective Data Active Medications Acetaminophen (Acetaminophen 325 Mg Tablet) 650 mg PO Q6H PRN PRN Reason: Pain, Mild (Pain Scale 1-3) Albuterol/Ipratropium (Albuterol/Iprat 2.5/0.5mg 3 Ml Ampul.Neb) 3 ml INHALE Q4H PRN PRN Reason: Shortness Of Breath Atorvastatin Calcium (Atorvastatin Calcium 40 Mg Tablet) 40 mg PO BEDTIME [facility] Last Admin: 08/13/21 22:30 Dose: 40 mg Documented by: TAHIR Cyanocobalamin (Cyanocobalamin (Vitamin B-12) 1,000 Mcg Tablet) 1,000 mcg PO DAILY [facility] Last Admin: 08/14/21 08:29 Dose: 1,000 mcg Documented by: MASSIMO Enoxaparin Sodium (Enoxaparin Sodium 40 Mg/0.4 Ml Syringe) 40 mg SUBCUT Q24H [facility] Last Admin: 08/13/21 18:52 Dose: 40 mg Documented by: FRANCOIS Metformin HCl (Metformin Hcl 1,000 Mg Tablet) 1,000 mg PO BIDWM [facility] Last Admin: 08/14/21 08:29 Dose: 1,000 mg Documented by: MASSIMO Metoprolol Succinate (Metoprolol Succinate Er 25 Mg Tab.Er.24h) 25 mg PO DAILY [facility]; Protocol Last Admin: 08/14/21 08:29 Dose: 25 mg Documented by: MASSIMO Omeprazole (Omeprazole 20 Mg Capsule.Dr) 20 mg PO DAILY [facility] Last Admin: 08/14/21 08:30 Dose: 20 mg Documented by: MASSIMO Ondansetron HCl (Ondansetron Hcl 4 Mg/2 Ml Vial) 4 mg IVPUSH Q8H PRN PRN Reason: Nausea and Vomiting Pharmacy Consult (Consult Rx Perform Med Rec) 1 each MISCELLANE ONCE PRN PRN Reason: Consult order Sodium Chloride (0.9 % Sodium Chloride Flush 3 Ml Syringe) 3 ml IVFLUSH QSHIFT [facility] Last Admin: 08/14/21 08:32 Dose: 3 ml Documented by: MASSIMO Labs CBC & Chem 7: 08/14/21 06:52 08/14/21 06:52 Labs: Laboratory Results - last 24 hr 08/13/21 08/13/21 08/13/21 16:38 16:38 23:40 MCV MCH MCHC RDW Plt Count MPV Immature Gran % (Auto) Neut % (Auto) Lymph % (Auto) [place] % (Auto) Eos % (Auto) Baso % (Auto) Lymph # (Auto) [place] # (Auto) Eos # (Auto) Baso # (Auto) Abs Immat Gran (auto) Absolute Neuts (auto) Absolute Nucleated RBC Nucleated RBC % (auto) ESR 31 H Anion Gap Estim Creat Clear Calc Estimated GFR Random Glucose Fasting Glucose Estimat Average Glucose Hemoglobin A1c % Calcium Magnesium 1.6 Total Bilirubin AST ALT Alkaline Phosphatase Troponin I High Sens 143.6 H* D C-Reactive Protein Total Protein Albumin 08/13/21 08/14/21 08/14/21 23:40 06:52 06:52 MCV 86.9 MCH 27.7 MCHC 31.9 RDW 18.6 H Plt Count 103 L MPV 9.4 Immature Gran % (Auto) 0.8 H Neut % (Auto) 72.8 Lymph % (Auto) 19.9 L [place] % (Auto) 6.3 Eos % (Auto) 0.0 Baso % (Auto) 0.2 Lymph # (Auto) 1.0 L [place] # (Auto) 0.3 Eos # (Auto) 0.0 Baso # (Auto) 0.0 Abs Immat Gran (auto) 0.04 H Absolute Neuts (auto) 3.8 Absolute Nucleated RBC 0.000 Nucleated RBC % (auto) 0.0 ESR Anion Gap 18 15 Estim Creat Clear Calc 38.4 49.9 Estimated GFR 55 > 60 Random Glucose 328 H D Fasting Glucose 222 H Estimat Average Glucose Hemoglobin A1c % Calcium 8.1 L D 8.2 L Magnesium 1.6 1.5 L Total Bilirubin 0.7 AST 38 H ALT 11 Alkaline Phosphatase 48 Troponin I High Sens C-Reactive Protein 2.07 H Total Protein 6.3 L Albumin 3.3 L 08/14/21 06:52 MCV MCH MCHC RDW Plt Count MPV Immature Gran % (Auto) Neut % (Auto) Lymph % (Auto) [place] % (Auto) Eos % (Auto) Baso % (Auto) Lymph # (Auto) [place] # (Auto) Eos # (Auto) Baso # (Auto) Abs Immat Gran (auto) Absolute Neuts (auto) Absolute Nucleated RBC Nucleated RBC % (auto) ESR Anion Gap Estim Creat Clear Calc Estimated GFR Random Glucose Fasting Glucose Estimat Average Glucose 148 Hemoglobin A1c % 6.8 Calcium Magnesium Total Bilirubin AST ALT Alkaline Phosphatase Troponin I High Sens C-Reactive Protein Total Protein Albumin Assessment and Plan (1) Acute hypokalemia: Status: Acute (2) Hypomagnesemia: Status: Acute (3) COVID-19: Status: Acute Assessment and Plan: 81-year-old male with significant cardiac history status post ICD placement presents after mechanical fall at home. Initial workup in emergency room failed to demonstrate any acute fracture however laboratory evaluation demonstrated severe hypokalemia and hypo magnesemia. No appreciable increase in total CK from down time 1.Mechanical fall -work up negative for Fx/head bleed - admit; PT evaluation when appropriate 2. Hypokalemia/hypomagnesemia -K+ repletion ongoing -recheck labs am 3.CAD with Ischemic Cardiomyopathy -last echo on file 10/18/20;EF 20-25% with severe global hypokenesis -Will trend Troponins; no anticoagulation at this time -Metoprolol at outpatient dosing 4.Anemia(chronic) -at baseline. -follow clinically 5.CKD stageI -Given EF volume repletion as given with K+ ( if requires addition IV K+ total infused volume will be 800cc) -check renals/divalents in am 6.Covid-19 -asymptomatic without O2 requirement/exam benign -follow clinically Lovenox Full Code Quality Stroke Does the patient have a stroke diagnosis?: No VTE Prior VTE?: No VTE Risk Level:: Medical - moderate - high VTE Device Contraindication: Treatment Not Indicated VTE Drug Contraindication: N/A - Med Ordered
[2021-08-14] MEDS: Enoxaparin Sodium 40 MG/0.4 ML SYRINGE SUBCUT (21:48)
[2021-08-14] MEDS: Atorvastatin Calcium 40 MG TABLET PO (21:48)
[2021-08-14 21:59] VITALS: BP 100/46; PULSE 87; RESP 16; TEMP 36.7; O2SAT 97
--- NOTE | 2021-08-14 22:04 | PC.NURSE ---
PATIENT HAD A SECOND LARGE LOOSE BOWEL MOVEMENT ,JOAQUIM JESUS IS AWARE ,PERICARE AND BED BATH GIVEN ,BEDDING WAS CHANGED ,PATIENT REPOSITION OFF BOTTOM AND HEELS FLOATED WITH PILLOW , PATIENT WATCHING TELEVISION .
[2021-08-14 23:43] VITALS: BP 101/44; PULSE 77; RESP 14; O2SAT 98
[2021-08-15] MEDS: 0.9 % Sodium Chloride Flush 3 ML SYRINGE IVFLUSH ×2 (00:31→09:04)
[2021-08-15 02:47] LABS: Appearance Urine HAZY; Color Urine YELLOW; Glucose Urine UA 250 MG/DL (NEG); Leukocyte Esterase Urine NEG (NEG); Nitrite Urine NEG (NEG); Specific Gravity - Urine >= 1.030 (1.005-1.025); Urine Blood NEG (NEG); Urine Ketones 5 MG/DL (NEG); Urine Protein TRACE MG/DL (NEG-TRACE)
[2021-08-15 05:09] LABS: MANUAL DIFF FLAG NO
[2021-08-15 05:13] LABS: Eosinophils Percent Auto 0.2 % (0-4); Hematocrit 24.2 % (42.0-52.0); Hemoglobin 7.8 g/dl (14.0-18.0); Imm Gran Abs Auto 0.03 X10*3/uL (0.00-0.03); Imm Gran Pct Auto 0.6 % (0.0-0.4); Lymphocytes Absolute Auto 1.1 X10*3/uL (1.2-4.9); Lymphocytes Percent Auto 20.3 % (20-40); Mean Corpuscular HGB Conc 32.2 g/dl (31.0-36.0); Mean Corpuscular Hemoglobin 28.1 pg (27.0-33.0); Mean Corpuscular Volume 87.1 fL (80.0-98.0); Mean Platelet Volume 10.3 fL (9.4-12.4); Monocytes Absolute Auto 0.3 X10*3/uL (0.1-1.2); Monocytes Percent Auto 4.8 % (2-11); Neutrophils Absolute Auto 3.9 x10*3/uL (2.0-8.3); Neutrophils Percent Auto 74.1 % (45-73); Red Blood Count 2.78 X10*6/uL (4.60-5.80); Red Cell Distribution Width 18.7 % (11.0-16.0); White Blood Count 5.2 X10*3/uL (4.8-10.8)
[2021-08-15 05:24] LABS: Platelet Count 95 X10*3/uL (160-400)
[2021-08-15 05:41] LABS: Alanine Aminotransferase 10 U/L (0-40); Albumin Level 2.9 g/dL (3.5-5.0); Alkaline Phosphatase 44 U/L (39-117); Anion Gap 13 (12-20); Aspartate Amino Transferase 32 U/L (5-37); Bilirubin Total 0.7 mg/dL (0.0-1.0); Blood Urea Nitrogen 18 mg/dL (9-16); Calcium 7.7 mg/dL (8.4-10.2); Carbon Dioxide 28 mmol/L (22-29); Chloride 94 mmol/L (96-108); Creatinine Clr Calc Pharmacy 54.4; Estimated Glomerular Filt Rate > 60; Glucose Fasting 167 mg/dL (60-99); Magnesium 1.8 mg/dL (1.6-2.6); Potassium 2.8 mmol/L (3.3-5.1); Sodium 132 mmol/L (135-145); Total Protein 5.6 g/dL (6.5-8.0)
[2021-08-15 06:25] VITALS: BP 110/42; PULSE 81; RESP 25; O2SAT 94
--- NOTE | 2021-08-15 06:31 | PC.NURSE ---
PT has a bowel movement in bed. Cleaned up and bedding changed. At this time PT has 600 ml of urine in james.
[2021-08-15] MEDS: Omeprazole 20 MG CAPSULE.DR PO (09:03)
[2021-08-15] MEDS: Cyanocobalamin (Vitamin B-12) 1,000 MCG TABLET 1000 MCG PO (09:04)
[2021-08-15] MEDS: Metoprolol Succinate ER 25 MG TAB.ER.24H PO (09:04)
[2021-08-15] MEDS: metFORMIN HCl 1,000 MG TABLET 1000 MG PO ×2 (09:04→16:38)
[2021-08-15 09:15] VITALS: BP 128/61; PULSE 101; RESP 16; O2SAT 94
--- NOTE | 2021-08-15 10:28 | PC.NURSE ---
Pt A&Ox3, no complaints of pain at this time, course crackles throughout lungs. L heel with unstagable present, MD aware. Medicated as per MAR orders. SR paced on the monitor. Bedside ECHO this am. Awaiting bed assignment. Will continue to monitor.
--- NOTE | 2021-08-15 15:17 | P.PNIM_ITS ---
Subjective Subjective Date of Service: 08/15/21 Interval History: remains weak but in no acute distress Review of Systems denies chest pain Denies shortness of breath Denies nausea vomiting diarrhea Physical Exam Vital Signs: Vital Signs: Last Vital Signs Temp 98.0 F 08/14/21 21:59 Pulse 101 H 08/15/21 09:15 Resp 16 08/15/21 09:15 BP 128/61 08/15/21 09:15 Pulse Ox 94 08/15/21 09:15 BMI result Body Mass Index 20.5 Const: Other: awake alert oriented x3 in no acute distress HENMT: Other: right eye prosthesis Neck: Other: no JVD appreciated Resp: Other: clear to auscultation all wick. No rales rhonchi or wheezes Cardio: Other: no S4; positive S1-S2; no S3 murmurs rubs gallops. Regular rate and rhythm GI: Other: soft nontender nondistended with normoactive bowel sounds. There is no rebound or guarding appreciated Neuro: Other: cranial nerves 2-12 grossly intact as tested. Motor is 5/5 in all extremities. Sensation is intact cognition is appropriate Extrem: Other: no edema bilaterally Objective Data Active Medications Acetaminophen (Acetaminophen 325 Mg Tablet) 650 mg PO Q6H PRN PRN Reason: Pain, Mild (Pain Scale 1-3) Albuterol/Ipratropium (Albuterol/Iprat 2.5/0.5mg 3 Ml Ampul.Neb) 3 ml INHALE Q4H PRN PRN Reason: Shortness Of Breath Atorvastatin Calcium (Atorvastatin Calcium 40 Mg Tablet) 40 mg PO BEDTIME [facility] Last Admin: 08/14/21 21:48 Dose: 40 mg Documented by: ELIUD Cyanocobalamin (Cyanocobalamin (Vitamin B-12) 1,000 Mcg Tablet) 1,000 mcg PO DAILY [facility] Last Admin: 08/15/21 09:04 Dose: 1,000 mcg Documented by: MASSIMO Enoxaparin Sodium (Enoxaparin Sodium 40 Mg/0.4 Ml Syringe) 40 mg SUBCUT Q24H [facility] Last Admin: 08/14/21 21:48 Dose: 40 mg Documented by: ELIUD Potassium Chloride () 10 meq in 100 mls @ 100 mls/hr IV Q1H [facility] Stop: 08/15/21 19:29 Metformin HCl (Metformin Hcl 1,000 Mg Tablet) 1,000 mg PO BIDWM [facility] Last Admin: 08/15/21 09:04 Dose: 1,000 mg Documented by: MASSIMO Metoprolol Succinate (Metoprolol Succinate Er 25 Mg Tab.Er.24h) 25 mg PO DAILY [facility]; Protocol Last Admin: 08/15/21 09:04 Dose: 25 mg Documented by: MASSIMO Omeprazole (Omeprazole 20 Mg Capsule.Dr) 20 mg PO DAILY [facility] Last Admin: 08/15/21 09:03 Dose: 20 mg Documented by: MASSIMO Ondansetron HCl (Ondansetron Hcl 4 Mg/2 Ml Vial) 4 mg IVPUSH Q8H PRN PRN Reason: Nausea and Vomiting Pharmacy Consult (Consult Rx Perform Med Rec) 1 each MISCELLANE ONCE PRN PRN Reason: Consult order Sodium Chloride (0.9 % Sodium Chloride Flush 3 Ml Syringe) 3 ml IVFLUSH QSHIFT [facility] Last Admin: 08/15/21 09:04 Dose: 3 ml Documented by: MASSIMO Labs CBC & Chem 7: 08/15/21 04:27 08/15/21 04:27 Labs: Laboratory Results - last 24 hr 08/15/21 08/15/21 08/15/21 02:35 04:27 04:27 MCV 87.1 MCH 28.1 MCHC 32.2 RDW 18.7 H Plt Count 95 L MPV 10.3 Immature Gran % (Auto) 0.6 H Neut % (Auto) 74.1 H Lymph % (Auto) 20.3 Hale % (Auto) 4.8 Eos % (Auto) 0.2 Baso % (Auto) 0.0 Lymph # (Auto) 1.1 L Hale # (Auto) 0.3 Eos # (Auto) 0.0 Baso # (Auto) 0.0 Abs Immat Gran (auto) 0.03 Absolute Neuts (auto) 3.9 Absolute Nucleated RBC 0.000 Nucleated RBC % (auto) 0.0 Anion Gap 13 Estim Creat Clear Calc 54.4 Estimated GFR > 60 Fasting Glucose 167 H Calcium 7.7 L D Magnesium 1.8 Total Bilirubin 0.7 AST 32 ALT 10 Alkaline Phosphatase 44 Total Protein 5.6 L Albumin 2.9 L Urine Color YELLOW Urine Appearance HAZY Urine pH 6.0 Ur Specific Brownell >= 1.030 H Urine Protein TRACE Urine Glucose (UA) 250 H Urine Ketones 5 Urine Blood NEG Urine Nitrite NEG Ur Leukocyte Esterase NEG Microbiology Microbiology Results: Microbiology 08/13/21 23:40 Blood Culture - Preliminary Blood - Venous No growth after 24 hours. 08/13/21 23:40 Blood Culture - Preliminary Blood - Venous No growth after 24 hours. Assessment and Plan (1) Acute hypokalemia: Status: Acute (2) Severe anemia: Status: Acute (3) COVID-19: Status: Acute Assessment and Plan: 81-year-old male with significant cardiac history status post ICD placement presents after mechanical fall at home. Initial workup in emergency room failed to demonstrate any acute fracture however laboratory evaluation demonstrated severe hypokalemia and hypo magnesemia. No appreciable increase in total CK from down time 1.Mechanical fall -work up negative for Fx/head bleed -PT evaluation; recommends STIR 2. Hypokalemia/hypomagnesemia -K+ repletion ongoing -recheck labs am 3.CAD with Ischemic Cardiomyopathy -last echo on file 10/18/20;EF 20-25% with severe global hypokenesis -Will trend Troponins; no anticoagulation at this time -Metoprolol at outpatient dosing 4.Anemia(chronic) -at baseline. -follow clinically 5.CKD stageI -Given EF volume repletion as given with K+ ( if requires addition IV K+ total infused volume will be 800cc) -check renals/divalents in am 6.Covid-19 -asymptomatic without O2 requirement/exam benign -follow clinically Lovenox Full Code Quality Stroke Does the patient have a stroke diagnosis?: No VTE Prior VTE?: No VTE Risk Level:: Medical - moderate - high VTE Device Contraindication: Treatment Not Indicated VTE Drug Contraindication: N/A - Med Ordered
[2021-08-15] MEDS: Potassium Chloride/H20 10 MEQ/100 ML PIGGYBACK 100 MEQ IV ×3 (16:39→22:16)
--- NOTE | 2021-08-15 18:30 | PC.NURSE ---
Spoke to pt's sister, Mary Jane, updated on POC. Pt medicated as per MAR orders, [place] cath in place and working well. No complaints of pain, checked for inc of stool at this time. Will continue to monitor.
[2021-08-15 18:34] VITALS: BP 106/45; PULSE 80; RESP 15; TEMP 37.3; O2SAT 96
[2021-08-15 19:33] VITALS: BP 99/42; PULSE 79; RESP 22; O2SAT 97
[2021-08-15] MEDS: Enoxaparin Sodium 40 MG/0.4 ML SYRINGE SUBCUT (19:49)
[2021-08-15] MEDS: Atorvastatin Calcium 40 MG TABLET PO (19:50)
[2021-08-16] VITALS (7 sets, daily range): BP systolic 82–104; BP diastolic 36–49; PULSE 64–80; RESP 14–22; TEMP 36.1–36.8; O2SAT 94–99
[2021-08-16] MEDS: Potassium Chloride/H20 10 MEQ/100 ML PIGGYBACK 100 MEQ IV (01:17)
[2021-08-16 07:16] LABS: MANUAL DIFF FLAG NO
[2021-08-16 07:24] LABS: Basophils Percent Auto 0.1 % (0-2); Hematocrit 23.2 % (42.0-52.0); Hemoglobin 7.4 g/dl (14.0-18.0); Imm Gran Abs Auto 0.16 X10*3/uL (0.00-0.03); Imm Gran Pct Auto 1.7 % (0.0-0.4); Lymphocytes Absolute Auto 1.2 X10*3/uL (1.2-4.9); Lymphocytes Percent Auto 12.8 % (20-40); Mean Corpuscular HGB Conc 31.9 g/dl (31.0-36.0); Mean Corpuscular Volume 87.9 fL (80.0-98.0); Mean Platelet Volume 10.6 fL (9.4-12.4); Monocytes Absolute Auto 0.3 X10*3/uL (0.1-1.2); Monocytes Percent Auto 2.7 % (2-11); Neutrophils Absolute Auto 7.9 x10*3/uL (2.0-8.3); Neutrophils Percent Auto 82.7 % (45-73); Platelet Count 113 X10*3/uL (160-400); Red Blood Count 2.64 X10*6/uL (4.60-5.80); Red Cell Distribution Width 19.2 % (11.0-16.0); White Blood Count 9.5 X10*3/uL (4.8-10.8)
[2021-08-16 07:57] LABS: Alanine Aminotransferase 10 U/L (0-40); Albumin Level 2.7 g/dL (3.5-5.0); Alkaline Phosphatase 40 U/L (39-117); Anion Gap 11 (12-20); Aspartate Amino Transferase 34 U/L (5-37); Bilirubin Total 0.9 mg/dL (0.0-1.0); Blood Urea Nitrogen 23 mg/dL (9-16); Calcium 7.4 mg/dL (8.4-10.2); Carbon Dioxide 29 mmol/L (22-29); Chloride 93 mmol/L (96-108); Creatinine Clr Calc Pharmacy 43.2; Estimated Glomerular Filt Rate > 60; Glucose Fasting 204 mg/dL (60-99); Magnesium 1.8 mg/dL (1.6-2.6); Sodium 130 mmol/L (135-145); Total Protein 5.3 g/dL (6.5-8.0)
--- NOTE | 2021-08-16 08:50 | PC.NURSE ---
Assisted Physical Therapy with helping pt oob into bedside recliner. Pt incontinent of large amount of loose stool. Pt cleaned and bedding changed, RN aware.
[2021-08-16] MEDS: Metoprolol Succinate ER 25 MG TAB.ER.24H PO (11:05)
[2021-08-16] MEDS: Potassium Chloride ER 20 MEQ TAB.ER.PRT 40 MEQ PO (11:05)
[2021-08-16] MEDS: metFORMIN HCl 1,000 MG TABLET 1000 MG PO ×2 (11:05→16:27)
[2021-08-16] MEDS: dexAMETHasone sod phosphate 4 MG/ML VIAL 6 MG IVPUSH (11:05)
[2021-08-16] MEDS: Cyanocobalamin (Vitamin B-12) 1,000 MCG TABLET 1000 MCG PO (11:06)
[2021-08-16] MEDS: Omeprazole 20 MG CAPSULE.DR PO (11:06)
--- NOTE | 2021-08-16 13:38 | HO.PM.IMPN ---
Subjective Subjective Date of Service: 08/16/21 Interval History: cc: cande interval history: productive cough Cardiovascular Cardiovascular: Reports no additional cardiovascular complaints Respiratory Respiratory: Reports no additional respiratory complaints Physical Exam Vital Signs: Vital Signs: Last Vital Signs Temp 97.6 F 08/16/21 10:21 Pulse 80 08/16/21 10:21 Resp 14 08/16/21 10:21 BP 104/36 L 08/16/21 10:21 Pulse Ox 94 08/16/21 10:21 BMI result Body Mass Index 20.5 General: AO X 3, frail appearing Resp: rhonchi bilateral, no accessory muscles used CVS: S1,S2,RRR GI: soft, non tender, non distended Neuro: motor grossly intact, alert Psych: appropriate affect, appropriate insight Objective Data Active Medications Acetaminophen (Acetaminophen 325 Mg Tablet) 650 mg PO Q6H PRN PRN Reason: Pain, Mild (Pain Scale 1-3) Albuterol/Ipratropium (Albuterol/Iprat 2.5/0.5mg 3 Ml Ampul.Neb) 3 ml INHALE Q4H PRN PRN Reason: Shortness Of Breath Atorvastatin Calcium (Atorvastatin Calcium 40 Mg Tablet) 40 mg PO BEDTIME [facility] Last Admin: 08/15/21 19:50 Dose: 40 mg Documented by: ROSELIA Cyanocobalamin (Cyanocobalamin (Vitamin B-12) 1,000 Mcg Tablet) 1,000 mcg PO DAILY [facility] Last Admin: 08/16/21 11:06 Dose: 1,000 mcg Documented by: RIDDHI Dexamethasone Sodium Phosphate (Dexamethasone Sod Phosphate 4 Mg/Ml Vial) 6 mg IVPUSH DAILY [facility] Last Admin: 08/16/21 11:05 Dose: 6 mg Documented by: RIDDHI Enoxaparin Sodium (Enoxaparin Sodium 40 Mg/0.4 Ml Syringe) 40 mg SUBCUT Q24H [facility] Last Admin: 08/15/21 19:49 Dose: 40 mg Documented by: ROSELIA Metformin HCl (Metformin Hcl 1,000 Mg Tablet) 1,000 mg PO BIDWM [facility] Last Admin: 08/16/21 11:05 Dose: 1,000 mg Documented by: RIDDHI Metoprolol Succinate (Metoprolol Succinate Er 25 Mg Tab.Er.24h) 25 mg PO DAILY [facility]; Protocol Last Admin: 08/16/21 11:05 Dose: 25 mg Documented by: RIDDHI Omeprazole (Omeprazole 20 Mg Capsule.Dr) 20 mg PO DAILY [facility] Last Admin: 08/16/21 11:06 Dose: 20 mg Documented by: RIDDHI Ondansetron HCl (Ondansetron Hcl 4 Mg/2 Ml Vial) 4 mg IVPUSH Q8H PRN PRN Reason: Nausea and Vomiting Pharmacy Consult (Consult Rx Perform Med Rec) 1 each MISCELLANE ONCE PRN PRN Reason: Consult order Sodium Chloride (0.9 % Sodium Chloride Flush 3 Ml Syringe) 3 ml IVFLUSH QSHIFT [facility] Last Admin: 08/16/21 11:06 Dose: Not Given Documented by: RIDDHI Non-Admin Reason: IV Running Labs CBC & Chem 7: 08/16/21 06:39 08/16/21 06:39 Labs: Laboratory Results - last 24 hr 08/16/21 08/16/21 06:39 06:39 MCV 87.9 MCH 28.0 MCHC 31.9 RDW 19.2 H Plt Count 113 L MPV 10.6 Immature Gran % (Auto) 1.7 H Neut % (Auto) 82.7 H Lymph % (Auto) 12.8 L Mason % (Auto) 2.7 Eos % (Auto) 0.0 Baso % (Auto) 0.1 Lymph # (Auto) 1.2 Mason # (Auto) 0.3 Eos # (Auto) 0.0 Baso # (Auto) 0.0 Abs Immat Gran (auto) 0.16 H Absolute Neuts (auto) 7.9 Absolute Nucleated RBC 0.000 Nucleated RBC % (auto) 0.0 Anion Gap 11 L Estim Creat Clear Calc 43.2 Estimated GFR > 60 Fasting Glucose 204 H Calcium 7.4 L Magnesium 1.8 Total Bilirubin 0.9 AST 34 ALT 10 Alkaline Phosphatase 40 Total Protein 5.3 L Albumin 2.7 L Microbiology Microbiology Results: Microbiology 08/13/21 23:40 Blood Culture - Preliminary Blood - Venous No growth after 48 hours. 08/13/21 23:40 Blood Culture - Preliminary Blood - Venous No growth after 48 hours. Assessment and Plan (1) Acute hypokalemia: Status: Acute (2) Severe anemia: Status: Acute (3) COVID-19: Status: Acute Assessment and Plan: 81-year-old male with significant cardiac history status post ICD placement presents after mechanical fall at home. Initial workup in emergency room failed to demonstrate any acute fracture however laboratory evaluation demonstrated severe hypokalemia and hypo magnesemia. No appreciable increase in total CK from down time, found to have covid acute hypoxic respiratory failure due to covid pneuomnia 88% on room air will start decadron monitor prognostic labs Mechanical fall work up negative for Fx/head bleed PT evaluation; recommends STIR Hypokalemia/hypomagnesemia K+ repletion ongoing recheck labs am CAD with Ischemic Cardiomyopathy last echo on file 10/18/20;EF 20-25% with severe global hypokenesis Metoprolol, statin lasix Anemia(chronic) -at baseline. -follow clinically Lovenox Full Code Quality Stroke Does the patient have a stroke diagnosis?: No VTE Prior VTE?: No VTE Risk Level:: Medical - moderate - high VTE Device Contraindication: Treatment Not Indicated VTE Drug Contraindication: N/A - Med Ordered
[2021-08-16 16:24] LABS: Glucose, Whole Blood 331 mg/dL (60-115)
[2021-08-16] MEDS: Insulin Lispro 100 UNIT/ML 3 ML VIAL SUBCUT ×2 (16:27→21:41)
[2021-08-16] MEDS: 0.9 % Sodium Chloride Flush 3 ML SYRINGE IVFLUSH (16:27)
--- NOTE | 2021-08-16 20:31 | PC.NURSE ---
pt in recliner, pt is caox3, denies any complaint at this time. Bronchial and vesicular ls are diminished but otherwise clear. pt remains in nsr in lead 2
[2021-08-16 21:17] LABS: Glucose, Whole Blood 227 mg/dL (60-115)
[2021-08-16] MEDS: Enoxaparin Sodium 40 MG/0.4 ML SYRINGE SUBCUT (21:37)
[2021-08-16] MEDS: Atorvastatin Calcium 40 MG TABLET PO (21:37)
[2021-08-17 00:51] VITALS: BP 93/44; PULSE 64; RESP 22; TEMP 36.6; O2SAT 95
[2021-08-17 05:53] VITALS: BP 94/56; PULSE 64; RESP 10; TEMP 36.4; O2SAT 96
[2021-08-17 07:05] LABS: Hematocrit 25.1 % (42.0-52.0); Mean Corpuscular HGB Conc 31.9 g/dl (31.0-36.0); Mean Corpuscular Hemoglobin 27.7 pg (27.0-33.0); Mean Corpuscular Volume 86.9 fL (80.0-98.0); Mean Platelet Volume 10.8 fL (9.4-12.4); Platelet Count 125 X10*3/uL (160-400); Red Blood Count 2.89 X10*6/uL (4.60-5.80); Red Cell Distribution Width 18.8 % (11.0-16.0); White Blood Count 10.3 X10*3/uL (4.8-10.8)
[2021-08-17 07:33] LABS: Glucose, Whole Blood 166 mg/dL (60-115)
[2021-08-17 07:34] LABS: Anion Gap 14 (12-20); Blood Urea Nitrogen 38 mg/dL (9-16); C Reactive Protein 10.21 mg/dL (< or = 0.50); Carbon Dioxide 27 mmol/L (22-29); Chloride 94 mmol/L (96-108); Creatinine Clr Calc Pharmacy 33.4; Estimated Glomerular Filt Rate 46; Glucose Fasting 165 mg/dL (60-99); Magnesium 1.9 mg/dL (1.6-2.6); Potassium 3.6 mmol/L (3.3-5.1); Sodium 131 mmol/L (135-145)
[2021-08-17] MEDS: dexAMETHasone sod phosphate 4 MG/ML VIAL 6 MG IVPUSH (08:08)
[2021-08-17] MEDS: Furosemide 20 MG TABLET PO (08:09)
[2021-08-17] MEDS: Insulin Lispro 100 UNIT/ML 3 ML VIAL SUBCUT ×4 (08:09→20:45)
[2021-08-17] MEDS: Omeprazole 20 MG CAPSULE.DR PO (08:09)
[2021-08-17] MEDS: Cyanocobalamin (Vitamin B-12) 1,000 MCG TABLET 1000 MCG PO (08:09)
[2021-08-17] MEDS: Metoprolol Succinate ER 25 MG TAB.ER.24H PO (08:09)
[2021-08-17] MEDS: 0.9 % Sodium Chloride Flush 3 ML SYRINGE IVFLUSH ×2 (08:10→18:45)
[2021-08-17] MEDS: metFORMIN HCl 1,000 MG TABLET 1000 MG PO (08:10)
--- NOTE | 2021-08-17 10:38 | PC.NURSE ---
Pt A&Ox3, no complaints of pain. Course rhonchi to BLLobes. Productive cough at this time, coughing and phlegm removal encouraged by this RN. Pt OOB to chair, large liquid BM with movement. AM care provided. Phone and sister's phone number given to pt at this time. Small wound noted to L posterior shoulder, mepilex placed over it at this time. Per PT who saw pt yesterday, she noted a large scab over the wound yesterday. Scab found in bed linens this morning. Pt is Celeste in the 60's on the monitor at this time. Awaiting bed assignment/dispo. Will continue to monitor.
--- NOTE | 2021-08-17 10:59 | P.PNIM_ITS ---
Subjective Subjective Date of Service: 08/17/21 Interval History: :?cc: cande interval history: a bit better today Cardiovascular Cardiovascular: Reports no additional cardiovascular complaints Genitourinary Genitourinary: Reports no additional male genitourinary complaints Physical Exam Vital Signs: Vital Signs: Last Vital Signs Temp 97.6 F 08/17/21 05:53 Pulse 64 08/17/21 05:53 Resp 10 L 08/17/21 05:53 BP 94/56 L 08/17/21 05:53 Pulse Ox 96 08/17/21 05:53 BMI result Body Mass Index 20.5 General: AO X 3, frail appearing Resp:? rhonchi bilateral, no accessory muscles used CVS: S1,S2,RRR GI: soft, non tender, non distended Neuro:? motor grossly intact, alert Psych: appropriate affect, appropriate insight? Objective Data Active Medications Acetaminophen (Acetaminophen 325 Mg Tablet) 650 mg PO Q6H PRN PRN Reason: Pain, Mild (Pain Scale 1-3) Albuterol/Ipratropium (Albuterol/Iprat 2.5/0.5mg 3 Ml Ampul.Neb) 3 ml INHALE Q4H PRN PRN Reason: Shortness Of Breath Atorvastatin Calcium (Atorvastatin Calcium 40 Mg Tablet) 40 mg PO BEDTIME [facility] Last Admin: 08/16/21 21:37 Dose: 40 mg Documented by: MICHELLE Cyanocobalamin (Cyanocobalamin (Vitamin B-12) 1,000 Mcg Tablet) 1,000 mcg PO DAILY [facility] Last Admin: 08/17/21 08:09 Dose: 1,000 mcg Documented by: YOUSUF-NAYELI Dexamethasone Sodium Phosphate (Dexamethasone Sod Phosphate 4 Mg/Ml Vial) 6 mg IVPUSH DAILY [facility] Last Admin: 08/17/21 08:08 Dose: 6 mg Documented by: YOUSUF-NAYELI Dextrose (Dextrose 50 % 25 Gm/50 Ml Syringe) 25 gm IVPUSH Q15M PRN; Protocol PRN Reason: per Hypoglycemia Standing Ord. Enoxaparin Sodium (Enoxaparin Sodium 40 Mg/0.4 Ml Syringe) 40 mg SUBCUT Q24H [facility] Last Admin: 08/16/21 21:37 Dose: 40 mg Documented by: MICHELLE Glucose (Glucose Gel 15 Gm Gel..Gram.) 15 gm PO Q15M PRN; Protocol PRN Reason: per Hypoglycemia Standing Ord. Insulin Human Lispro (Insulin Lispro 100 Unit/Ml 3 Ml Vial) 0 unit SUBCUT QIDACHS [facility]; Protocol Last Admin: 08/17/21 08:09 Dose: 2 unit Documented by: MASSIMO Metoprolol Succinate (Metoprolol Succinate Er 25 Mg Tab.Er.24h) 25 mg PO DAILY [facility]; Protocol Last Admin: 08/17/21 08:09 Dose: 25 mg Documented by: MASSIMO Omeprazole (Omeprazole 20 Mg Capsule.Dr) 20 mg PO DAILY [facility] Last Admin: 08/17/21 08:09 Dose: 20 mg Documented by: MASSIMO Ondansetron HCl (Ondansetron Hcl 4 Mg/2 Ml Vial) 4 mg IVPUSH Q8H PRN PRN Reason: Nausea and Vomiting Pharmacy Consult (Consult Rx Perform Med Rec) 1 each MISCELLANE ONCE PRN PRN Reason: Consult order Sodium Chloride (0.9 % Sodium Chloride Flush 3 Ml Syringe) 3 ml IVFLUSH QSHIFT [facility] Last Admin: 08/17/21 08:10 Dose: 3 ml Documented by: MASSIMO Labs CBC & Chem 7: 08/17/21 06:16 08/17/21 06:16 Labs: Laboratory Results - last 24 hr 08/16/21 08/16/21 08/17/21 16:17 21:12 06:16 MCV 86.9 MCH 27.7 MCHC 31.9 RDW 18.8 H Plt Count 125 L MPV 10.8 Absolute Nucleated RBC 0.000 Nucleated RBC % (auto) 0.0 Anion Gap Estim Creat Clear Calc Estimated GFR POC Glucose 331 H 227 H Fasting Glucose Calcium Magnesium C-Reactive Protein 08/17/21 08/17/21 06:16 07:27 MCV MCH MCHC RDW Plt Count MPV Absolute Nucleated RBC Nucleated RBC % (auto) Anion Gap 14 Estim Creat Clear Calc 33.4 Estimated GFR 46 POC Glucose 166 H Fasting Glucose 165 H Calcium 8.0 L D Magnesium 1.9 C-Reactive Protein 10.21 H Assessment and Plan (1) Acute hypokalemia: Status: Acute (2) Severe anemia: Status: Acute (3) COVID-19: Status: Acute Assessment and Plan: 81-year-old male with significant cardiac history status post ICD placement presents after mechanical fall at home. Initial workup in emergency room failed to demonstrate any acute fracture however laboratory evaluation demonstrated severe hypokalemia and hypo magnesemia. No appreciable increase in total CK from down time, found to have covid acute hypoxic respiratory failure due to covid pneuomnia decadron day 2 wean o2 as tolerated monitor prognostic labs - increasing jabari ?relative hypotension hold lasix, monitor Mechanical fall work up negative for Fx/head bleed PT evaluation; recommends STIR Hypokalemia/hypomagnesemia resolved CAD with Ischemic Cardiomyopathy last echo on file 10/18/20;EF 20-25% with severe global hypokenesis Metoprolol, statin Anemia(chronic) -at baseline. -follow clinically Lovenox Full Code Quality Stroke Does the patient have a stroke diagnosis?: No VTE Prior VTE?: No VTE Risk Level:: Medical - moderate - high VTE Device Contraindication: Treatment Not Indicated VTE Drug Contraindication: N/A - Med Ordered
[2021-08-17 12:22] LABS: Glucose, Whole Blood 201 mg/dL (60-115)
--- NOTE | 2021-08-17 13:42 | MHC.CM.PN ---
Patient remains admitted in ER overflow. Patient is positive for Covid. Did not receive any Covid vaccines. Patient's O2 sat is low today and discharge is not anticipated. Patient will need STR at d/c. Due to positive Covid and not vaccinated, placement may be difficult to find. Continue to monitor for d/c needs.
[2021-08-17 14:55] VITALS: BP 96/43; PULSE 64; RESP 24; TEMP 37; O2SAT 97
[2021-08-17 16:19] VITALS: BP 91/46; PULSE 65; RESP 20; TEMP 36.7; O2SAT 100
[2021-08-17 16:30] LABS: Glucose, Whole Blood 225 mg/dL (60-115)
[2021-08-17] MEDS: Enoxaparin Sodium 40 MG/0.4 ML SYRINGE SUBCUT (20:45)
[2021-08-17] MEDS: Atorvastatin Calcium 40 MG TABLET PO (20:45)
[2021-08-17 20:46] LABS: Glucose, Whole Blood 263 mg/dL (60-115)
[2021-08-17 22:52] VITALS: BP 120/61; PULSE 73; RESP 18; TEMP 37.1; O2SAT 89
[2021-08-17 22:52] LABS: Glucose, Whole Blood 185 mg/dL (60-115)
[2021-08-18 00:54] VITALS: BMI 20.9
[2021-08-18 03:58] VITALS: BP 123/59; PULSE 86; RESP 20; TEMP 37.4; O2SAT 94
[2021-08-18 06:32] LABS: Hematocrit 25.7 % (42.0-52.0); Hemoglobin 8.4 g/dl (14.0-18.0); Mean Corpuscular HGB Conc 32.7 g/dl (31.0-36.0); Mean Corpuscular Hemoglobin 28.1 pg (27.0-33.0); Mean Platelet Volume 10.3 fL (9.4-12.4); Platelet Count 145 X10*3/uL (160-400); Red Blood Count 2.99 X10*6/uL (4.60-5.80); Red Cell Distribution Width 19.3 % (11.0-16.0)
[2021-08-18 06:52] LABS: Anion Gap 15 (12-20); Blood Urea Nitrogen 40 mg/dL (9-16); Calcium 7.8 mg/dL (8.4-10.2); Carbon Dioxide 25 mmol/L (22-29); Chloride 94 mmol/L (96-108); Creatinine Clr Calc Pharmacy 34.7; Estimated Glomerular Filt Rate 48; Glucose Fasting 134 mg/dL (60-99); Potassium 3.2 mmol/L (3.3-5.1); Sodium 131 mmol/L (135-145)
[2021-08-18 07:53] VITALS: BP 121/56; PULSE 90; RESP 18; TEMP 36.7; O2SAT 91
[2021-08-18 08:01] LABS: Glucose, Whole Blood 158 mg/dL (60-115)
[2021-08-18] MEDS: Potassium Chloride ER 20 MEQ TAB.ER.PRT 40 MEQ PO (08:25)
[2021-08-18] MEDS: Omeprazole 20 MG CAPSULE.DR PO (08:25)
[2021-08-18] MEDS: Insulin Lispro 100 UNIT/ML 3 ML VIAL SUBCUT ×3 (08:25→21:01)
[2021-08-18] MEDS: Cyanocobalamin (Vitamin B-12) 1,000 MCG TABLET 1000 MCG PO (08:26)
[2021-08-18] MEDS: Metoprolol Succinate ER 25 MG TAB.ER.24H PO (08:26)
[2021-08-18] MEDS: 0.9 % Sodium Chloride Flush 3 ML SYRINGE IVFLUSH ×3 (08:26→21:01)
[2021-08-18] MEDS: dexAMETHasone sod phosphate 4 MG/ML VIAL 6 MG IVPUSH (08:26)
--- NOTE | 2021-08-18 11:35 | HO.PM.IMPN ---
Subjective Subjective Date of Service: 08/18/21 Interval History: cc: cande interval history: weaker, cough worsening Cardiovascular Cardiovascular: Reports no additional cardiovascular complaints Gastrointestinal Gastrointestinal: Reports no additional gastrointestinal complaints Physical Exam Vital Signs: Vital Signs: Last Vital Signs Temp 98.1 F 08/18/21 07:53 Pulse 90 08/18/21 07:53 Resp 18 08/18/21 07:53 BP 121/56 L 08/18/21 07:53 Pulse Ox 91 L 08/18/21 07:53 BMI result Body Mass Index 20.9 General: AO X 3, frail appearing Resp:? rhonchi bilateral, no accessory muscles used CVS: S1,S2,RRR GI: soft, non tender, non distended Neuro:? motor grossly intact, alert Psych: appropriate affect, appropriate insight? Objective Data Active Medications Acetaminophen (Acetaminophen 325 Mg Tablet) 650 mg PO Q6H PRN PRN Reason: Pain, Mild (Pain Scale 1-3) Albuterol/Ipratropium (Albuterol/Iprat 2.5/0.5mg 3 Ml Ampul.Neb) 3 ml INHALE Q4H PRN PRN Reason: Shortness Of Breath Atorvastatin Calcium (Atorvastatin Calcium 40 Mg Tablet) 40 mg PO BEDTIME [facility] Last Admin: 08/17/21 20:45 Dose: 40 mg Documented by: TAHIR Cyanocobalamin (Cyanocobalamin (Vitamin B-12) 1,000 Mcg Tablet) 1,000 mcg PO DAILY [facility] Last Admin: 08/18/21 08:26 Dose: 1,000 mcg Documented by: SARAVANAN Dexamethasone Sodium Phosphate (Dexamethasone Sod Phosphate 4 Mg/Ml Vial) 6 mg IVPUSH DAILY [facility] Last Admin: 08/18/21 08:26 Dose: 6 mg Documented by: SARAVANAN Dextrose (Dextrose 50 % 25 Gm/50 Ml Syringe) 25 gm IVPUSH Q15M PRN; Protocol PRN Reason: per Hypoglycemia Standing Ord. Enoxaparin Sodium (Enoxaparin Sodium 40 Mg/0.4 Ml Syringe) 40 mg SUBCUT Q24H [facility] Last Admin: 08/17/21 20:45 Dose: 40 mg Documented by: TAHIR Glucose (Glucose Gel 15 Gm Gel..Gram.) 15 gm PO Q15M PRN; Protocol PRN Reason: per Hypoglycemia Standing Ord. Insulin Human Lispro (Insulin Lispro 100 Unit/Ml 3 Ml Vial) 0 unit SUBCUT QIDACHS [facility]; Protocol Last Admin: 08/18/21 08:25 Dose: 2 unit Documented by: SARAVANAN Metoprolol Succinate (Metoprolol Succinate Er 25 Mg Tab.Er.24h) 25 mg PO DAILY [facility]; Protocol Last Admin: 08/18/21 08:26 Dose: 25 mg Documented by: SARAVANAN Omeprazole (Omeprazole 20 Mg Capsule.Dr) 20 mg PO DAILY [facility] Last Admin: 08/18/21 08:25 Dose: 20 mg Documented by: SARAVANAN Ondansetron HCl (Ondansetron Hcl 4 Mg/2 Ml Vial) 4 mg IVPUSH Q8H PRN PRN Reason: Nausea and Vomiting Pharmacy Consult (Consult Rx Perform Med Rec) 1 each MISCELLANE ONCE PRN PRN Reason: Consult order Sodium Chloride (0.9 % Sodium Chloride Flush 3 Ml Syringe) 3 ml IVFLUSH QSHIFT [facility] Last Admin: 08/18/21 08:26 Dose: 3 ml Documented by: SARAVANAN Labs CBC & Chem 7: 08/18/21 05:48 08/18/21 05:49 Labs: Laboratory Results - last 24 hr 08/17/21 08/17/21 08/17/21 12:17 16:06 20:36 MCV MCH MCHC RDW Plt Count MPV Absolute Nucleated RBC Nucleated RBC % (auto) Anion Gap Estim Creat Clear Calc Estimated GFR POC Glucose 201 H 225 H 263 H Fasting Glucose Calcium 08/17/21 08/18/21 08/18/21 22:49 05:48 05:49 MCV 86.0 MCH 28.1 MCHC 32.7 RDW 19.3 H Plt Count 145 L MPV 10.3 Absolute Nucleated RBC 0.000 Nucleated RBC % (auto) 0.0 Anion Gap 15 Estim Creat Clear Calc 34.7 Estimated GFR 48 POC Glucose 185 H Fasting Glucose 134 H Calcium 7.8 L 08/18/21 07:55 MCV MCH MCHC RDW Plt Count MPV Absolute Nucleated RBC Nucleated RBC % (auto) Anion Gap Estim Creat Clear Calc Estimated GFR POC Glucose 158 H Fasting Glucose Calcium Assessment and Plan (1) Acute hypokalemia: Status: Acute (2) Severe anemia: Status: Acute (3) COVID-19: Status: Acute Assessment and Plan: 81-year-old male with significant cardiac history status post ICD placement presents after mechanical fall at home. Initial workup in emergency room failed to demonstrate any acute fracture however laboratory evaluation demonstrated severe hypokalemia and hypo magnesemia. No appreciable increase in total CK from down time, found to have covid acute hypoxic respiratory failure due to covid pneuomnia decadron day 3 wean o2 as tolerated - o2 requirements increasing - now on 6L monitor prognostic labs - increasing jabari ?relative hypotension holding lasix, monitor creatinine stable to day at 1.4, bp improved Mechanical fall work up negative for Fx/head bleed PT evaluation; recommends STIR Hypokalemia/hypomagnesemia resolved CAD with Ischemic Cardiomyopathy last echo on file 10/18/20;EF 20-25% with severe global hypokenesis Metoprolol, statin Anemia(chronic) -at baseline. -follow clinically Lovenox Full Code Quality Stroke Does the patient have a stroke diagnosis?: No VTE Prior VTE?: No VTE Risk Level:: Medical - moderate - high VTE Device Contraindication: Treatment Not Indicated VTE Drug Contraindication: N/A - Med Ordered
[2021-08-18 11:37] LABS: Glucose, Whole Blood 128 mg/dL (60-115)
[2021-08-18 12:00] VITALS: BP 129/62; PULSE 86; RESP 22; TEMP 37.3; O2SAT 93
[2021-08-18 15:36] VITALS: BP 136/72; PULSE 78; RESP 20; TEMP 37; O2SAT 94
[2021-08-18 17:15] LABS: Glucose, Whole Blood 261 mg/dL (60-115)
[2021-08-18 20:00] VITALS: BP 109/49; PULSE 100; RESP 20; TEMP 36.4; O2SAT 90
[2021-08-18] MEDS: Atorvastatin Calcium 40 MG TABLET PO (21:00)
[2021-08-18] MEDS: Enoxaparin Sodium 40 MG/0.4 ML SYRINGE SUBCUT (21:00)
[2021-08-18 21:19] LABS: Glucose, Whole Blood 219 mg/dL (60-115)
[2021-08-18 23:44] VITALS: BP 109/51; PULSE 97; RESP 20; TEMP 37.1; O2SAT 90
[2021-08-19 04:00] VITALS: BP 112/56; PULSE 91; RESP 19; TEMP 37.7; O2SAT 93
[2021-08-19 06:54] LABS: Hematocrit 26.5 % (42.0-52.0); Hemoglobin 8.6 g/dl (14.0-18.0); Mean Corpuscular HGB Conc 32.5 g/dl (31.0-36.0); Mean Corpuscular Hemoglobin 27.7 pg (27.0-33.0); Mean Corpuscular Volume 85.2 fL (80.0-98.0); Platelet Count 122 X10*3/uL (160-400); Red Blood Count 3.11 X10*6/uL (4.60-5.80); White Blood Count 8.1 X10*3/uL (4.8-10.8)
[2021-08-19 07:01] LABS: D Dimer High Sensitivity 1057 NG/ML
[2021-08-19 07:08] LABS: Anion Gap 15 (12-20); Blood Urea Nitrogen 34 mg/dL (9-16); C Reactive Protein 6.26 mg/dL (< or = 0.50); Calcium 8.1 mg/dL (8.4-10.2); Carbon Dioxide 24 mmol/L (22-29); Chloride 94 mmol/L (96-108); Creatinine Clr Calc Pharmacy 36.5; Estimated Glomerular Filt Rate 50; Glucose Fasting 164 mg/dL (60-99); Potassium 3.4 mmol/L (3.3-5.1); Sodium 130 mmol/L (135-145)
[2021-08-19 07:15] LABS: B Type Natriuretic Peptide 665 pg/mL (<100)
[2021-08-19 07:39] LABS: Glucose, Whole Blood 173 mg/dL (60-115)
[2021-08-19 08:00] VITALS: BP 108/53; PULSE 91; RESP 22; TEMP 36.3; O2SAT 92
[2021-08-19] MEDS: Insulin Lispro 100 UNIT/ML 3 ML VIAL SUBCUT ×4 (08:14→21:16)
[2021-08-19] MEDS: dexAMETHasone sod phosphate 4 MG/ML VIAL 6 MG IVPUSH (08:15)
[2021-08-19] MEDS: Omeprazole 20 MG CAPSULE.DR PO (08:15)
[2021-08-19] MEDS: 0.9 % Sodium Chloride Flush 3 ML SYRINGE IVFLUSH ×3 (08:15→21:20)
[2021-08-19] MEDS: Cyanocobalamin (Vitamin B-12) 1,000 MCG TABLET 1000 MCG PO (08:15)
[2021-08-19] MEDS: Metoprolol Succinate ER 25 MG TAB.ER.24H PO (08:15)
[2021-08-19 10:46] VITALS: BP 108/53; PULSE 91; O2SAT 92
[2021-08-19 11:39] LABS: Glucose, Whole Blood 210 mg/dL (60-115)
--- NOTE | 2021-08-19 11:48 | MHC.CM.PN ---
Patient is not yet medically cleared for dc (8L O2, IV Decadron); STR is the goal for dc and CM will follow for possible need to adjust the dc plan.
[2021-08-19 12:00] VITALS: BP 100/54; PULSE 92; RESP 19; TEMP 36.6; O2SAT 92
--- NOTE | 2021-08-19 13:23 | P.PNIM_ITS ---
Subjective Subjective Date of Service: 08/19/21 Interval History: pt seen and examined at bedside. No acute complaint at this time. Denies any chest pain, no worsening shortness of breath, no abdominal pain nausea or vomiting, no diarrhea constipation. Patient has had an increase in O2 requirement overnight from 6 L yesterday to 8 L today. Review of Systems Review of Systems: Yes all other systems are reviewed and are negative Physical Exam Vital Signs: Vital Signs: Last Vital Signs Temp 97.4 F 08/19/21 08:00 Pulse 91 08/19/21 10:46 Resp 22 H 08/19/21 08:00 BP 108/53 L 08/19/21 10:46 Pulse Ox 92 08/19/21 10:46 BMI result Body Mass Index 20.9 Const: General: cooperative and no acute distress Orientati on/consciousness: patient oriented x3 Resp: Effort & Inspection: normal respiratory effort Cardio: Rate: regular rate Rhythm: regular rhythm GI: Palpation (GI): Soft to palpation Auscultation: normal bowel sounds Neuro: General: patient oriented x3 Objective Data Active Medications Acetaminophen (Acetaminophen 325 Mg Tablet) 650 mg PO Q6H PRN PRN Reason: Pain, Mild (Pain Scale 1-3) Albuterol/Ipratropium (Albuterol/Iprat 2.5/0.5mg 3 Ml Ampul.Neb) 3 ml INHALE Q4H PRN PRN Reason: Shortness Of Breath Atorvastatin Calcium (Atorvastatin Calcium 40 Mg Tablet) 40 mg PO BEDTIME [facility] Last Admin: 08/18/21 21:00 Dose: 40 mg Documented by: BEAU Cyanocobalamin (Cyanocobalamin (Vitamin B-12) 1,000 Mcg Tablet) 1,000 mcg PO DAILY [facility] Last Admin: 08/19/21 08:15 Dose: 1,000 mcg Documented by: ANGELICA Dexamethasone Sodium Phosphate (Dexamethasone Sod Phosphate 4 Mg/Ml Vial) 6 mg IVPUSH DAILY [facility] Last Admin: 08/19/21 08:15 Dose: 6 mg Documented by: ANGELICA Dextrose (Dextrose 50 % 25 Gm/50 Ml Syringe) 25 gm IVPUSH Q15M PRN; Protocol PRN Reason: per Hypoglycemia Standing Ord. Enoxaparin Sodium (Enoxaparin Sodium 40 Mg/0.4 Ml Syringe) 40 mg SUBCUT Q24H [facility] Last Admin: 08/18/21 21:00 Dose: 40 mg Documented by: JEANNINEROLaurence Glucose (Glucose Gel 15 Gm Gel..Gram.) 15 gm PO Q15M PRN; Protocol PRN Reason: per Hypoglycemia Standing Ord. Insulin Human Lispro (Insulin Lispro 100 Unit/Ml 3 Ml Vial) 0 unit SUBCUT QIDACHS [facility]; Protocol Last Admin: 08/19/21 11:55 Dose: 4 unit Documented by: ANGELICA Metoprolol Succinate (Metoprolol Succinate Er 25 Mg Tab.Er.24h) 25 mg PO DAILY [facility]; Protocol Last Admin: 08/19/21 08:15 Dose: 25 mg Documented by: ANGELICA Omeprazole (Omeprazole 20 Mg Capsule.Dr) 20 mg PO DAILY [facility] Last Admin: 08/19/21 08:15 Dose: 20 mg Documented by: ANGELICA Ondansetron HCl (Ondansetron Hcl 4 Mg/2 Ml Vial) 4 mg IVPUSH Q8H PRN PRN Reason: Nausea and Vomiting Pharmacy Consult (Consult Rx Perform Med Rec) 1 each MISCELLANE ONCE PRN PRN Reason: Consult order Sodium Chloride (0.9 % Sodium Chloride Flush 3 Ml Syringe) 3 ml IVFLUSH QSHIFT [facility] Last Admin: 08/19/21 08:15 Dose: 3 ml Documented by: ANGELICA Labs CBC & Chem 7: 08/19/21 06:41 08/19/21 06:41 Labs: Laboratory Results - last 24 hr 08/18/21 08/18/21 08/19/21 17:11 20:57 06:41 MCV 85.2 MCH 27.7 MCHC 32.5 RDW 19.0 H Plt Count 122 L MPV 10.0 Absolute Nucleated RBC 0.000 Nucleated RBC % (auto) 0.0 D-Dimer High Sensitivty Anion Gap Estim Creat Clear Calc Estimated GFR POC Glucose 261 H 219 H Fasting Glucose Calcium C-Reactive Protein B-Natriuretic Peptide 08/19/21 08/19/21 08/19/21 06:41 06:41 06:41 MCV MCH MCHC RDW Plt Count MPV Absolute Nucleated RBC Nucleated RBC % (auto) D-Dimer High Sensitivty 1057 Anion Gap 15 Estim Creat Clear Calc 36.5 Estimated GFR 50 POC Glucose Fasting Glucose 164 H Calcium 8.1 L C-Reactive Protein 6.26 H B-Natriuretic Peptide 665 H 08/19/21 08/19/21 07:35 11:33 MCV MCH MCHC RDW Plt Count MPV Absolute Nucleated RBC Nucleated RBC % (auto) D-Dimer High Sensitivty Anion Gap Estim Creat Clear Calc Estimated GFR POC Glucose 173 H 210 H Fasting Glucose Calcium C-Reactive Protein B-Natriuretic Peptide Microbiology Microbiology Results: Microbiology 08/13/21 23:40 Blood Culture - Final Blood - Venous No growth after 5 days. 08/13/21 23:40 Blood Culture - Final Blood - Venous No growth after 5 days. Assessment and Plan (1) COVID-19: Status: Acute (2) Acute respiratory failure with hypoxia: Status: Acute Assessment and Plan: 81-year-old male with significant cardiac history status post ICD placement presents after mechanical fall at home.? Initial workup in emergency room failed to demonstrate any acute fracture however laboratory evaluation demonstrated severe hypokalemia and hypo magnesemia.? No appreciable increase in total CK from down time, found to have covid # acute hypoxic respiratory failure due to covid pneuomnia - decadron day 4 - wean o2 as tolerated - o2 requirements increasing - now on 8L - monitor prognostic labs - increasing # jabari ?relative hypotension holding lasix, IMPROVING continue to monitor BMP creatinine stable to day at 1.4, bp improved # Mechanical fall work up negative for Fx/head bleed PT evaluation;? recommends STIR # Hypokalemia/hypomagnesemia resolved # CAD with Ischemic Cardiomyopathy last echo on file 10/18/20;EF 20-25% with severe global hypokenesis Metoprolol, statin # Anemia(chronic) ? -at baseline. ? -follow clinically Lovenox Full Code Quality Stroke Does the patient have a stroke diagnosis?: No VTE Prior VTE?: No VTE Risk Level:: Medical - moderate - high VTE Device Contraindication: Treatment Not Indicated VTE Drug Contraindication: N/A - Med Ordered
--- NOTE | 2021-08-19 13:23 | PC.NURSE ---
Skin/Wound assessment completed. Patient has blanchable redness to bilateral buttocks with a small bruise to right buttock. Barrier cream applied. No other skin issues noted at this time.
[2021-08-19 15:31] VITALS: BP 90/51; PULSE 75; RESP 18; TEMP 37.1; O2SAT 90
[2021-08-19 16:14] LABS: Glucose, Whole Blood 200 mg/dL (60-115)
[2021-08-19 19:38] VITALS: BP 105/55; PULSE 89; RESP 18; TEMP 37.1; O2SAT 98
[2021-08-19 20:06] LABS: Glucose, Whole Blood 289 mg/dL (60-115)
[2021-08-19] MEDS: Atorvastatin Calcium 40 MG TABLET PO (21:15)
[2021-08-19] MEDS: Enoxaparin Sodium 40 MG/0.4 ML SYRINGE SUBCUT (21:18)
[2021-08-20 04:00] VITALS: BP 110/55; PULSE 80; RESP 18; TEMP 36.7; O2SAT 93
[2021-08-20 07:07] LABS: Anion Gap 15 (12-20); Blood Urea Nitrogen 31 mg/dL (9-16); Carbon Dioxide 26 mmol/L (22-29); Chloride 94 mmol/L (96-108); Creatinine Clr Calc Pharmacy 39.8; Estimated Glomerular Filt Rate 56; Glucose Random 164 mg/dL (60-115); Potassium 3.3 mmol/L (3.3-5.1); Sodium 132 mmol/L (135-145)
[2021-08-20 08:00] VITALS: BP 114/58; PULSE 80; RESP 18; TEMP 36.8; O2SAT 92
[2021-08-20 08:21] LABS: Glucose, Whole Blood 174 mg/dL (60-115)
[2021-08-20] MEDS: Insulin Lispro 100 UNIT/ML 3 ML VIAL SUBCUT ×4 (08:58→20:35)
[2021-08-20] MEDS: Omeprazole 20 MG CAPSULE.DR PO (08:58)
[2021-08-20] MEDS: Metoprolol Succinate ER 25 MG TAB.ER.24H PO (08:58)
[2021-08-20] MEDS: Cyanocobalamin (Vitamin B-12) 1,000 MCG TABLET 1000 MCG PO (08:58)
[2021-08-20] MEDS: dexAMETHasone sod phosphate 4 MG/ML VIAL 6 MG IVPUSH (08:58)
[2021-08-20] MEDS: 0.9 % Sodium Chloride Flush 3 ML SYRINGE IVFLUSH ×3 (09:01→20:35)
[2021-08-20 11:25] LABS: Glucose, Whole Blood 289 mg/dL (60-115)
[2021-08-20 12:00] VITALS: BP 99/57; PULSE 71; RESP 18; TEMP 36.9; O2SAT 92
--- NOTE | 2021-08-20 12:29 | HO.PM.IMPN ---
Subjective Subjective Date of Service: 08/20/21 Interval History: pt seen and examined at bedside. no overnight events. continues to have productive cough. no reported fever. no chest pain. reports feeling the same. no chest pain. abd pain, no constipation or diarrhea no urinary sx. Review of Systems Review of Systems: Yes all other systems are reviewed and are negative Physical Exam Vital Signs: Vital Signs: Last Vital Signs Temp 98.4 F 08/20/21 12:00 Pulse 71 08/20/21 12:00 Resp 18 08/20/21 12:00 BP 99/57 L 08/20/21 12:00 Pulse Ox 92 08/20/21 12:00 BMI result Body Mass Index 20.9 Const: General: cooperative and no acute distress Orientation/consciousness: patient oriented x3 Resp: Effort & Inspection: normal respiratory effort Auscultation: clear to auscultation bilaterally Cardio: Rate: regular rate Rhythm: regular rhythm GI: Palpation (GI): Soft to palpation Auscultation: normal bowel sounds Neuro: General: patient oriented x3 Extrem: General: Yes normal to inspection and Yes no pedal edema Objective Data Active Medications Acetaminophen (Acetaminophen 325 Mg Tablet) 650 mg PO Q6H PRN PRN Reason: Pain, Mild (Pain Scale 1-3) Albuterol/Ipratropium (Albuterol/Iprat 2.5/0.5mg 3 Ml Ampul.Neb) 3 ml INHALE Q4H PRN PRN Reason: Shortness Of Breath Atorvastatin Calcium (Atorvastatin Calcium 40 Mg Tablet) 40 mg PO BEDTIME [facility] Last Admin: 08/19/21 21:15 Dose: 40 mg Documented by: MANNIE Cyanocobalamin (Cyanocobalamin (Vitamin B-12) 1,000 Mcg Tablet) 1,000 mcg PO DAILY [facility] Last Admin: 08/20/21 08:58 Dose: 1,000 mcg Documented by: BRORajwinder Dexamethasone Sodium Phosphate (Dexamethasone Sod Phosphate 4 Mg/Ml Vial) 6 mg IVPUSH DAILY [facility] Last Admin: 08/20/21 08:58 Dose: 6 mg Documented by: ANGELICA Dextrose (Dextrose 50 % 25 Gm/50 Ml Syringe) 25 gm IVPUSH Q15M PRN; Protocol PRN Reason: per Hypoglycemia Standing Ord. Enoxaparin Sodium (Enoxaparin Sodium 40 Mg/0.4 Ml Syringe) 40 mg SUBCUT Q24H [facility] Last Admin: 08/19/21 21:18 Dose: 40 mg Documented by: MANNIE Glucose (Glucose Gel 15 Gm Gel..Gram.) 15 gm PO Q15M PRN; Protocol PRN Reason: per Hypoglycemia Standing Ord. Insulin Human Lispro (Insulin Lispro 100 Unit/Ml 3 Ml Vial) 0 unit SUBCUT QIDACHS [facility]; Protocol Last Admin: 08/20/21 12:14 Dose: 6 unit Documented by: ANGELICA Metoprolol Succinate (Metoprolol Succinate Er 25 Mg Tab.Er.24h) 25 mg PO DAILY [facility]; Protocol Last Admin: 08/20/21 08:58 Dose: 25 mg Documented by: ANGELICA Omeprazole (Omeprazole 20 Mg Capsule.Dr) 20 mg PO DAILY [facility] Last Admin: 08/20/21 08:58 Dose: 20 mg Documented by: ANGELICA Ondansetron HCl (Ondansetron Hcl 4 Mg/2 Ml Vial) 4 mg IVPUSH Q8H PRN PRN Reason: Nausea and Vomiting Pharmacy Consult (Consult Rx Perform Med Rec) 1 each MISCELLANE ONCE PRN PRN Reason: Consult order Sodium Chloride (0.9 % Sodium Chloride Flush 3 Ml Syringe) 3 ml IVFLUSH QSHIFT [facility] Last Admin: 08/20/21 09:01 Dose: 3 ml Documented by: ANGELICA Labs CBC & Chem 7: 08/19/21 06:41 08/20/21 06:36 Labs: Laboratory Results - last 24 hr 08/19/21 08/19/21 08/20/21 15:33 19:36 06:36 Anion Gap 15 Estim Creat Clear Calc 39.8 Estimated GFR 56 POC Glucose 200 H 289 H Random Glucose 164 H D Calcium 8.0 L 08/20/21 08/20/21 08:17 11:10 Anion Gap Estim Creat Clear Calc Estimated GFR POC Glucose 174 H 289 H Random Glucose Calcium Assessment and Plan (1) Acute respiratory failure with hypoxia: Status: Acute (2) COVID-19: Status: Acute Assessment and Plan: 81-year-old male with significant cardiac history status post ICD placement presents after mechanical fall at home.? Initial workup in emergency room failed to demonstrate any acute fracture however laboratory evaluation demonstrated severe hypokalemia and hypo magnesemia.? No appreciable increase in total CK from down time, found to have covid # acute hypoxic respiratory failure due to covid pneuomnia - decadron day 5 - continues to require 8 L of O2 - wean o2 as tolerated - o2 requirements increasing - monitor prognostic labs - which were increasing # jabari - resolved - unclear etiology - baseline arund 0.9 - will continue to hold lasix - monitor volume status - daily bmp # Mechanical fall - work up negative for Fx/head bleed - PT evaluation;? recommends STIR # Hypokalemia/hypomagnesemia - resolved - daily bmp - follow mag in am # CAD with Ischemic Cardiomyopathy - last echo on file 10/18/20;EF 20-25% with severe global hypokenesis - continue Metoprolol, statin # Anemia(chronic) ? -at baseline. ? -follow clinically Lovenox Full Code Dispo: continues to requires high oxygen demand , Quality Stroke Does the patient have a stroke diagnosis?: No VTE Prior VTE?: No VTE Risk Level:: Medical - moderate - high VTE Device Contraindication: Treatment Not Indicated VTE Drug Contraindication: N/A - Med Ordered
[2021-08-20 16:00] VITALS: BP 95/48; PULSE 69; RESP 18; TEMP 37.2; O2SAT 91
[2021-08-20 16:53] LABS: Glucose, Whole Blood 341 mg/dL (60-115)
[2021-08-20 20:00] VITALS: BP 99/54; PULSE 75; TEMP 36.3; O2SAT 93
[2021-08-20 20:19] LABS: Glucose, Whole Blood 349 mg/dL (60-115)
[2021-08-20] MEDS: Atorvastatin Calcium 40 MG TABLET PO (20:35)
[2021-08-20] MEDS: Enoxaparin Sodium 40 MG/0.4 ML SYRINGE SUBCUT (20:35)
[2021-08-20 23:10] VITALS: BP 109/57; PULSE 71; RESP 18; TEMP 36.7; O2SAT 93
[2021-08-21 02:58] VITALS: BP 107/55; PULSE 87; RESP 18; TEMP 36.3; O2SAT 89
[2021-08-21 07:17] LABS: Anion Gap 12 (12-20); Blood Urea Nitrogen 30 mg/dL (9-16); Calcium 8.1 mg/dL (8.4-10.2); Carbon Dioxide 29 mmol/L (22-29); Chloride 96 mmol/L (96-108); Creatinine Clr Calc Pharmacy 44.1; Estimated Glomerular Filt Rate > 60; Glucose Random 153 mg/dL (60-115); Magnesium 1.9 mg/dL (1.6-2.6); Potassium 3.2 mmol/L (3.3-5.1); Sodium 134 mmol/L (135-145)
[2021-08-21 07:34] VITALS: BP 101/52; PULSE 72; RESP 19; TEMP 36.6; O2SAT 85
[2021-08-21 07:34] LABS: Glucose, Whole Blood 144 mg/dL (60-115)
[2021-08-21] MEDS: 0.9 % Sodium Chloride Flush 3 ML SYRINGE IVFLUSH ×3 (08:18→20:58)
[2021-08-21] MEDS: Cyanocobalamin (Vitamin B-12) 1,000 MCG TABLET 1000 MCG PO (08:18)
[2021-08-21] MEDS: Metoprolol Succinate ER 25 MG TAB.ER.24H PO (08:18)
[2021-08-21] MEDS: Omeprazole 20 MG CAPSULE.DR PO (08:18)
[2021-08-21] MEDS: dexAMETHasone sod phosphate 4 MG/ML VIAL 6 MG IVPUSH (08:18)
[2021-08-21 11:09] VITALS: BP 101/58; PULSE 70; RESP 20; TEMP 37; O2SAT 98
[2021-08-21 11:12] LABS: Glucose, Whole Blood 306 mg/dL (60-115)
[2021-08-21] MEDS: Insulin Lispro 100 UNIT/ML 3 ML VIAL SUBCUT ×3 (12:21→20:58)
--- NOTE | 2021-08-21 12:30 | HO.PM.IMPN ---
Subjective Subjective Date of Service: 08/21/21 Interval History: pt seen and examined at bedside. he is denying any worsening SOB or chest pain, but has increased O2 requirement. he is sating this Am to low 80s ( 80-84% ) on 8L of O2. He denies any abd pain, no n/v, no constipation. no urinary sx , no lower extremity edema. Review of Systems Review of Systems: Yes all other systems are reviewed and are negative Physical Exam Vital Signs: Vital Signs: Last Vital Signs Temp 98.6 F 08/21/21 11:09 Pulse 70 08/21/21 11:09 Resp 20 08/21/21 11:09 BP 101/58 L 08/21/21 11:09 Pulse Ox 98 08/21/21 11:09 BMI result Body Mass Index 20.9 Objective Data Active Medications Acetaminophen (Acetaminophen 325 Mg Tablet) 650 mg PO Q6H PRN PRN Reason: Pain, Mild (Pain Scale 1-3) Atorvastatin Calcium (Atorvastatin Calcium 40 Mg Tablet) 40 mg PO BEDTIME [facility] Last Admin: 08/20/21 20:35 Dose: 40 mg Documented by: KATHERINE Cyanocobalamin (Cyanocobalamin (Vitamin B-12) 1,000 Mcg Tablet) 1,000 mcg PO DAILY [facility] Last Admin: 08/21/21 08:18 Dose: 1,000 mcg Documented by: ANGELICA Dexamethasone Sodium Phosphate (Dexamethasone Sod Phosphate 4 Mg/Ml Vial) 6 mg IVPUSH DAILY [facility] Last Admin: 08/21/21 08:18 Dose: 6 mg Documented by: ANGELICA Dextrose (Dextrose 50 % 25 Gm/50 Ml Syringe) 25 gm IVPUSH Q15M PRN; Protocol PRN Reason: per Hypoglycemia Standing Ord. Enoxaparin Sodium (Enoxaparin Sodium 40 Mg/0.4 Ml Syringe) 40 mg SUBCUT Q24H [facility] Last Admin: 08/20/21 20:35 Dose: 40 mg Documented by: KATHERINE Glucose (Glucose Gel 15 Gm Gel..Gram.) 15 gm PO Q15M PRN; Protocol PRN Reason: per Hypoglycemia Standing Ord. Insulin Human Lispro (Insulin Lispro 100 Unit/Ml 3 Ml Vial) 0 unit SUBCUT QIDACHS [facility]; Protocol Last Admin: 08/21/21 12:21 Dose: 8 unit Documented by: ANGELICA Metoprolol Succinate (Metoprolol Succinate Er 25 Mg Tab.Er.24h) 25 mg PO DAILY [facility]; Protocol Last Admin: 08/21/21 08:18 Dose: 25 mg Documented by: ANGELICA Omeprazole (Omeprazole 20 Mg Capsule.Dr) 20 mg PO DAILY [facility] Last Admin: 08/21/21 08:18 Dose: 20 mg Documented by: ANGELICA Ondansetron HCl (Ondansetron Hcl 4 Mg/2 Ml Vial) 4 mg IVPUSH Q8H PRN PRN Reason: Nausea and Vomiting Pharmacy Consult (Consult Rx Perform Med Rec) 1 each MISCELLANE ONCE PRN PRN Reason: Consult order Sodium Chloride (0.9 % Sodium Chloride Flush 3 Ml Syringe) 3 ml IVFLUSH QSHIFT [facility] Last Admin: 08/21/21 08:18 Dose: 3 ml Documented by: ANGELICA Labs CBC & Chem 7: 08/19/21 06:41 08/21/21 06:24 Labs: Laboratory Results - last 24 hr 08/20/21 08/20/21 08/21/21 16:47 20:14 06:24 Anion Gap 12 Estim Creat Clear Calc 44.1 Estimated GFR > 60 POC Glucose 341 H 349 H Random Glucose 153 H Calcium 8.1 L Magnesium 1.9 08/21/21 08/21/21 07:31 10:58 Anion Gap Estim Creat Clear Calc Estimated GFR POC Glucose 144 H 306 H Random Glucose Calcium Magnesium Assessment and Plan (1) Acute respiratory failure with hypoxia: Status: Acute (2) COVID-19: Status: Acute (3) CHF (congestive heart failure): Status: Acute (4) AROLDO (acute kidney injury): Status: Acute Assessment and Plan: 81-year-old male with significant cardiac history status post ICD placement presents after mechanical fall at home.? Initial workup in emergency room failed to demonstrate any acute fracture however laboratory evaluation demonstrated severe hypokalemia and hypo magnesemia.? No appreciable increase in total CK from down time, found to have covid # acute hypoxic respiratory failure due to covid pneuomnia - decadron day 6 - O2 requirements increasing - possibly components of COVID as well as CHF - Pt w hx of chf and was not receiving lasix due to AROLDO, - will order stat BNP, chest xray - increase O2 as required - will give lasix 40 IV once and follow above work up # aroldo - resolved - baseline arund 0.9 now 1.12 - daily bmp # Mechanical fall - work up negative for Fx/head bleed - PT evaluation;? recommends STIR # Hypokalemia/hypomagnesemia - resolved - daily bmp - follow mag in am # CAD with Ischemic Cardiomyopathy - last echo on file 10/18/20;EF 20-25% with severe global hypokenesis - continue Metoprolol, statin # Anemia(chronic) ? -at baseline. ? -follow clinically Lovenox Full Code Dispo: continues to requires high oxygen demand , day by day Quality Stroke Does the patient have a stroke diagnosis?: No VTE Prior VTE?: No VTE Risk Level:: Medical - moderate - high VTE Device Contraindication: Treatment Not Indicated VTE Drug Contraindication: N/A - Med Ordered
[2021-08-21] MEDS: Furosemide 40 MG/4 ML VIAL IVPUSH (12:51)
[2021-08-21 13:53] LABS: B Type Natriuretic Peptide 298 pg/mL (<100)
[2021-08-21 16:00] VITALS: BP 109/62; PULSE 62; TEMP 36.2; O2SAT 98
[2021-08-21 16:55] LABS: Glucose, Whole Blood 292 mg/dL (60-115)
[2021-08-21 20:00] VITALS: BP 90/50; PULSE 85; TEMP 36.8; O2SAT 91
[2021-08-21 20:37] LABS: Glucose, Whole Blood 359 mg/dL (60-115)
[2021-08-21] MEDS: Enoxaparin Sodium 40 MG/0.4 ML SYRINGE SUBCUT (20:57)
[2021-08-21] MEDS: Atorvastatin Calcium 40 MG TABLET PO (20:58)
[2021-08-22] VITALS: BP 91/54; PULSE 124; RESP 18; TEMP 36.9; O2SAT 91
[2021-08-22 03:26] VITALS: BP 98/52; PULSE 86; RESP 20; TEMP 36.1; O2SAT 91
[2021-08-22 07:03] LABS: Anion Gap 15 (12-20); Blood Urea Nitrogen 30 mg/dL (9-16); Carbon Dioxide 28 mmol/L (22-29); Chloride 95 mmol/L (96-108); Creatinine Clr Calc Pharmacy 41.1; Estimated Glomerular Filt Rate 58; Glucose Random 168 mg/dL (60-115); Potassium 3.6 mmol/L (3.3-5.1); Sodium 134 mmol/L (135-145)
[2021-08-22] MEDS: Insulin Lispro 100 UNIT/ML 3 ML VIAL SUBCUT ×4 (07:26→20:50)
[2021-08-22 07:28] LABS: Glucose, Whole Blood 171 mg/dL (60-115)
[2021-08-22 08:00] VITALS: BP 99/52; PULSE 82; RESP 20; TEMP 36.6; O2SAT 89
[2021-08-22] MEDS: Cyanocobalamin (Vitamin B-12) 1,000 MCG TABLET 1000 MCG PO (08:25)
[2021-08-22] MEDS: Omeprazole 20 MG CAPSULE.DR PO (08:26)
[2021-08-22] MEDS: 0.9 % Sodium Chloride Flush 3 ML SYRINGE IVFLUSH ×3 (08:27→20:50)
[2021-08-22] MEDS: dexAMETHasone sod phosphate 4 MG/ML VIAL 6 MG IVPUSH (08:27)
--- NOTE | 2021-08-22 10:05 | P.PNIM_ITS ---
Subjective Subjective Date of Service: 08/22/21 Interval History: cc: cande interval history: overall feels better despite no significant change in o2 requirements Cardiovascular Cardiovascular: Reports no additional cardiovascular complaints Respiratory Respiratory: Reports no additional respiratory complaints Physical Exam Vital Signs: Vital Signs: Last Vital Signs Temp 97.8 F 08/22/21 08:00 Pulse 82 08/22/21 08:00 Resp 20 08/22/21 08:00 BP 99/52 L 08/22/21 08:00 Pulse Ox 89 L 08/22/21 08:00 BMI result Body Mass Index 20.9 General: AO X 3, frail appearing Resp:? rhonchi bilateral, no accessory muscles used CVS: S1,S2,RRR GI: soft, non tender, non distended Neuro:? motor grossly intact, alert Psych: appropriate affect, appropriate insight? Objective Data Active Medications Acetaminophen (Acetaminophen 325 Mg Tablet) 650 mg PO Q6H PRN PRN Reason: Pain, Mild (Pain Scale 1-3) Atorvastatin Calcium (Atorvastatin Calcium 40 Mg Tablet) 40 mg PO BEDTIME [facility] Last Admin: 08/21/21 20:58 Dose: 40 mg Documented by: BEAU Cyanocobalamin (Cyanocobalamin (Vitamin B-12) 1,000 Mcg Tablet) 1,000 mcg PO DA [facility] Last Admin: 08/22/21 08:25 Dose: 1,000 mcg Documented by: RIDDHI Dexamethasone Sodium Phosphate (Dexamethasone Sod Phosphate 4 Mg/Ml Vial) 6 mg IVPUSH DAILY [facility] Last Admin: 08/22/21 08:27 Dose: 6 mg Documented by: RIDDHI Dextrose (Dextrose 50 % 25 Gm/50 Ml Syringe) 25 gm IVPUSH Q15M PRN; Protocol PRN Reason: per Hypoglycemia Standing Ord. Enoxaparin Sodium (Enoxaparin Sodium 40 Mg/0.4 Ml Syringe) 40 mg SUBCUT Q24H [facility] Last Admin: 08/21/21 20:57 Dose: 40 mg Documented by: BEAU Glucose (Glucose Gel 15 Gm Gel..Gram.) 15 gm PO Q15M PRN; Protocol PRN Reason: per Hypoglycemia Standing Ord. Insulin Human Lispro (Insulin Lispro 100 Unit/Ml 3 Ml Vial) 0 unit SUBCUT QIDACHS [facility]; Protocol Last Admin: 08/22/21 07:26 Dose: 2 unit Documented by: RIDDHI Metoprolol Succinate (Metoprolol Succinate Er 25 Mg Tab.Er.24h) 25 mg PO DAILY [facility]; Protocol Last Admin: 08/22/21 08:28 Dose: Not Given Documented by: RIDDHI Non-Admin Reason: Decreased Blood Pressure Omeprazole (Omeprazole 20 Mg Capsule.Dr) 20 mg PO DAILY [facility] Last Admin: 08/22/21 08:26 Dose: 20 mg Documented by: RIDDHI Ondansetron HCl (Ondansetron Hcl 4 Mg/2 Ml Vial) 4 mg IVPUSH Q8H PRN PRN Reason: Nausea and Vomiting Pharmacy Consult (Consult Rx Perform Med Rec) 1 each MISCELLANE ONCE PRN PRN Reason: Consult order Sodium Chloride (0.9 % Sodium Chloride Flush 3 Ml Syringe) 3 ml IVFLUSH QSHIFT [facility] Last Admin: 08/22/21 08:27 Dose: 3 ml Documented by: RIDDHI Labs CBC & Chem 7: 08/19/21 06:41 08/22/21 06:25 Labs: Laboratory Results - last 24 hr 08/21/21 08/21/21 08/21/21 10:58 13:03 16:41 Anion Gap Estim Creat Clear Calc Estimated GFR POC Glucose 306 H 292 H Random Glucose Calcium B-Natriuretic Peptide 298 H 08/21/21 08/22/21 08/22/21 20:32 06:25 07:24 Anion Gap 15 Estim Creat Clear Calc 41.1 Estimated GFR 58 POC Glucose 359 H* 171 H Random Glucose 168 H Calcium 8.0 L B-Natriuretic Peptide Assessment and Plan (1) Acute respiratory failure with hypoxia: Status: Acute (2) COVID-19: Status: Acute (3) CHF (congestive heart failure): Status: Acute (4) ARODLO (acute kidney injury): Status: Acute (5) Acute hypokalemia: Status: Acute (6) Severe anemia: Status: Acute Assessment and Plan: 81-year-old male with significant cardiac history status post ICD placement presents after mechanical fall at home. Initial workup in emergency room failed to demonstrate any acute fracture however laboratory evaluation demonstrated severe hypokalemia and hypo magnesemia. No appreciable increase in total CK from down time, found to have covid acute hypoxic respiratory failure due to covid pneuomnia decadron wean o2 as tolerated overall appears and feels better but no significant change in o2 requirements AROLDO creatinine down to 1.2 from 1.45 Mechanical fall work up negative for Fx/head bleed PT evaluation; recommends STIR Hypokalemia/hypomagnesemia resolved CAD with Ischemic Cardiomyopathy last echo on file 10/18/20;EF 20-25% with severe global hypokenesis Metoprolol, statin Anemia(chronic) -at baseline. -follow clinically Lovenox Full Code Quality Stroke Does the patient have a stroke diagnosis?: No VTE Prior VTE?: No VTE Risk Level:: Medical - moderate - high VTE Device Contraindication: Treatment Not Indicated VTE Drug Contraindication: N/A - Med Ordered
[2021-08-22 11:07] VITALS: BP 102/52; PULSE 80; RESP 20; TEMP 36.7; O2SAT 92
[2021-08-22 11:10] LABS: Glucose, Whole Blood 285 mg/dL (60-115)
[2021-08-22 16:00] VITALS: BP 86/54; PULSE 90; RESP 18; TEMP 36.4; O2SAT 94
[2021-08-22 16:49] LABS: Glucose, Whole Blood 249 mg/dL (60-115)
[2021-08-22 20:00] VITALS: BP 94/54; PULSE 80; RESP 15; TEMP 36.6; O2SAT 94
[2021-08-22 20:10] LABS: Glucose, Whole Blood 283 mg/dL (60-115)
[2021-08-22] MEDS: Enoxaparin Sodium 40 MG/0.4 ML SYRINGE SUBCUT (20:50)
[2021-08-22] MEDS: Atorvastatin Calcium 40 MG TABLET PO (20:50)
[2021-08-23] VITALS (7 sets, daily range): BP systolic 98–114; BP diastolic 50–65; PULSE 74–87; RESP 15–20; TEMP 35.9–37.3; O2SAT 91–100
[2021-08-23 06:42] LABS: Hematocrit 29.9 % (42.0-52.0); Hemoglobin 9.5 g/dl (14.0-18.0); Mean Corpuscular HGB Conc 31.8 g/dl (31.0-36.0); Mean Corpuscular Hemoglobin 27.4 pg (27.0-33.0); Mean Corpuscular Volume 86.2 fL (80.0-98.0); Mean Platelet Volume 10.1 fL (9.4-12.4); Platelet Count 155 X10*3/uL (160-400); Red Blood Count 3.47 X10*6/uL (4.60-5.80); Red Cell Distribution Width 18.5 % (11.0-16.0); White Blood Count 10.9 X10*3/uL (4.8-10.8)
[2021-08-23 07:03] LABS: Anion Gap 13 (12-20); Blood Urea Nitrogen 30 mg/dL (9-16); C Reactive Protein 6.33 mg/dL (< or = 0.50); Calcium 8.4 mg/dL (8.4-10.2); Carbon Dioxide 33 mmol/L (22-29); Chloride 94 mmol/L (96-108); Creatinine Clr Calc Pharmacy 43.3; Estimated Glomerular Filt Rate > 60; Glucose Fasting 211 mg/dL (60-99); Sodium 137 mmol/L (135-145)
[2021-08-23 07:33] LABS: Glucose, Whole Blood 194 mg/dL (60-115)
[2021-08-23] MEDS: Cyanocobalamin (Vitamin B-12) 1,000 MCG TABLET 1000 MCG PO (08:06)
[2021-08-23] MEDS: Omeprazole 20 MG CAPSULE.DR PO (08:06)
[2021-08-23] MEDS: 0.9 % Sodium Chloride Flush 3 ML SYRINGE IVFLUSH ×2 (08:06→16:25)
[2021-08-23] MEDS: Metoprolol Succinate ER 25 MG TAB.ER.24H PO (08:06)
[2021-08-23] MEDS: dexAMETHasone sod phosphate 4 MG/ML VIAL 6 MG IVPUSH (08:06)
[2021-08-23] MEDS: Insulin Lispro 100 UNIT/ML 3 ML VIAL SUBCUT ×5 (08:06→20:35)
--- NOTE | 2021-08-23 09:57 | P.CDIC_ITS ---
CDI Concurrent Query Documentation Clarification: PHYSICIAN'S DOCUMENTATION REQUEST Date of Query: 08/23/21 0959 Patient Name: Kehinde Fowler Admit Date: 08/13/21 Dear Doctor, A review of the medical record indicates additional documentation may be needed. Please review below and update the documentation accordingly. Risk Factors/Clinical Indicators/Treatments History of CHF with EF 20% Cad with ischemic cardiomyopathy - last echo on file was 10/18/20 EF 20-25% with severe global hypokenesis. Lasix, Metoprolol, Statin Please provide further specificity regarding the most likely type and acuity of CHF you are evaluating, treating, or monitoring. Examples include: Type: * Systolic * Diastolic * Combined Systolic/Diastolic * Other ? please specify * Unable to determine Acuity: * Acute * Chronic * Acute on chronic * Unable to determine Use of terms such as suspected, likely, concern for, or probable (associated with a specific diagnosis that is being evaluated, monitored, or treated as if it exists) are acceptable and can be coded in the inpatient setting, when documented at the time of discharge. Thank you, Emely Steele [facility], [facility] Extension: [phone] Please use your independent medical judgment in providing your response. THIS QUERY IS PART OF THE PERMANENT MEDICAL RECORD Provider Response: Other Other Diagnosis: History of cardiomyopathy with EF of 20-25%
[2021-08-23] MEDS: Potassium Chloride ER 20 MEQ TAB.ER.PRT 40 MEQ PO (11:02)
[2021-08-23 11:15] LABS: Glucose, Whole Blood 343 mg/dL (60-115)
--- NOTE | 2021-08-23 12:54 | HO.PM.IMPN ---
Subjective Subjective Date of Service: 08/23/21 Interval History: the patient was seen and evaluated this morning Laying in bed, feels mild improvement Denies any fever, chills or chest pain Still on 12 L of oxygen No reported other overnight events. Systemic review: No fever, chills or weakness No chest pain, palpitation Having mild shortness of breath, still on oxygen supplement No abdominal pain, nausea or vomiting No urinary symptoms No any rash or wounds Physical Exam Vital Signs: Vital Signs: Last Vital Signs Temp 97.5 F 08/23/21 11:43 Pulse 83 08/23/21 11:43 Resp 20 08/23/21 11:43 BP 99/54 L 08/23/21 11:43 Pulse Ox 92 08/23/21 11:43 BMI result Body Mass Index 20.9 Const: Other: Constitutional : Alert, interactive, not in distress Neck : Normal inspection, Supple Cardiovascular : No elevated JVP, no lower extremity edema Respiratory : Chest wall moving bilaterally, at Inspira distress, on 4 L of oxygen Gastrointestinal: soft, lax, Normal bowel sounds, Non tender Skin : Warm, Dry Neurological : Alert & oriented x3, No focal deficit Objective Data Active Medications Acetaminophen (Acetaminophen 325 Mg Tablet) 650 mg PO Q6H PRN PRN Reason: Pain, Mild (Pain Scale 1-3) Atorvastatin Calcium (Atorvastatin Calcium 40 Mg Tablet) 40 mg PO BEDTIME [facility] Last Admin: 08/22/21 20:50 Dose: 40 mg Documented by: BEAU Cyanocobalamin (Cyanocobalamin (Vitamin B-12) 1,000 Mcg Tablet) 1,000 mcg PO DAILY [facility] Last Admin: 08/23/21 08:06 Dose: 1,000 mcg Documented by: ANGELICA Dexamethasone Sodium Phosphate (Dexamethasone Sod Phosphate 4 Mg/Ml Vial) 6 mg IVPUSH DAILY [facility] Last Admin: 08/23/21 08:06 Dose: 6 mg Documented by: ANGELICA Dextrose (Dextrose 50 % 25 Gm/50 Ml Syringe) 25 gm IVPUSH Q15M PRN; Protocol PRN Reason: per Hypoglycemia Standing Ord. Enoxaparin Sodium (Enoxaparin Sodium 40 Mg/0.4 Ml Syringe) 40 mg SUBCUT Q24H [facility] Last Admin: 08/22/21 20:50 Dose: 40 mg Documented by: BEAU Glucose (Glucose Gel 15 Gm Gel..Gram.) 15 gm PO Q15M PRN; Protocol PRN Reason: per Hypoglycemia Standing Ord. Insulin Human Lispro (Insulin Lispro 100 Unit/Ml 3 Ml Vial) 0 unit SUBCUT QIDACHS [facility]; Protocol Last Admin: 08/23/21 12:35 Dose: 8 unit Documented by: ANGELICA Metoprolol Succinate (Metoprolol Succinate Er 25 Mg Tab.Er.24h) 25 mg PO DAILY [facility]; Protocol Last Admin: 08/23/21 08:06 Dose: 25 mg Documented by: ANGELICA Omeprazole (Omeprazole 20 Mg Capsule.Dr) 20 mg PO DAILY [facility] Last Admin: 08/23/21 08:06 Dose: 20 mg Documented by: ANGELICA Ondansetron HCl (Ondansetron Hcl 4 Mg/2 Ml Vial) 4 mg IVPUSH Q8H PRN PRN Reason: Nausea and Vomiting Pharmacy Consult (Consult Rx Perform Med Rec) 1 each MISCELLANE ONCE PRN PRN Reason: Consult order Sodium Chloride (0.9 % Sodium Chloride Flush 3 Ml Syringe) 3 ml IVFLUSH QSHIFT [facility] Last Admin: 08/23/21 08:06 Dose: 3 ml Documented by: ANGELICA Labs CBC & Chem 7: 08/23/21 06:23 08/23/21 06:23 Labs: Laboratory Results - last 24 hr 08/22/21 08/22/21 08/23/21 16:45 19:51 06:23 MCV 86.2 MCH 27.4 MCHC 31.8 RDW 18.5 H Plt Count 155 L D MPV 10.1 Absolute Nucleated RBC 0.000 Nucleated RBC % (auto) 0.0 Anion Gap Estim Creat Clear Calc Estimated GFR POC Glucose 249 H 283 H Fasting Glucose Calcium C-Reactive Protein 08/23/21 08/23/21 08/23/21 06:23 07:29 11:11 MCV MCH MCHC RDW Plt Count MPV Absolute Nucleated RBC Nucleated RBC % (auto) Anion Gap 13 Estim Creat Clear Calc 43.3 Estimated GFR > 60 POC Glucose 194 H 343 H Fasting Glucose 211 H Calcium 8.4 C-Reactive Protein 6.33 H Assessment and Plan (1) AROLDO (acute kidney injury): Status: Acute (2) CHF (congestive heart failure): Status: Acute (3) Acute respiratory failure with hypoxia: Status: Acute (4) COVID-19: Status: Acute (5) Acute hypokalemia: Status: Acute Assessment and Plan: 81-year-old male with significant cardiac history status post ICD placement presents after mechanical fall at home. Initial workup in emergency room failed to demonstrate any acute fracture however laboratory evaluation demonstrated severe hypokalemia and hypo magnesemia. No appreciable increase in total CK from down time, found to have covid acute hypoxic respiratory failure due to covid pneuomnia Continue decadron wean o2 as tolerated overall appears and feels better but no significant change in o2 requirements AROLDO creatinine down to 1.1 from 1.45 Hypokalemia Potassium of 3, to give replacement Follow BMP Mechanical fall work up negative for Fx/head bleed PT evaluation; recommends STR Hypokalemia/hypomagnesemia resolved CAD with Ischemic Cardiomyopathy last echo on file 10/18/20;EF 20-25% with severe global hypokenesis Metoprolol, statin Anemia(chronic) -at baseline. -follow clinically Lovenox Full Code Quality Stroke Does the patient have a stroke diagnosis?: No VTE Prior VTE?: No VTE Risk Level:: Medical - moderate - high VTE Device Contraindication: Treatment Not Indicated VTE Drug Contraindication: N/A - Med Ordered
[2021-08-23 15:59] LABS: Glucose, Whole Blood 410 mg/dL (60-115)
[2021-08-23 19:54] LABS: Glucose, Whole Blood 312 mg/dL (60-115)
[2021-08-23] MEDS: Atorvastatin Calcium 40 MG TABLET PO (20:34)
[2021-08-23] MEDS: Enoxaparin Sodium 40 MG/0.4 ML SYRINGE SUBCUT (20:34)
[2021-08-24] MEDS: 0.9 % Sodium Chloride Flush 3 ML SYRINGE IVFLUSH ×4 (00:31→20:09)
[2021-08-24 02:02] VITALS: BP 104/56; PULSE 79; RESP 18; TEMP 36.1; O2SAT 90
[2021-08-24 06:47] LABS: Hematocrit 28.7 % (42.0-52.0); Mean Corpuscular HGB Conc 31.4 g/dl (31.0-36.0); Mean Corpuscular Hemoglobin 27.5 pg (27.0-33.0); Mean Corpuscular Volume 87.8 fL (80.0-98.0); Mean Platelet Volume 10.9 fL (9.4-12.4); Platelet Count 155 X10*3/uL (160-400); Red Blood Count 3.27 X10*6/uL (4.60-5.80); Red Cell Distribution Width 18.4 % (11.0-16.0)
[2021-08-24 07:10] LABS: Anion Gap 16 (12-20); Blood Urea Nitrogen 28 mg/dL (9-16); C Reactive Protein 5.29 mg/dL (< or = 0.50); Calcium 8.2 mg/dL (8.4-10.2); Carbon Dioxide 30 mmol/L (22-29); Chloride 96 mmol/L (96-108); Creatinine Clr Calc Pharmacy 44.5; Estimated Glomerular Filt Rate > 60; Glucose Random 165 mg/dL (60-115); Lactate Dehydrogenase 492 U/L (118-273); Potassium 3.7 mmol/L (3.3-5.1); Sodium 138 mmol/L (135-145)
[2021-08-24 07:31] LABS: Glucose, Whole Blood 152 mg/dL (60-115)
[2021-08-24 07:50] VITALS: BP 97/56; PULSE 78; RESP 20; TEMP 36.9; O2SAT 94
[2021-08-24] MEDS: Insulin Lispro 100 UNIT/ML 3 ML VIAL SUBCUT ×5 (08:23→20:35)
[2021-08-24] MEDS: Cyanocobalamin (Vitamin B-12) 1,000 MCG TABLET 1000 MCG PO (08:24)
[2021-08-24] MEDS: Metoprolol Succinate ER 25 MG TAB.ER.24H PO (08:24)
[2021-08-24] MEDS: Omeprazole 20 MG CAPSULE.DR PO (08:24)
[2021-08-24] MEDS: dexAMETHasone sod phosphate 4 MG/ML VIAL 6 MG IVPUSH (08:24)
--- NOTE | 2021-08-24 10:04 | P.PNIM_ITS ---
Subjective Subjective Date of Service: 08/24/21 Interval History: the patient was seen and evaluated this morning Laying in bed, feels mild improvement Denies any fever, chills or chest pain Still on 9 L of oxygen No reported other overnight events. Systemic review: No fever, chills or weakness No chest pain, palpitation Having mild shortness of breath, still on oxygen supplement No abdominal pain, nausea or vomiting No urinary symptoms No any rash or wounds Physical Exam Verdana 4l Vital Signs: Verdana 4d Verdana 4d Vital Signs: Verdana 4d Verdana 4Bd Last Vital Signs Verdana 4d Tape Deck Installer New 4d Tape Deck Installer New 4d Temp 98.4 F 08/24/21 07:50 Tape Deck Installer New 4d Pulse 78 08/24/21 07:50 Tape Deck Installer New 4d Resp 20 08/24/21 07:50 BP 97/56 L 08/24/21 07:50 Pulse Ox 94 08/24/21 07:50 BMI result Body Mass Index 20.9 Const: Other: Constitutional : Alert, interactive, not in distress Neck : Normal inspection, Supple Cardiovascular : No elevated JVP, no lower extremity edema Respiratory : Chest wall moving bilaterally, at Inspira distress, on 4 L of oxygen Gastrointestinal: soft, lax, Normal bowel sounds, Non tender Skin : Warm, Dry Neurological : Alert & oriented x3, No focal deficit Objective Data Active Medications Acetaminophen (Acetaminophen 325 Mg Tablet) 650 mg PO Q6H PRN PRN Reason: Pain, Mild (Pain Scale 1-3) Atorvastatin Calcium (Atorvastatin Calcium 40 Mg Tablet) 40 mg PO BEDTIME [facility] Last Admin: 08/23/21 20:34 Dose: 40 mg Documented by: ELIUD Cyanocobalamin (Cyanocobalamin (Vitamin B-12) 1,000 Mcg Tablet) 1,000 mcg PO DAILY [facility] Last Admin: 08/24/21 08:24 Dose: 1,000 mcg Documented by: ANGELICA Dexamethasone Sodium Phosphate (Dexamethasone Sod Phosphate 4 Mg/Ml Vial) 6 mg IVPUSH DAILY [facility] Last Admin: 08/24/21 08:24 Dose: 6 mg Documented by: ANGELICA Dextrose (Dextrose 50 % 25 Gm/50 Ml Syringe) 25 gm IVPUSH Q15M PRN; Protocol PRN Reason: per Hypoglycemia Standing Ord. Enoxaparin Sodium (Enoxaparin Sodium 40 Mg/0.4 Ml Syringe) 40 mg SUBCUT Q24H [facility] Last Admin: 08/23/21 20:34 Dose: 40 mg Documented by: ELIUD Glucose (Glucose Gel 15 Gm Gel..Gram.) 15 gm PO Q15M PRN; Protocol PRN Reason: per Hypoglycemia Standing Ord. Insulin Human Lispro (Insulin Lispro 100 Unit/Ml 3 Ml Vial) 0 unit SUBCUT QIDACHS [facility]; Protocol Last Admin: 08/24/21 08:23 Dose: 2 unit Documented by: ANGELICA Metoprolol Succinate (Metoprolol Succinate Er 25 Mg Tab.Er.24h) 25 mg PO DAILY [facility]; Protocol Last Admin: 08/24/21 08:24 Dose: 25 mg Documented by: ANGELICA Omeprazole (Omeprazole 20 Mg Capsule.Dr) 20 mg PO DAILY [facility] Last Admin: 08/24/21 08:24 Dose: 20 mg Documented by: ANGELICA Ondansetron HCl (Ondansetron Hcl 4 Mg/2 Ml Vial) 4 mg IVPUSH Q8H PRN PRN Reason: Nausea and Vomiting Pharmacy Consult (Consult Rx Perform Med Rec) 1 each MISCELLANE ONCE PRN PRN Reason: Consult order Sodium Chloride (0.9 % Sodium Chloride Flush 3 Ml Syringe) 3 ml IVFLUSH QSHIFT [facility] Last Admin: 08/24/21 08:25 Dose: 3 ml Documented by: ANGELICA Labs CBC & Chem 7: 08/24/21 06:11 08/24/21 06:11 Labs: Laboratory Results - last 24 hr 08/23/21 08/23/21 08/23/21 11:11 15:43 19:44 MCV MCH MCHC RDW Plt Count MPV Absolute Nucleated RBC Nucleated RBC % (auto) Anion Gap Estim Creat Clear Calc Estimated GFR POC Glucose 343 H 410 H* 312 H Random Glucose Calcium Lactate Dehydrogenase C-Reactive Protein 08/24/21 08/24/21 08/24/21 06:11 06:11 07:17 MCV 87.8 MCH 27.5 MCHC 31.4 RDW 18.4 H Plt Count 155 L MPV 10.9 Absolute Nucleated RBC 0.000 Nucleated RBC % (auto) 0.0 Anion Gap 16 Estim Creat Clear Calc 44.5 Estimated GFR > 60 POC Glucose 152 H Random Glucose 165 H Calcium 8.2 L Lactate Dehydrogenase 492 H C-Reactive Protein 5.29 H Assessment and Plan (1) Acute respiratory failure with hypoxia: Status: Acute (2) COVID-19: Status: Acute Plan 81-year-old male with significant cardiac history status post ICD placement presents after mechanical fall at home. Initial workup in emergency room failed to demonstrate any acute fracture however laboratory evaluation demonstrated severe hypokalemia and hypo magnesemia. No appreciable increase in total CK from down time, found to have covid acute hypoxic respiratory failure due to covid pneuomnia Continue decadron wean o2 as tolerated, on the 8 L today overall appears and feels better but no significant change in o2 requirements AROLDO creatinine down to 1.1 from 1.45 Hypokalemia Resolved Follow BMP Mechanical fall work up negative for Fx/head bleed PT evaluation; recommends STR CAD with Ischemic Cardiomyopathy last echo on file 10/18/20;EF 20-25% with severe global hypokenesis Metoprolol, statin Anemia(chronic) at baseline. follow clinically Lovenox Full Code Quality Stroke Does the patient have a stroke diagnosis?: No VTE Prior VTE?: No VTE Risk Level:: Medical - moderate - high VTE Device Contraindication: Treatment Not Indicated VTE Drug Contraindication: N/A - Med Ordered
[2021-08-24 11:08] VITALS: BP 105/56; PULSE 78; RESP 20; TEMP 36.4; O2SAT 96
--- NOTE | 2021-08-24 11:15 | MHC.CM.PN ---
Per ROUNDS discussion, Patient is not yet medically cleared for dc to STR/SNF yet (9LO2, IV DECADRON). CM will continue to follow for dc planning.
[2021-08-24 11:29] LABS: Glucose, Whole Blood 295 mg/dL (60-115)
[2021-08-24 15:08] VITALS: BP 106/54; PULSE 81; RESP 16; TEMP 36; O2SAT 96
[2021-08-24 16:21] LABS: Glucose, Whole Blood 426 mg/dL (60-115)
[2021-08-24 19:11] VITALS: BP 96/51; PULSE 95; RESP 16; TEMP 36; O2SAT 94
[2021-08-24] MEDS: Atorvastatin Calcium 40 MG TABLET PO (20:08)
[2021-08-24] MEDS: Enoxaparin Sodium 40 MG/0.4 ML SYRINGE SUBCUT (20:09)
[2021-08-24 20:16] LABS: Glucose, Whole Blood 409 mg/dL (60-115)
[2021-08-24 23:20] VITALS: BP 121/58; PULSE 80; RESP 18; TEMP 36.4; O2SAT 91
[2021-08-25] VITALS (8 sets, daily range): BP systolic 90–118; BP diastolic 48–58; PULSE 75–105; RESP 16–20; TEMP 36.3–36.9; O2SAT 88–96; BMI 20.9
[2021-08-25 06:46] LABS: Hematocrit 28.3 % (42.0-52.0); Hemoglobin 8.7 g/dl (14.0-18.0); Mean Corpuscular HGB Conc 30.7 g/dl (31.0-36.0); Mean Corpuscular Hemoglobin 27.3 pg (27.0-33.0); Mean Corpuscular Volume 88.7 fL (80.0-98.0); Mean Platelet Volume 10.2 fL (9.4-12.4); Platelet Count 144 X10*3/uL (160-400); Red Blood Count 3.19 X10*6/uL (4.60-5.80); Red Cell Distribution Width 18.4 % (11.0-16.0); White Blood Count 14.1 X10*3/uL (4.8-10.8)
[2021-08-25 07:02] LABS: Anion Gap 11 (12-20); Blood Urea Nitrogen 26 mg/dL (9-16); Carbon Dioxide 33 mmol/L (22-29); Chloride 96 mmol/L (96-108); Creatinine Clr Calc Pharmacy 48.9; Estimated Glomerular Filt Rate > 60; Glucose Random 146 mg/dL (60-115); Potassium 3.8 mmol/L (3.3-5.1); Sodium 136 mmol/L (135-145)
[2021-08-25 07:25] LABS: Glucose, Whole Blood 141 mg/dL (60-115)
[2021-08-25] MEDS: dexAMETHasone sod phosphate 4 MG/ML VIAL 6 MG IVPUSH (11:01)
[2021-08-25] MEDS: Omeprazole 20 MG CAPSULE.DR PO (11:01)
[2021-08-25] MEDS: 0.9 % Sodium Chloride Flush 3 ML SYRINGE IVFLUSH ×3 (11:01→21:18)
[2021-08-25] MEDS: Cyanocobalamin (Vitamin B-12) 1,000 MCG TABLET 1000 MCG PO (11:01)
[2021-08-25 11:28] LABS: Glucose, Whole Blood 298 mg/dL (60-115)
--- NOTE | 2021-08-25 12:00 | MHC.CLN ---
NUTRITION PRESSURE INJURY TO RIGHT HEEL AND REDNESS TO BILATERAL BUTTOCKS. DIET=CARDIAC. INTAKE VARIABLE. ADDING ENSURE BID TO PROMOTE WOUND HEALING. PROVIDES 700 KCAL, 40 G PROTEIN.
--- NOTE | 2021-08-25 12:14 | P.PNIM_ITS ---
Subjective Subjective Date of Service: 08/25/21 Interval History: the patient was seen and evaluated this morning Laying in bed, feels around the same Still on 10 L of oxygen, requirements fluctuate between day and night Blood pressure noted to be running soft Denies any fever, chills or chest pain No reported other overnight events. Systemic review: No fever, chills or weakness No chest pain, palpitation Having mild shortness of breath, still on oxygen supplement No abdominal pain, nausea or vomiting No urinary symptoms No reported rash Physical Exam Verdana 4l Vital Signs: Verdana 4d Verdana 4d Vital Signs: Verdana 4d Verdana 4Bd Last Vital Signs Verdana 4d Sweetbread Trimmer New 4d Sweetbread Trimmer New 4d Temp 97.5 F 08/25/21 11:39 Sweetbread Trimmer New 4d Pulse 87 08/25/21 11:39 Sweetbread Trimmer New 4d Resp 20 08/25/21 11:39 BP 94/56 L 08/25/21 11:39 Pulse Ox 95 08/25/21 11:39 BMI result Body Mass Index 20.9 Const: Other: Constitutional : Alert, interactive, not in distress Neck : Normal inspection, Supple Cardiovascular : No elevated JVP, no lower extremity edema Respiratory : Chest wall moving bilaterally, at Inspira distress, on 10 L of oxygen Gastrointestinal: soft, lax, Normal bowel sounds, Non tender Skin : Warm, Dry Neurological : Alert & oriented x3, No focal deficit Objective Data Active Medications Acetaminophen (Acetaminophen 325 Mg Tablet) 650 mg PO Q6H PRN PRN Reason: Pain, Mild (Pain Scale 1-3) Atorvastatin Calcium (Atorvastatin Calcium 40 Mg Tablet) 40 mg PO BEDTIME [facility] Last Admin: 08/24/21 20:08 Dose: 40 mg Documented by: JOSE CRUZ Cyanocobalamin (Cyanocobalamin (Vitamin B-12) 1,000 Mcg Tablet) 1,000 mcg PO DAILY [facility] Last Admin: 08/25/21 11:01 Dose: 1,000 mcg Documented by: CURTIS Dexamethasone Sodium Phosphate (Dexamethasone Sod Phosphate 4 Mg/Ml Vial) 6 mg IVPUSH DAILY [facility] Last Admin: 08/25/21 11:01 Dose: 6 mg Documented by: CURTIS Dextrose (Dextrose 50 % 25 Gm/50 Ml Syringe) 25 gm IVPUSH Q15M PRN; Protocol PRN Reason: per Hypoglycemia Standing Ord. Enoxaparin Sodium (Enoxaparin Sodium 40 Mg/0.4 Ml Syringe) 40 mg SUBCUT Q24H [facility] Last Admin: 08/24/21 20:09 Dose: 40 mg Documented by: TRINITYOIC Glucose (Glucose Gel 15 Gm Gel..Gram.) 15 gm PO Q15M PRN; Protocol PRN Reason: per Hypoglycemia Standing Ord. Insulin Human Lispro (Insulin Lispro 100 Unit/Ml 3 Ml Vial) 0 unit SUBCUT QIDACHS [facility]; Protocol Last Admin: 08/25/21 07:51 Dose: Not Given Documented by: CURTIS Non-Admin Reason: No Insulin Coverage Metoprolol Succinate (Metoprolol Succinate Er 25 Mg Tab.Er.24h) 25 mg PO DAILY [facility]; Protocol Last Admin: 08/25/21 11:07 Dose: Not Given Documented by: CURTIS Non-Admin Reason: SBP <=90 Omeprazole (Omeprazole 20 Mg Capsule.Dr) 20 mg PO DAILY [facility] Last Admin: 08/25/21 11:01 Dose: 20 mg Documented by: CURTIS Ondansetron HCl (Ondansetron Hcl 4 Mg/2 Ml Vial) 4 mg IVPUSH Q8H PRN PRN Reason: Nausea and Vomiting Pharmacy Consult (Consult Rx Perform Med Rec) 1 each MISCELLANE ONCE PRN PRN Reason: Consult order Sodium Chloride (0.9 % Sodium Chloride Flush 3 Ml Syringe) 3 ml IVFLUSH QSHIFT [facility] Last Admin: 08/25/21 11:01 Dose: 3 ml Documented by: CURTIS Labs CBC & Chem 7: 08/25/21 06:15 08/25/21 06:15 Labs: Laboratory Results - last 24 hr 08/24/21 08/24/21 08/25/21 16:15 20:05 06:15 MCV 88.7 MCH 27.3 MCHC 30.7 L RDW 18.4 H Plt Count 144 L MPV 10.2 Absolute Nucleated RBC 0.000 Nucleated RBC % (auto) 0.0 Anion Gap Estim Creat Clear Calc Estimated GFR POC Glucose 426 H* 409 H* Random Glucose Calcium 08/25/21 08/25/21 08/25/21 06:15 07:06 10:55 MCV MCH MCHC RDW Plt Count MPV Absolute Nucleated RBC Nucleated RBC % (auto) Anion Gap 11 L Estim Creat Clear Calc 48.9 Estimated GFR > 60 POC Glucose 141 H 298 H Random Glucose 146 H Calcium 8.0 L Assessment and Plan (1) Acute respiratory failure with hypoxia: Status: Acute (2) COVID-19: Status: Acute Plan 81-year-old male with significant cardiac history status post ICD placement presents after mechanical fall at home. Initial workup in emergency room failed to demonstrate any acute fracture however laboratory evaluation demonstrated severe hypokalemia and hypo magnesemia. No appreciable increase in total CK from down time, found to have covid acute hypoxic respiratory failure due to covid pneuomnia Continue decadron wean o2 as tolerated, on the 10L today overall appears and feels better but no significant change in o2 requirements Start incentive spirometry Hypotension Blood pressure has been running solved since admission Not due to sepsis, likely from general deconditioning Do physical therapy evaluation AROLDO creatinine down to 1.1 from 1.45 Hypokalemia Resolved Follow BMP Mechanical fall work up negative for Fx/head bleed PT evaluation; recommends STR CAD with Ischemic Cardiomyopathy last echo on file 10/18/20;EF 20-25% with severe global hypokenesis Metoprolol, statin Anemia(chronic) at baseline. follow clinically Lovenox Full Code Quality Stroke Does the patient have a stroke diagnosis?: No VTE Prior VTE?: No VTE Risk Level:: Medical - moderate - high VTE Device Contraindication: Treatment Not Indicated VTE Drug Contraindication: N/A - Med Ordered
[2021-08-25] MEDS: Insulin Lispro 100 UNIT/ML 3 ML VIAL SUBCUT ×3 (12:28→21:18)
[2021-08-25 15:57] LABS: Glucose, Whole Blood 394 mg/dL (60-115)
[2021-08-25 20:06] LABS: Glucose, Whole Blood 401 mg/dL (60-115)
[2021-08-25] MEDS: Enoxaparin Sodium 40 MG/0.4 ML SYRINGE SUBCUT (21:17)
[2021-08-25] MEDS: methylPREDNISolone Sod Succ 40 MG/ML VIAL IVPUSH (21:17)
[2021-08-25] MEDS: Atorvastatin Calcium 40 MG TABLET PO (21:18)
[2021-08-26] VITALS (7 sets, daily range): BP systolic 92–130; BP diastolic 54–67; PULSE 76–101; RESP 17–20; TEMP 36.1–36.9; O2SAT 91–98
[2021-08-26 06:43] LABS: Hematocrit 27.9 % (42.0-52.0); Hemoglobin 8.6 g/dl (14.0-18.0); Mean Corpuscular HGB Conc 30.8 g/dl (31.0-36.0); Mean Corpuscular Volume 87.7 fL (80.0-98.0); Mean Platelet Volume 11.1 fL (9.4-12.4); Platelet Count 134 X10*3/uL (160-400); Red Blood Count 3.18 X10*6/uL (4.60-5.80); White Blood Count 12.6 X10*3/uL (4.8-10.8)
[2021-08-26 06:56] LABS: Alanine Aminotransferase 10 U/L (0-40); Albumin Level 2.6 g/dL (3.5-5.0); Alkaline Phosphatase 65 U/L (39-117); Anion Gap 15 (12-20); Aspartate Amino Transferase 15 U/L (5-37); Bilirubin Direct 0.4 mg/dL (0.0-0.5); Bilirubin Total 0.6 mg/dL (0.0-1.0); Blood Urea Nitrogen 28 mg/dL (9-16); C Reactive Protein 4.03 mg/dL (< or = 0.50); Calcium 8.1 mg/dL (8.4-10.2); Carbon Dioxide 31 mmol/L (22-29); Chloride 95 mmol/L (96-108); Creatinine Clr Calc Pharmacy 46.6; Estimated Glomerular Filt Rate > 60; Glucose Random 268 mg/dL (60-115); Lactate Dehydrogenase 396 U/L (118-273); Potassium 4.5 mmol/L (3.3-5.1); Sodium 136 mmol/L (135-145); Total Protein 6.1 g/dL (6.5-8.0)
[2021-08-26 07:47] LABS: Glucose, Whole Blood 249 mg/dL (60-115)
[2021-08-26] MEDS: 0.9 % Sodium Chloride Flush 3 ML SYRINGE IVFLUSH ×3 (08:40→21:26)
[2021-08-26] MEDS: methylPREDNISolone Sod Succ 40 MG/ML VIAL IVPUSH ×2 (08:40→21:21)
[2021-08-26] MEDS: Insulin Lispro 100 UNIT/ML 3 ML VIAL SUBCUT ×5 (08:40→21:22)
[2021-08-26] MEDS: Metoprolol Succinate ER 25 MG TAB.ER.24H PO (08:41)
[2021-08-26] MEDS: Cyanocobalamin (Vitamin B-12) 1,000 MCG TABLET 1000 MCG PO (08:41)
[2021-08-26] MEDS: Omeprazole 20 MG CAPSULE.DR PO (08:41)
[2021-08-26 11:08] LABS: Glucose, Whole Blood 381 mg/dL (60-115)
--- NOTE | 2021-08-26 11:14 | P.PNIM_ITS ---
Subjective Subjective Date of Service: 08/26/21 Interval History: the patient was seen and evaluated this morning Laying in bed, feels weak with no energy On 8 L of oxygen this morning Denies any fever, chills or chest pain No reported other overnight events. Systemic review: No fever, chills or weakness No chest pain, palpitation Having mild shortness of breath, still on oxygen supplement No abdominal pain, nausea or vomiting No urinary symptoms No reported rash Physical Exam Verdana 4l Vital Signs: Verdana 4d Verdana 4d Vital Signs: Verdana 4d Verdana 4Bd Last Vital Signs Verdana 4d Nursing Home Assistant New 4d Nursing Home Assistant New 4d Temp 98.4 F 08/26/21 08:00 Nursing Home Assistant New 4d Pulse 101 H 08/26/21 10:13 Nursing Home Assistant New 4d Resp 18 08/26/21 08:00 BP 130/60 08/26/21 10:13 Pulse Ox 98 08/26/21 10:13 BMI result Body Mass Index 20.9 Const: Other: Constitutional : Alert, interactive, not in distress Neck : Normal inspection, Supple Cardiovascular : No elevated JVP, no lower extremity edema Respiratory : Chest wall moving bilaterally, at Inspira distress, on 10 L of oxygen Gastrointestinal: soft, lax, Normal bowel sounds, Non tender Skin : Warm, Dry Neurological : Alert & oriented x3, No focal deficit Objective Data Active Medications Acetaminophen (Acetaminophen 325 Mg Tablet) 650 mg PO Q6H PRN PRN Reason: Pain, Mild (Pain Scale 1-3) Atorvastatin Calcium (Atorvastatin Calcium 40 Mg Tablet) 40 mg PO BEDTIME [facility] Last Admin: 08/25/21 21:18 Dose: 40 mg Documented by: KATHERINE Cyanocobalamin (Cyanocobalamin (Vitamin B-12) 1,000 Mcg Tablet) 1,000 mcg PO DAILY [facility] Last Admin: 08/26/21 08:41 Dose: 1,000 mcg Documented by: CURTIS Dextrose (Dextrose 50 % 25 Gm/50 Ml Syringe) 25 gm IVPUSH Q15M PRN; Protocol PRN Reason: per Hypoglycemia Standing Ord. Enoxaparin Sodium (Enoxaparin Sodium 40 Mg/0.4 Ml Syringe) 40 mg SUBCUT Q24H [facility] Last Admin: 08/25/21 21:17 Dose: 40 mg Documented by: KATHERINE Glucose (Glucose Gel 15 Gm Gel..Gram.) 15 gm PO Q15M PRN; Protocol PRN Reason: per Hypoglycemia Standing Ord. Insulin Human Lispro (Insulin Lispro 100 Unit/Ml 3 Ml Vial) 0 unit SUBCUT QIDACHS [facility]; Protocol Last Admin: 08/26/21 08:40 Dose: 4 unit Documented by: CURTIS Methylprednisolone Sodium Succinate (Methylprednisolone Sod Succ 40 Mg/Ml Vial) 40 mg IVPUSH Q12H [facility] Last Admin: 08/26/21 08:40 Dose: 40 mg Documented by: CURTIS Metoprolol Succinate (Metoprolol Succinate Er 25 Mg Tab.Er.24h) 25 mg PO DAILY [facility]; Protocol Last Admin: 08/26/21 08:41 Dose: 25 mg Documented by: CURTIS Omeprazole (Omeprazole 20 Mg Capsule.Dr) 20 mg PO DAILY [facility] Last Admin: 08/26/21 08:41 Dose: 20 mg Documented by: CURTIS Ondansetron HCl (Ondansetron Hcl 4 Mg/2 Ml Vial) 4 mg IVPUSH Q8H PRN PRN Reason: Nausea and Vomiting Pharmacy Consult (Consult Rx Perform Med Rec) 1 each MISCELLANE ONCE PRN PRN Reason: Consult order Sodium Chloride (0.9 % Sodium Chloride Flush 3 Ml Syringe) 3 ml IVFLUSH QSHIFT [facility] Last Admin: 08/26/21 08:40 Dose: 3 ml Documented by: CURTIS Labs CBC & Chem 7: 08/26/21 06:00 08/26/21 06:00 Labs: Laboratory Results - last 24 hr 08/25/21 08/25/21 08/25/21 10:55 15:48 19:56 MCV MCH MCHC RDW Plt Count MPV Absolute Nucleated RBC Nucleated RBC % (auto) Anion Gap Estim Creat Clear Calc Estimated GFR POC Glucose 298 H 394 H* 401 H* Random Glucose Calcium Total Bilirubin Direct Bilirubin AST ALT Alkaline Phosphatase Lactate Dehydrogenase C-Reactive Protein Total Protein Albumin 08/26/21 08/26/21 08/26/21 06:00 06:00 07:42 MCV 87.7 MCH 27.0 MCHC 30.8 L RDW 18.0 H Plt Count 134 L MPV 11.1 Absolute Nucleated RBC 0.000 Nucleated RBC % (auto) 0.0 Anion Gap 15 Estim Creat Clear Calc 46.6 Estimated GFR > 60 POC Glucose 249 H Random Glucose 268 H D Calcium 8.1 L Total Bilirubin 0.6 Direct Bilirubin 0.4 AST 15 D ALT 10 Alkaline Phosphatase 65 D Lactate Dehydrogenase 396 H C-Reactive Protein 4.03 H Total Protein 6.1 L Albumin 2.6 L 08/26/21 10:57 MCV MCH MCHC RDW Plt Count MPV Absolute Nucleated RBC Nucleated RBC % (auto) Anion Gap Estim Creat Clear Calc Estimated GFR POC Glucose 381 H* Random Glucose Calcium Total Bilirubin Direct Bilirubin AST ALT Alkaline Phosphatase Lactate Dehydrogenase C-Reactive Protein Total Protein Albumin Assessment and Plan (1) Acute respiratory failure with hypoxia: Status: Acute (2) COVID-19: Status: Acute Plan 81-year-old male with significant cardiac history status post ICD placement presents after mechanical fall at home. Initial workup in emergency room failed to demonstrate any acute fracture however laboratory evaluation demonstrated severe hypokalemia and hypo magnesemia. No appreciable increase in total CK f rom down time, found to have covid acute hypoxic respiratory failure due to covid pneuomnia Continue decadron wean o2 as tolerated, on the 8L today overall appears and feels better but no significant change in o2 requirements Start incentive spirometry Hypotension Blood pressure has been running solved since admission Not due to sepsis, likely from general deconditioning Do physical therapy evaluation AROLDO creatinine down to 1.1 from 1.45 Hypokalemia Resolved Follow BMP Mechanical fall work up negative for Fx/head bleed PT evaluation; recommends STR CAD with Ischemic Cardiomyopathy last echo on file 10/18/20;EF 20-25% with severe global hypokenesis Metoprolol, statin Anemia(chronic) at baseline. follow clinically Lovenox Full Code Quality Stroke Does the patient have a stroke diagnosis?: No VTE Prior VTE?: No VTE Risk Level:: Medical - moderate - high VTE Device Contraindication: Treatment Not Indicated VTE Drug Contraindication: N/A - Med Ordered
--- NOTE | 2021-08-26 14:20 | MHC.CLN ---
F/U INTAKE APPEARS VARIABLE. CONTINUE CARDIAC DIET WITH ENSURE BID. ENSURE PROVIDES 700 KCAL, 40 G PROTEIN TO PROMOTE WOUND HEALING.
[2021-08-26 16:41] LABS: Glucose, Whole Blood 539 mg/dL (60-115)
[2021-08-26 21:08] LABS: Glucose, Whole Blood 512 mg/dL (60-115)
[2021-08-26] MEDS: Insulin Lispro 100 UNIT/ML 3 ML VIAL 10 UNIT SUBCUT (21:21)
[2021-08-26] MEDS: Enoxaparin Sodium 40 MG/0.4 ML SYRINGE SUBCUT (21:21)
[2021-08-26] MEDS: Atorvastatin Calcium 40 MG TABLET PO (21:22)
[2021-08-27 04:00] VITALS: BP 123/64; PULSE 70; RESP 17; TEMP 36.2; O2SAT 95
--- NOTE | 2021-08-27 06:02 | PM.EVENT ---
Event Note Date of Service: 08/27/21 Event Note: james cath placed due to urinary retention>600
[2021-08-27 07:21] VITALS: BP 119/61; PULSE 68; RESP 18; TEMP 36.4; O2SAT 90
[2021-08-27] MEDS: Insulin Lispro 100 UNIT/ML 3 ML VIAL SUBCUT ×4 (07:28→21:58)
[2021-08-27 07:49] LABS: Anion Gap 13 (12-20); Blood Urea Nitrogen 32 mg/dL (9-16); Calcium 8.1 mg/dL (8.4-10.2); Carbon Dioxide 32 mmol/L (22-29); Chloride 94 mmol/L (96-108); Creatinine Clr Calc Pharmacy 52.5; Estimated Glomerular Filt Rate > 60; Glucose Random 223 mg/dL (60-115); Potassium 4.5 mmol/L (3.3-5.1); Sodium 134 mmol/L (135-145)
[2021-08-27 08:05] LABS: Glucose, Whole Blood 207 mg/dL (60-115)
[2021-08-27] MEDS: Cyanocobalamin (Vitamin B-12) 1,000 MCG TABLET 1000 MCG PO (08:28)
[2021-08-27] MEDS: Omeprazole 20 MG CAPSULE.DR PO (08:28)
[2021-08-27] MEDS: Metoprolol Succinate ER 25 MG TAB.ER.24H PO (08:28)
[2021-08-27] MEDS: 0.9 % Sodium Chloride Flush 3 ML SYRINGE IVFLUSH ×3 (08:30→21:19)
[2021-08-27] MEDS: methylPREDNISolone Sod Succ 40 MG/ML VIAL IVPUSH ×2 (08:31→21:19)
[2021-08-27 11:15] VITALS: BP 111/56; PULSE 72; RESP 18; TEMP 36.9; O2SAT 97
[2021-08-27 11:19] LABS: Glucose, Whole Blood 352 mg/dL (60-115)
--- NOTE | 2021-08-27 11:46 | P.PNIM_ITS ---
Subjective Subjective Date of Service: 08/27/21 Interval History: the patient was seen and evaluated this morning Laying in bed, feels weak with no energy On 8 L of oxygen this morning Denies any fever, chills or chest pain No reported other overnight events. Systemic review: No fever, chills or weakness No chest pain, palpitation Having mild shortness of breath, still on oxygen supplement No abdominal pain, nausea or vomiting No urinary symptoms No reported rash Physical Exam Verdana 4l Vital Signs: Verdana 4d Verdana 4d Vital Signs: Verdana 4d Verdana 4Bd Last Vital Signs Verdana 4d Golf Course Assistant New 4d Golf Course Assistant New 4d Temp 98.4 F 08/27/21 11:15 Golf Course Assistant New 4d Pulse 72 08/27/21 11:15 Golf Course Assistant New 4d Resp 18 08/27/21 11:15 BP 111/56 L 08/27/21 11:15 Pulse Ox 97 08/27/21 11:15 BMI result Body Mass Index 20.9 Const: Other: Constitutional : Alert, interactive, not in distress Neck : Normal inspection, Supple Cardiovascular : No elevated JVP, no lower extremity edema Respiratory : Chest wall moving bilaterally, at Inspira distress, on 10 L of oxygen Gastrointestinal: soft, lax, Normal bowel sounds, Non tender Skin : Warm, Dry Neurological : Alert & oriented x3, No focal deficit Objective Data Active Medications Acetaminophen (Acetaminophen 325 Mg Tablet) 650 mg PO Q6H PRN PRN Reason: Pain, Mild (Pain Scale 1-3) Atorvastatin Calcium (Atorvastatin Calcium 40 Mg Tablet) 40 mg PO BEDTIME [facility] Last Admin: 08/26/21 21:22 Dose: 40 mg Documented by: YURIDIA Cyanocobalamin (Cyanocobalamin (Vitamin B-12) 1,000 Mcg Tablet) 1,000 mcg PO DAILY [facility] Last Admin: 08/27/21 08:28 Dose: 1,000 mcg Documented by: RIDDHI Dextrose (Dextrose 50 % 25 Gm/50 Ml Syringe) 25 gm IVPUSH Q15M PRN; Protocol PRN Reason: per Hypoglycemia Standing Ord. Enoxaparin Sodium (Enoxaparin Sodium 40 Mg/0.4 Ml Syringe) 40 mg SUBCUT Q24H [facility] Last Admin: 08/26/21 21:21 Dose: 40 mg Documented by: YURIDIA Glucose (Glucose Gel 15 Gm Gel..Gram.) 15 gm PO Q15M PRN; Protocol PRN Reason: per Hypoglycemia Standing Ord. Insulin Human Lispro (Insulin Lispro 100 Unit/Ml 3 Ml Vial) 0 unit SUBCUT QIDACHS [facility]; Protocol Last Admin: 08/27/21 11:25 Dose: 10 unit Documented by: RIDDHI Methylprednisolone Sodium Succinate (Methylprednisolone Sod Succ 40 Mg/Ml Vial) 40 mg IVPUSH Q12H [facility] Last Admin: 08/27/21 08:31 Dose: 40 mg Documented by: RIDDHI Metoprolol Succinate (Metoprolol Succinate Er 25 Mg Tab.Er.24h) 25 mg PO DAILY [facility]; Protocol Last Admin: 08/27/21 08:28 Dose: 25 mg Documented by: RIDDHI Omeprazole (Omeprazole 20 Mg Capsule.Dr) 20 mg PO DAILY [facility] Last Admin: 08/27/21 08:28 Dose: 20 mg Documented by: RIDDHI Ondansetron HCl (Ondansetron Hcl 4 Mg/2 Ml Vial) 4 mg IVPUSH Q8H PRN PRN Reason: Nausea and Vomiting Pharmacy Consult (Consult Rx Perform Med Rec) 1 each MISCELLANE ONCE PRN PRN Reason: Consult order Sodium Chloride (0.9 % Sodium Chloride Flush 3 Ml Syringe) 3 ml IVFLUSH QSHIFT [facility] Last Admin: 08/27/21 08:30 Dose: 3 ml Documented by: RIDDHI Labs CBC & Chem 7: 08/26/21 06:00 08/27/21 06:28 Labs: Laboratory Results - last 24 hr 08/26/21 08/26/21 08/27/21 16:23 21:02 06:28 Anion Gap 13 Estim Creat Clear Calc 52.5 Estimated GFR > 60 POC Glucose 539 H* 512 H* Random Glucose 223 H Calcium 8.1 L 08/27/21 08/27/21 07:22 11:11 Anion Gap Estim Creat Clear Calc Estimated GFR POC Glucose 207 H 352 H* Random Glucose Calcium Assessment and Plan (1) Acute respiratory failure with hypoxia: Status: Acute (2) COVID-19: Status: Acute Plan 81-year-old male with significant cardiac history status post ICD placement presents after mechanical fall at home. Initial workup in emergency room failed to demonstrate any acute fracture however laboratory evaluation demonstrated severe hypokalemia and hypo magnesemia. No appreciable increase in total CK from down time, found to have covid acute hypoxic respiratory failure due to covid pneuomnia Continue decadron wean o2 as tolerated, on the 8L today overall appears and feels better but no significant change in o2 requirements Start incentive spirometry Hypotension Blood pressure has been running solved since admission Not due to sepsis, likely from general deconditioning Do physical therapy evaluation AROLDO creatinine down to 1.1 from 1.45 Hypokalemia Resolved Follow BMP Mechanical fall work up negative for Fx/head bleed PT evaluation; recommends STR CAD with Ischemic Cardiomyopathy last echo on file 10/18/20;EF 20-25% with severe global hypokenesis Metoprolol, statin Anemia(chronic) at baseline. follow clinically Lovenox Full Code Quality Stroke Does the patient have a stroke diagnosis?: No VTE Prior VTE?: No VTE Risk Level:: Medical - moderate - high VTE Device Contraindication: Treatment Not Indicated VTE Drug Contraindication: N/A - Med Ordered
[2021-08-27 15:16] VITALS: BP 105/62; PULSE 72; RESP 18; TEMP 36.6; O2SAT 96
[2021-08-27 16:30] LABS: Glucose, Whole Blood 300 mg/dL (60-115)
[2021-08-27 19:26] VITALS: BP 100/54; PULSE 88; RESP 15; TEMP 36.5; O2SAT 92
[2021-08-27 20:34] LABS: Glucose, Whole Blood 448 mg/dL (60-115)
[2021-08-27] MEDS: Enoxaparin Sodium 40 MG/0.4 ML SYRINGE SUBCUT (21:18)
[2021-08-27] MEDS: Atorvastatin Calcium 40 MG TABLET PO (21:18)
--- NOTE | 2021-08-27 21:28 | PC.NURSE ---
08/27/2021 @ 20:00 POC was 448. MD Notified. 10 extra units of lispro ordered by . 20 units given total
[2021-08-27] MEDS: Insulin Lispro 100 UNIT/ML 3 ML VIAL 10 UNIT SUBCUT (21:58)
[2021-08-28] VITALS (7 sets, daily range): BP systolic 98–132; BP diastolic 53–73; PULSE 74–86; RESP 16–20; TEMP 36.4–37.1; O2SAT 92–98
[2021-08-28 07:23] LABS: Glucose, Whole Blood 353 mg/dL (60-115)
[2021-08-28 07:25] LABS: Anion Gap 14 (12-20); Blood Urea Nitrogen 37 mg/dL (9-16); Calcium 8.2 mg/dL (8.4-10.2); Carbon Dioxide 31 mmol/L (22-29); Chloride 93 mmol/L (96-108); Creatinine Clr Calc Pharmacy 44.1; Estimated Glomerular Filt Rate > 60; Glucose Random 364 mg/dL (60-115); Potassium 5.1 mmol/L (3.3-5.1); Sodium 133 mmol/L (135-145)
[2021-08-28] MEDS: Insulin Lispro 100 UNIT/ML 3 ML VIAL SUBCUT ×4 (08:09→21:02)
[2021-08-28] MEDS: Cyanocobalamin (Vitamin B-12) 1,000 MCG TABLET 1000 MCG PO (08:10)
[2021-08-28] MEDS: Metoprolol Succinate ER 25 MG TAB.ER.24H PO (08:10)
[2021-08-28] MEDS: Omeprazole 20 MG CAPSULE.DR PO (08:10)
[2021-08-28] MEDS: methylPREDNISolone Sod Succ 40 MG/ML VIAL IVPUSH ×2 (08:10→21:00)
[2021-08-28] MEDS: 0.9 % Sodium Chloride Flush 3 ML SYRINGE IVFLUSH ×3 (08:10→21:02)
[2021-08-28 11:27] LABS: Glucose, Whole Blood 455 mg/dL (60-115)
[2021-08-28] MEDS: Insulin Glargine,Hum.rec.anlog 100 UNIT/ML 10 ML VIAL 10 UNIT SUBCUT (11:55)
--- NOTE | 2021-08-28 13:50 | P.PNIM_ITS ---
Subjective Subjective Date of Service: 08/28/21 Interval History: the patient was seen and evaluated this morning Laying in bed, feels weak but no dyspnea On 8 L of oxygen this morning No reported other overnight events. Systemic review: No fever, chills or weakness No chest pain, palpitation Having mild shortness of breath, still on oxygen supplement No abdominal pain, nausea or vomiting No urinary symptoms No reported rash Physical Exam Verdana 4l Vital Signs: Verdana 4d Verdana 4d Vital Signs: Verdana 4d Verdana 4Bd Last Vital Signs Verdana 4d Pharmacists New 4d Pharmacists New 4d Temp 98.3 F 08/28/21 11:22 Pharmacists New 4d Pulse 86 08/28/21 11:22 Pharmacists New 4d Resp 18 08/28/21 11:22 BP 100/53 L 08/28/21 11:22 Pulse Ox 94 08/28/21 11:22 BMI result Body Mass Index 20.9 Const: Other: Constitutional : Alert, interactive, not in distress Neck : Normal inspection, Supple Cardiovascular : No elevated JVP, no lower extremity edema Respiratory : Chest wall moving bilaterally, at Inspira distress, on 10 L of oxygen Gastrointestinal: soft, lax, Normal bowel sounds, Non tender Skin : Warm, Dry Neurological : Alert & oriented x3, No focal deficit Objective Data Active Medications Acetaminophen (Acetaminophen 325 Mg Tablet) 650 mg PO Q6H PRN PRN Reason: Pain, Mild (Pain Scale 1-3) Atorvastatin Calcium (Atorvastatin Calcium 40 Mg Tablet) 40 mg PO BEDTIME [facility] Last Admin: 08/27/21 21:18 Dose: 40 mg Documented by: LEN Cyanocobalamin (Cyanocobalamin (Vitamin B-12) 1,000 Mcg Tablet) 1,000 mcg PO DAILY [facility] Last Admin: 08/28/21 08:10 Dose: 1,000 mcg Documented by: RIDDHI Dextrose (Dextrose 50 % 25 Gm/50 Ml Syringe) 25 gm IVPUSH Q15M PRN; Protocol PRN Reason: per Hypoglycemia Standing Ord. Enoxaparin Sodium (Enoxaparin Sodium 40 Mg/0.4 Ml Syringe) 40 mg SUBCUT Q24H [facility] Last Admin: 08/27/21 21:18 Dose: 40 mg Documented by: LEN Glucose (Glucose Gel 15 Gm Gel..Gram.) 15 gm PO Q15M PRN; Protocol PRN Reason: per Hypoglycemia Standing Ord. Insulin Glargine (Insulin Glargine,Hum.Rec.Anlog 100 Unit/Ml 10 Ml Vial) 10 unit SUBCUT DAILY [facility] Last Admin: 08/28/21 11:55 Dose: 10 unit Documented by: RIDDHI Insulin Human Lispro (Insulin Lispro 100 Unit/Ml 3 Ml Vial) 0 unit SUBCUT QIDACHS [facility]; Protocol Last Admin: 08/28/21 11:55 Dose: 10 unit Documented by: RIDDHI Methylprednisolone Sodium Succinate (Methylprednisolone Sod Succ 40 Mg/Ml Vial) 40 mg IVPUSH Q12H [facility] Last Admin: 08/28/21 08:10 Dose: 40 mg Documented by: RIDDHI Metoprolol Succinate (Metoprolol Succinate Er 25 Mg Tab.Er.24h) 25 mg PO DAILY [facility]; Protocol Last Admin: 08/28/21 08:10 Dose: 25 mg Documented by: RIDDHI Omeprazole (Omeprazole 20 Mg Capsule.Dr) 20 mg PO DAILY [facility] Last Admin: 08/28/21 08:10 Dose: 20 mg Documented by: RIDDHI Ondansetron HCl (Ondansetron Hcl 4 Mg/2 Ml Vial) 4 mg IVPUSH Q8H PRN PRN Reason: Nausea and Vomiting Pharmacy Consult (Consult Rx Perform Med Rec) 1 each MISCELLANE ONCE PRN PRN Reason: Consult order Sodium Chloride (0.9 % Sodium Chloride Flush 3 Ml Syringe) 3 ml IVFLUSH QSHIFT [facility] Last Admin: 08/28/21 08:10 Dose: 3 ml Documented by: RIDDHI Labs CBC & Chem 7: 08/26/21 06:00 08/28/21 05:54 Labs: Laboratory Results - last 24 hr 08/27/21 08/27/21 08/28/21 16:21 20:28 05:54 Anion Gap 14 Estim Creat Clear Calc 44.1 Estimated GFR > 60 POC Glucose 300 H 448 H* Random Glucose 364 H* Calcium 8.2 L 08/28/21 08/28/21 07:18 11:24 Anion Gap Estim Creat Clear Calc Estimated GFR POC Glucose 353 H* 455 H* Random Glucose Calcium Assessment and Plan (1) Acute respiratory failure with hypoxia: Status: Acute (2) COVID-19: Status: Acute (3) AROLDO (acute kidney injury): Status: Acute (4) Physical deconditioning: Status: Acute (5) Hyperglycemia due to diabetes mellitus: Status: Acute Plan 81-year-old male with significant cardiac history status post ICD placement presents after mechanical fall at home. Initial workup in emergency room failed to demonstrate any acute fracture however laboratory evaluation demonstrated severe hypokalemia and hypo magnesemia. No appreciable increase in total CK from down time, found to have covid acute hypoxic respiratory failure due to covid pneuomnia Finish total of 10 days decadron Started methylprednisone wean o2 as tolerated, on the 8L today overall appears and feels better but no significant change in o2 requirements Continue incentive spirometry Hypotension Blood pressure has been running low since admission Not due to sepsis, likely from general deconditioning physical therapy evaluation , SNF AROLDO creatinine down to 1.1 from 1.45 Hypokalemia Resolved Follow BMP Mechanical fall work up negative for Fx/head bleed PT evaluation; recommends STR CAD with Ischemic Cardiomyopathy last echo on file 10/18/20;EF 20-25% with severe global hypokenesis Metoprolol, statin Hyperglycemia secondary to diabetes Secondary to steroid usage Start Lantus insulin SSI Diabetic diet, p.o. sees Anemia(chronic) at baseline. follow clinically Lovenox Full Code Quality Stroke Does the patient have a stroke diagnosis?: No VTE Prior VTE?: No VTE Risk Level:: Medical - moderate - high VTE Device Contraindication: Treatment Not Indicated VTE Drug Contraindication: N/A - Med Ordered
[2021-08-28] MEDS: Sodium Zirconium Cyclosilicate 5 GM POWD.PACK PO (15:03)
--- NOTE | 2021-08-28 15:22 | PC.NURSE ---
pt was productive today, ate al his meals and OOB to reciner. Pt encouraged to use incentive spirometer
[2021-08-28 16:04] LABS: Glucose, Whole Blood 513 mg/dL (60-115)
[2021-08-28] MEDS: Insulin Lispro 100 UNIT/ML 3 ML VIAL 6 UNIT SUBCUT (16:21)
[2021-08-28 20:44] LABS: Glucose, Whole Blood 473 mg/dL (60-115)
[2021-08-28] MEDS: Atorvastatin Calcium 40 MG TABLET PO (21:00)
[2021-08-28] MEDS: Enoxaparin Sodium 40 MG/0.4 ML SYRINGE SUBCUT (21:00)
[2021-08-28] MEDS: Insulin Lispro 100 UNIT/ML 3 ML VIAL 15 UNIT SUBCUT (21:02)
[2021-08-29] VITALS (9 sets, daily range): BP systolic 94–111; BP diastolic 53–58; PULSE 65–85; RESP 16–18; TEMP 36.4–36.8; O2SAT 85–98
[2021-08-29 00:05] LABS: Glucose, Whole Blood 209 mg/dL (60-115)
[2021-08-29 06:14] LABS: Anion Gap 11 (12-20); Blood Urea Nitrogen 41 mg/dL (9-16); Calcium 7.9 mg/dL (8.4-10.2); Carbon Dioxide 33 mmol/L (22-29); Chloride 93 mmol/L (96-108); Creatinine Clr Calc Pharmacy 51.4; Estimated Glomerular Filt Rate > 60; Glucose Random 239 mg/dL (60-115); Potassium 4.6 mmol/L (3.3-5.1); Sodium 132 mmol/L (135-145)
[2021-08-29 07:05] LABS: Glucose, Whole Blood 265 mg/dL (60-115)
[2021-08-29] MEDS: 0.9 % Sodium Chloride Flush 3 ML SYRINGE IVFLUSH ×3 (07:46→21:44)
[2021-08-29] MEDS: Insulin Glargine,Hum.rec.anlog 100 UNIT/ML 10 ML VIAL 10 UNIT SUBCUT (07:47)
[2021-08-29] MEDS: Cyanocobalamin (Vitamin B-12) 1,000 MCG TABLET 1000 MCG PO (07:47)
[2021-08-29] MEDS: Omeprazole 20 MG CAPSULE.DR PO (07:47)
[2021-08-29] MEDS: Insulin Lispro 100 UNIT/ML 3 ML VIAL SUBCUT ×4 (07:47→21:44)
[2021-08-29] MEDS: methylPREDNISolone Sod Succ 40 MG/ML VIAL IVPUSH (07:48)
[2021-08-29] MEDS: Metoprolol Succinate ER 25 MG TAB.ER.24H PO (07:49)
[2021-08-29 11:09] LABS: Glucose, Whole Blood 305 mg/dL (60-115)
--- NOTE | 2021-08-29 12:00 | MHC.CLN ---
F/U PT WITH INCREASED NUTRITION RISK R/T PRESSURE INJURIES DIET RX; 2000DM CARDIAC-APPROPRIATE PO INTAKE 75-100% PT RECEIVING GLUCERNA BID PROVIDES 474KCALS, 20G PROTEIN WILL ADD NEGAR TO FURTHER PROMOTE WOUND HEALING MONITOR PO INTAKE CLOSELY
--- NOTE | 2021-08-29 13:36 | P.PNIM_ITS ---
Subjective Subjective Date of Service: 08/29/21 Interval History: the patient was seen and evaluated this morning Laying in bed, feels weak but no dyspnea On 8 L of oxygen this morning, decreased to 6 No reported other overnight events. Systemic review: No fever, chills or weakness No chest pain, palpitation shortness of breath, still on oxygen supplement No abdominal pain, nausea or vomiting No urinary symptoms No reported rash Physical Exam Verdana 4l Vital Signs: Verdana 4d Verdana 4d Vital Signs: Verdana 4d Verdana 4Bd Last Vital Signs Verdana 4d Manager Water New 4d Manager Water New 4d Temp 97.7 F 08/29/21 11:17 Manager Water New 4d Pulse 85 08/29/21 11:17 Manager Water New 4d Resp 16 08/29/21 11:17 BP 94/54 L 08/29/21 11:17 Pulse Ox 92 08/29/21 11:17 BMI result Body Mass Index 20.9 Const: Other: Constitutional : Alert, interactive, not in distress Neck : Normal inspection, Supple Cardiovascular : No elevated JVP, no lower extremity edema Respiratory : Chest wall moving bilaterally, at Inspira distress, on 6 L of oxygen Gastrointestinal: soft, lax, Normal bowel sounds, Non tender Skin : Warm, Dry Neurological : Alert & oriented x3, No focal deficit Objective Data Active Medications Acetaminophen (Acetaminophen 325 Mg Tablet) 650 mg PO Q6H PRN PRN Reason: Pain, Mild (Pain Scale 1-3) Atorvastatin Calcium (Atorvastatin Calcium 40 Mg Tablet) 40 mg PO BEDTIME [facility] Last Admin: 08/28/21 21:00 Dose: 40 mg Documented by: JENIFER Cyanocobalamin (Cyanocobalamin (Vitamin B-12) 1,000 Mcg Tablet) 1,000 mcg PO DAILY [facility] Last Admin: 08/29/21 07:47 Dose: 1,000 mcg Documented by: ZAKIENOAL Dextrose (Dextrose 50 % 25 Gm/50 Ml Syringe) 25 gm IVPUSH Q15M PRN; Protocol PRN Reason: per Hypoglycemia Standing Ord. Enoxaparin Sodium (Enoxaparin Sodium 40 Mg/0.4 Ml Syringe) 40 mg SUBCUT Q24H [facility] Last Admin: 08/28/21 21:00 Dose: 40 mg Documented by: JENIFER Glucose (Glucose Gel 15 Gm Gel..Gram.) 15 gm PO Q15M PRN; Protocol PRN Reason: per Hypoglycemia Standing Ord. Insulin Glargine (Insulin Glargine,Hum.Rec.Anlog 100 Unit/Ml 10 Ml Vial) 10 uni t SUBCUT DAILY [facility] Last Admin: 08/29/21 07:47 Dose: 10 unit Documented by: TRESSA Insulin Human Lispro (Insulin Lispro 100 Unit/Ml 3 Ml Vial) 0 unit SUBCUT QIDACHS [facility]; Protocol Last Admin: 08/29/21 12:02 Dose: 8 unit Documented by: TRESSA Methylprednisolone Sodium Succinate (Methylprednisolone Sod Succ 40 Mg/Ml Vial) 40 mg IVPUSH Q12H [facility] Last Admin: 08/29/21 07:48 Dose: 40 mg Documented by: TRESSA Metoprolol Succinate (Metoprolol Succinate Er 25 Mg Tab.Er.24h) 25 mg PO DAILY [facility]; Protocol Last Admin: 08/29/21 07:49 Dose: 25 mg Documented by: TRESSA Omeprazole (Omeprazole 20 Mg Capsule.Dr) 20 mg PO DAILY [facility] Last Admin: 08/29/21 07:47 Dose: 20 mg Documented by: TRESSA Ondansetron HCl (Ondansetron Hcl 4 Mg/2 Ml Vial) 4 mg IVPUSH Q8H PRN PRN Reason: Nausea and Vomiting Pharmacy Consult (Consult Rx Perform Med Rec) 1 each MISCELLANE ONCE PRN PRN Reason: Consult order Sodium Chloride (0.9 % Sodium Chloride Flush 3 Ml Syringe) 3 ml IVFLUSH QSHIFT [facility] Last Admin: 08/29/21 07:46 Dose: 3 ml Documented by: TRESSA Labs CBC & Chem 7: 08/26/21 06:00 08/29/21 05:30 Labs: Laboratory Results - last 24 hr 08/28/21 08/28/21 08/29/21 15:58 20:36 00:01 Anion Gap Estim Creat Clear Calc Estimated GFR POC Glucose 513 H* 473 H* 209 H Random Glucose Calcium 08/29/21 08/29/21 08/29/21 05:30 07:01 11:06 Anion Gap 11 L Estim Creat Clear Calc 51.4 Estimated GFR > 60 POC Glucose 265 H 305 H Random Glucose 239 H Calcium 7.9 L Assessment and Plan (1) Hyperglycemia due to diabetes mellitus: Status: Acute (2) Physical deconditioning: Status: Acute (3) AROLDO (acute kidney injury): Status: Acute (4) Acute respiratory failure with hypoxia: Status: Acute (5) COVID-19: Status: Acute Plan 81-year-old male with significant cardiac history status post ICD placement presents after mechanical fall at home. Initial workup in emergency room failed to demonstrate any acute fracture however laboratory evaluation demonstrated severe hypokalemia and hypo magnesemia. No appreciable increase in total CK from down time, found to have covid acute hypoxic respiratory failure due to covid pneuomnia overall appears and feels better Finish total of 10 days decadron Decrease methylprednisone to 20 mg b.i.d. wean o2 as tolerated, on the 6L today, will continue to wean down Continue incentive spirometry Hypotension Blood pressure has been running low since admission Not due to sepsis, likely from general deconditioning physical therapy evaluation , SNF AROLDO creatinine down to 1.1 from 1.45 Hypokalemia Resolved Follow BMP Mechanical fall work up negative for Fx/head bleed PT evaluation; recommends STR CAD with Ischemic Cardiomyopathy last echo on file 10/18/20;EF 20-25% with severe global hypokenesis Metoprolol, statin Hyperglycemia secondary to diabetes Secondary to steroid usage Start Lantus insulin SSI Diabetic diet, p.o. sees Anemia(chronic) at baseline. follow clinically Lovenox Full Code Quality Stroke Does the patient have a stroke diagnosis?: No VTE Prior VTE?: No VTE Risk Level:: Medical - moderate - high VTE Device Contraindication: Treatment Not Indicated VTE Drug Contraindication: N/A - Med Ordered
[2021-08-29 16:31] LABS: Glucose, Whole Blood 400 mg/dL (60-115)
[2021-08-29 20:21] LABS: Glucose, Whole Blood 361 mg/dL (60-115)
[2021-08-29] MEDS: methylPREDNISolone Sod Succ 40 MG/ML VIAL 20 MG IVPUSH (21:43)
[2021-08-29] MEDS: Atorvastatin Calcium 40 MG TABLET PO (21:43)
[2021-08-29] MEDS: Enoxaparin Sodium 40 MG/0.4 ML SYRINGE SUBCUT (21:43)
[2021-08-30 03:23] VITALS: BP 109/55; PULSE 66; RESP 18; TEMP 36.4; O2SAT 95
--- NOTE | 2021-08-30 05:32 | PC.NURSE ---
Pt had james removed at 1820. Due to void around 0030. Pt bladder scanned at 0000 for 138mL. Bladder scanned at 0415 for 387mL, pt has no urge to void, abd is not distended. Per order straight cath when bladder scan shows >700mL. Will continue to monitor
[2021-08-30 07:16] VITALS: BP 100/59; PULSE 60; RESP 18; TEMP 36.6; O2SAT 97
[2021-08-30 07:26] LABS: Glucose, Whole Blood 258 mg/dL (60-115)
[2021-08-30] MEDS: methylPREDNISolone Sod Succ 40 MG/ML VIAL 20 MG IVPUSH (07:51)
[2021-08-30] MEDS: Insulin Lispro 100 UNIT/ML 3 ML VIAL SUBCUT ×2 (07:52→11:46)
[2021-08-30] MEDS: Metoprolol Succinate ER 25 MG TAB.ER.24H PO (07:52)
[2021-08-30] MEDS: Omeprazole 20 MG CAPSULE.DR PO (07:52)
[2021-08-30] MEDS: Cyanocobalamin (Vitamin B-12) 1,000 MCG TABLET 1000 MCG PO (07:52)
[2021-08-30] MEDS: 0.9 % Sodium Chloride Flush 3 ML SYRINGE IVFLUSH (07:52)
[2021-08-30] MEDS: Insulin Glargine,Hum.rec.anlog 100 UNIT/ML 10 ML VIAL 10 UNIT SUBCUT (07:53)
[2021-08-30 07:58] LABS: Anion Gap 10 (12-20); Blood Urea Nitrogen 40 mg/dL (9-16); Calcium 7.9 mg/dL (8.4-10.2); Carbon Dioxide 32 mmol/L (22-29); Chloride 95 mmol/L (96-108); Creatinine Clr Calc Pharmacy 48.9; Estimated Glomerular Filt Rate > 60; Glucose Random 242 mg/dL (60-115); Potassium 5.1 mmol/L (3.3-5.1); Sodium 132 mmol/L (135-145)
[2021-08-30 11:15] VITALS: BP 102/58; PULSE 66; RESP 18; TEMP 37; O2SAT 93
[2021-08-30 11:24] LABS: Glucose, Whole Blood 299 mg/dL (60-115)
--- NOTE | 2021-08-30 11:33 | P.DS_ITS ---
DS: Providers Provider Date of Service: 08/30/21 Date of admission: 08/13/21 17:51 Primary care physician: Jacoby Fang MD DS: Diagnosis Discharge Diagnosis (1) Hyperglycemia due to diabetes mellitus: Status: Acute (2) Physical deconditioning: Status: Acute (3) AROLDO (acute kidney injury): Status: Acute (4) Acute respiratory failure with hypoxia: Status: Acute (5) COVID-19: Status: Acute (6) Acute hypokalemia: Status: Acute (7) Hypomagnesemia: Status: Acute DS: Summary Hospital Course Hospital Course: Admission note HPI 81-year-old male with a history of CHF w/ EF 20% s/p AICD, hx [place] in 2011 s/p PCI, Paroxysmal AFib not on anticoagulation, HTN, DM & recent left hip fracture due to slip and fall versus syncope due to severe anemia who presents to the ER from home via EMS? after he reports slipping and falling in the kitchen this morning.? He reports he was in the kitchen and he needed to use the bathroom and he just slipped and fell. ? He lives at home with his sister who heard the fall and came down to the kitchen and found him on the ground. ? He was unable to get up and EMS was called.? He was incontinent of urine and stool because was unable to get to the bathroom in time.? He denies hitting his head or losing consciousness. No seizure history. No post-ictal state per EMS.? He thinks he fell onto his buttocks.? He denies any? pain in any of his joints, abdomen or chest. ? he denies any shortness of breath or chest pain.? He was not dizzy or lightheaded before he fell. XR? of left hip pelvis and chest all unremarkable.? CT scan of the head and cervical spine failed to demonstrate any acute pathology.? Laboratory evaluation revealed a potassium of 2.4 along with a magnesium of 1.3.? Repletion of both of these divalents was begun in the emergency room without issue.? COVID-19 swab was positive; patient? is asymptomatic; room air saturation 95%.? Total creatinine kinase was normal; high sensitive troponin? was initially 95 and bladimir to 143 approximately 4 hours after arrival.? Emergency room attending discussed case with cardiology who stated there was no need for heparinization.? At this point in time patient will be admitted to the telemetry unit in isolation for further treatment Hospital course A 81-year-old male with significant cardiac history status post ICD placement presents after mechanical fall at home.? Initial workup in emergency room failed to demonstrate any acute fracture however laboratory evaluation demonstrated severe hypokalemia and hypo magnesemia. No appreciable increase in total CK from down time, found to have covid. A treated mainly for Acute hypoxic respiratory failure due to covid pneuomnia . Finished 10 days of Decadron and continue with methylprednisone after that. Wean down the oxygen supplement to 4 L at the day of discharge. Noted to have Hypotension. Blood pressure has been running low since admission. likely from general deconditioning Noted to have acute kidney injury with creatinine of around 1.5. Improved almost 1 around baseline. Had a fall at time of presentation. PT evaluation;? recommends STR Continue to wean down oxygen at the facility. To start physical therapy. Time Spent with Patient Time attestation: Total time spent providing and/or coordinating discharge services: Discharge coordination time: Greater than 30 minutes Quality: Stroke Does the patient have a stroke diagnosis?: No Physical Exam 2 Verdana 4l Vital Signs: Verdana 4d Verdana 4d Vital Signs: Verdana 4d Verdana 4Bd Last Vital Signs Verdana 4d Railcar Switchman New 4d Railcar Switchman New 4d Temp 98.6 F 08/30/21 11:15 Railcar Switchman New 4d Pulse 66 08/30/21 11:15 Railcar Switchman New 4d Resp 18 08/30/21 11:15 BP 102/58 L 08/30/21 11:15 Pulse Ox 93 08/30/21 11:15 BMI result Body Mass Index 20.9 Const: Other: Constitutional : Alert, interactive, not in distress Neck : Normal inspection, Supple Cardiovascular : No elevated JVP, no lower extremity edema Respiratory : Chest wall moving bilaterally, at Inspira distress, on 4 L of oxygen Gastrointestinal: soft, lax, Normal bowel sounds, Non tender Skin : Warm, Dry Neurological : Alert & oriented x3, No focal deficit DS: Data Data Completed and Pending Completed studies during hospitalization [Text1]: Procedures Assistance with Respiratory Ventilation, Less than 24 Consecutive Hours, Continuous Positive Airway Pressure (10/18/20) Replacement of Left Hip Joint, Femoral Surface with Synthetic Substitute, Uncemented, Open Approach (06/26/21) Transfusion of Nonautologous Red Blood Cells into Peripheral Vein, Percutaneous Approach (06/26/21) Labs on day of discharge: Laboratory Results - last 24 hr 08/29/21 08/29/21 08/30/21 16:25 20:17 07:16 Sodium Potassium Chloride Carbon Dioxide Anion Gap BUN Creatinine Estim Creat Clear Calc Estimated GFR POC Glucose 400 H* 361 H* 258 H Random Glucose Calcium 08/30/21 08/30/21 07:27 11:16 Sodium 132 L Potassium 5.1 Chloride 95 L Carbon Dioxide 32 H Anion Gap 10 L BUN 40 H Creatinine 1.01 Estim Creat Clear Calc 48.9 Estimated GFR > 60 POC Glucose 299 H Random Glucose 242 H Calcium 7.9 L Discharge Plan Discharge Patient Disposition: er [facility] Discharge Diagnosis: Hypoxic respiratory failure secondary to COVID-19 infection Acute kidney injury Physical deconditioning Referrals: [facility] [Other] - 1 Week Jacoby Fang MD [Primary Care Provider] - 1 Week Discharge Medications: Continued atorvastatin 40 mg tablet 1 tab PO BEDTIME 0RF cyanocobalamin (vitamin B-12) [Vitamin B-12] 1,000 mcg tablet 1 tab PO DAILY 0RF metformin 1,000 mg tablet 1 tab PO BID 0RF ipratropium-albuterol 0.5 mg-3 mg(2.5 mg base)/3 mL Solution For Nebulization 3 ml inhalation Q4H PRN (Reason: Shortness Of Breath) Qty: 30 0RF metoprolol succinate 50 mg tablet extended release 24 hr 25 mg PO DAILY 0RF omeprazole 20 mg capsule,delayed release(DR/EC) 1 cap PO DAILY 0RF furosemide 20 mg tablet 1 tab PO DAILY 0RF Discharge Orders: Discharge Order (Routine); Ordered 08/30/21 Ordered By: Amanda Wright Diet: advance to usual diet Activity on Discharge: As tolerated Stand Alone Forms: Patient Portal Discharge page Care Plan Goals: Read below Health Concerns: Read below Plan of Treatment: Read below Assessment: You were admitted to the hospital for evaluation of difficulty breathing. Found to be hypoxic as a result of COVID-19 infection. Treated with IV steroids, oxygen supplement and antiviral medication with good response over the course of hospital stay. You were evaluated by physical therapy team who recommended short-term rehab.
--- NOTE | 2021-08-30 11:40 | MHC.CM.PN ---
pt to be dcd today at 2:30 to [facility]
--- NOTE | 2021-08-30 14:42 | MHC.CM.PN ---
PT DC TODAY TO [facility] PT AWARE AND WILL NOTIFY SISTER AMBTRANSPORT AT 230
== END 2021-08-30 14:45 | disposition skilled nursing facility (03) | DRG 177 ==
LOC: HO.ED 17:33 → HO.EDOVER 18:01 → HO.IMC 08-17 16:59
PROVIDERS: Internal Medicine; Physician Assistant; Admitting Provider Hospitalist; Emergency Provider Emergency Medicine; PCP Internal Medicine; Visit Provider Student in an Organized Health Care Education/Training Program
DX: U07.1 COVID-19 (principal); J96.01 Acute respiratory failure with hypoxia; N17.9 Acute kidney failure, unspecified; E87.6 Hypokalemia; E83.42 Hypomagnesemia; I25.5 Ischemic cardiomyopathy; I48.0 Paroxysmal atrial fibrillation; N18.1 Chronic kidney disease, stage 1; E11.65 Type 2 diabetes mellitus with hyperglycemia; E11.22 Type 2 diabetes mellitus with diabetic chronic kidney disease; I25.10 Atherosclerotic heart disease of native coronary artery without angina pectoris; I95.9 Hypotension, unspecified; I50.9 Heart failure, unspecified; I25.2 Old myocardial infarction; D63.1 Anemia in chronic kidney disease; Z95.810 Presence of automatic (implantable) cardiac defibrillator; Z79.4 Long term (current) use of insulin; Z79.84 Long term (current) use of oral hypoglycemic drugs; Z79.899 Other long term (current) drug therapy
CPT/HCPCS: 36415; 70450; 71045; 72125; 73502; 80048; 80053; 80076; 81003; 82550; 82947; 83036; 83615; 83735; 83880; 84132; 84484; 85025; 85027; 85379; 85652; 86140; 87040; 87635; 93005; 96365; 96366; 96375; 97110; 97162; 97530; 99285; 99291; C1758; J1100; J1650; J1940; J2920; J3475

== ENCOUNTER 2021-08-31 09:15 | Inpatient (IN) | payer MEDICARE, SELFPAY ==
[2021-08-31] VITALS (10 sets, daily range): BP systolic 89–121; BP diastolic 44–61; PULSE 72–92; RESP 14–24; TEMP 36.6–37.2; O2SAT 95–100; BMI 20.5
--- NOTE | ~2021-08-31 | XR_ITS ---
EXAMINATION: XR CHEST CLINICAL INFORMATION: Hypoxemia. Rule out pneumonia. COMPARISON: Previous chest x-rays most recent 08/21/2021 TECHNIQUE: 2 views of the chest were obtained. FINDINGS: The cardiac silhouette is enlarged but stable. There is a left subclavian pacemaker with lead projecting over the ventricular apex. This appears unchanged. The lung volumes are low. There bibasilar infiltrates. This may be slightly improved from most recent exam 08/21/2021 exam. There is a 1 cm nodule at the left lung base. This is newly appreciated from previous exams and may represent a nipple shadow. There may be blunting of the posterior costophrenic angles questionable for small bilateral pleural effusions. There are degenerative changes of the spine. XR/XR chest 2V IMPRESSION: Bilateral lower lobe infiltrates. This may be slightly improved compared to most recent chest x-ray 08/21/2021.
--- NOTE | ~2021-08-31 | CT_ITS ---
EXAMINATION: CT ANGIOGRAM OF THE CHEST WITH AND WITHOUT CONTRAST (CT PULMONARY ANGIOGRAM FOR PE) CLINICAL INFORMATION: Reason for Exam Hypoxia, recent COVID elevated D-dimer rule out PE COMPARISON: Previous chest x-ray from earlier the same day and chest CTA September 2020 TECHNIQUE: Prior to contrast administration, noncontrast localization images were obtained. Subsequently, multidetector volumetric imaging was performed from the thoracic inlet to below the diaphragms following the administration of 65 mL Omnipaque 350 intravenous contrast. No contrast reaction reported Sagittal, coronal, and MIP oblique sagittal reformatted images were obtained on the CT workstation, uploaded to PACS, and reviewed. This CT examination was performed using dose optimization techniques as appropriate, variously including the following: *Automated exposure control *Adjustment of mA and/or kV according to patient size (this includes techniques or standardized protocols for targeted exams where dose is matched to indication/reason for exam; i.e. extremities or head) *Use of iterative reconstruction technique Total exam dose-length product 246 mGy-cm FINDINGS: QUALITY OF STUDY/CONTRAST BOLUS: Satisfactory. PULMONARY ARTERIES: No central or segmental pulmonary emboli. THORACIC AORTA: No aneurysm or dissection. LUNG: There is dense airspace disease with air bronchograms seen in the right lower lobe and posterior segment of the right upper lobe. There are patchy heterogeneous or semisolid partially groundglass attenuation partially solid infiltrates seen in the bilateral upper lobes and left lower lobe. There is a more round nodular appearing area in the anterior segment of the right upper lobe measuring 1 cm axial image 30 series 7. This is difficult to compare this area on prior exam due to diffuse airspace disease and effusions on previous exam. PLEURA: There are small bilateral pleural effusions. MEDIASTINUM: Normal heart size. Left subclavian single chamber pacemaker with lead projecting over the right ventricular apex. Coronary artery calcification. No pericardial effusion. No hilar or mediastinal lymphadenopathy. No evidence of septal bowing or right heart strain. CHEST WALL/AXILLA: No axillary or internal mammary lymphadenopathy. OSSEOUS STRUCTURES: There are displaced left posterior 10th and 11th rib fractures. These are of uncertain age. These are new in the interval from September 2020 CTA.. Old sternal fracture. Degenerative changes of the spine. UPPER ABDOMEN: Ascites. There may be calcifications in the pancreas. No reflux of contrast into the hepatic veins to suggest elevated right heart pressures. CT/CT angio chest PE protocol IMPRESSION: No evidence of pulmonary embolism. Dense airspace disease and air bronchograms in the right lower lobe and posterior segment of the right upper lobe suggestive of acute pneumonia. Patchy heterogeneous semisolid or groundglass attenuation infiltrates seen in the bilateral upper and left lower lobes probably representing small pneumonia or pneumonitis. Small bilateral pleural effusions. Left posterior 10th and 11th displaced rib fractures, uncertain age. VTE:
--- NOTE | 2021-08-31 10:01 | ECG_ITS ---
Test Reason : WEAKNESS Blood Pressure : / mmHG Vent. Rate : 084 BPM Atrial Rate : 084 BPM P-R Int : 160 ms QRS Dur : 096 ms QT Int : 386 ms P-R-T Axes : 080 -03 153 degrees QTc Int : 456 ms Sinus rhythm with Premature atrial complexes Minimal voltage criteria for LVH, may be normal variant ( Sokolow-Negron ) Inferior infarct , age undetermined Cannot rule out Anterior infarct (cited on or before 13-AUG-2021) Abnormal ECG When compared with ECG of 13-AUG-2021 12:46, changes noted Referred By: Richard Vallejo Electronically Signed By:MAGDALENE KHAN
--- NOTE | 2021-08-31 10:36 | ED_ITS ---
HPI - General Adult General Chief complaint: Upper Respiratory Symptoms Stated complaint: WEAKNESS Time Seen by Provider: 08/31/21 10:02 Source: patient and EMS Mode of arrival: EMS Limitations: no limitations History of Present Illness HPI narrative: 81-year-old male who was brought to the emergency department by ambulance from his [facility] facility for evaluation a drop in his O2 saturation to ED% on 4 L via nasal cannula and a decrease in his systolic blood pressure to 90. At the time of my interview, the patient had no complaints. He is on 4 L via nasal cannula and his O2 saturation is 99%. He denied chest pain, shortness of breath, fever, chills, nausea, vomiting. He states that he is feeling weak. In reviewing the patient's record, the patient was here on 08/13/2021 until 08/30/2021 (discharged yesterday) for a fall, COVID-19 positive with hypoxic respiratory failure requiring 8 L of oxygen via nasal cannula and he was discharged on 4 L via nasal cannula. He had elevated troponins (95 and 143). The patient does have a history of congestive heart failure with EF of 20% with an AICD and paroxysmal atrial fibrillation Also during that admission he had a low potassium and low magnesium which were repleted. Related Data Home Medications Medication Instructions Recorded Confirmed atorvastatin 40 mg tablet 1 tab PO BEDTIME 10/17/20 08/31/21 cyanocobalamin (vitamin B-12) 1 tab PO DAILY 10/17/20 08/31/21 1,000 mcg tablet (Vitamin B-12) metformin 1,000 mg tablet 1 tab PO BID 10/17/20 08/31/21 furosemide 20 mg tablet 1 tab PO DAILY 08/13/21 08/31/21 omeprazole 20 mg capsule,delayed 1 cap PO DAILY@0630 08/13/21 08/31/21 release acetaminophen 325 mg tablet 650 mg PO Q6H PRN 08/31/21 08/31/21 metoprolol succinate 25 mg 25 mg PO DAILY 08/31/21 08/31/21 tablet,extended release 24 hr Previous Rx's Medication Instructions Recorded ipratropium 0.5 mg-albuterol 3 mg 3 ml INHALATION Q4H PRN #30 ml 06/30/21 (2.5 mg base)/3 mL nebulization soln levofloxacin 750 mg tablet 750 mg PO DAILY 4 Days #4 tab 08/31/21 Allergies Allergy/AdvReac Type Severity Reaction Status Date / Time No Known Allergies Allergy Verified 07/18/21 11:27 Review of Systems Verdana 4l Review of Systems: Yes all other systems are reviewed and Verdana 4d are negative [facility] Past Medical History Medical History Anemia Anemia Atherosclerotic cardiovascular disease Basal cell carcinoma of skin Chronic renal failure, stage 2 (mild) Closed hip fracture Congestive cardiomyopathy Congestive heart failure Diabetes 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 Hyperlipidemia ICD (implantable cardioverter-defibrillator) in place Ischemic cardiomyopathy 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, old Paroxysmal A-fib Ruptured epidermal cyst Surgical History H/O heart artery stent Social History Social History Household Members: None Household Members Other:: sister lives upstairs Housing: Apartment Do you presently have visiting nurse or other home services: No Alcohol intake: never Patient Tobacco Use Status: Never used Tobacco e-Cigarette/Vaping Use: Never Used Second Hand Smoke Exposure: No Use of substances other than those prescribed or required for medical reasons: No Advance Directives: Yes Advance Directives on File: Yes Advance Directives Date on File: 07/01/21 service: No Current occupational status: retired Physical Exam Verdana 4l Vital Signs: Verdana 4d Verdana 4d Vital Signs: Verdana 4d Verdana 4Bd Last Vital Signs Verdana 4d [employer] New 4d [employer] New 4d Temp 97.8 F 08/31/21 12:02 [employer] New 4d Pulse 92 08/31/21 15:36 [employer] New 4d Resp 18 08/31/21 15:36 BP 121/58 L 08/31/21 15:36 Pulse Ox 96 08/31/21 15:36 Oxygen Flow Rate 4 08/31/21 14:36 BMI result Body Mass Index 20.5 Const: Other: Awake, alert, male patient, does not appear to be in any distress, he was able to tell me that he was here for low oxygen level at his facility, answers all questions appropriately HENMT: Head: Yes normal to inspection, Yes normocephalic and Yes atraumatic Ears: external ears normal General nose exam: Normal external nose present Face and sinus: Yes normal facial exam Mouth: Normal oral and palatal mucosa present Throat: Yes posterior oropharynx normal Eyes: Other: Right eye deviates laterally, right pupil is minimally responsive to light, left pupil is reactive to light Neck: Neck: Yes normal visual inspection, Yes no lymphadenopathy, Yes trachea midline and Yes supple Chest: Chest palpation & inspection: normal inspection of the chest and normal palpation of entire chest wall Resp: Effort & Inspection: normal respiratory effort and able to speak in complete sentences Auscultation: rhonchi (Diffuse) Cardio: Rate: regular rate Rhythm: regular rhythm Heart sounds: S1 normal heart sound present, S2 normal heart sound present and no murmurs GI: Inspection: Yes normal to inspection Palpation (GI): Soft to palpation, nontender and no guarding Auscultation: normal bowel sounds : General: Yes no CVA tenderness Back/Spine/Pelvis: Back: no CVA tenderness Skin: General skin exam: no rashes or lesions noted Neuro: Cranial nerves: Yes CN's II-XII intact bilaterally Cognition (Neuro): normal cognition Motor exam (neuro): 5/5 motor strength present throughout Extrem: General: Yes normal to inspection Psych: Appearance: grossly normal Speech and movement: Normal speech and movement present Affect: normal affect Attitude: cooperative Thought process: Normal thought process present Thought content: Normal thought content present Course Course Course Narrative: 81-year-old male with recent admission from 08/13/2021 until yesterday 08/30/2021 for COVID-19 pneumonia with hypoxia discharged to the nursing facility on 4 L via nasal cannula who presents emergency department for eval uation of a drop in his O2 saturation of 80%. Currently on 4 L of oxygen via nasal cannula his O2 saturation is 99%. Patient's lung exam did reveal diffuse rhonchorous sounds otherwise was unremarkable. I did order a CBC, CMP, lipase,, lactic acid, magnesium, troponin, urinalysis, blood cultures x2. I will also obtain a two view chest x-ray. 1552: Laboratory evaluation [place] [address]. The patient has anemia and thrombocytopenia with an H&H of 8 and 29 and platelet count of 118, these are chronic. Patient's BUN and creatinine were elevated at 41 and 1.16, this is chronic. Patient's glucose was elevated 374. Patient's lactic acid is elevated 3.4 however given his congestive heart failure and his EF of 20%, this patient cannot receive a fluid bolus. Chest x-ray revealed bilateral lower lobe infiltrates which may be improved compared to 08/21/2021. CT pulmonary angiogram of the chest PE protocol did not reveal any pulmonary embolism. The CT scan did reveal dense airspace disease, air bronchograms, right lower lobe and upper lobe pneumonia, patchy heterogeneous ground-glass attenuation left lower lobe pneumonia, and bilateral pleural effusions. The patient has been on 4 L of oxygen via nasal cannula and has had no episodes of hypoxia since being here in the emergency department given the above workup, there is no evidence of pulmonary embolism to explain his sudden drop in his oxygen level to 80% at the nursing facility. The CT scan is significantly abnormal but I think that it is mainly secondary to COVID pneumoniae/pneumonitis. Given his elevated white blood cell count however I will give him Levaquin 750 mg orally for 5 days to treat him for possible bacterial superinfection on top of his COVID pneumonia/pneumonitis. I think that the patient is stable and can be discharged back to his care facility. Medical Decision Making Lab Data Result diagrams: 08/31/21 11:16 08/31/21 11:16 Labs: Lab Results 08/31/21 08/31/21 08/31/21 Range/Units 11:16 11:16 11:16 WBC 16.6 H (4.8-10.8) X10*3/uL RBC 3.26 L (4.60-5.80) X10*6/uL Hgb 8.8 L (14.0-18.0) g/dl Hct 29.0 L (42.0-52.0) % MCV 89.0 (80.0-98.0) fL MCH 27.0 (27.0-33.0) pg MCHC 30.3 L (31.0-36.0) g/dl RDW 18.1 H (11.0-16.0) % Plt Count 118 L (160-400) X10*3/uL MPV 10.9 (9.4-12.4) fL Immature Gran % (Auto) 0.6 H (0.0-0.4) % Neut % (Auto) 89.0 H (45-73) % Lymph % (Auto) 5.5 L (20-40) % Rusk % (Auto) 4.7 (2-11) % Eos % (Auto) 0.1 (0-4) % Baso % (Auto) 0.1 (0-2) % Lymph # (Auto) 0.9 L (1.2-4.9) X10*3/uL Rusk # (Auto) 0.8 (0.1-1.2) X10*3/uL Eos # (Auto) 0.0 (0.0-0.4) X10*3/uL Baso # (Auto) 0.0 (0.0-0.2) X10*3/uL Abs Immat Gran (auto) 0.10 H (0.00-0.03) X10*3/uL Absolute Neuts (auto) 14.8 H (2.0-8.3) x10*3/uL Absolute Nucleated RBC 0.000 (0.0-0.012) X10*3/uL Nucleated RBC % (auto) 0.0 (0.0-0.2) /100WBC D-Dimer High Sensitivty 3332 NG/ML Sodium 133 L (135-145) mmol/L Potassium 4.7 (3.3-5.1) mmol/L Chloride 95 L (96-108) mmol/L Carbon Dioxide 32 H (22-29) mmol/L Anion Gap 11 L (12-20) BUN 41 H (9-16) mg/dL Creatinine 1.16 (0.5-1.4) mg/dL Estim Creat Clear Calc 41.7 Estimated GFR > 60 Random Glucose 374 H* (60-115) mg/dL Lactic Acid (0.5-2.0) mmol/L Lactic Acid F/U @ 2Hr (0.5-2.0) mmol/L Calcium 8.1 L (8.4-10.2) mg/dL Magnesium 2.1 (1.6-2.6) mg/dL Total Bilirubin 0.5 (0.0-1.0) mg/dL AST 21 (5-37) U/L ALT 23 (0-40) U/L Alkaline Phosphatase 79 D (39-117) U/L Troponin I High Sens (<3.5-35.0) ng/L B-Natriuretic Peptide (<100) pg/mL Total Protein 6.1 L (6.5-8.0) g/dL Albumin 2.8 L (3.5-5.0) g/dL Lipase 26 (8-78) U/L 08/31/21 08/31/21 08/31/21 Range/Units 11:16 11:16 13:46 WBC (4.8-10.8) X10*3/uL RBC (4.60-5.80) X10*6/uL Hgb (14.0-18.0) g/dl Hct (42.0-52.0) % MCV (80.0-98.0) fL MCH (27.0-33.0) pg MCHC (31.0-36.0) g/dl RDW (11.0-16.0) % Plt Count (160-400) X10*3/uL MPV (9.4-12.4) fL Immature Gran % (Auto) (0.0-0.4) % Neut % (Auto) (45-73) % Lymph % (Auto) (20-40) % Rusk % (Auto) (2-11) % Eos % (Auto) (0-4) % Baso % (Auto) (0-2) % Lymph # (Auto) (1.2-4.9) X10*3/uL Rusk # (Auto) (0.1-1.2) X10*3/uL Eos # (Auto) (0.0-0.4) X10*3/uL Baso # (Auto) (0.0-0.2) X10*3/uL Abs Immat Gran (auto) (0.00-0.03) X10*3/uL Absolute Neuts (auto) (2.0-8.3) x10*3/uL Absolute Nucleated RBC (0.0-0.012) X10*3/uL Nucleated RBC % (auto) (0.0-0.2) /100WBC D-Dimer High Sensitivty NG/ML Sodium (135-145) mmol/L Potassium (3.3-5.1) mmol/L Chloride (96-108) mmol/L Carbon Dioxide (22-29) mmol/L Anion Gap (12-20) BUN (9-16) mg/dL Creatinine (0.5-1.4) mg/dL Estim Creat Clear Calc Estimated GFR Random Glucose (60-115) mg/dL Lactic Acid 3.4 H* (0.5-2.0) mmol/L Lactic Acid F/U @ 2Hr 3.2 H* (0.5-2.0) mmol/L Calcium (8.4-10.2) mg/dL Magnesium (1.6-2.6) mg/dL Total Bilirubin (0.0-1.0) mg/dL AST (5-37) U/L ALT (0-40) U/L Alkaline Phosphatase (39-117) U/L Troponin I High Sens 20.3 D (<3.5-35.0) ng/L B-Natriuretic Peptide 185 H (<100) pg/mL Total Protein (6.5-8.0) g/dL Albumin (3.5-5.0) g/dL Lipase (8-78) U/L Discharge Plan Discharge Clinical Impression: 2019 novel coronavirus-infected pneumonia (NCIP) Patient Disposition: Xfer [facility] Additional Instructions: You have been on 4 L of oxygen via nasal cannula since you have been here in the emergency department and your O2 saturations have been ranging from 97-99% which is very reassuring You have had no episodes of hypoxia since being here in the emergency department. Your laboratory evaluation did reveal an elevated white blood cell count and elevated lactic acid. The CT pulmonary angiogram PE protocol did not reveal any large blood clots in your lung to explain the sudden drop in your oxygen level at the nursing [facility]. I think this is very reassuring. The CT scan however does reveal bilateral infiltrates in your lungs which I believe is consistent with your COVID pneumonia however, sometimes it is hard to distinguish between the COVID pneumonia and a possible new bacterial pneumonia. Therefore I am going to treat you with an antibiotic called Levaquin 750 mg 1 pill once a day for 5 days. Your given your 1st dose here in the emergency department and a prescription for 4 more doses. Continue taking your medications as prescribed. Follow-up with your doctor in 2 days. Please return to the emergency department if your symptoms get worse or if you develop any symptoms that are concerning to you. Prescriptions: New levofloxacin 750 mg tablet 750 mg PO DAILY 4 Days Qty: 4 0RF No Action atorvastatin 40 mg tablet 1 tab PO BEDTIME 0RF cyanocobalamin (vitamin B-12) [Vitamin B-12] 1,000 mcg tablet 1 tab PO DAILY 0RF metformin 1,000 mg tablet 1 tab PO BID 0RF acetaminophen 325 mg Tablet 650 mg PO Q6H PRN (Reason: Pain) 0RF metoprolol succinate 25 mg Tablet Extended Release 24 Hr 25 mg PO DAILY 0RF ipratropium-albuterol 0.5 mg-3 mg(2.5 mg base)/3 mL Solution For Nebulization 3 ml inhalation Q4H PRN (Reason: Shortness Of Breath) Qty: 30 0RF omeprazole 20 mg capsule,delayed release(DR/EC) 1 cap PO DAILY@0630 0RF furosemide 20 mg tablet 1 tab PO DAILY 0RF
[2021-08-31 11:23] LABS: MANUAL DIFF FLAG NO
--- NOTE | 2021-08-31 11:31 | PHA.MEDREC ---
Pharmacy Consult ? Medication Reconciliation Pharmacy has completed the medication reconciliation. Patient came from [facility] with a medication list. Janeth Ray, Akash[employer]
[2021-08-31 11:37] LABS: Lactic Acid 3.4 mmol/L (0.5-2.0)
[2021-08-31 11:39] LABS: D Dimer High Sensitivity 3332 NG/ML
[2021-08-31 11:41] LABS: Basophils Percent Auto 0.1 % (0-2); Eosinophils Percent Auto 0.1 % (0-4); Hemoglobin 8.8 g/dl (14.0-18.0); Imm Gran Pct Auto 0.6 % (0.0-0.4); Lymphocytes Absolute Auto 0.9 X10*3/uL (1.2-4.9); Lymphocytes Percent Auto 5.5 % (20-40); Mean Corpuscular HGB Conc 30.3 g/dl (31.0-36.0); Mean Platelet Volume 10.9 fL (9.4-12.4); Monocytes Absolute Auto 0.8 X10*3/uL (0.1-1.2); Monocytes Percent Auto 4.7 % (2-11); Neutrophils Absolute Auto 14.8 x10*3/uL (2.0-8.3); Platelet Count 118 X10*3/uL (160-400); Red Blood Count 3.26 X10*6/uL (4.60-5.80); Red Cell Distribution Width 18.1 % (11.0-16.0); White Blood Count 16.6 X10*3/uL (4.8-10.8)
[2021-08-31 11:43] LABS: Alanine Aminotransferase 23 U/L (0-40); Albumin Level 2.8 g/dL (3.5-5.0); Alkaline Phosphatase 79 U/L (39-117); Anion Gap 11 (12-20); Aspartate Amino Transferase 21 U/L (5-37); Bilirubin Total 0.5 mg/dL (0.0-1.0); Blood Urea Nitrogen 41 mg/dL (9-16); Calcium 8.1 mg/dL (8.4-10.2); Carbon Dioxide 32 mmol/L (22-29); Chloride 95 mmol/L (96-108); Creatinine Clr Calc Pharmacy 41.7; Estimated Glomerular Filt Rate > 60; Glucose Random 374 mg/dL (60-115); Lipase 26 U/L (8-78); Magnesium 2.1 mg/dL (1.6-2.6); Potassium 4.7 mmol/L (3.3-5.1); Sodium 133 mmol/L (135-145); Total Protein 6.1 g/dL (6.5-8.0)
[2021-08-31 11:46] LABS: B Type Natriuretic Peptide 185 pg/mL (<100); Troponin-I High Sensitivity 20.3 ng/L (<3.5-35.0)
--- NOTE | 2021-08-31 12:41 | PC.NURSE ---
Nephew in [place] informed pt would be getting bloodwork and ct scan. Nephew requested to wait in [place] until ct scan results. RN informed. Nephew's contact information: Joseph Ellington
[2021-08-31 13:20] LABS: Reflex Lactate? Lactic Acid Added
[2021-08-31 14:07] LABS: ~Lactic Acid-LAB USE ONLY 3.2 mmol/L (0.5-2.0)
--- NOTE | 2021-08-31 14:25 | PC.NURSE ---
patient sleeping, wakes to verbal stimulus, vitals stable, athletic monitor intact-nsr, pt aware we need a urine, pt denies pain or discomfort, will continue to monitor
--- NOTE | 2021-08-31 14:38 | PC.NURSE ---
pt to ct scan
[2021-08-31] MEDS: iohexoL 350 MG/ML 100 ML INFUS..BTL IV (15:05)
--- NOTE | 2021-08-31 15:37 | PC.NURSE ---
patient awake/alert talking with family at bedside, no c/o pain or discomfort, oracle ebs developer intact, vss, will continue to monitor.
[2021-08-31 15:51] LABS: Reflex Lactate? 2 Y
[2021-08-31] MEDS: levoFLOXacin 750 MG TABLET PO (16:10)
--- NOTE | 2021-08-31 18:25 | PC.NURSE ---
patient awake/alert, pt c/o dizziness, pt vitals obtained, pt noted to be hypotensive, cardiac catheterization technician intact, will notify provider.
[2021-08-31] MEDS: 0.9 % Sodium Chloride 1,000 ML 999 ML IV (18:54)
--- NOTE | 2021-08-31 19:02 | PM.SEPSISNOT ---
Sepsis Bolus Exclusion Sepsis Bolus Exclusion CHF/Renal Failure This patient met severe sepsis criteria due to the following condition(s):: Hypotension In my clinical judgement the administration of 30 ml/kg of crystalloid would be detrimental to this patient due to the patient's following conditions:: NYHA class III or IV Heart Failure(symptoms with low exertion or rest) Replace the 30 mls/kg with: Crystalloids amount given in mls:: 1,000 Colloids amount given in mls:: 0
[2021-08-31] MEDS: Piperacillin Sodium/Tazobactam 3.375 GM in 0.9 % Sodium Chloride 50 ML IV (19:03)
--- NOTE | 2021-08-31 20:53 | P.HPHOSP_ITS ---
History of Present Illness Date of Service: 08/31/21 Chief Complaint: SOB 81-year-old male with a past medical history of hypertension, hyperlipidemia, diabetes, CAD, CHF with EF of 20%, AICD, paroxysmal AFib -not on anticoagulation; chronic kidney disease, anemia, history of fib pressure; recent admission to the hospital for COVID-19 pneumonia - finish tender course of steroids; discharged to the rehab: 08/30/2021; presented back from the rehab with a chief complaint of hypoxia. Also soft blood pressure. Patient initially reported feeling generally weak to the ER team. Currently mentions that he feels okay. Denies any chest pain or palpitations. Denies any lightheadedness or dizziness. Reports exertional dyspnea Reports he has dry cough. Denies any GI symptoms. review of all other systems is negative except mentioned above ER course: Per ER team patient's CT chest showed dense pneumonia -multifocal; upper lobe pneumonitis; requiring 4 L of supplemental oxygen. Not in respiratory distress. Also had an episode of drop in blood pressure to 80 systolic. Received 1 L of normal saline. Admitted to the hospital for further management. 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, old Paroxysmal A-fib Ruptured epidermal cyst Pertinent family history: reviewed Surgical History H/O heart artery stent Social History Household Members: None Household Members Other:: sister lives upstairs Housing: Apartment Do you presently have visiting nurse or other home services: No Alcohol intake: never Patient Tobacco Use Status: Never used Tobacco e-Cigarette/Vaping Use: Never Used Second Hand Smoke Exposure: No Use of substances other than those prescribed or required for medical reasons: No Advance Directives: Yes Advance Directives on File: Yes Advance Directives Date on File: 07/01/21 service: No Current occupational status: retired Meds Allergies Allergy/AdvReac Type Severity Reaction Status Date / Time No Known Allergies Allergy Verified 07/18/21 11:27 Active Medications: Current Medications Acetaminophen (Acetaminophen 325 Mg Tablet) 650 mg PO Q6H PRN PRN Reason: Pain, Mild (Pain Scale 1-3) Albuterol/Ipratropium (Albuterol/Iprat 2.5/0.5mg 3 Ml Ampul.Neb) 3 ml INHALE RQ4H PRN PRN Reason: Shortness of Breath/Wheezing Dexamethasone Sodium Phosphate (Dexamethasone Sod Phosphate 4 Mg/Ml Vial) 6 mg IVPUSH DAILY [facility] Dextrose (Dextrose 50 % 25 Gm/50 Ml Syringe) 25 gm IVPUSH Q15M PRN; Protocol PRN Reason: per Hypoglycemia Standing Ord. Enoxaparin Sodium (Enoxaparin Sodium 40 Mg/0.4 Ml Syringe) 40 mg SUBCUT Q24H [facility] Glucose (Glucose Gel 15 Gm Gel..Gram.) 15 gm PO Q15M PRN; Protocol PRN Reason: per Hypoglycemia Standing Ord. Vancomycin HCl 1,000 mg/ (Sodium Chloride) 270 mls @ 270 mls/hr IV Q12H [facility] Piperacillin Sod/Tazobactam (Sod 3.375 gm/ Sodium Chloride) 50 mls @ 100 mls/hr IV Q6H [facility] Insulin Glargine (Insulin Glargine,Hum.Rec.Anlog 100 Unit/Ml 10 Ml Vial) 10 unit SUBCUT BEDTIME [facility] Insulin Human Lispro (Insulin Lispro 100 Unit/Ml 3 Ml Vial) 0 unit SUBCUT QIDACHS [facility]; Protocol Melatonin (Melatonin 3 Mg Tablet) 6 mg PO BEDTIME PRN PRN Reason: Insomnia Morphine Sulfate (Morphine Sulfate 4 Mg/Ml Cartridge) 4 mg IVPUSH Q4H PRN; Protocol PRN Reason: Pain, SOB Pharmacy Consult (Consult Rx Vancomycin Dosing) 1 each MISCELLANE DAILY PRN PRN Reason: Consult order Senna (Sennosides 8.6 Mg Tablet) 17.2 mg PO BEDTIME PRN PRN Reason: Constipation Sodium Chloride (0.9 % Sodium Chloride Flush 3 Ml Syringe) 3 ml IVFLUSH QSHIFT [facility] Home Medications Medication Instructions Recorded Confirmed Last Taken Type atorvastatin 40 1 tab PO 10/17/20 08/31/21 10/16/20 20:00 History mg tablet BEDTIME cyanocobalamin 1 tab PO DAILY 10/17/20 08/31/21 06/25/21 History (vitamin B-12) 1,000 mcg tablet (Vitamin B-12) metformin 1,000 1 tab PO BID 10/17/20 08/31/21 06/25/21 History mg tablet furosemide 20 1 tab PO DAILY 08/13/21 08/31/21 Unknown History mg tablet omeprazole 20 1 cap PO 08/13/21 08/31/21 Unknown History mg DAILY@0630 capsule,delayed release acetaminophen 650 mg PO Q6H 08/31/21 08/31/21 Unknown History 325 mg tablet PRN metoprolol 25 mg PO DAILY 08/31/21 08/31/21 Unknown History succinate 25 mg tablet,extended release 24 hr Physical Exam Verdana 4l Vital Signs and Narrative: Verdana 4d Verdana 4d Vital Signs: Verdana 4d Verdana 4Bd Last Vital Signs Verdana 4d Electricity Trader New 4d Electricity Trader New 4d Temp 97.9 F 08/31/21 18:00 Electricity Trader New 4d Pulse 79 08/31/21 18:00 Electricity Trader New 4d Resp 16 08/31/21 18:00 BP 95/50 L 08/31/21 18:27 Pulse Ox 99 08/31/21 18:00 Oxygen Flow Rate 4 08/31/21 14:36 BMI result Body Mass Index 20.5 Gen: Appears be in no acute distress. On supplemental oxygen via nasal cannula. Breathing comfortably HEENT: NCAT, Moist mucosa. Pulmonary: ; noted rales and rhonchi on the right side; CVS: Normal S1-S2 Abdomen: BS+, Soft, Nontender Extremities: Warm well perfused Neuro: Alert and awake. Results Labs CBC and Chem 7: 08/31/21 11:16 08/31/21 11:16 Labs: Laboratory Results - last 24 hr 08/31/21 08/31/21 08/31/21 11:16 11:16 11:16 MCV 89.0 MCH 27.0 MCHC 30.3 L RDW 18.1 H Plt Count 118 L MPV 10.9 Immature Gran % (Auto) 0.6 H Neut % (Auto) 89.0 H Lymph % (Auto) 5.5 L [place] % (Auto) 4.7 Eos % (Auto) 0.1 Baso % (Auto) 0.1 Lymph # (Auto) 0.9 L [place] # (Auto) 0.8 Eos # (Auto) 0.0 Baso # (Auto) 0.0 Abs Immat Gran (auto) 0.10 H Absolute Neuts (auto) 14.8 H Absolute Nucleated RBC 0.000 Nucleated RBC % (auto) 0.0 D-Dimer High Sensitivty 3332 Anion Gap 11 L Estim Creat Clear Calc 41.7 Estimated GFR > 60 Random Glucose 374 H* Lactic Acid Lactic Acid F/U @ 2Hr Calcium 8.1 L Magnesium 2.1 Total Bilirubin 0.5 AST 21 ALT 23 Alkaline Phosphatase 79 D Troponin I High Sens B-Natriuretic Peptide Total Protein 6.1 L Albumin 2.8 L Lipase 26 08/31/21 08/31/21 08/31/21 11:16 11:16 13:46 MCV MCH MCHC RDW Plt Count MPV Immature Gran % (Auto) Neut % (Auto) Lymph % (Auto) [place] % (Auto) Eos % (Auto) Baso % (Auto) Lymph # (Auto) [place] # (Auto) Eos # (Auto) Baso # (Auto) Abs Immat Gran (auto) Absolute Neuts (auto) Absolute Nucleated RBC Nucleated RBC % (auto) D-Dimer High Sensitivty Anion Gap Estim Creat Clear Calc Estimated GFR Random Glucose Lactic Acid 3.4 H* Lactic Acid F/U @ 2Hr 3.2 H* Calcium Magnesium Total Bilirubin AST ALT Alkaline Phosphatase Troponin I High Sens 20.3 D B-Natriuretic Peptide 185 H Total Protein Albumin Lipase Imaging Radiologist's Impressions: Impressions Chest X-Ray 08/31/21 10:51 IMPRESSION: Bilateral lower lobe infiltrates. This may be slightly improved compared to most recent chest x-ray 08/21/2021. Chest CTA 08/31/21 15:03 IMPRESSION: No evidence of pulmonary embolism. Dense airspace disease and air bronchograms in the right lower lobe and posterior segment of the right upper lobe suggestive of acute pneumonia. Patchy heterogeneous semisolid or groundglass attenuation infiltrates seen in the bilateral upper and left lower lobes probably representing small pneumonia or pneumonitis. Small bilateral pleural effusions. Left posterior 10th and 11th displaced rib fractures, uncertain age. VTE: Assessment and Plan (1) Multifocal pneumonia: Status: Acute Plan 81-year-old male with a past medical history of hypertension, hyperlipidemia, diabetes, CAD, CHF with EF of 20%, AICD, paroxysmal AFib -not on anticoagulation; chronic kidney disease, anemia, history of fib pressure; recent admission to the hospital for COVID-19 pneumonia - finish tender course of steroids; discharged to the rehab: 08/30/2021; presented back from the rehab with a chief complaint of hypoxia. Pneumonia: CT chest showed severe dense multifocal pneumonia on right side; GGOs and apical pneumonitis. Patient currently on supplemental oxygen. Continue broad-spectrum antibiotics IV vancomycin and Zosyn. Patient had recent COVID-19 pneumonia. Repeat COVID test pending Will keep the patient on empiric Decadron Aspiration precautions Pulmonology consult for further recommendations. Will also consult ID Diabetes: Will keep the patient on Lantus 10 units and insulin sliding scale. History of ischemic cardiomyopathy: EF of 20%. Status post AICD. Patient on Lasix at home. Will hold Lasix for now given soft blood pressure. Patient received 1 L of fluids in the ER. Monitor for signs of fluid overload. If blood pressure remains stable to be resumed on Lasix from tomorrow History of hypertension: Hold home antihypertensives. History of CKD: Creatinine at baseline. History of AFib: Rate controlled. Patient not on anticoagulation.. History of anemia: Hemoglobin at baseline. DVT prophylaxis: Lovenox Code status: Full code Quality Stroke Does the patient have a stroke diagnosis?: No VTE Prior VTE?: No VTE Risk Level:: Medical - moderate - high VTE Device Contraindication: Treatment Not Indicated VTE Drug Contraindication: N/A - Med Ordered
--- NOTE | 2021-08-31 21:01 | PHA.PROG ---
Addendum entered by Tiffany Walker RPh 09/01/21 09:27: Patients renal function improved, will continue to monitor and check a trough on 09/02 at 1999. The indication is respiratory. Original Note: Admission Date/Time: Indication: Weight in k.235 kg Adjusted body weight in Kg: [place] body weight in Kg: Obesity Dosing Indication % IBW: Serum Creatinine - Last 168 Hours 08/31/21 11:16 Creatinine 1.16 Estimated CrCl and GFR - Last 168 Hours 08/31/21 11:16 Estim Creat Clear Calc 41.7 Estimated GFR > 60 Vancomycin Loading Dose: Current Vancomycin Dosing Regimen: Vancomycin Monitoring using AUC goal of 400 - 600 range with trough as surrogate marker: Date and Time for next Vancomycin Level to be drawn: Pharmacist Comments on Vancomycin Plan: 1500 mg load then 500 q24h auc 503 Vancomycin dosing will take advantage of [employer] as a clinical decision support tool that uses Bayesian modeling to calculate individual patient's pharmacokinetic parameters and forecast the patient's drug concentration time course with the target goal AUC 24 range of 400 - 600 mg/L/hr.
[2021-08-31 21:19] LABS: VBG HCO3 33 mmol/L (22-26); VBG pCO2 40 mmHg; VBG pH 7.52 (7.32-7.43); VBG pO2 38 mmHg
[2021-08-31 21:19] LABS: Venous Blood Gas Refer to POC result
[2021-08-31] MEDS: Melatonin 3 MG TABLET 6 MG PO (21:34)
[2021-08-31] MEDS: Insulin Glargine,Hum.rec.anlog 100 UNIT/ML 10 ML VIAL 10 UNIT SUBCUT (21:34)
[2021-08-31] MEDS: Morphine Sulfate 4 MG/ML CARTRIDGE IVPUSH (21:34)
[2021-08-31] MEDS: Atorvastatin Calcium 40 MG TABLET PO (21:35)
[2021-08-31] MEDS: Enoxaparin Sodium 40 MG/0.4 ML SYRINGE SUBCUT (21:35)
[2021-08-31 21:38] LABS: COVID-19 Test Positive (Negative)
[2021-08-31 21:47] LABS: Glucose, Whole Blood 190 mg/dL (60-115)
[2021-08-31] MEDS: vancomycin HCL 1,500 MG in 0.9 % Sodium Chloride 500 ML 333.33 MG IV (22:27)
[2021-08-31] MEDS: Insulin Lispro 100 UNIT/ML 3 ML VIAL SUBCUT (22:27)
[2021-09-01] VITALS (8 sets, daily range): BP systolic 95–108; BP diastolic 46–60; PULSE 72–101; RESP 14–19; TEMP 36.1–36.8; O2SAT 92–100; BMI 18.4; BMI 20.5
[2021-09-01 00:13] LABS: Appearance Urine CLOUDY; Color Urine YELLOW; Glucose Urine UA 250 MG/DL (NEG); Leukocyte Esterase Urine 1+ (NEG); Nitrite Urine POS (NEG); PH 5.5 (5.0-8.0); UACC Culture Trigger YES; Urine Blood TRACE (NEG); Urine Ketones NEG (NEG); Urine Protein NEG (NEG-TRACE)
[2021-09-01 00:21] LABS: Bacteria Urine 3+ /LPF; Mucus Urine 2+ /LPF; Renal Epithelial Cells Urine TRACE /LPF; Squamous Epithelial Cell Urine TRACE /LPF
[2021-09-01] MEDS: Piperacillin Sodium/Tazobactam 3.375 GM in 0.9 % Sodium Chloride 50 ML IV ×2 (01:38→05:55)
[2021-09-01] MEDS: Omeprazole 20 MG CAPSULE.DR PO (05:51)
[2021-09-01 06:21] LABS: MANUAL DIFF FLAG NO
[2021-09-01 06:29] LABS: Basophils Percent Auto 0.1 % (0-2); Eosinophils Percent Auto 0.2 % (0-4); Hematocrit 29.8 % (42.0-52.0); Imm Gran Pct Auto 0.6 % (0.0-0.4); Lymphocytes Absolute Auto 0.8 X10*3/uL (1.2-4.9); Lymphocytes Percent Auto 5.4 % (20-40); Mean Corpuscular HGB Conc 30.2 g/dl (31.0-36.0); Mean Corpuscular Hemoglobin 27.2 pg (27.0-33.0); Mean Platelet Volume 10.7 fL (9.4-12.4); Monocytes Absolute Auto 0.6 X10*3/uL (0.1-1.2); Monocytes Percent Auto 3.7 % (2-11); Neutrophils Absolute Auto 14.1 x10*3/uL (2.0-8.3); Platelet Count 84 X10*3/uL (160-400); Red Blood Count 3.31 X10*6/uL (4.60-5.80); Red Cell Distribution Width 18.1 % (11.0-16.0); White Blood Count 15.6 X10*3/uL (4.8-10.8)
[2021-09-01 06:45] LABS: Anion Gap 10 (12-20); Blood Urea Nitrogen 32 mg/dL (9-16); Calcium 7.9 mg/dL (8.4-10.2); Carbon Dioxide 30 mmol/L (22-29); Chloride 101 mmol/L (96-108); Creatinine Clr Calc Pharmacy 52.5; Estimated Glomerular Filt Rate > 60; Glucose Random 83 mg/dL (60-115); Potassium 3.8 mmol/L (3.3-5.1); Sodium 137 mmol/L (135-145)
[2021-09-01 07:15] LABS: Glucose, Whole Blood 64 mg/dL (60-115)
[2021-09-01 08:08] LABS: Glucose, Whole Blood 105 mg/dL (60-115)
--- NOTE | 2021-09-01 09:24 | P.CONPL_ITS ---
History of Present Illness History of Present Illness Consult date: 09/01/21 Chief complaint: PNA Narrative: ?This is an inpatient pulmonary consultation. The patient is an 81-year-old mal e with a past medical history of hypertension, hyperlipidemia,? diabetes, CAD, CHF with EF of 20%, AICD, paroxysmal AFib -not on anticoagulation;? chronic kidney disease, anemia, history of fib pressure; recent admission to the hospital for COVID-19 pneumonia - finish tender course of steroids; discharged to the rehab:? 08/30/2021; presented back from the rehab with a chief complaint of hypoxia.? In the ER team patient's CT chest showed dense pneumonia - multifocal; upper lobe pneumonitis; requiring 4 L of supplemental oxygen.? Not in respiratory distress.? Also had an episode of drop in blood pressure to 80 systolic.? Received 1 L of normal saline.? Admitted to the hospital for further management. Currently the patient is feeling better. He is comfortable on the oxygen supplementation. Blood pressure has improved. Currently on Zosyn treating for postviral bacterial infection. I did look at the CT scan myself demonstrating areas of patchy dense consolidations consistent with lower respiratory infection. Review of Systems Verdana 4l Review of Systems: Verdana 4d denies chest pain Denies Verdana 4d shortness of breath Denies nausea vomiting and diarrhea Admits to generalized weakness Verdana 4d PMFSH Past Medical History Medical History (Updated 08/31/21 @ 21:02 by Sam Segal MD) Anemia Anemia Atherosclerotic cardiovascular disease Basal cell carcinoma of skin Chronic renal failure, stage 2 (mild) Closed hip fracture Congestive cardiomyopathy Congestive heart failure Diabetes 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 Hyperlipidemia ICD (implantable cardioverter-defibrillator) in place Ischemic cardiomyopathy 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 If so, by whom?: No Do you feel safe in your current relationship?: Yes Is there a partner from a previous relationship who is making you feel unsafe now?: No Are you made to feel afraid or neglected: No Advance Directives: Yes Advance Directives on File: Yes Advance Directives Date on File: 07/01/21 Do you have thoughts of harming others: None Do you have a plan to hurt others: No Plan Recently lost weight without trying: Unsure How much weight loss: Unsure Eating poorly because of decreased appetite: Yes Nutrition screen score: 5 service: No Current occupational status: retired [employer] Allergies Allergy/AdvReac Type Severity Reaction Status Date / Time No Known Allergies Allergy Verified 07/18/21 11:27 Active Medications: Current Medications Acetaminophen (Acetaminophen 325 Mg Tablet) 650 mg PO Q6H PRN PRN Reason: Pain, Mild (Pain Scale 1-3) Albuterol/Ipratropium (Albuterol/Iprat 2.5/0.5mg 3 Ml Ampul.Neb) 3 ml INHALE Q4H PRN PRN Reason: Shortness of Breath/Wheezing Atorvastatin Calcium (Atorvastatin Calcium 40 Mg Tablet) 40 mg PO BEDTIME [facility] Last Admin: 08/31/21 21:35 Dose: 40 mg Documented by: Cyanocobalamin (Cyanocobalamin (Vitamin B-12) 1,000 Mcg Tablet) 1,000 mcg PO DAILY [facility] Dexamethasone Sodium Phosphate (Dexamethasone Sod Phosphate 4 Mg/Ml Vial) 6 mg IVPUSH DAILY [facility] Dextrose (Dextrose 50 % 25 Gm/50 Ml Syringe) 25 gm IVPUSH Q15M PRN; Protocol PRN Reason: per Hypoglycemia Standing Ord. Enoxaparin Sodium (Enoxaparin Sodium 40 Mg/0.4 Ml Syringe) 40 mg SUBCUT Q24H [facility] Last Admin: 08/31/21 21:35 Dose: 40 mg Documented by: Glucose (Glucose Gel 15 Gm Gel..Gram.) 15 gm PO Q15M PRN; Protocol PRN Reason: per Hypoglycemia Standing Ord. Piperacillin Sod/Tazobactam (Sod 3.375 gm/ Sodium Chloride) 50 mls @ 100 mls/hr IV Q6H [facility] Last Infusion: 09/01/21 06:25 Dose: Infused Documented by: Vancomycin HCl 500 mg/ Sodium (Chloride) 110 mls @ 110 mls/hr IV Q24H [facility] Insulin Glargine (Insulin Glargine,Hum.Rec.Anlog 100 Unit/Ml 10 Ml Vial) 10 unit SUBCUT BEDTIME [facility] Last Admin: 08/31/21 21:34 Dose: 10 unit Documented by: Insulin Human Lispro (Insulin Lispro 100 Unit/Ml 3 Ml Vial) 0 unit SUBCUT QIDACHS [facility]; Protocol Last Admin: 09/01/21 07:23 Dose: Not Given Documented by: Melatonin (Melatonin 3 Mg Tablet) 6 mg PO BEDTIME PRN PRN Reason: Insomnia Last Admin: 08/31/21 21:34 Dose: 6 mg Documented by: Morphine Sulfate (Morphine Sulfate 4 Mg/Ml Cartridge) 4 mg IVPUSH Q4H PRN; Protocol PRN Reason: Pain, SOB Last Admin: 08/31/21 21:34 Dose: 4 mg Documented by: Omeprazole (Omeprazole 20 Mg Jaky.) 20 mg PO DAILY@0630 [facility] Last Admin: 09/01/21 05:51 Dose: 20 mg Documented by: Pharmacy Consult (Consult Rx Vancomycin Dosing) 1 each MISCELLANE DAILY PRN PRN Reason: Consult order Senna (Sennosides 8.6 Mg Tablet) 17.2 mg PO BEDTIME PRN PRN Reason: Constipation Sodium Chloride (0.9 % Sodium Chloride Flush 3 Ml Syringe) 3 ml IVFLUSH QSHIFT [facility] Last Admin: 09/01/21 00:51 Dose: Not Given Documented by: Home Medications Medication Instructions Recorded Confirmed Last Taken Type atorvastatin 40 1 tab PO 10/17/20 08/31/21 10/16/20 20:00 History mg tablet BEDTIME cyanocobalamin 1 tab PO DAILY 10/17/20 08/31/21 06/25/21 History (vitamin B-12) 1,000 mcg tablet (Vitamin B-12) metformin 1,000 1 tab PO BID 10/17/20 08/31/21 06/25/21 History mg tablet furosemide 20 1 tab PO DAILY 08/13/21 08/31/21 Unknown History mg tablet omeprazole 20 1 cap PO 08/13/21 08/31/21 Unknown History mg DAILY@0630 capsule,delayed release acetaminophen 650 mg PO Q6H 08/31/21 08/31/21 Unknown History 325 mg tablet PRN metoprolol 25 mg PO DAILY 08/31/21 08/31/21 Unknown History succinate 25 mg tablet,extended release 24 hr Physical Exam 2 Verdana 4l Vital Signs: Verdana 4d Verdana 4d Vital Signs: Verdana 4d Verdana 4Bd Last Vital Signs Verdana 4d Laboratory Miller New 4d Laboratory Miller New 4d Temp 97.1 F 09/01/21 07:29 Laboratory Miller New 4d Pulse 80 09/01/21 07:29 Laboratory Miller New 4d Resp 18 09/01/21 07:29 BP 95/52 L 09/01/21 07:29 Pulse Ox 96 09/01/21 07:29 Oxygen Flow Rate 4 08/31/21 14:36 BMI result Body Mass Index 18.4 Const: General: alert Neck: Neck: Yes normal visual inspection, Yes full ROM and Yes no lymphadenopathy Chest: Chest palpation & inspection: normal inspection of the chest Resp: Auscultation: diminished lung sounds Cardio: Rate: regular rate Rhythm: regular rhythm Heart sounds: S1 normal heart sound present and S2 normal heart sound present GI: Palpation (GI): Soft to palpation and nontender Auscultation: normal bowel sounds Skin: General skin exam: rashes and/or lesions noted Results Laboratory Findings CBC and BMP: 09/01/21 06:00 09/01/21 06:00 Abnormal lab findings: Abnormal Labs 08/31/21 08/31/21 08/31/21 11:16 11:16 11:16 WBC 16.6 H RBC 3.26 L Hgb 8.8 L Hct 29.0 L MCHC 30.3 L RDW 18.1 H Plt Count 118 L Immature Gran % (Auto) 0.6 H Neut % (Auto) 89.0 H Lymph % (Auto) 5.5 L Lymph # (Auto) 0.9 L Abs Immat Gran (auto) 0.10 H Absolute Neuts (auto) 14.8 H VBG pH VBG HCO3 Sodium 133 L Chloride 95 L Carbon Dioxide 32 H Anion Gap 11 L BUN 41 H POC Glucose Random Glucose 374 H* Lactic Acid 3.4 H* Lactic Acid F/U @ 2Hr Calcium 8.1 L B-Natriuretic Peptide Total Protein 6.1 L Albumin 2.8 L Urine Glucose (UA) Urine Nitrite Ur Leukocyte Esterase Urine WBC COVID-19 ([facility]) 08/31/21 08/31/21 08/31/21 11:16 13:46 21:14 WBC RBC Hgb Hct MCHC RDW Plt Count Immature Gran % (Auto) Neut % (Auto) Lymph % (Auto) Lymph # (Auto) Abs Immat Gran (auto) Absolute Neuts (auto) VBG pH 7.52 H VBG HCO3 33 H Sodium Chloride Carbon Dioxide Anion Gap BUN POC Glucose Random Glucose Lactic Acid Lactic Acid F/U @ 2Hr 3.2 H* Calcium B-Natriuretic Peptide 185 H Total Protein Albumin Urine Glucose (UA) Urine Nitrite Ur Leukocyte Esterase Urine WBC COVID-19 ([facility]) 08/31/21 08/31/21 09/01/21 21:18 21:43 00:07 WBC RBC Hgb Hct MCHC RDW Plt Count Immature Gran % (Auto) Neut % (Auto) Lymph % (Auto) Lymph # (Auto) Abs Immat Gran (auto) Absolute Neuts (auto) VBG pH VBG HCO3 Sodium Chloride Carbon Dioxide Anion Gap BUN POC Glucose 190 H Random Glucose Lactic Acid Lactic Acid F/U @ 2Hr Calcium B-Natriuretic Peptide Total Protein Albumin Urine Glucose (UA) 250 H Urine Nitrite POS H Ur Leukocyte Esterase 1+ H Urine WBC 10-14 H COVID-19 ([facility]) Positive A 09/01/21 09/01/21 06:00 06:00 WBC 15.6 H RBC 3.31 L Hgb 9.0 L Hct 29.8 L MCHC 30.2 L RDW 18.1 H Plt Count 84 L D Immature Gran % (Auto) 0.6 H Neut % (Auto) 90.0 H Lymph % (Auto) 5.4 L Lymph # (Auto) 0.8 L Abs Immat Gran (auto) 0.10 H Absolute Neuts (auto) 14.1 H VBG pH VBG HCO3 Sodium Chloride Carbon Dioxide 30 H Anion Gap 10 L BUN 32 H POC Glucose Random Glucose Lactic Acid Lactic Acid F/U @ 2Hr Calcium 7.9 L B-Natriuretic Peptide Total Protein Albumin Urine Glucose (UA) Urine Nitrite Ur Leukocyte Esterase Urine WBC COVID-19 ([facility]) Assessment and Plan (1) Acute hypoxemic respiratory failure due to COVID-19: Status: Acute (2) Multifocal pneumonia: Status: Acute Plan Complete an 8 day course of antibiotics. Currently on Zosyn. Okay to switch to Augmentin to finish the course once better Continue oxygen supplementation to maintain a pulse ox above 90% Swallow eval Procedures Date of Service Date of Service: 09/01/21
--- NOTE | 2021-09-01 09:56 | P.PNIM_ITS ---
Subjective Subjective Date of Service: 09/01/21 Interval History: cc: hypotension interval history: comfotable, no complaints Cardiovascular Cardiovascular: Reports no additional cardiovascular complaints Gastrointestinal Gastrointestinal: Reports no additional gastrointestinal complaints Physical Exam Verdana 4l Vital Signs: Verdana 4d Verdana 4d Vital Signs: Verdana 4d Verdana 4Bd Last Vital Signs Verdana 4d Manager Configuration New 4d Manager Configuration New 4d Temp 97.1 F 09/01/21 07:29 Manager Configuration New 4d Pulse 80 09/01/21 07:29 Manager Configuration New 4d Resp 18 09/01/21 07:29 BP 95/52 L 09/01/21 07:29 Pulse Ox 96 09/01/21 07:29 Oxygen Flow Rate 4 08/31/21 14:36 BMI result Body Mass Index 18.4 General: AO X 2, frail, no acute distress Resp: Crackles bilateral, no accessory muscles used CVS: S1,S2,RRR GI: soft, non tender, non distended Neuro: motor grossly intact, alert Psych: appropriate affect, impaired insight Objective Data Active Medications Acetaminophen (Acetaminophen 325 Mg Tablet) 650 mg PO Q6H PRN PRN Reason: Pain, Mild (Pain Scale 1-3) Albuterol/Ipratropium (Albuterol/Iprat 2.5/0.5mg 3 Ml Ampul.Neb) 3 ml INHALE Q4H PRN PRN Reason: Shortness of Breath/Wheezing Amoxicillin/Clavulanate Potassium (Amoxicillin/Potassium Clav 875 Mg Tablet) 875 mg PO Q12H [facility] Atorvastatin Calcium (Atorvastatin Calcium 40 Mg Tablet) 40 mg PO BEDTIME [facility] Last Admin: 08/31/21 21:35 Dose: 40 mg Documented by: JANINE Cyanocobalamin (Cyanocobalamin (Vitamin B-12) 1,000 Mcg Tablet) 1,000 mcg PO DAILY [facility] Dexamethasone Sodium Phosphate (Dexamethasone Sod Phosphate 4 Mg/Ml Vial) 6 mg IVPUSH DAILY [facility] Dextrose (Dextrose 50 % 25 Gm/50 Ml Syringe) 25 gm IVPUSH Q15M PRN; Protocol PRN Reason: per Hypoglycemia Standing Ord. Enoxaparin Sodium (Enoxaparin Sodium 40 Mg/0.4 Ml Syringe) 40 mg SUBCUT Q24H [facility] Last Admin: 08/31/21 21:35 Dose: 40 mg Documented by: JANINE Glucose (Glucose Gel 15 Gm Gel..Gram.) 15 gm PO Q15M PRN; Protocol PRN Reason: per Hypoglycemia Standing Ord. Insulin Glargine (Insulin Glargine,Hum.Rec.Anlog 100 Unit/Ml 10 Ml Vial) 10 unit SUBCUT BEDTIME [facility] Last Admin: 08/31/21 21:34 Dose: 10 unit Documented by: JANINE Insulin Human Lispro (Insulin Lispro 100 Unit/Ml 3 Ml Vial) 0 unit SUBCUT QIDACHS [facility]; Protocol Last Admin: 09/01/21 07:23 Dose: Not Given Documented by: CORNEL Non-Admin Reason: No Insulin Coverage Melatonin (Melatonin 3 Mg Tablet) 6 mg PO BEDTIME PRN PRN Reason: Insomnia Last Admin: 08/31/21 21:34 Dose: 6 mg Documented by: JANINE Morphine Sulfate (Morphine Sulfate 4 Mg/Ml Cartridge) 4 mg IVPUSH Q4H PRN; Protocol PRN Reason: Pain, SOB Last Admin: 08/31/21 21:34 Dose: 4 mg Documented by: JANINE Omeprazole (Omeprazole 20 Mg Capsule.) 20 mg PO DAILY@0630 [facility] Last Admin: 09/01/21 05:51 Dose: 20 mg Documented by: ISABEL Pharmacy Consult (Consult Rx Vancomycin Dosing) 1 each MISCELLANE DAILY PRN PRN Reason: Consult order Senna (Sennosides 8.6 Mg Tablet) 17.2 mg PO BEDTIME PRN PRN Reason: Constipation Sodium Chloride (0.9 % Sodium Chloride Flush 3 Ml Syringe) 3 ml IVFLUSH QSHIFT [facility] Last Admin: 09/01/21 00:51 Dose: Not Given Documented by: TAHIR Non-Admin Reason: IV Running Labs CBC & Chem 7: 09/01/21 06:00 09/01/21 06:00 Labs: Laboratory Results - last 24 hr 08/31/21 08/31/21 08/31/21 11:16 11:16 11:16 MCV 89.0 MCH 27.0 MCHC 30.3 L RDW 18.1 H Plt Count 118 L MPV 10.9 Immature Gran % (Auto) 0.6 H Neut % (Auto) 89.0 H Lymph % (Auto) 5.5 L [place] % (Auto) 4.7 Eos % (Auto) 0.1 Baso % (Auto) 0.1 Lymph # (Auto) 0.9 L [place] # (Auto) 0.8 Eos # (Auto) 0.0 Baso # (Auto) 0.0 Abs Immat Gran (auto) 0.10 H Absolute Neuts (auto) 14.8 H Absolute Nucleated RBC 0.000 Nucleated RBC % (auto) 0.0 D-Dimer High Sensitivty 3332 VBG pH VBG pCO2 VBG pO2 VBG HCO3 VBG O2 Saturation VBG Base Excess Anion Gap 11 L Estim Creat Clear Calc 41.7 Estimated GFR > 60 POC Glucose Random Glucose 374 H* Lactic Acid Lactic Acid F/U @ 2Hr Calcium 8.1 L Magnesium 2.1 Total Bilirubin 0.5 AST 21 ALT 23 Alkaline Phosphatase 79 D Troponin I High Sens B-Natriuretic Peptide Total Protein 6.1 L Albumin 2.8 L Lipase 26 Urine Color Urine Appearance Urine pH Ur Specific [place] Urine Protein Urine Glucose (UA) Urine Ketones Urine Blood Urine Nitrite Ur Leukocyte Esterase Urine RBC Urine WBC Ur Squamous Epith Cells Ur Renal Epithelial Cell Urine Bacteria Urine Mucus COVID-19 ([facility]) COVID-Zoji 08/31/21 08/31/21 08/31/21 11:16 11:16 13:46 MCV MCH MCHC RDW Plt Count MPV Immature Gran % (Auto) Neut % (Auto) Lymph % (Auto) [place] % (Auto) Eos % (Auto) Baso % (Auto) Lymph # (Auto) [place] # (Auto) Eos # (Auto) Baso # (Auto) Abs Immat Gran (auto) Absolute Neuts (auto) Absolute Nucleated RBC Nucleated RBC % (auto) D-Dimer High Sensitivty VBG pH VBG pCO2 VBG pO2 VBG HCO3 VBG O2 Saturation VBG Base Excess Anion Gap Estim Creat Clear Calc Estimated GFR POC Glucose Random Glucose Lactic Acid 3.4 H* Lactic Acid F/U @ 2Hr 3.2 H* Calcium Magnesium Total Bilirubin AST ALT Alkaline Phosphatase Troponin I High Sens 20.3 D B-Natriuretic Peptide 185 H Total Protein Albumin Lipase Urine Color Urine Appearance Urine pH Ur Specific [place] Urine Protein Urine Glucose (UA) Urine Ketones Urine Blood Urine Nitrite Ur Leukocyte Esterase Urine RBC Urine WBC Ur Squamous Epith Cells Ur Renal Epithelial Cell Urine Bacteria Urine Mucus COVID-19 ([facility]) COVID-19 [place] 08/31/21 08/31/21 08/31/21 21:14 21:18 21:43 MCV MCH MCHC RDW Plt Count MPV Immature Gran % (Auto) Neut % (Auto) Lymph % (Auto) [place] % (Auto) Eos % (Auto) Baso % (Auto) Lymph # (Auto) [place] # (Auto) Eos # (Auto) Baso # (Auto) Abs Immat Gran (auto) Absolute Neuts (auto) Absolute Nucleated RBC Nucleated RBC % (auto) D-Dimer High Sensitivty VBG pH 7.52 H VBG pCO2 40 VBG pO2 38 VBG HCO3 33 H VBG O2 Saturation 59.0 VBG Base Excess 10.0 Anion Gap Estim Creat Clear Calc Estimated GFR POC Glucose 190 H Random Glucose Lactic Acid Lactic Acid F/U @ 2Hr Calcium Magnesium Total Bilirubin AST ALT Alkaline Phosphatase Troponin I High Sens B-Natriuretic Peptide Total Protein Albumin Lipase Urine Color Urine Appearance Urine pH Ur Specific [place] Urine Protein Urine Glucose (UA) Urine Ketones Urine Blood Urine Nitrite Ur Leukocyte Esterase Urine RBC Urine WBC Ur Squamous Epith Cells Ur Renal Epithelial Cell Urine Bacteria Urine Mucus COVID-19 ([facility]) Positive A COVID-19 Clin Com See Note 09/01/21 09/01/21 09/01/21 00:07 06:00 06:00 MCV 90.0 MCH 27.2 MCHC 30.2 L RDW 18.1 H Plt Count 84 L D MPV 10.7 Immature Gran % (Auto) 0.6 H Neut % (Auto) 90.0 H Lymph % (Auto) 5.4 L [place] % (Auto) 3.7 Eos % (Auto) 0.2 Baso % (Auto) 0.1 Lymph # (Auto) 0.8 L [place] # (Auto) 0.6 Eos # (Auto) 0.0 Baso # (Auto) 0.0 Abs Immat Gran (auto) 0.10 H Absolute Neuts (auto) 14.1 H Absolute Nucleated RBC 0.000 Nucleated RBC % (auto) 0.0 D-Dimer High Sensitivty VBG pH VBG pCO2 VBG pO2 VBG HCO3 VBG O2 Saturation VBG Base Excess Anion Gap 10 L Estim Creat Clear Calc 52.5 Estimated GFR > 60 POC Glucose Random Glucose 83 D Lactic Acid Lactic Acid F/U @ 2Hr Calcium 7.9 L Magnesium Total Bilirubin AST ALT Alkaline Phosphatase Troponin I High Sens B-Natriuretic Peptide Total Protein Albumin Lipase Urine Color YELLOW Urine Appearance CLOUDY Urine pH 5.5 Ur Specific [place] 1.020 Urine Protein NEG Urine Glucose (UA) 250 H Urine Ketones NEG Urine Blood TRACE Urine Nitrite POS H Ur Leukocyte Esterase 1+ H Urine RBC 1-4 Urine WBC 10-14 H Ur Squamous Epith Cells TRACE Ur Renal Epithelial Cell TRACE Urine Bacteria 3+ Urine Mucus 2+ COVID-19 ([facility]) COVID-19 Clin Com 09/01/21 09/01/21 07:11 08:05 MCV MCH MCHC RDW Plt Count MPV Immature Gran % (Auto) Neut % (Auto) Lymph % (Auto) [place] % (Auto) Eos % (Auto) Baso % (Auto) Lymph # (Auto) [place] # (Auto) Eos # (Auto) Baso # (Auto) Abs Immat Gran (auto) Absolute Neuts (auto) Absolute Nucleated RBC Nucleated RBC % (auto) D-Dimer High Sensitivty VBG pH VBG pCO2 VBG pO2 VBG HCO3 VBG O2 Saturation VBG Base Excess Anion Gap Estim Creat Clear Calc Estimated GFR POC Glucose 64 105 Random Glucose Lactic Acid Lactic Acid F/U @ 2Hr Calcium Magnesium Total Bilirubin AST ALT Alkaline Phosphatase Troponin I High Sens B-Natriuretic Peptide Total Protein Albumin Lipase Urine Color Urine Appearance Urine pH Ur Specific [place] Urine Protein Urine Glucose (UA) Urine Ketones Urine Blood Urine Nitrite Ur Leukocyte Esterase Urine RBC Urine WBC Ur Squamous Epith Cells Ur Renal Epithelial Cell Urine Bacteria Urine Mucus COVID-19 ([facility]) COVID-19 Clin Com Assessment and Plan (1) Acute hypoxemic respiratory failure due to COVID-19: Status: Acute Plan ?81-year-old male with a past medical history of hypertension, hyperlipidemia,? diabetes, CAD, CHF with EF of 20%, AICD, paroxysmal AFib -not on anticoagulation;? recent admission to the hospital for COVID-19 pneumonia - discharged to the rehab:? 08/30/2021; presented back from the rehab with a chief complaint of hypoxia, hypotension. acute hypoxic respiratory failure and hypotension likely aspiraiton pneumonia vs pneumonitis in setting of weakness due to recent covid infection change to augmentin speech eval chronic systolic CHF, ischemic, EF 20% toprol DM insulin ?history of paroxysmal atrial fibrillation cannot find evidence in chart currently sinus not on AC toprol full code Quality Stroke Does the patient have a stroke diagnosis?: No VTE Prior VTE?: No VTE Risk Level:: Medical - moderate - high VTE Device Contraindication: Treatment Not Indicated VTE Drug Contraindication: N/A - Med Ordered
[2021-09-01] MEDS: Cyanocobalamin (Vitamin B-12) 1,000 MCG TABLET 1000 MCG PO (10:03)
[2021-09-01] MEDS: 0.9 % Sodium Chloride Flush 3 ML SYRINGE IVFLUSH ×2 (10:03→15:38)
[2021-09-01] MEDS: Amoxicillin/Potassium Clav 875 MG TABLET PO ×2 (10:03→20:44)
[2021-09-01] MEDS: dexAMETHasone sod phosphate 4 MG/ML VIAL 6 MG IVPUSH (10:04)
--- NOTE | 2021-09-01 11:00 | MHC.CM.PN ---
Per Nephjeremy/Joseph at [phone], the goal for dc is for Patient to return to [facility] and after that to come to live with Nephew in [place]. CM has initiated and will follow for dc planning. Patient had been living alone in a 2 family house with his Sister; Sister/HCP/Mary Jane has since and per Joseph, Patient has been informed of her passing last night.PCP is Dr. Pelon [place] and it is believed that Patient is not Covid vaccinated. CM addressed IMM with Joseph and original will be mailed certified letter to him and a copy placed on the chart.
[2021-09-01 11:06] LABS: Glucose, Whole Blood 237 mg/dL (60-115)
--- NOTE | 2021-09-01 11:27 | P.CDIC_ITS ---
CDI Concurrent Query Documentation Clarification: PHYSICIAN'S DOCUMENTATION REQUEST Date of Query: 09/01/21 1129 Patient Name: Kehinde Fowler Admit Date: 08/31/21 Dear Doctor, A review of the medical record indicates additional documentation may be indicated. Please review below and update the documentation accordingly. Clinical Indicators: Verdana 4Bd Risk Factors/Clinical Indicators/Treatments Verdana 4d Wound care assessment 2/ - Pressure Injury Stage II bilateral buttocks. Air loss bed. Based on the above, could you please provide, in the Progress Notes, further information regarding the ulcer/wound/injury: * If a pressure ulcer/injury, please also include the stage* of the ulcer: * Stage 1 - Skin intact, non-blanchable redness * Stage 2 - Partial thickness loss of dermis, includes intact or open blister * Unable to determine *Source: National Pressure Ulcer Advisory Panel (NPUAP) Use of terms such as suspected, likely, concern for, or probable (associated with a specific diagnosis that is being evaluated, monitored, or treated as if it exists) are acceptable and can be coded in the inpatient setting, when documented at the time of discharge. Thank you, Emely Steele [facility], CDIS Extension: [phone] Please use your independent medical judgment in providing your response. THIS QUERY IS PART OF THE PERMANENT MEDICAL RECORD Provider Response: Other Other Diagnosis: stage II pressure ulcer bilateral buttocks
--- NOTE | 2021-09-01 11:27 | MHC.CDI.CONC ---
CDI Concurrent Query Documentation Clarification: PHYSICIAN'S DOCUMENTATION REQUEST Date of Query: 09/01/21 1127 Patient Name: Kehinde Fowler Admit Date: 08/31/21 Dear Doctor, A review of the medical record indicates additional documentation may be indicated. Please review below and update the documentation accordingly. Clinical Indicators: Risk Factors/Clinical Indicators/Treatments Wound care assessment 2/1 - Pressure Injury Stage II bilateral buttocks. Air loss bed. Based on the above, could you please provide, in the Progress Notes, further information regarding the ulcer/wound/injury: If a pressure ulcer/injury, please also include the stage* of the ulcer: Stage 1 - Skin intact, non-blanchable redness Stage 2 - Partial thickness loss of dermis, includes intact or open blister Unable to determine *Source: National Pressure Ulcer Advisory Panel (NPUAP) Use of terms such as suspected, likely, concern for, or probable (associated with a specific diagnosis that is being evaluated, monitored, or treated as if it exists) are acceptable and can be coded in the inpatient setting, when documented at the time of discharge. Thank you, Emely Steele [facility], CDIS Extension: [phone] Please use your independent medical judgment in providing your response. THIS QUERY IS PART OF THE PERMANENT MEDICAL RECORD Provider Response: Other Other Diagnosis: stage II pressure ulcer bilateral buttocks
[2021-09-01] MEDS: Insulin Lispro 100 UNIT/ML 3 ML VIAL SUBCUT ×3 (12:36→20:41)
--- NOTE | 2021-09-01 12:50 | MHC.SL.SWA ---
Speech Pathologist Impression: Risk of Aspiration Oral Phase Dysphagia Risk of Aspiration Due to: History of Pneumonia Dysphasia Diet Status: Downgrade Liquid Consistency and Strategies for Safe Swallow: Liquid Intake Recommendation: Thin Liquid Intake Strategies: Small Sips Solid Food Consistency: Dietary Recommendations: Chopped/Advanced (NDD3) Additional Modifications to Solid Foods: Recommend CHOPPED/ADVANCED (NDD3) solids for ease of mastication, continue THIN liquids, pills WHOLE in LIQUID or PUREE. Total supervision and aspiration precautions. VESSEL MANAGER will continue to follow. [place] text sent to , RN, RD. Oral Medication Intake: Whole with Liquid Compensatory Strategies and Precautions to be Taken for Safe Swallow: Sitting Upright (90 deg) Small Bites and Sips Alternate Liquids/Solids Rate of Ingestion Change Supervision While Eating and Drinking for Safe Swallow: Total Supervision (1:1) Foods to Avoid: Swallowing Recommended Treatments: Compens. Strategy Educat. Recommendation for Speech: Inpatient Speech Therapy Comment: Frequency/Duration: Date Range for Service Req: Timeline to reassess: Application Packaging Specialist Clinican/Clinical Fellow: No Supervisory Statement: I have reviewed and agree with the student/clinical fellow's documentation: N/A Speech Language Pathologist: Rachel Murphy M.A., CCC-VESSEL MANAGER
--- NOTE | 2021-09-01 13:12 | MHC.CLN ---
RE; CONSULT PT WITH INCREASED NUTRITION RISK R/T PRESSURE INJURIES PT RECENTLY RETURNED FROM PREVIOUS HOSPITAL STAY PO VARIABLE DIET RX: 2GM NA CHOPPED-APPROPRIATE ASPHALT BLENDER EVAL REC FOR CHOPPED DIET WILL RE-START GLUCERNA BID AND NEGAR BID TO PROMOTE WOUND HEALING MONITOR PO INTAKE CLOSELY SEE ALSO CLINICAL NUTRITION ASSESSMENT
[2021-09-01 15:49] LABS: Glucose, Whole Blood 309 mg/dL (60-115)
[2021-09-01 20:14] LABS: Glucose, Whole Blood 317 mg/dL (60-115)
[2021-09-01] MEDS: Insulin Glargine,Hum.rec.anlog 100 UNIT/ML 10 ML VIAL 10 UNIT SUBCUT (20:41)
[2021-09-01] MEDS: Atorvastatin Calcium 40 MG TABLET PO (20:41)
[2021-09-01] MEDS: Enoxaparin Sodium 40 MG/0.4 ML SYRINGE SUBCUT (20:44)
[2021-09-02] MEDS: 0.9 % Sodium Chloride Flush 3 ML SYRINGE IVFLUSH ×2 (01:01→09:00)
[2021-09-02 03:53] VITALS: BP 110/60; PULSE 88; RESP 18; TEMP 36.4; O2SAT 94
--- NOTE | 2021-09-02 04:23 | PM.EVENT ---
Event Note Date of Service: 09/02/21 Event Note: NSVT: pt asymptomatic. K is 3.8 and Mag was 2.1. Cardiology Follow up in AM
[2021-09-02] MEDS: Omeprazole 20 MG CAPSULE.DR PO (05:22)
[2021-09-02 06:29] LABS: Hematocrit 26.3 % (42.0-52.0); Mean Corpuscular HGB Conc 30.4 g/dl (31.0-36.0); Mean Corpuscular Volume 88.9 fL (80.0-98.0); Mean Platelet Volume 10.7 fL (9.4-12.4); Red Blood Count 2.96 X10*6/uL (4.60-5.80); Red Cell Distribution Width 17.9 % (11.0-16.0); White Blood Count 11.7 X10*3/uL (4.8-10.8)
[2021-09-02 06:39] LABS: Platelet Count 82 X10*3/uL (160-400)
[2021-09-02 07:31] LABS: Glucose, Whole Blood 111 mg/dL (60-115)
[2021-09-02 08:00] VITALS: BP 104/50; PULSE 104; RESP 20; TEMP 36.3; O2SAT 93
[2021-09-02 08:27] LABS: Anion Gap 12 (12-20); Blood Urea Nitrogen 29 mg/dL (9-16); Calcium 8.1 mg/dL (8.4-10.2); Carbon Dioxide 29 mmol/L (22-29); Chloride 102 mmol/L (96-108); Estimated Glomerular Filt Rate > 60; Glucose Fasting 121 mg/dL (60-99); Potassium 3.9 mmol/L (3.3-5.1); Sodium 139 mmol/L (135-145)
[2021-09-02] MEDS: Cyanocobalamin (Vitamin B-12) 1,000 MCG TABLET 1000 MCG PO (09:01)
[2021-09-02] MEDS: Amoxicillin/Potassium Clav 875 MG TABLET PO (09:06)
--- NOTE | 2021-09-02 10:53 | P.PNIM_ITS ---
Subjective Subjective Date of Service: 09/02/21 Interval History: cc: hypotension interval history: comfotable, no complaints Cardiovascular Cardiovascular: Reports no additional cardiovascular complaints Respiratory Respiratory: Reports no additional respiratory complaints Physical Exam Verdana 4l Vital Signs: Verdana 4d Verdana 4d Vital Signs: Verdana 4d Verdana 4Bd Last Vital Signs Verdana 4d Grapple Operator New 4d Grapple Operator New 4d Temp 97.4 F 09/02/21 08:00 Grapple Operator New 4d Pulse 104 H 09/02/21 08:00 Grapple Operator New 4d Resp 20 09/02/21 08:00 BP 104/50 L 09/02/21 08:00 Pulse Ox 93 09/02/21 08:00 Oxygen Flow Rate 4 08/31/21 14:36 BMI result Body Mass Index 20.5 General: AO X 2, frail, no acute distress Resp:? Crackles bilateral, no accessory muscles used CVS: S1,S2,RRR GI: soft, non tender, non distended Neuro:? motor grossly intact, alert Psych: appropriate affect, impaired insight? Objective Data Active Medications Acetaminophen (Acetaminophen 325 Mg Tablet) 650 mg PO Q6H PRN PRN Reason: Pain, Mild (Pain Scale 1-3) Albuterol/Ipratropium (Albuterol/Iprat 2.5/0.5mg 3 Ml Ampul.Neb) 3 ml INHALE Q4H PRN PRN Reason: Shortness of Breath/Wheezing Amoxicillin/Clavulanate Potassium (Amoxicillin/Potassium Clav 875 Mg Tablet) 875 mg PO Q12H [facility] Last Admin: 09/02/21 09:06 Dose: 875 mg Documented by: CORNEL Atorvastatin Calcium (Atorvastatin Calcium 40 Mg Tablet) 40 mg PO BEDTIME [facility] Last Admin: 09/01/21 20:41 Dose: 40 mg Documented by: ELIUD Cyanocobalamin (Cyanocobalamin (Vitamin B-12) 1,000 Mcg Tablet) 1,000 mcg PO DAILY [facility] Last Admin: 09/02/21 09:01 Dose: 1,000 mcg Documented by: CORNEL Dextrose (Dextrose 50 % 25 Gm/50 Ml Syringe) 25 gm IVPUSH Q15M PRN; Protocol PRN Reason: per Hypoglycemia Standing Ord. Enoxaparin Sodium (Enoxaparin Sodium 40 Mg/0.4 Ml Syringe) 40 mg SUBCUT Q24H [facility] Last Admin: 09/01/21 20:44 Dose: 40 mg Documented by: ELIUD Glucose (Glucose Gel 15 Gm Gel..Gram.) 15 gm PO Q15M PRN; Protocol PRN Reason: per Hypoglycemia Standing Ord. Insulin Glargine (Insulin Glargine,Hum.Rec.Anlog 100 Unit/Ml 10 Ml Vial) 10 unit SUBCUT BEDTIME [facility] Last Admin: 09/01/21 20:41 Dose: 10 unit Documented by: ELIUD Insulin Human Lispro (Insulin Lispro 100 Unit/Ml 3 Ml Vial) 0 unit SUBCUT QIDACHS [facility]; Protocol Last Admin: 09/02/21 09:01 Dose: Not Given Documented by: CORNEL Non-Admin Reason: No Insulin Coverage Melatonin (Melatonin 3 Mg Tablet) 6 mg PO BEDTIME PRN PRN Reason: Insomnia Last Admin: 08/31/21 21:34 Dose: 6 mg Documented by: JANINE Morphine Sulfate (Morphine Sulfate 4 Mg/Ml Cartridge) 4 mg IVPUSH Q4H PRN; Protocol PRN Reason: Pain, SOB Last Admin: 08/31/21 21:34 Dose: 4 mg Documented by: JANINE Omeprazole (Omeprazole 20 Mg Capsule.) 20 mg PO DAILY@0630 [facility] Last Admin: 09/02/21 05:22 Dose: 20 mg Documented by: ANTOIC Pharmacy Consult (Consult Rx Vancomycin Dosing) 1 each MISCELLANE DAILY PRN PRN Reason: Consult order Senna (Sennosides 8.6 Mg Tablet) 17.2 mg PO BEDTIME PRN PRN Reason: Constipation Sodium Chloride (0.9 % Sodium Chloride Flush 3 Ml Syringe) 3 ml IVFLUSH QSHIFT [facility] Last Admin: 09/02/21 09:00 Dose: 3 ml Documented by: CORNEL Labs CBC & Chem 7: 09/02/21 06:06 09/02/21 06:06 Labs: Laboratory Results - last 24 hr 08/31/21 09/01/21 09/01/21 11:16 06:00 11:01 Hgb 8.8 L 9.0 L MCV MCH MCHC RDW Plt Count MPV Absolute Nucleated RBC Nucleated RBC % (auto) Anion Gap Estim Creat Clear Calc Estimated GFR POC Glucose 237 H Fasting Glucose Calcium 02/03/22 02/03/22 02/04/22 15:40 20:09 06:06 Hgb 8.0 L MCV 88.9 MCH 27.0 MCHC 30.4 L RDW 17.9 H Plt Count 82 L MPV 10.7 Absolute Nucleated RBC 0.000 Nucleated RBC % (auto) 0.0 Anion Gap Estim Creat Clear Calc Estimated GFR POC Glucose 309 H 317 H Fasting Glucose Calcium 09/02/21 09/02/21 06:06 07:21 Hgb MCV MCH MCHC RDW Plt Count MPV Absolute Nucleated RBC Nucleated RBC % (auto) Anion Gap 12 Estim Creat Clear Calc 52.0 Estimated GFR > 60 POC Glucose 111 Fasting Glucose 121 H D Calcium 8.1 L Microbiology Microbiology Results: Microbiology 08/31/21 11:16 Blood Culture - Preliminary Blood - Venous No growth after 24 hours. 08/31/21 11:01 Blood Culture - Preliminary Blood - Venous No growth after 24 hours. Assessment and Plan (1) Acute hypoxemic respiratory failure due to COVID-19: Status: Acute Plan ?81-year-old male with a past medical history of hypertension, hyperlipidemia,? diabetes, CAD, CHF with EF of 20%, AICD, paroxysmal AFib -not on anticoagulat ion;? recent admission to the hospital for COVID-19 pneumonia - discharged to the rehab:? 08/30/2021; presented back from the rehab with a chief complaint of hypoxia, hypotension. acute hypoxic respiratory failure and hypotension likely aspiration pneumonia vs pneumonitis in setting of weakness due to recent covid infection augmentin speech appreciated NDD3 chronic systolic CHF, ischemic, EF 20% toprol DM insulin ?history of paroxysmal atrial fibrillation cannot find evidence in chart currently sinus not on AC toprol full code Quality Stroke Does the patient have a stroke diagnosis?: No VTE Prior VTE?: No VTE Risk Level:: Medical - moderate - high VTE Device Contraindication: Treatment Not Indicated VTE Drug Contraindication: N/A - Med Ordered
[2021-09-02 11:00] LABS: Glucose, Whole Blood 295 mg/dL (60-115)
--- NOTE | 2021-09-02 11:03 | MHC.SLORD ---
Speech Language Pathology Order Status: Patient is on chopped/advanced solids (NDD3)/thin liquids. Per RN, patient is tolerating well. FINANCE TEACHER will continue to follow.
[2021-09-02 11:29] VITALS: BP 110/58; PULSE 105; RESP 20; TEMP 35.9; O2SAT 96
[2021-09-02] MEDS: Insulin Lispro 100 UNIT/ML 3 ML VIAL SUBCUT (12:51)
--- NOTE | 2021-09-02 13:50 | P.DS_ITS ---
DS: Providers Provider Date of Service: 09/02/21 Date of admission: 08/31/21 20:46 Primary care physician: HARRY BARBOSA Consults: 08/31/21 20:46 Consult to Pulmonology Routine Consulting Provider: Gulshan Eldridge Reason for consultation: Dense PNA; Pneumonitis 08/31/21 21:49 Consult to Infectious Diseases Routine Consulting Provider: Alaina Simms Reason for consultation: PNA DS: Diagnosis Discharge Diagnosis (1) Acute hypoxemic respiratory failure due to COVID-19: Status: Acute DS: Summary Hospital Course Hospital Course: patient was admitted for acute hypoxic respiratory failure and hypotension due to aspiration pneumonitis +/- pneumonia from weakness from recent covid and cardiomyopathy. he was treated with augmentin. still requiring 4L o2, but feeling much better, patient's bp runs on low side 90s-100s systolic due to cardiomyopathy and has been stable in the hospital. he was seen by ENVIRONMENTAL SCIENTIST who recommended NDD3 solids and thin liquids. he was seen by PT who recommended c ontinuing rehab at SNF. Time Spent with Patient Time attestation: Total time spent providing and/or coordinating discharge services: Discharge coordination time: Greater than 30 minutes Quality: Stroke Does the patient have a stroke diagnosis?: No Physical Exam Verdana 4l Vital Signs: Verdana 4d Verdana 4d Vital Signs: Verdana 4d Verdana 4Bd Last Vital Signs Verdana 4d Pie Filler New 4d Pie Filler New 4d Temp 96.7 F L 09/02/21 11:29 Pie Filler New 4d Pulse 105 H 09/02/21 11:29 Pie Filler New 4d Resp 20 09/02/21 11:29 BP 110/58 L 09/02/21 11:29 Pulse Ox 96 09/02/21 11:29 Oxygen Flow Rate 4 08/31/21 14:36 BMI result Body Mass Index 20.5 General: AO X 2, frail, no acute distress Resp:? Crackles bilateral, no accessory muscles used CVS: S1,S2,RRR GI: soft, non tender, non distended Neuro:? motor grossly intact, alert Psych: appropriate affect, impaired insight? DS: Data Data Completed and Pending Completed studies during hospitalization [Text1]: Procedures Assistance with Respiratory Ventilation, Less than 24 Consecutive Hours, Continuous Positive Airway Pressure (10/18/20) Replacement of Left Hip Joint, Femoral Surface with Synthetic Substitute, Uncemented, Open Approach (06/26/21) Transfusion of Nonautologous Red Blood Cells into Peripheral Vein, Percutaneous Approach (06/26/21) Labs on day of discharge: Laboratory Results - last 24 hr 09/01/21 09/01/21 09/02/21 15:40 20:09 06:06 WBC 11.7 H RBC 2.96 L Hgb 8.0 L Hct 26.3 L MCV 88.9 MCH 27.0 MCHC 30.4 L RDW 17.9 H Plt Count 82 L MPV 10.7 Absolute Nucleated RBC 0.000 Nucleated RBC % (auto) 0.0 Sodium Potassium Chloride Carbon Dioxide Anion Gap BUN Creatinine Estim Creat Clear Calc Estimated GFR POC Glucose 309 H 317 H Fasting Glucose Calcium 09/02/21 09/02/21 09/02/21 06:06 07:21 10:53 WBC RBC Hgb Hct MCV MCH MCHC RDW Plt Count MPV Absolute Nucleated RBC Nucleated RBC % (auto) Sodium 139 Potassium 3.9 Chloride 102 Carbon Dioxide 29 Anion Gap 12 BUN 29 H Creatinine 0.93 Estim Creat Clear Calc 52.0 Estimated GFR > 60 POC Glucose 111 295 H Fasting Glucose 121 H D Calcium 8.1 L Preliminary micro results at discharge 08/31/21 11:16 Blood Culture - Preliminary Blood - Venous No growth after 48 hours. 08/31/21 11:01 Blood Culture - Preliminary Blood - Venous No growth after 48 hours. Discharge Plan Discharge Patient Disposition: [facility] (formerly [facility] Discharge Diagnosis: aspiration Referrals: heike [Other] - 1 Week HARRY BARBOSA [Primary Care Provider] - 1 Week Discharge Medications: New amoxicillin-pot clavulanate 875-125 mg Tablet 875 mg PO Q12H Qty: 0 0RF Continued atorvastatin 40 mg tablet 1 tab PO BEDTIME 0RF cyanocobalamin (vitamin B-12) [Vitamin B-12] 1,000 mcg tablet 1 tab PO DAILY 0RF metformin 1,000 mg tablet 1 tab PO BID 0RF acetaminophen 325 mg Tablet 650 mg PO Q6H PRN (Reason: Pain) 0RF metoprolol succinate 25 mg Tablet Extended Release 24 Hr 25 mg PO DAILY 0RF ipratropium-albuterol 0.5 mg-3 mg(2.5 mg base)/3 mL Solution For Nebulization 3 ml inhalation Q4H PRN (Reason: Shortness Of Breath) Qty: 30 0RF omeprazole 20 mg capsule,delayed release(DR/EC) 1 cap PO DAILY@0630 0RF Discontinued furosemide 20 mg tablet 1 tab PO DAILY 0RF Discharge Orders: Discharge Order (Routine); Ordered 09/02/21 Ordered By: Tang Stephens Diet: advance to usual diet Activity on Discharge: As tolerated Stand Alone Forms: Patient Portal Discharge page Care Plan Goals: avoid hospitalizations Health Concerns: aspiration, recent covid Plan of Treatment: augmentin, ndd3 solids, wean o2 as tolerated, rehab Assessment: see above
--- NOTE | 2021-09-02 14:01 | MHC.CM.PN ---
pt to be dcd today at 4 to [facility] notified hcp completed and scanned in,imm updated
[2021-09-02 17:44] LABS: Glucose, Whole Blood 275 mg/dL (60-115)
== END 2021-09-02 18:30 | disposition skilled nursing facility (03) | DRG 177 ==
LOC: HO.ED 21:02 → HO.EDOVER 21:06 → HO.IMC 09-01 02:55
PROVIDERS: Internal Medicine; Admitting Provider Hospitalist; Emergency Provider Emergency Medicine Emergency Medical Services; PCP Emergency Medicine; Visit Provider Internal Medicine
DX: J69.0 Pneumonitis due to inhalation of food and vomit (principal); J96.01 Acute respiratory failure with hypoxia; I13.0 Hypertensive heart and chronic kidney disease with heart failure and stage 1 through stage 4 chronic kidney disease, or unspecified chronic kidney disease; I50.22 Chronic systolic (congestive) heart failure; I47.1 Supraventricular tachycardia; I42.9 Cardiomyopathy, unspecified; U07.1 COVID-19; E78.5 Hyperlipidemia, unspecified; I25.10 Atherosclerotic heart disease of native coronary artery without angina pectoris; I95.9 Hypotension, unspecified; L89.322 Pressure ulcer of left buttock, stage 2; J18.9 Pneumonia, unspecified organism; E11.22 Type 2 diabetes mellitus with diabetic chronic kidney disease; U09.9 Post COVID-19 condition, unspecified; N18.2 Chronic kidney disease, stage 2 (mild); L89.312 Pressure ulcer of right buttock, stage 2; D63.1 Anemia in chronic kidney disease; I48.91 Unspecified atrial fibrillation; Z95.810 Presence of automatic (implantable) cardiac defibrillator; Z79.84 Long term (current) use of oral hypoglycemic drugs; Z79.899 Other long term (current) drug therapy
CPT/HCPCS: 36415; 71046; 71275; 80048; 80053; 81001; 82803; 82947; 83605; 83690; 83735; 83880; 84484; 85025; 85027; 85379; 87040; 87086; 87635; 92610; 93005; 96361; 96374; 97162; 99285; J1100; J1650; J2270; J2543; J3370; Q9967